=== PATIENT | male | born 1960 | race Caucasian/White ===

== ENCOUNTER 2020-04-09 08:49 | Emergency (ER) | payer MEDICAID, SELFPAY ==
[2020-04-09 09:04] VITALS: BP 158/92; PULSE 109; RESP 18; TEMP 37.2; O2SAT 96; BMI 19.8
--- NOTE | 2020-04-09 09:14 | ED.MALEGU ---
HPI - Male Genitourinary General Chief complaint: Urogenital-Male Stated complaint: uro genital complaint Time Seen by Provider: 04/09/20 09:06 History of Present Illness HPI Narrative: Patient complains of burning on urination for 3 days as well as rash under foreskin for several days which is itchy and kincaid, no fever no chills denies any discharge, patient is sexually active Related Data Previous Rx's Medication Instructions Recorded clotrimazole 1 appl TOPICAL BID 14 Days #30 g 04/09/20 doxycycline hyclate 100 mg PO BID 7 Days #14 cap 04/09/20 hydrocortisone 1 appl TOPICAL TID PRN #28.35 g 04/09/20 mupirocin 1 appl TOPICAL TID 7 Days #15 g 04/09/20 Allergies Allergy/AdvReac Type Severity Reaction Status Date / Time No Known Allergies Allergy Mild NONE Verified 04/09/20 09:07 Review of Systems Review of Systems: Positive for dysuria and genital rash Negatives are no fever no chills no dizziness no weakness no urinary frequency no back pain no abdominal pain no testicular swelling no nausea no vomiting [facility] Past Medical History [facility] Narrative: Denies any history of diabetes Source: nursing notes reviewed Medical History (Updated 04/09/20 @ 09:58 by LENORA Che) HIV (human immunodeficiency virus infection) Social History Social History Advance Directives: No Advance Directives Information Provided: Yes Physical Exam Vital Signs: Vital Signs: Last Vital Signs Temp 99.0 F 04/09/20 09:04 Pulse 109 H 04/09/20 09:04 Resp 18 04/09/20 09:04 BP 158/92 H 04/09/20 09:04 Pulse Ox 96 04/09/20 09:04 Body Mass Index 19.8 General appearance no distress, A&O x3, comfortable and cooperative Neck is supple and respiratory no acute distress abdomen is soft nontender genital exam tip of penis under foreskin is red with some whitish material, foreskin is easily retracted, there is no testicular swelling, there is no discharge Extremities for range of motion x4 neuro no focal deficit Course Course Course Narrative: Patient is treated for possible STD with Rocephin and doxycycline and for balanitis he will be treated with mupirocin clotrimazole and hydrocortisone cream and recommended to follow with urologist MDM - Male Genitourinary Lab Data Labs: Lab Results 04/09/20 04/09/20 Range/Units 09:17 09:17 Urine Color YELLOW Urine Appearance CLEAR Urine pH 6.0 (5.0-8.0) Ur Specific [place] 1.025 (1.005-1.025) Urine Protein NEG (NEG-TRACE) MG/DL Urine Glucose (UA) NEG (NEG) MG/DL Urine Ketones 5 (NEG) MG/DL Urine Blood TRACE (NEG) Urine Nitrite NEG (NEG) Ur Leukocyte Esterase NEG (NEG) Urine RBC 1-4 (0) /HPF Urine WBC 0 (0-4) /HPF Ur Squamous Epith Cells 1+ /LPF Urine Bacteria NONE /LPF Chlam trachomat DNA PCR Cancelled N.gonorrhoeae DNA (PCR) Cancelled Discharge Plan Discharge Clinical Impression: Dysuria, Balanitis Patient Disposition: Home, Self-Care Additional Instructions: Follow with primary doctor and urologist If this does not improve with treatment you may need a circumcision Return any time if worse Prescriptions: New doxycycline hyclate 100 mg capsule 100 mg PO BID 7 Days Qty: 14 RF: 0 mupirocin 2 % ointment 1 appl topical TID 7 Days Qty: 15 RF: 0 clotrimazole 1 % cream 1 appl topical BID 14 Days Qty: 30 RF: 0 hydrocortisone 1 % cream 1 appl topical TID PRN (Reason: rash) Qty: 28.35 RF: 0 Referrals: Gil Tipton MD [Physician] - 2 days (Balanitis) Interventions: ED Discharge Assessment Last Done: 04/09/20 10:09 Discharge Date/Time: 04/09/20 10:10
[2020-04-09] MEDS: cefTRIAXone sodium 500 MG, Lidocaine HCl 1 % MPF 1 ML IM (09:22)
[2020-04-09 09:32] LABS: Appearance Urine CLEAR; Color Urine YELLOW; Glucose Urine UA NEG (NEG); Leukocyte Esterase Urine NEG (NEG); Nitrite Urine NEG (NEG); Specific Gravity - Urine 1.025 (1.005-1.025); Urine Blood TRACE (NEG); Urine Ketones 5 MG/DL (NEG); Urine Protein NEG (NEG-TRACE)
[2020-04-09] MEDS: Fluconazole 150 MG TABLET PO (09:34)
[2020-04-09 09:37] LABS: Squamous Epithelial Cell Urine 1+ /LPF; WBC Urine 0 /HPF (0-4)
[2020-04-10 19:27] LABS: C. trachomatis RNA TMA NOT DETECTED (NOT DETECTED); N. gonorrhoeae RNA TMA NOT DETECTED (NOT DETECTED)
== END 2020-04-09 10:10 | disposition home or self-care (01) ==
PROVIDERS: Emergency Provider Emergency Medicine; PCP Internal Medicine
DX: R30.0 Dysuria (principal); N48.1 Balanitis; B20 Human immunodeficiency virus [HIV] disease
CPT/HCPCS: 36415; 81001; 87491; 87591; 96372; 99283; 99284; J0696

== ENCOUNTER 2020-06-04 10:14 | Outpatient (REF) | payer MEDICAID, SELFPAY | END 2020-06-04 10:15 | disposition home or self-care (01) | LOC: HO.LAB 10:14 | PROVIDERS: Visit Provider Internal Medicine | DX: Z20.822 Contact with and (suspected) exposure to COVID-19 (principal) | CPT/HCPCS: 36415; C9803; U0003; U0005 ==

== ENCOUNTER 2020-07-21 08:59 | Emergency (ER) | payer MEDICAID, SELFPAY ==
[2020-07-21 09:02] VITALS: BP 145/83; PULSE 91; RESP 16; TEMP 36.6; O2SAT 97; BMI 26.4
--- NOTE | 2020-07-21 09:14 | ED_ITS ---
HPI - Back Pain/Injury General Chief Complaint: Back Pain/Injury Stated Complaint: BACK PAIN Time Seen by Provider: 07/21/20 09:08 Source: patient Mode of arrival: ambulatory Limitations: no limitations History of Present Illness HPI Narrative: Patient is a 59-year-old male with past medical history of HIV who presents with low back pain x1 day. Patient states he lifted a washing machine in to his truck last night and woke up with pain in his right low back. Denies any loss of control of his bladder or bowels. States it is worse with movement. Did not try to take any medications to make it feel better or use any ice or heat. Related Data Previous Rx's Medication Instructions Recorded clotrimazole 1 appl TOPICAL BID 14 Days #30 g 04/09/20 doxycycline hyclate 100 mg PO BID 7 Days #14 cap 04/09/20 hydrocortisone 1 appl TOPICAL TID PRN #28.35 g 04/09/20 mupirocin 1 appl TOPICAL TID 7 Days #15 g 04/09/20 cyclobenzaprine 5 mg PO TID PRN #10 tab 07/21/20 cyclobenzaprine 5 mg PO TID PRN #10 tab 07/21/20 naproxen 500 mg PO BID PRN #14 tab 07/21/20 naproxen 500 mg PO BID PRN #15 tab 07/21/20 Allergies Allergy/AdvReac Type Severity Reaction Status Date / Time No Known Allergies Allergy Mild NONE Verified 04/09/20 09:07 Review of Systems Review of Systems: Yes all other systems are reviewed and are negative PMFSH Past Medical History Medical History HIV (human immunodeficiency virus infection) Social History Social History Advance Directives: Yes Advance Directives Information Provided: No Advance Directives on File: No Physical Exam Vital Signs: Vital Signs: Last Vital Signs Temp 97.8 F 07/21/20 09:02 Pulse 91 07/21/20 09:02 Resp 16 07/21/20 09:02 BP 145/83 H 07/21/20 09:02 Pulse Ox 97 07/21/20 09:02 Body Mass Index 26.4 Course Reevaluation(s) Reevaluation #1: Patient wanted prescriptions sent to [facility] on [address] in [place] so I recent the prescriptions to that location and called [facility] [place] in [place] and left a message to cancel the 2 prescriptions I sent over earlier. Discharge Plan Discharge Clinical Impression: Strain of lumbar region Qualifiers: Encounter type: initial encounter Qualified Code(s): S39.012A - Strain of muscle, fascia and tendon of lower back, initial encounter Patient Disposition: Home, Self-Care Instructions: Acute Low Back Pain (ED) Additional Instructions: If your back pain does not improve slowly over the next week or 2, please follow-up with your primary care doctor as you may need physical therapy. Please use ice on your low back as well. If you developed loss of control of your bladder or bowels, please return to the emergency department [facility] or call 911. Prescriptions: New naproxen 500 mg tablet 500 mg PO BID PRN (Reason: pain) Qty: 15 RF: 0 cyclobenzaprine 5 mg tablet 5 mg PO TID PRN (Reason: muscle spasm) Qty: 10 RF: 0 cyclobenzaprine 5 mg tablet 5 mg PO TID PRN (Reason: muscle spasm) Qty: 10 RF: 0 naproxen 500 mg tablet 500 mg PO BID PRN (Reason: pain) Qty: 14 RF: 0 No Action doxycycline hyclate 100 mg capsule 100 mg PO BID 7 Days Qty: 14 RF: 0 mupirocin 2 % ointment 1 appl topical TID 7 Days Qty: 15 RF: 0 clotrimazole 1 % cream 1 appl topical BID 14 Days Qty: 30 RF: 0 hydrocortisone 1 % cream 1 appl topical TID PRN (Reason: rash) Qty: 28.35 RF: 0 Interventions: ED Discharge Assessment Last Done: 07/21/20 09:23 Discharge Date/Time: 07/21/20 09:23
== END 2020-07-21 09:23 | disposition home or self-care (01) ==
PROVIDERS: Emergency Provider Emergency Medicine Emergency Medical Services; PCP Internal Medicine
DX: S39.012A Strain of muscle, fascia and tendon of lower back, initial encounter (principal); X50.0XXA Overexertion from strenuous movement or load, initial encounter; B20 Human immunodeficiency virus [HIV] disease; Y93.89 Activity, other specified; Y92.410 Unspecified street and highway as the place of occurrence of the external cause; Y99.9 Unspecified external cause status
CPT/HCPCS: 99283

== ENCOUNTER 2020-07-31 09:39 | Emergency (ER) | payer MEDICAID, SELFPAY ==
[2020-07-31 09:50] VITALS: BP 139/88; PULSE 75; RESP 17; TEMP 37; O2SAT 97
[2020-07-31 09:52] VITALS: BP 139/88; PULSE 83; RESP 17; TEMP 37; O2SAT 97; BMI 24.2
[2020-07-31 10:24] VITALS: BP 150/87; PULSE 74; RESP 16; O2SAT 96
[2020-07-31 10:29] LABS: MANUAL DIFF FLAG NO
[2020-07-31 10:35] LABS: Basophils Percent Auto 0.2 % (0-2); Eosinophils Absolute Auto 0.1 X10*3/uL (0.0-0.4); Eosinophils Percent Auto 1.5 % (0-4); Hematocrit 46.5 % (42-52); Hemoglobin 15.9 g/dl (14.0-18.0); Imm Gran Abs Auto 0.03 X10*3/uL (0.00-0.03); Imm Gran Pct Auto 0.3 % (0.0-0.4); Lymphocytes Absolute Auto 2.4 X10*3/uL (1.2-4.9); Lymphocytes Percent Auto 25.1 % (20-40); Mean Corpuscular HGB Conc 34.2 g/dl (31.0-36.0); Mean Corpuscular Hemoglobin 33.3 pg (27.0-33.0); Mean Corpuscular Volume 97.3 fL (80-98); Mean Platelet Volume 8.9 fL (9.4-12.4); Monocytes Absolute Auto 0.7 X10*3/uL (0.1-1.2); Monocytes Percent Auto 7.3 % (2-11); Neutrophils Absolute Auto 6.2 X10*3/uL (2.0-8.3); Neutrophils Percent Auto 65.6 % (45-73); Platelet Count 282 X10*3/uL (160-400); Red Blood Count 4.78 X10*6/uL (4.60-5.80); Red Cell Distribution Width 13.3 % (11.0-16.0); White Blood Count 9.4 X10*3/uL (4.8-10.8)
[2020-07-31 10:47] LABS: COVID-19 Test Negative (Negative)
[2020-07-31 10:48] LABS: Glucose Urine UA NEG (NEG); Leukocyte Esterase Urine NEG (NEG); Nitrite Urine NEG (NEG); PH 6.5 (5.0-8.0); Urine Blood TRACE (NEG); Urine Ketones NEG (NEG); Urine Protein NEG (NEG-TRACE)
[2020-07-31 10:50] LABS: Appearance Urine CLEAR; Color Urine YELLOW
[2020-07-31 11:00] LABS: Alanine Aminotransferase 15 U/L (0-40); Albumin Level 4.2 g/dL (3.5-5.0); Alkaline Phosphatase 82 U/L (39-117); Anion Gap 12 (12-20); Aspartate Amino Transferase 17 U/L (5-37); Bilirubin Direct 0.3 mg/dL (0.0-0.5); Bilirubin Total 0.8 mg/dL (0.0-1.0); Blood Urea Nitrogen 22 mg/dL (9-16); Calcium 9.5 mg/dL (8.4-10.2); Carbon Dioxide 27 mmol/L (22-29); Chloride 103 mmol/L (96-108); Creatinine Clr Calc Pharmacy 75.5; Estimated Glomerular Filt Rate > 60; Glucose Random 106 mg/dL (60-115); Potassium 4.7 mmol/L (3.3-5.1); Sodium 137 mmol/L (135-145); Total Protein 7.3 g/dL (6.5-8.0)
[2020-07-31 11:08] LABS: Squamous Epithelial Cell Urine TRACE /LPF; WBC Urine 0 /HPF (0-4)
[2020-07-31 11:33] VITALS: BP 175/94; PULSE 73; RESP 17; TEMP 36.8; O2SAT 99
--- NOTE | 2020-07-31 12:03 | ED.GENADULT ---
HPI - General Adult General Chief complaint: General Medical Stated complaint: loss of appetite Time Seen by Provider: 07/31/20 10:03 Source: patient Mode of arrival: ambulatory Limitations: no limitations History of Present Illness HPI narrative: Patient comes emergency room complaining of mild generalized weakness and loss of appetite for 3-4 days. Patient denies any other symptoms, no pain. Patient states he has not been sick lately. Related Data Previous Rx's Medication Instructions Recorded clotrimazole 1 appl TOPICAL BID 14 Days #30 g 04/09/20 doxycycline hyclate 100 mg PO BID 7 Days #14 cap 04/09/20 hydrocortisone 1 appl TOPICAL TID PRN #28.35 g 04/09/20 mupirocin 1 appl TOPICAL TID 7 Days #15 g 04/09/20 cyclobenzaprine 5 mg PO TID PRN #10 tab 07/21/20 cyclobenzaprine 5 mg PO TID PRN #10 tab 07/21/20 naproxen 500 mg PO BID PRN #14 tab 07/21/20 naproxen 500 mg PO BID PRN #15 tab 07/21/20 thiamine HCl (vitamin B1) 250 mg PO DAILY #14 tab 07/31/20 Allergies Allergy/AdvReac Type Severity Reaction Status Date / Time No Known Allergies Allergy Mild NONE Verified 04/09/20 09:07 Review of Systems Review of Systems: Constitutional : No Weight loss, No Fever, No Chills, No Night Sweats, No Fatigue, No Malaise, loss of appetite ENT/Mouth : No Hearing loss, No Ear Pain, No Nasal Congestion, No Sinus Pain, No Hoarseness, No sore throat, No Rhinorrhea, No Swallowing Difficulty Eyes: No Eye Pain, No Swelling, No Redness, No Foreign Body, No Discharge, No Vision Changes Cardiovascular : No Chest Pain, No SOB, No Dyspnea on Exertion, No Orthopnea, No Edema, No Palpitations Respiratory : No Cough, No Sputum, No Wheezing, No Smoke Exposure, No Dyspnea Gastrointestinal : No Nausea, No Vomiting, No Diarrhea, No Constipation, No abdominal Pain, No Hematochezia, No Melena Genitourinary : no irregular bleeding, No Dysuria, No Urinary Frequency, No Hematuria, No Urinary Incontinence, No Urgency, No Flank Pain, No Urinary Flow Changes, No Hesitancy Musculoskeletal : No joint pain, No Myalgias, No Joint Swelling Skin : No Skin Lesions, No rash Neuro : No Weakness, No Numbness, No Paresthesias, No Loss of Consciousness, No Dizziness, No Headache Psych : No Anxiety/Panic, No Depression, No SI/HI/AH/VH, No Social Issues, Heme/Lymph: No Bruising, No Bleeding,No Lymphadenopathy Endocrine : No Polyuria, No Polydipsia, No Temperature Intolerance PMF Past Medical History Medical History HIV (human immunodeficiency virus infection) Social History Social History Alcohol intake: current Alcohol intake frequency: 0-2 drinks per day Smoking Status: Current every day smoker Use of substances other than those prescribed or required for medical reasons: No Advance Directives: No Advance Directives Information Provided: No Physical Exam Vital Signs: Vital Signs: Last Vital Signs Temp 98.2 F 07/31/20 11:33 Pulse 73 07/31/20 11:33 Resp 17 07/31/20 11:33 BP 175/94 H 07/31/20 11:33 Pulse Ox 99 07/31/20 11:33 Body Mass Index 24.2 Appearance: Alert. Oriented X3. No acute distress. Eyes: Pupils equal, round and reactive to light. ENT: Pharynx normal. Neck: Normal inspection. Neck supple. No lymph nodes noted. No crepitus CVS: Normal heart rate and rhythm. Pulses normal. Normal S1 and S2 Respiratory: No respiratory distress. Breath sounds normal. No Wheezing. No rales Abdomen: Soft and nontender. No rigidity. No distention. good BS x4 Skin: Skin warm and dry. Normal skin color. Normal skin turgor. Extremities: No lower extremity edema. No lower extremity edema. No Lacerations. No Rash Neuro: Oriented X 3. No motor deficit. No sensory deficit. Moving all extermities. No slurred speech. Course Course Course Narrative: Patient is known to be HIV positive, states that as far as he knows, his viral count was undetectable as of 2019. Patient denies any pulmonary symptoms. Patient denies night sweats. However, patient states that he stop drinking alcohol yesterday. At this time, patient does not have any signs of symptoms of alcohol withdrawal. Patient requesting by means to be sent to his pharmacy. Medical Decision Making Lab Data Result diagrams: 07/31/20 10:21 07/31/20 10:21 Labs: Lab Results 07/31/20 07/31/20 07/31/20 Range/Units 10:16 10:21 10:21 WBC 9.4 (4.8-10.8) X10*3/uL RBC 4.78 (4.60-5.80) X10*6/uL Hgb 15.9 (14.0-18.0) g/dl Hct 46.5 (42-52) % MCV 97.3 (80-98) fL MCH 33.3 H (27.0-33.0) pg MCHC 34.2 (31.0-36.0) g/dl RDW 13.3 (11.0-16.0) % Plt Count 282 (160-400) X10*3/uL MPV 8.9 L (9.4-12.4) fL Immature Gran % (Auto) 0.3 (0.0-0.4) % Neut % (Auto) 65.6 (45-73) % Lymph % (Auto) 25.1 (20-40) % [place] % (Auto) 7.3 (2-11) % Eos % (Auto) 1.5 (0-4) % Baso % (Auto) 0.2 (0-2) % Lymph # (Auto) 2.4 (1.2-4.9) X10*3/uL [place] # (Auto) 0.7 (0.1-1.2) X10*3/uL Eos # (Auto) 0.1 (0.0-0.4) X10*3/uL Baso # (Auto) 0.0 (0.0-0.2) X10*3/uL Abs Immat Gran (auto) 0.03 (0.00-0.03) X10*3/uL Absolute Neuts (auto) 6.2 (2.0-8.3) X10*3/uL Absolute Nucleated RBC 0.000 (0.0-0.012) X10*3/uL Nucleated RBC % (auto) 0.0 (0.0-0.2) /100WBC Sodium 137 (135-145) mmol/L Potassium 4.7 (3.3-5.1) mmol/L Chloride 103 (96-108) mmol/L Carbon Dioxide 27 (22-29) mmol/L Anion Gap 12 (12-20) BUN 22 H (9-16) mg/dL Creatinine 1.16 (0.5-1.4) mg/dL Estim Creat Clear Calc 75.5 Estimated GFR > 60 Random Glucose 106 (60-115) mg/dL Calcium 9.5 (8.4-10.2) mg/dL Total Bilirubin 0.8 (0.0-1.0) mg/dL Direct Bilirubin 0.3 (0.0-0.5) mg/dL AST 17 (5-37) U/L ALT 15 (0-40) U/L Alkaline Phosphatase 82 (39-117) U/L Total Protein 7.3 (6.5-8.0) g/dL Albumin 4.2 (3.5-5.0) g/dL Urine Color Urine Appearance Urine pH (5.0-8.0) Ur Specific [place] (1.005-1.025) Urine Protein (NEG-TRACE) MG/DL Urine Glucose (UA) (NEG) MG/DL Urine Ketones (NEG) MG/DL Urine Blood (NEG) Urine Nitrite (NEG) Ur Leukocyte Esterase (NEG) Urine RBC (0) /HPF Urine WBC (0-4) /HPF Ur Squamous Epith Cells /LPF Urine Bacteria /LPF COVID-19 ([facility]O) Negative (Negative) COVID-19 Clin Com See Note 07/31/20 Range/Units 10:31 WBC (4.8-10.8) X10*3/uL RBC (4.60-5.80) X10*6/uL Hgb (14.0-18.0) g/dl Hct (42-52) % MCV (80-98) fL MCH (27.0-33.0) pg MCHC (31.0-36.0) g/dl RDW (11.0-16.0) % Plt Count (160-400) X10*3/uL MPV (9.4-12.4) fL Immature Gran % (Auto) (0.0-0.4) % Neut % (Auto) (45-73) % Lymph % (Auto) (20-40) % [place] % (Auto) (2-11) % Eos % (Auto) (0-4) % Baso % (Auto) (0-2) % Lymph # (Auto) (1.2-4.9) X10*3/uL [place] # (Auto) (0.1-1.2) X10*3/uL Eos # (Auto) (0.0-0.4) X10*3/uL Baso # (Auto) (0.0-0.2) X10*3/uL Abs Immat Gran (auto) (0.00-0.03) X10*3/uL Absolute Neuts (auto) (2.0-8.3) X10*3/uL Absolute Nucleated RBC (0.0-0.012) X10*3/uL Nucleated RBC % (auto) (0.0-0.2) /100WBC Sodium (135-145) mmol/L Potassium (3.3-5.1) mmol/L Chloride (96-108) mmol/L Carbon Dioxide (22-29) mmol/L Anion Gap (12-20) BUN (9-16) mg/dL Creatinine (0.5-1.4) mg/dL Estim Creat Clear Calc Estimated GFR Random Glucose (60-115) mg/dL Calcium (8.4-10.2) mg/dL Total Bilirubin (0.0-1.0) mg/dL Direct Bilirubin (0.0-0.5) mg/dL AST (5-37) U/L ALT (0-40) U/L Alkaline Phosphatase (39-117) U/L Total Protein (6.5-8.0) g/dL Albumin (3.5-5.0) g/dL Urine Color YELLOW Urine Appearance CLEAR Urine pH 6.5 (5.0-8.0) Ur Specific [place] 1.020 (1.005-1.025) Urine Protein NEG (NEG-TRACE) MG/DL Urine Glucose (UA) NEG (NEG) MG/DL Urine Ketones NEG (NEG) MG/DL Urine Blood TRACE (NEG) Urine Nitrite NEG (NEG) Ur Leukocyte Esterase NEG (NEG) Urine RBC 1-4 (0) /HPF Urine WBC 0 (0-4) /HPF Ur Squamous Epith Cells TRACE /LPF Urine Bacteria NONE /LPF COVID-19 ([facility]) (Negative) COVID-19 Clin Com Discharge Plan Discharge Clinical Impression: Loss of appetite Patient Disposition: Home, Self-Care Instructions: Weakness (ED) Additional Instructions: Please follow-up with your primary care physician tomorrow. If you have any worsening or new symptoms, please return to the emergency room or call 911 Prescriptions: New thiamine HCl (vitamin B1) 250 mg tablet 250 mg PO DAILY Qty: 14 RF: 0 No Action doxycycline hyclate 100 mg capsule 100 mg PO BID 7 Days Qty: 14 RF: 0 mupirocin 2 % ointment 1 appl topical TID 7 Days Qty: 15 RF: 0 clotrimazole 1 % cream 1 appl topical BID 14 Days Qty: 30 RF: 0 hydrocortisone 1 % cream 1 appl topical TID PRN (Reason: rash) Qty: 28.35 RF: 0 naproxen 500 mg tablet 500 mg PO BID PRN (Reason: pain) Qty: 15 RF: 0 cyclobenzaprine 5 mg tablet 5 mg PO TID PRN (Reason: muscle spasm) Qty: 10 RF: 0 cyclobenzaprine 5 mg tablet 5 mg PO TID PRN (Reason: muscle spasm) Qty: 10 RF: 0 naproxen 500 mg tablet 500 mg PO BID PRN (Reason: pain) Qty: 14 RF: 0
[2020-07-31 12:06] VITALS: BP 171/93; PULSE 71; RESP 18; O2SAT 100
== END 2020-07-31 12:46 | disposition home or self-care (01) ==
PROVIDERS: Emergency Provider Emergency Medicine
DX: R63.0 Anorexia (principal); R53.1 Weakness; Z20.822 Contact with and (suspected) exposure to COVID-19; B20 Human immunodeficiency virus [HIV] disease
CPT/HCPCS: 36415; 80048; 80076; 81001; 85025; 87635; 99283; 99284

== ENCOUNTER 2020-11-06 14:42 | Emergency (ER) | payer MEDICAID, SELFPAY ==
[2020-11-06 14:45] VITALS: BP 185/99; PULSE 110; RESP 16; TEMP 36.5; O2SAT 98; BMI 29.1
--- NOTE | 2020-11-06 15:56 | ED.ALCOHOL ---
HPI - Alcohol General Chief Complaint: ETOH/Substance Use Stated Complaint: alcohol withdrawal seeking detox Time Seen by Provider: 11/06/20 15:25 Source: patient Mode of arrival: ambulatory History of Present Illness HPI narrative: 60-year-old male with past medical history of HIV, ETOH abuse, presenting to the ED seeking EtOH detox. Admits to drinking 1/2 pt of hard liquor and three 6 packs of beer daily, last drink at 4:00 a.m. Reports decreased p.o. intake/FTT, feeling tremulous, and needing help . Denies illicit drug use, SI/HI, CP/SOB, abdominal pain, nausea/vomiting, fever/chills Related Data Previous Rx's Medication Instructions Recorded clotrimazole 1 % topical cream 1 appl TOPICAL BID 14 Days #30 g 04/09/20 doxycycline hyclate 100 mg capsule 100 mg PO BID 7 Days #14 cap 04/09/20 hydrocortisone 1 % topical cream 1 appl TOPICAL TID PRN #28.35 g 04/09/20 mupirocin 2 % topical ointment 1 appl TOPICAL TID 7 Days #15 g 04/09/20 cyclobenzaprine 5 mg tablet 5 mg PO TID PRN #10 tab 07/21/20 cyclobenzaprine 5 mg tablet 5 mg PO TID PRN #10 tab 07/21/20 naproxen 500 mg tablet 500 mg PO BID PRN #14 tab 07/21/20 naproxen 500 mg tablet 500 mg PO BID PRN #15 tab 07/21/20 thiamine HCl (vitamin B1) 250 mg 250 mg PO DAILY #14 tab 07/31/20 tablet Allergies Allergy/AdvReac Type Severity Reaction Status Date / Time No Known Allergies Allergy Mild NONE Verified 04/09/20 09:07 [facility] Past Medical History Medical History HIV (human immunodeficiency virus infection) Social History Social History Alcohol intake: current Alcohol intake frequency: 3 or more drinks per day Alcohol type: beer and hard liquor Patient Tobacco Use Status: Never used Tobacco Use of substances other than those prescribed or required for medical reasons: No Advance Directives: No Advance Directives Information Provided: No Physical Exam Vital Signs: Vital Signs: Last Vital Signs Temp 97.9 F 11/06/20 18:46 Pulse 95 11/06/20 18:46 Resp 16 11/06/20 18:46 BP 149/89 H 11/06/20 18:46 Pulse Ox 96 11/06/20 18:46 Body Mass Index 29.1 Course Course Course Narrative: -1916--mild leukocytosis of 12.7. H&H is stable. Labs otherwise unremarkable -UA with RBC/not infected. Ethanol negative. -1852--tox screen positive for THC -Had refinery operator vapor recovery unit speak with patient, patient is not interested in detox, is interested in having a household appliance installer/person to help him around the house/balance staff inspector. Patient reports to me that he can stop drinking on his own with help from God. States he seek help today and can be discharged now. Discussed with patient he is welcome to return if he changes his mind/would like to go to detox MDM - Alcohol Lab Data Result diagrams: 11/06/20 16:08 11/06/20 16:08 Labs: Lab Results 11/06/20 11/06/20 11/06/20 Range/Units 16:08 16:08 16:08 WBC 12.7 H (4.8-10.8) X10*3/uL RBC 4.52 L (4.60-5.80) X10*6/uL Hgb 15.8 (14.0-18.0) g/dl Hct 44.9 (42-52) % MCV 99.3 H (80-98) fL MCH 35.0 H (27.0-33.0) pg MCHC 35.2 (31.0-36.0) g/dl RDW 13.2 (11.0-16.0) % Plt Count 246 (160-400) X10*3/uL MPV 9.3 L (9.4-12.4) fL Immature Gran % (Auto) 0.6 H (0.0-0.4) % Neut % (Auto) 78.5 H (45-73) % Lymph % (Auto) 13.4 L (20-40) % Pacific % (Auto) 7.0 (2-11) % Eos % (Auto) 0.3 (0-4) % Baso % (Auto) 0.2 (0-2) % Lymph # (Auto) 1.7 (1.2-4.9) X10*3/uL [place] # (Auto) 0.9 (0.1-1.2) X10*3/uL Eos # (Auto) 0.0 (0.0-0.4) X10*3/uL Baso # (Auto) 0.0 (0.0-0.2) X10*3/uL Abs Immat Gran (auto) 0.08 H (0.00-0.03) X10*3/uL Absolute Neuts (auto) 10.0 H (2.0-8.3) X10*3/uL Absolute Nucleated RBC 0.000 (0.0-0.012) X10*3/uL Nucleated RBC % (auto) 0.0 (0.0-0.2) /100WBC Smear Tech's Comments VERIFIED Sodium 139 (135-145) mmol/L Potassium 5.1 (3.3-5.1) mmol/L Chloride 104 (96-108) mmol/L Carbon Dioxide 24 (22-29) mmol/L Anion Gap 16 (12-20) BUN 17 H (9-16) mg/dL Creatinine 0.87 (0.5-1.4) mg/dL Estim Creat Clear Calc 106.5 Estimated GFR > 60 Random Glucose 91 (60-115) mg/dL Calcium 9.9 (8.4-10.2) mg/dL Magnesium 1.9 (1.6-2.6) mg/dL Total Bilirubin 0.7 (0.0-1.0) mg/dL Direct Bilirubin 0.2 (0.0-0.5) mg/dL AST 23 (5-37) U/L ALT 19 (0-40) U/L Alkaline Phosphatase 86 (39-117) U/L Total Protein 8.0 (6.5-8.0) g/dL Albumin 4.5 (3.5-5.0) g/dL Lipase 33 (8-78) U/L Urine Color Urine Appearance Urine pH (5.0-8.0) Ur Specific [place] (1.005-1.025) Urine Protein (NEG-TRACE) MG/DL Urine Glucose (UA) (NEG) MG/DL Urine Ketones (NEG) MG/DL Urine Blood (NEG) Urine Nitrite (NEG) Ur Leukocyte Esterase (NEG) Urine RBC (0) /HPF Urine WBC (0-4) /HPF Ur Squamous Epith Cells /LPF Urine Bacteria /LPF Urine Opiates Screen (Not Detect) Urine Fentanyl Screen (Not Detect) Ur Barbiturates Screen (Not Detect) Ur Phencyclidine Scrn (Not Detect) Ur Amphetamines Screen (Not Detect) U Benzodiazepines Scrn (Not Detect) Urine Cocaine Screen (Not Detect) U Marijuana (THC) Screen (Not Detect) Ethyl Alcohol < 10 mg/dL 11/06/20 11/06/20 Range/Units 16:37 16:37 WBC (4.8-10.8) X10*3/uL RBC (4.60-5.80) X10*6/uL Hgb (14.0-18.0) g/dl Hct (42-52) % MCV (80-98) fL MCH (27.0-33.0) pg MCHC (31.0-36.0) g/dl RDW (11.0-16.0) % Plt Count (160-400) X10*3/uL MPV (9.4-12.4) fL Immature Gran % (Auto) (0.0-0.4) % Neut % (Auto) (45-73) % Lymph % (Auto) (20-40) % Pacific % (Auto) (2-11) % Eos % (Auto) (0-4) % Baso % (Auto) (0-2) % Lymph # (Auto) (1.2-4.9) X10*3/uL Pacific # (Auto) (0.1-1.2) X10*3/uL Eos # (Auto) (0.0-0.4) X10*3/uL Baso # (Auto) (0.0-0.2) X10*3/uL Abs Immat Gran (auto) (0.00-0.03) X10*3/uL Absolute Neuts (auto) (2.0-8.3) X10*3/uL Absolute Nucleated RBC (0.0-0.012) X10*3/uL Nucleated RBC % (auto) (0.0-0.2) /100WBC Smear Tech's Comments Sodium (135-145) mmol/L Potassium (3.3-5.1) mmol/L Chloride (96-108) mmol/L Carbon Dioxide (22-29) mmol/L Anion Gap (12-20) BUN (9-16) mg/dL Creatinine (0.5-1.4) mg/dL Estim Creat Clear Calc Estimated GFR Random Glucose (60-115) mg/dL Calcium (8.4-10.2) mg/dL Magnesium (1.6-2.6) mg/dL Total Bilirubin (0.0-1.0) mg/dL Direct Bilirubin (0.0-0.5) mg/dL AST (5-37) U/L ALT (0-40) U/L Alkaline Phosphatase (39-117) U/L Total Protein (6.5-8.0) g/dL Albumin (3.5-5.0) g/dL Lipase (8-78) U/L Urine Color YELLOW Urine Appearance CLEAR Urine pH 6.0 (5.0-8.0) Ur Specific [place] 1.020 (1.005-1.025) Urine Protein NEG (NEG-TRACE) MG/DL Urine Glucose (UA) NEG (NEG) MG/DL Urine Ketones NEG (NEG) MG/DL Urine Blood TRACE (NEG) Urine Nitrite NEG (NEG) Ur Leukocyte Esterase NEG (NEG) Urine RBC 5-9 H (0) /HPF Urine WBC 0-2 (0-4) /HPF Ur Squamous Epith Cells TRACE /LPF Urine Bacteria NONE /LPF Urine Opiates Screen Not Detected (Not Detect) Urine Fentanyl Screen Not Detected (Not Detect) Ur Barbiturates Screen Not Detected (Not Detect) Ur Phencyclidine Scrn Not Detected (Not Detect) Ur Amphetamines Screen Not Detected (Not Detect) U Benzodiazepines Scrn Not Detected (Not Detect) Urine Cocaine Screen Not Detected (Not Detect) U Marijuana (THC) Screen POSITIVE H (Not Detect) Ethyl Alcohol mg/dL Discharge Plan Discharge Clinical Impression: Alcohol dependence Qualifiers: Complication of substance-induced condition: uncomplicated Patient Disposition: Home, Self-Care Instructions: Abuse of Alcohol (ED), Alcohol Dependence (ED) Additional Instructions: Your blood work is reassuring It is important for you to follow-up with your primary care doctor Stop drinking alcohol as it can kill you If you are interested in detox please return to the ED You can [facility] with [facility] Continue taking home% medication Make sure staying hydrated at home Tu an?lisis de luis es reconfortante Es importante que realice un seguimiento con smith m?dico de atenci?n primaria. Jackie de beber alcohol, ya que puede matarte. Si est? interesado en la desintoxicaci?n, vuelva al servicio de urgencias. Puede hacer un seguimiento con el [facility]ile [facility] Continuar tomando el% de medicaci?n en casa Aseg?rate de mantenerte hidratado en casa Prescriptions: No Action doxycycline hyclate 100 mg capsule 100 mg PO BID 7 Days Qty: 14 RF: 0 mupirocin 2 % ointment 1 appl topical TID 7 Days Qty: 15 RF: 0 clotrimazole 1 % cream 1 appl topical BID 14 Days Qty: 30 RF: 0 hydrocortisone 1 % cream 1 appl topical TID PRN (Reason: rash) Qty: 28.35 RF: 0 naproxen 500 mg tablet 500 mg PO BID PRN (Reason: pain) Qty: 15 RF: 0 cyclobenzaprine 5 mg tablet 5 mg PO TID PRN (Reason: muscle spasm) Qty: 10 RF: 0 cyclobenzaprine 5 mg tablet 5 mg PO TID PRN (Reason: muscle spasm) Qty: 10 RF: 0 naproxen 500 mg tablet 500 mg PO BID PRN (Reason: pain) Qty: 14 RF: 0 thiamine HCl (vitamin B1) 250 mg tablet 250 mg PO DAILY Qty: 14 RF: 0 Referrals: [facility] [Primary Care Provider] - 2 days Print Language: Paraguayan
[2020-11-06 16:16] LABS: Basophils Percent Auto 0.2 % (0-2); MANUAL DIFF FLAG SCAN; PLT CLUMP 1; Red Cell Distribution Width 13.2 % (11.0-16.0); SCAN SMEAR FLAG 1
[2020-11-06 16:18] LABS: Eosinophils Percent Auto 0.3 % (0-4); Hematocrit 44.9 % (42-52); Hemoglobin 15.8 g/dl (14.0-18.0); Imm Gran Abs Auto 0.08 X10*3/uL (0.00-0.03); Imm Gran Pct Auto 0.6 % (0.0-0.4); Lymphocytes Absolute Auto 1.7 X10*3/uL (1.2-4.9); Lymphocytes Percent Auto 13.4 % (20-40); Mean Corpuscular HGB Conc 35.2 g/dl (31.0-36.0); Mean Corpuscular Volume 99.3 fL (80-98); Mean Platelet Volume 9.3 fL (9.4-12.4); Monocytes Absolute Auto 0.9 X10*3/uL (0.1-1.2); Neutrophils Percent Auto 78.5 % (45-73); Platelet Count 246 X10*3/uL (160-400); Red Blood Count 4.52 X10*6/uL (4.60-5.80); White Blood Count 12.7 X10*3/uL (4.8-10.8)
[2020-11-06] MEDS: chlordiazePOXIDE HCl 25 MG CAPSULE 50 MG PO (16:33)
[2020-11-06] MEDS: 0.9 % Sodium Chloride 1,000 ML 999 ML IVCONT ×2 (16:33→18:08)
[2020-11-06 16:34] LABS: Ethanol < 10 mg/dL
[2020-11-06 16:42] LABS: SLIDE REVIEW VERIFIED
[2020-11-06 16:44] LABS: Alanine Aminotransferase 19 U/L (0-40); Albumin Level 4.5 g/dL (3.5-5.0); Alkaline Phosphatase 86 U/L (39-117); Anion Gap 16 (12-20); Aspartate Amino Transferase 23 U/L (5-37); Bilirubin Direct 0.2 mg/dL (0.0-0.5); Bilirubin Total 0.7 mg/dL (0.0-1.0); Blood Urea Nitrogen 17 mg/dL (9-16); Calcium 9.9 mg/dL (8.4-10.2); Carbon Dioxide 24 mmol/L (22-29); Chloride 104 mmol/L (96-108); Creatinine Clr Calc Pharmacy 106.5; Estimated Glomerular Filt Rate > 60; Glucose Random 91 mg/dL (60-115); Lipase 33 U/L (8-78); Magnesium 1.9 mg/dL (1.6-2.6); Potassium 5.1 mmol/L (3.3-5.1); Sodium 139 mmol/L (135-145)
[2020-11-06 16:46] LABS: Glucose Urine UA NEG (NEG); Leukocyte Esterase Urine NEG (NEG); Nitrite Urine NEG (NEG); UACC Culture Trigger NO; Urine Blood TRACE (NEG); Urine Ketones NEG (NEG); Urine Protein NEG (NEG-TRACE)
[2020-11-06 16:48] LABS: Appearance Urine CLEAR; Color Urine YELLOW
[2020-11-06 16:56] LABS: Squamous Epithelial Cell Urine TRACE /LPF; WBC Urine 0-2 /HPF (0-4)
[2020-11-06 17:12] LABS: Amphetamine Screen Urine Not Detected (Not Detect); Barbiturates, Urine Not Detected (Not Detect); Benzodiazepines Screen Urine Not Detected (Not Detect); Cocaine Screen Urine Not Detected (Not Detect); Fentanyl, urine Not Detected (Not Detect); Opiate Screen Urine Not Detected (Not Detect); Phencyclidine Screen Urine Not Detected (Not Detect)
[2020-11-06 17:19] LABS: Cannabinoid Screen Urine POSITIVE (Not Detect)
--- NOTE | 2020-11-06 18:23 | MHC.RECOVSUP ---
? Reason for consult Recovery Support o Current location: ed6 o Identified substance use concern: Alcohol - Support ? Intervention: o <del>[facility]</del> <del>bed</del> <del>search</del> <del>started/completed/in</del> <del>process</del> <del>o</del> <del>MAT</del> <del>started</del> <del>or</del> <del>to</del> <del>be</del> <del>started</del> <del>o</del> <del>[facility]</del> <del>resources</del> <del>provided</del> <del>o</del> <del>Harm</del> <del>reduction</del> <del>discussion</del> ? Plan: <del>o</del> <del>Referral</del> <del>to</del> <del>[facility]</del> <del>o</del> <del>Bed</del> <del>search</del> <del>in</del> <del>progress</del> <del>to</del> <del>o</del> <del>Follow</del> <del>up</del> <del>tomorrow</del> <del>o</del> <del>Patient</del> <del>awaiting</del> <del>crisis</del> <del>evaluation</del> <del>o</del> <del>Patient</del> <del>to</del> <del>follow</del> <del>up</del> <del>with</del> <del>[facility]</del> <del>after</del> <del>discharge</del> ? Additional information:Patient refuse any services.. Stated that he done it before(recovery)and he can do it again.. That he has the will power to do it...
[2020-11-06 18:46] VITALS: BP 149/89; PULSE 95; RESP 16; TEMP 36.6; O2SAT 96
== END 2020-11-06 19:05 | disposition home or self-care (01) ==
PROVIDERS: Physician Assistant; Emergency Provider Internal Medicine
DX: F10.20 Alcohol dependence, uncomplicated (principal); Y90.0 Blood alcohol level of less than 20 mg/100 ml; B20 Human immunodeficiency virus [HIV] disease
CPT/HCPCS: 36415; 80048; 80076; 80307; 81001; 82077; 83690; 83735; 85025; 96360; 96361; 99284; 99285

== ENCOUNTER 2020-12-07 16:03 | Emergency (ER) | payer MEDICAID, SELFPAY ==
--- NOTE | ~2020-12-07 | XR_ITS ---
EXAMINATION: XR HAND, RIGHT CLINICAL INFORMATION: Injury, pain. COMPARISON: Radiograph of the right hand dated from 01/13/2011. TECHNIQUE: PA, lateral, and oblique views of the right hand. FINDINGS: No evidence of acute fractures or malalignment. Joint spaces are maintained. Punctate foreign bodies in the dorsal surface of the distal interphalangeal joint of the thumb are unchanged since 2010. A tiny avulsion fragment off the medial surface of the third metacarpophalangeal joint is also unchanged since 2011. Carpal rows are maintained. The scapholunate interval is within normal limits. XR/XR hand RT min 3V IMPRESSION: No acute fractures or malalignment.
[2020-12-07 16:20] VITALS: BP 124/80; PULSE 86; RESP 16; TEMP 36.4; O2SAT 96; BMI 29.0
--- NOTE | 2020-12-07 16:53 | ED_ITS ---
HPI - Extremity Problem General Chief complaint: Extremity Injury, Upper Stated complaint: Finger pain Time Seen by Provider: 12/07/20 16:53 Source: patient Mode of arrival: ambulatory Limitations: no limitations History of Present Illness HPI Narrative: 60-year-old male is here today for complaining of right hand pain. Patient reports that he injured his right hand 3 months ago. He was moving a refrigerator on to a truck and the refrigerator fell on top of his hand. Patient never went for any x-ray, he thought that the pain will go away. Now he reports that the pain is getting worse. He reports that the pain radiates to his elbow all the way to his shoulder. Patient denies any other injury. Denies any paresthesias. He is able to move all the fingers as well as his wrist and elbow MD Complaint: extremity pain Onset (ago): month(s) Pain Consistency: intermittent Location: right, upper extremity and other (Hand) Severity scale (1-10): 6 Quality: aching Related Data Previous Rx's Medication Instructions Recorded clotrimazole 1 % topical cream 1 appl TOPICAL BID 14 Days #30 g 04/09/20 doxycycline hyclate 100 mg capsule 100 mg PO BID 7 Days #14 cap 04/09/20 hydrocortisone 1 % topical cream 1 appl TOPICAL TID PRN #28.35 g 04/09/20 mupirocin 2 % topical ointment 1 appl TOPICAL TID 7 Days #15 g 04/09/20 cyclobenzaprine 5 mg tablet 5 mg PO TID PRN #10 tab 07/21/20 cyclobenzaprine 5 mg tablet 5 mg PO TID PRN #10 tab 07/21/20 naproxen 500 mg tablet 500 mg PO BID PRN #14 tab 07/21/20 naproxen 500 mg tablet 500 mg PO BID PRN #15 tab 07/21/20 thiamine HCl (vitamin B1) 250 mg 250 mg PO DAILY #14 tab 07/31/20 tablet ibuprofen 600 mg tablet 600 mg PO Q8H PRN #20 tab 12/07/20 Allergies Allergy/AdvReac Type Severity Reaction Status Date / Time No Known Allergies Allergy Mild NONE Verified 12/07/20 16:23 Review of Systems Review of Systems: Constitutional : No Weight loss, No Fever, No Chills, No Night Sweats, No Fatigue, No Malaise ENT/Mouth : No Hearing loss, No Ear Pain, No Nasal Congestion, No Sinus Pain, No Hoarseness, No sore throat, No Rhinorrhea, No Swallowing Difficulty Eyes: No Eye Pain, No Swelling, No Redness, No Foreign Body, No Discharge, No Vision Changes Cardiovascular : No Chest Pain, No SOB, No Dyspnea on Exertion, No Orthopnea, No Edema, No Palpitations Respiratory : No Cough, No Sputum, No Wheezing, No Smoke Exposure, No Dyspnea Gastrointestinal : No Nausea, No Vomiting, No Diarrhea, No Constipation, No abdominal Pain, No Hematochezia, No Melena Genitourinary : no irregular bleeding, No Dysuria, No Urinary Frequency, No Hematuria, No Urinary Incontinence, No Urgency, No Flank Pain, No Urinary Flow Changes, No Hesitancy Musculoskeletal : No joint pain, No Myalgias, No Joint Swelling. Right hand pain Skin : No Skin Lesions, No rash Neuro : No Weakness, No Numbness, No Paresthesias, No Loss of Consciousness, No Dizziness, No Headache Yes all other systems are reviewed and are negative PMFSH Past Medical History Medical History HIV (human immunodeficiency virus infection) Social History Social History Alcohol intake: current Alcohol intake frequency: 3 or more drinks per day Alcohol type: beer and hard liquor Patient Tobacco Use Status: Never used Tobacco Advance Directives: No Advance Directives Information Provided: Yes Physical Exam Vital Signs: Vital Signs: Last Vital Signs Temp 97.5 F 12/07/20 16:20 Pulse 86 12/07/20 16:20 Resp 16 12/07/20 16:20 BP 124/80 12/07/20 16:20 Pulse Ox 96 12/07/20 16:20 Body Mass Index 29.0 Const: General: healthy appearing, no acute distress and well developed Nutritional Appearance: well nourished Orientation/consciousness: patient oriented x3 Neck: Neck: Yes normal visual inspection, Yes full ROM and Yes trachea midline Thyroid: Thyroid normal Resp: Auscultation: clear to auscultation bilaterally Cardio: Rate: regular rate Rhythm: regular rhythm GI: Inspection: Yes normal to inspection and No distended Palpation (GI): No hepatosplenomegaly present Auscultation: normal bowel sounds Skin: General skin exam: elasticity normal, turgor normal and dry skin Neuro: General: patient oriented x3 Extrem: General: Yes normal to inspection and Yes full ROM Right upper extremity: normal to inspection, full ROM and normal capillary refill Left upper extremity: normal to inspection, full ROM and normal capillary refill Right lower extremity: normal to inspection, full ROM and normal capillary refill Left lower extremity: normal to inspection, full ROM and normal capillary refill Course Course Course Narrative: 60-year-old male is here today for complaining of right hand pain. Patient reports that he injured that he and 3 months ago. He reports that refrigerator dropped on his hand as he was moving the refrigerator. Patient has not had an x-ray or went to see anybody at that time. Will order x- ray he does have a normal range of motion. Will medicate him for pain Reevaluation(s) Reevaluation #1: X-ray negative for any acute processes. As compared to x-ray from 2011 there is no changes. Patient will be sent home with ibuprofen. MDM - Extremity (Nontraumatic) Imaging Data Right hand x-ray: Attestation: I personally reviewed and interpreted this imaging study as follows: Radiologist's impression: FINDINGS: No evidence of acute fractures or malalignment. Joint spaces are maintained. Punctate foreign bodies in the dorsal surface of the distal interphalangeal joint of the thumb are unchanged since 2011. A tiny avulsion fragment off the medial surface of the third metacarpophalangeal joint is also unchanged since 2011. Carpal rows are maintained. The scapholunate interval is within normal limits.? Discharge Plan Discharge Clinical Impression: Hand pain Qualifiers: Laterality: right Qualified Code(s): M79.641 - Pain in right hand Patient Disposition: Home, Self-Care Instructions: Arthralgia (ED) Additional Instructions: Lo vieron aqu? hoy por quejarse de dolor en la mano derecha. La radiograf?a es negativa para cualquier hallazgo yajaira. Scott un seguimiento con smith m?dico de atenci?n primaria la pr?xima semana. Jeremías? un kimmie?n para el ibuprofeno. Puede regresar al departamento de emergencias si jonnathan s?ntomas empeoran o si experimenta alg?n s?ntoma adicional preocupante. Prescriptions: New ibuprofen 600 mg tablet 600 mg PO Q8H PRN (Reason: pain) Qty: 20 RF: 0 No Action doxycycline hyclate 100 mg capsule 100 mg PO BID 7 Days Qty: 14 RF: 0 mupirocin 2 % ointment 1 appl topical TID 7 Days Qty: 15 RF: 0 clotrimazole 1 % cream 1 appl topical BID 14 Days Qty: 30 RF: 0 hydrocortisone 1 % cream 1 appl topical TID PRN (Reason: rash) Qty: 28.35 RF: 0 naproxen 500 mg tablet 500 mg PO BID PRN (Reason: pain) Qty: 15 RF: 0 cyclobenzaprine 5 mg tablet 5 mg PO TID PRN (Reason: muscle spasm) Qty: 10 RF: 0 cyclobenzaprine 5 mg tablet 5 mg PO TID PRN (Reason: muscle spasm) Qty: 10 RF: 0 naproxen 500 mg tablet 500 mg PO BID PRN (Reason: pain) Qty: 14 RF: 0 thiamine HCl (vitamin B1) 250 mg tablet 250 mg PO DAILY Qty: 14 RF: 0
[2020-12-07] MEDS: Ibuprofen 600 MG TABLET PO (17:45)
== END 2020-12-07 18:38 | disposition home or self-care (01) ==
PROVIDERS: Emergency Provider Internal Medicine
DX: M79.641 Pain in right hand (principal); Z79.899 Other long term (current) drug therapy
CPT/HCPCS: 73130; 99283; 99284

== ENCOUNTER 2021-05-14 08:49 | Emergency (ER) | payer MEDICAID, SELFPAY ==
[2021-05-14 09:56] VITALS: BP 114/65; PULSE 85; RESP 16; TEMP 36.6; O2SAT 99; BMI 26.4
--- NOTE | 2021-05-14 10:11 | ED.MALEGU ---
HPI - Male Genitourinary General Chief complaint: Urogenital-Male Stated complaint: Genital pain Time Seen by Provider: 05/14/21 10:03 Source: patient Mode of arrival: ambulatory Limitations: language barrier ( Hungarian-speaking) History of Present Illness HPI Narrative: 60-year-old male presenting to the ED with complaints of pain around the penis when he pees and he believes he might have a possible STD. He reports that 2 days ago he had unprotected oral sex with a female although there was no penis penetration in her mouth/vagina or rectum per the patient. He reports that she gave him oral intercourse that was all. Although since then he has been having the symptoms. He denies any fevers, chills, abdominal pain, back pain, hematuria, abnormal penile discharge or any other symptoms complaints or concerns at this time. MD Complaint: dysuria and possible STD exposure Onset (ago): day(s) (2) Duration: constant Location: penis Severity: mild Quality: burning Relieving factors: none Exacerbating factors: urination and palpation Context: new sexual partner Associated symptoms: Reports denies other symptoms Related Data Sexually active: Yes Previous Rx's Medication Instructions Recorded clotrimazole 1 % topical cream 1 appl TOPICAL BID 14 Days #30 g 04/09/20 doxycycline hyclate 100 mg capsule 100 mg PO BID 7 Days #14 cap 04/09/20 hydrocortisone 1 % topical cream 1 appl TOPICAL TID PRN #28.35 g 04/09/20 mupirocin 2 % topical ointment 1 appl TOPICAL TID 7 Days #15 g 04/09/20 cyclobenzaprine 5 mg tablet 5 mg PO TID PRN #10 tab 07/21/20 cyclobenzaprine 5 mg tablet 5 mg PO TID PRN #10 tab 07/21/20 naproxen 500 mg tablet 500 mg PO BID PRN #14 tab 07/21/20 naproxen 500 mg tablet 500 mg PO BID PRN #15 tab 07/21/20 thiamine HCl (vitamin B1) 250 mg 250 mg PO DAILY #14 tab 07/31/20 tablet ibuprofen 600 mg tablet 600 mg PO Q8H PRN #20 tab 12/07/20 valacyclovir 1 gram tablet 1,000 mg PO BID 10 Days #20 tab 05/14/21 (Valtrex) Allergies Allergy/AdvReac Type Severity Reaction Status Date / Time No Known Allergies Allergy Mild NONE Verified 12/07/20 16:23 Review of Systems Review of Systems: Constitutional : No Weight loss, No Fever, No Chills, No Night Sweats, No Fatigue, NoMalaise ENT/Mouth: No ear pain, No sore throat, No Difficulty swallowing Cardiovascular : No Chest Pain, No SOB, No Dyspnea on Exertion, No Orthopnea, NoEdema, No Palpitations Respiratory : No Cough, No Sputum, No Wheezing, No Dyspnea Gastrointestinal : No Nausea, No Vomiting, No Diarrhea, No abdominal Pain, No Hematochezia, No Melena Genitourinary : + dysuria, No testicular pain, No irregular bleeding, No Urinary Frequency, No Hematuria,No Urinary Incontinence, No Urgency, No Flank Pain Musculoskeletal : No joint pain, No Myalgias, No Joint Swelling Skin : No Skin Lesions, No rash Neuro : No Weakness, No Numbness, No Paresthesias, No Loss of Consciousness, NoDizziness, No Headache Psych : No Social Issues, Heme/Lymph: No Bruising, No Bleeding,No Lymphadenopathy Endocrine : No Polyuria, No Polydipsia, No Temperature Intolerance PATIENT DENIES ANY THOUGHTS OF STDS Yes all other systems are reviewed and are negative [facility] Past Medical History Attestation statement: The following information was validated with the patient. Medical History HIV (human immunodeficiency virus infection) Social History Social History Alcohol intake: current Alcohol intake frequency: 3 or more drinks per day Alcohol type: beer and hard liquor Patient Tobacco Use Status: Never used Tobacco Advance Directives: No Advance Directives Information Provided: No Physical Exam Vital Signs: Vital Signs: Last Vital Signs Temp 97.9 F 05/14/21 09:56 Pulse 85 05/14/21 09:56 Resp 16 05/14/21 09:56 BP 114/65 05/14/21 09:56 Pulse Ox 99 05/14/21 09:56 BMI result Body Mass Index 26.4 vital signs have been reviewed as normal and appeared to be correct. Blood pressure normal. Heart rate normal. Respiration rate normal. Temperature normal. Oxygen saturation normal. Appearance: Alert. Oriented X3. No acute distress. Head: Normal external exam. Normocephalic. Atraumatic. Eyes: PERRLA. EOMI. Conjunctiva and sclera normal. Eyelids normal. ENT: Pharynx normal. Uvula midline. Moist mucous membranes. Neck: Normal inspection. Neck supple. FROM. No adenopathy. No meningeal signs. CVS: Normal heart rate and rhythm. Heart sound normal. No murmurs noted. Pulses normal throughout. Respiratory: No respiratory distress. Painless inspiration. Breath sounds normal. No wheezes/rales/rhonchi noted. Chest nontender. No accessory muscle usage noted or decreased air movement noted. Abdomen: Soft and nontender. Bowel sounds normal in all 4 quadrants. No distention noted. No organomegaly noted. No visible injury noted. : Chaperoned by MICHAEL Moreno. To the head of the penis and the shaft patient is noted to have shallow painful ulcerated lesions clustered on an erythematous base consistent with HSV. The rest of the external exam is within normal limits. No additional masses/lumps/ecchymosis/edema/erythema/lacerations/induration or tenderness noted. No hernia noted. No inguinal lymphadenopathy noted. Normal penis free of discharge. The scrotum is normal. Testicles are both descended bilaterally and appear normal. No hydrocele or scrotal mass/swelling noted. No varicocele. Epididymides normal. No blue dot sign. Back: No CVA tenderness. Full range of motion noted. Skin: Skin warm and dry. Normal skin color. Normal skin turgor. No rashes/lesions/lacerations noted. Extremities: Extremities exhibit normal range of motion. Extremities nontender. Neuro: Oriented X 3. No motor deficit. No sensory deficit. Reflexes normal. Course Course Course Narrative: 60-year-old male presenting to the ED with complaints of pain around the penis when he pees and he believes he might have a possible STD. He reports that 2 days ago he had unprotected oral sex with a female although there was no penis penetration in her mouth/vagina or rectum per the patient. He reports that she gave him oral intercourse that was all. Although since then he has been having the symptoms. He denies any fevers, chills, abdominal pain, back pain, hematuria, abnormal penile discharge or any other symptoms complaints or concerns at this time. on exam patient has painful ulcerated lesions clustered on an erythematous base consistent with HSV. No penile discharge. No swelling of the testicles and no pain with the testicles. Not consistent with Alessandra phimosis. Not consistent with phimosis. Patient reports that he wants only be treated for herpes at this time and he will wait further gonorrhea chlamydia because he does not believe he has gonorrhea chlamydia because he only had oral intercourse. I explained to him that you can obtain gonorrhea chlamydia by oral intercourse as well. Although patient still wants to wait. Therefore will send gonorrhea chlamydia urine. Will send herpes culture. Will send syphilis blood work. Will send HIV blood work. Will treat for herpes. And we had a long conversation about safe sex practices. I also explained to him that we will call him if he has any additional positive results and to return if any new or worsening symptoms. Patient understands agrees with this plan. [facility] - Male Genitourinary Medical Records Attestation: I reviewed the patient's medical records. Lab Data Attestation: I reviewed the patient's lab results. Discharge Plan Discharge Clinical Impression: Genital herpes simplex, Encounter for assessment of STD exposure Patient Disposition: Home, Self-Care Instructions: Genital Herpes Simplex (ED), Sexually Transmitted Diseases (ED) Additional Instructions: Tiene resultados de laboratorio pendientes si alguno es positivo, se le contactar? dentro de 5-7 d?as. Por favor, evite cualquier relaci?n sexual adriel al menos 7 d?as. Regrese si hay s?ntomas nuevos o que empeoran. Scott un seguimiento con smith proveedor de atenci?n primaria. Por favor, practique pr?cticas de sexo seguro. You have pending lab results if any are positive you will be contacted within 5-7 days. Please avoid any sexual intercourse for at least 7 days. Return if any new or worsening symptoms. Follow up with her primary care provider. Please practice safe sex practices. Prescriptions: New valacyclovir [Valtrex] 1 gram tablet 1,000 mg PO BID 10 Days Qty: 20 0RF No Action doxycycline hyclate 100 mg capsule 100 mg PO BID 7 Days Qty: 14 0RF mupirocin 2 % ointment 1 appl topical TID 7 Days Qty: 15 0RF clotrimazole 1 % cream 1 appl topical BID 14 Days Qty: 30 0RF hydrocortisone 1 % cream 1 appl topical TID PRN (Reason: rash) Qty: 28.35 0RF naproxen 500 mg tablet 500 mg PO BID PRN (Reason: pain) Qty: 15 0RF cyclobenzaprine 5 mg tablet 5 mg PO TID PRN (Reason: muscle spasm) Qty: 10 0RF cyclobenzaprine 5 mg tablet 5 mg PO TID PRN (Reason: muscle spasm) Qty: 10 0RF naproxen 500 mg tablet 500 mg PO BID PRN (Reason: pain) Qty: 14 0RF thiamine HCl (vitamin B1) 250 mg tablet 250 mg PO DAILY Qty: 14 0RF ibuprofen 600 mg tablet 600 mg PO Q8H PRN (Reason: pain) Qty: 20 0RF Referrals: Physician,Unknown J [Primary Care Provider] - 2 days (your pcp) Print Language: Hungarian
[2021-05-14 11:07] LABS: HIV Num 1 734.16 S/CO (0.00-0.99)
[2021-05-14 12:38] LABS: HIV AB/AG Reactive (Nonreactive); HIV Num 2 743.78 S/CO
[2021-05-14 13:23] LABS: CT PCR NOT DETECTED (Not Detect.); NG PCR NOT DETECTED (Not Detect.)
[2021-05-15 08:29] LABS: Syphilis Screen Nonreactive (Nonreactive)
== END 2021-05-14 10:52 | disposition home or self-care (01) ==
PROVIDERS: Physician Assistant Medical; Emergency Provider Student in an Organized Health Care Education/Training Program
DX: A60.00 Herpesviral infection of urogenital system, unspecified (principal); B20 Human immunodeficiency virus [HIV] disease; Z20.2 Contact with and (suspected) exposure to infections with a predominantly sexual mode of transmission
CPT/HCPCS: 36415; 86701; 86702; 86780; 87255; 87389; 87491; 87591; 99283; 99284

== ENCOUNTER 2021-06-21 10:34 | Emergency (ER) | payer MEDICAID, SELFPAY ==
[2021-06-21 11:35] VITALS: BP 105/63; PULSE 82; RESP 16; TEMP 36.5; O2SAT 98; BMI 26.4
--- NOTE | 2021-06-21 11:58 | ED_ITS ---
HPI - Male Genitourinary General Chief complaint: Urogenital-Male Stated complaint: penis pain Time Seen by Provider: 06/21/21 11:55 Source: patient Mode of arrival: ambulatory Limitations: language barrier History of Present Illness HPI Narrative: 60-year-old male presents for evaluation after having unprotected vaginal sex 1 week ago. Patient states he has no dysuria, but he has seen pus coming out of his penis when he urinates. States he has pain at the tip of his penis. Patient has no fevers, no testicular pain, no abdominal, no N/V. No hematuria, testicular mass, penile lesions, urinary incontinence or retention Patient is being followed by [facility] because he is HIV positive, he says his viral load has been undetectable and they tested his levels and are following him for HIV. Patient was seen 05/14/2021 for an STD encounter, he was found to have herpes and completed a course of valacyclovir. No vesicular lesions today. Patient states he does not like to use condoms, but may need to consider using them now as he is having multiple visits to the ER for STDs. MD Complaint: penile discharge Onset (ago): day(s) (2) Duration: constant Location: penis Severity: moderate Exacerbating factors: none Context: new sexual partner and known STD exposure Associated symptoms: Reports discharge Related Data Previous Rx's Medication Instructions Recorded clotrimazole 1 % topical cream 1 appl TOPICAL BID 14 Days #30 g 04/09/20 doxycycline hyclate 100 mg capsule 100 mg PO BID 7 Days #14 cap 04/09/20 hydrocortisone 1 % topical cream 1 appl TOPICAL TID PRN #28.35 g 04/09/20 mupirocin 2 % topical ointment 1 appl TOPICAL TID 7 Days #15 g 04/09/20 cyclobenzaprine 5 mg tablet 5 mg PO TID PRN #10 tab 07/21/20 cyclobenzaprine 5 mg tablet 5 mg PO TID PRN #10 tab 07/21/20 naproxen 500 mg tablet 500 mg PO BID PRN #14 tab 07/21/20 naproxen 500 mg tablet 500 mg PO BID PRN #15 tab 07/21/20 thiamine HCl (vitamin B1) 250 mg 250 mg PO DAILY #14 tab 07/31/20 tablet ibuprofen 600 mg tablet 600 mg PO Q8H PRN #20 tab 12/07/20 valacyclovir 1 gram tablet 1,000 mg PO BID 10 Days #20 tab 05/14/21 (Valtrex) clotrimazole 1 % topical cream 1 appl TOPICAL BID #30 g 06/21/21 doxycycline hyclate 100 mg capsule 100 mg PO DAILY 7 Days #7 cap 06/21/21 Allergies Allergy/AdvReac Type Severity Reaction Status Date / Time No Known Allergies Allergy Mild NONE Verified 12/07/20 16:23 Review of Systems Constitutional: Constitutional: Denies body ache(s), Denies chills, Denies fatigue, Denies fever(s), Denies headache(s), Denies malaise and Denies weakness Eyes: Eyes: Denies diplopia ENT: Denies vertigo, Denies dizziness, Denies otalgia, Denies headache(s), Denies mouth pain, Denies post nasal drip, Denies sinus pain, Denies sinus pressure, Denies sore throat and Denies throat swelling Cardiovascular: Cardiovascular: Denies chest pain, Denies syncope, Denies leg edema, Denies lightheadedness, Denies Loss of Consciousness, Denies palpitations and Denies dyspnea Respiratory: Respiratory: Denies chest congestion, Denies cough and Denies dyspnea Gastrointestinal: Gastrointestinal: Denies abdominal pain, Denies hematochezia, Denies constipation, Denies diarrhea, Denies nausea and Denies vomiting Genitourinary: Genitourinary: Denies hematuria, Denies genital lesions, Denies genital pain, Denies dysuria, Denies flank pain, Denies painful ejaculations, Reports penile discharge, Denies scrotal swelling, Denies testicular mass, Denies testicular pain, Denies urinary frequency, Denies urinary hesitancy, Denies urinary incontinence and Denies urinary urgency Musculoskeletal: Musculoskeletal: Reports no additional musculoskeletal complaints Neurologic: Denies confusion, Denies vertigo, Denies dizziness, Denies syncope, Denies headache(s) and Denies weakness Psychiatric: Psychiatric: Denies anxiety, Denies confusion and Denies depression Endocrine: Endocrine: Denies fatigue and Denies palpitations Allergic/Immunologic: Allergic/Immunologic: Denies throat swelling PMFSH Past Medical History Medical History (Updated 06/21/21 @ 12:20 by LENORA Redd) HIV (human immunodeficiency virus infection) Social History Social History Alcohol intake: current Alcohol intake frequency: 3 or more drinks per day Alcohol type: beer and hard liquor Patient Tobacco Use Status: Never used Tobacco Advance Directives: No Advance Directives Information Provided: No Physical Exam Vital Signs: Vital Signs: Last Vital Signs Temp 97.7 F 06/21/21 11:35 Pulse 82 06/21/21 11:35 Resp 16 06/21/21 11:35 BP 105/63 06/21/21 11:35 Pulse Ox 98 06/21/21 11:35 BMI result Body Mass Index 26.4 Const: General: No confusion Nutritional Appearance: well nourished Orientation/consciousness: No confusion Limitations: no limitations Eyes: Conjunctivae: conjunctivae normal Pupils: Equal, round and reactive pupils present EOM: EOMs intact bilaterally Neck: Neck: Yes full ROM, Yes no lymphadenopathy and Yes supple Resp: Effort & Inspection: normal respiratory effort and able to speak in complete sentences Auscultation: clear to auscultation bilaterally, no crackles, no rales, no rhonchi and no wheezes Cardio: Rate: regular rate Rhythm: regular rhythm Heart sounds: S1 brayan l heart sound present and S2 normal heart sound present GI: Inspection: Yes normal to inspection Palpation (GI): Soft to palpation, nontender, no guarding and not rigid Percussion: Yes normal to percussion Auscultation: normal bowel sounds : Other: Uncircumcised penis, no penile lesions, no testicular masses, there is white discharge under retracted foreskin, and redness around tip of penis. General: Yes no CVA tenderness Male General Exam: Yes normal external exam, No inguinal lymphadenopathy and No Genital lesions present Penis: normal penis, uncircumcised, no ecchymosis, not edematous, not erythematous, no masses, no nodules, no papules, no pustules, no vesicles, foreskin retracts, no paraphim osis, no phimosis, no swelling, no ulcerations and No Genital lesions present Meatus: meatus normal Scrotum: scrotum normal, cremasteric reflex present, no ecchymosis, not edematous, not erythematous, testes descended bilaterally, no hydroceles, no inguinal hernias, no masses, no scrotal swelling and no ulcerations Testes: Testes normal, testicular lie normal, epididymides normal, no testicular mass, no testicular swelling, no testicular tenderness and normal testicular lie Back/Spine/Pelvis: Back: no CVA tenderness Skin: General skin exam: no rashes or lesions noted Neuro: General: No confusion Cranial nerves: Yes Equal, round and reactive pupils present Extrem: General: Yes normal to inspection and Yes full ROM Psych: Appearance: grossly normal Affect: normal affect Attitude: cooperative Thought process: Normal thought process present Course Course Course Narrative: 60-year-old male presents with concern for STD after having unprotected sex. On exam, patient has white discharge in retracted foreskin. No penile lesions.? No penile discharge.? No swelling of the testicles and no pain with the testicles.? Not consistent with periphimosis or phimosis.? Discussed importance of using condoms, patient stated he would ?think about? using condoms now Treated with ceftriaxone, doxycycline, got urine for gonorrhea chlamydia, blood work for HIV and syphilis. Told patient we would call him with results but he should continue to take antibiotics unless he hears otherwise.. ? I also explained to him that we will call him if he has any additional positive results and to return if any new or worsening symptoms.? Patient understands agrees with this plan. Discharge Plan Discharge Clinical Impression: Exposure to sexually transmitted disease (STD), Acute balanitis due to infection Patient Disposition: Home, Self-Care Instructions: Sexually Transmitted Diseases (ED), Male Condom Use (ED), Safe Sex Practices (ED), Balanitis (ED) Additional Instructions: Please call us if you have not heard from us in 3 days. Please take the antibiotics I prescribed to your pharmacy. Please apply the cream I prescribed to your penis. Retract the foreskin, and apply cream to tip of penis twice a day. Please use condoms Please return to ER if you have fevers, spots on your penis, pain in your testicles, or any other new or concerning symptoms. Continue to take your HIV medication, and f/u with [facility] for your HIV testing We did test your viral load today, [facility] can see these results Por favor ll?menos si no masterson tenido noticias nuestras en 3 d?as. Por favor, lleve los antibi?ticos que le recet? a smith farmacia. Aplique la crema que le recet? en smith pene. Retraiga el prepucio y aplique crema en la punta del pene dos veces al d?a. por favor usa condones Regrese a la mariama de emergencias si tiene fiebre, manchas en el pene, dolor en los test?culos o cualquier otro s?ntoma nuevo o preocupante. Contin?e tomando smith medicamento para el VIH y f/u con [facility] para smith prueba de VIH Hicimos la prueba de smith carga viral hoy, [facility] puede brigid estos resultados Prescriptions: New clotrimazole 1 % cream 1 appl topical BID Qty: 30 0RF Rx Instructions: apply to tip of penis twice a day doxycycline hyclate 100 mg capsule 100 mg PO DAILY 7 Days Qty: 7 0RF No Action doxycycline hyclate 100 mg capsule 100 mg PO BID 7 Days Qty: 14 0RF mupirocin 2 % ointment 1 appl topical TID 7 Days Qty: 15 0RF clotrimazole 1 % cream 1 appl topical BID 14 Days Qty: 30 0RF hydrocortisone 1 % cream 1 appl topical TID PRN (Reason: rash) Qty: 28.35 0RF naproxen 500 mg tablet 500 mg PO BID PRN (Reason: pain) Qty: 15 0RF cyclobenzaprine 5 mg tablet 5 mg PO TID PRN (Reason: muscle spasm) Qty: 10 0RF cyclobenzaprine 5 mg tablet 5 mg PO TID PRN (Reason: muscle spasm) Qty: 10 0RF naproxen 500 mg tablet 500 mg PO BID PRN (Reason: pain) Qty: 14 0RF thiamine HCl (vitamin B1) 250 mg tablet 250 mg PO DAILY Qty: 14 0RF valacyclovir [Valtrex] 1 gram tablet 1,000 mg PO BID 10 Days Qty: 20 0RF ibuprofen 600 mg tablet 600 mg PO Q8H PRN (Reason: pain) Qty: 20 0RF Print Language: Khmer
[2021-06-21] MEDS: cefTRIAXone sodium 500 MG, Lidocaine HCl 1 % MPF 1 ML IM (13:13)
[2021-06-21] MEDS: Lidocaine HCl 1 % 20 ML VIAL INFILTRATI (13:14)
[2021-06-21 15:31] LABS: CT PCR NOT DETECTED (Not Detect.); NG PCR DETECTED (Not Detect.)
== END 2021-06-21 13:20 | disposition home or self-care (01) ==
PROVIDERS: Emergency Provider Emergency Medicine
DX: N48.1 Balanitis (principal); N48.89 Other specified disorders of penis; Z20.2 Contact with and (suspected) exposure to infections with a predominantly sexual mode of transmission; Z79.899 Other long term (current) drug therapy
CPT/HCPCS: 87491; 87591; 96372; 99284; J0696

== ENCOUNTER 2021-06-26 10:39 | Emergency (ER) | payer MEDICAID, SELFPAY ==
--- NOTE | ~2021-06-26 | XR_ITS ---
EXAMINATION: XR HAND, RIGHT CLINICAL INFORMATION: Right third metacarpal pain and swelling COMPARISON: None TECHNIQUE: PA, lateral, and oblique views of the right hand. FINDINGS: The bones and soft tissues are normal. No fracture. There is a small calcification along the ulnar aspect of the third metacarpal phalangeal joint, likely chronic, degenerative and/or posttraumatic in nature. Degenerative subchondral cyst present within the third metacarpal head. Small marginal osteophytes present throughout the distal interphalangeal joints. Alignment is anatomic. Joint spaces are maintained. No erosive changes. XR/XR hand RT min 3V IMPRESSION: No acute fracture or dislocation
--- NOTE | 2021-06-26 11:24 | ED.UPPEXIN ---
HPI - Extremity Injury (Upper) General Chief Complaint: Extremity Injury, Upper <LENORA Alvarenga - Last Filed: 06/26/21 12:04> Stated Complaint: R HAND INJ <LENORA Alvarenga - Last Filed: 06/26/21 12:04> Time Seen by Provider: 06/26/21 11:20 <LENORA Alvarenga - Last Filed: 06/26/21 12:04> Source: patient <LENORA Alvarenga - Last Filed: 06/26/21 12:04> Mode of arrival: ambulatory <LENORA Alvarenga - Last Filed: 06/26/21 12:04> Limitations: no limitations <LEONRA Alvarenga - Last Filed: 06/26/21 12:04> History of Present Illness HPI narrative: 60-year-old male presenting to the ED with complaints of right middle finger at the MCP pain/swelling after he did some heavy lifting with his friend and after he heavy lifted the machine he has been having pain. He denies any chest pain, dizziness, shortness of breath, paresthesias or any other symptoms complaints or concerns at this time. <LEONRA Alvarenga - Last Filed: 06/26/21 12:04> MD complaint: injury to: right, hand and finger (Middle finger ) <LENORA Alvarenga - Last Filed: 06/26/21 12:04> Onset (ago): day(s) (For the past few days worse today) <LENORA Alvarenga - Last Filed: 06/26/21 12:04> Other injuries: none <LENORA Alvarenga - Last Filed: 06/26/21 12:04> Place: home <LENORA Alvarenga - Last Filed: 06/26/21 12:04> Severity: moderate <LENORA Alvarenga - Last Filed: 06/26/21 12:04> Relieving factors: none <LENORA Alvarenga - Last Filed: 06/26/21 12:04> Exacerbating factors: movement of extremity <LENORA Alvarenga - Last Filed: 06/26/21 12:04> Context: other (lifting injury) <LENORA Alvarenga - Last Filed: 06/26/21 12:04> Associated symptoms: denies other symptoms <LENORA Alvarenga - Last Filed: 06/26/21 12:04> Treatments prior to arrival: NSAIDS <LENORA Alvarenga - Last Filed: 06/26/21 12:04> Related Data Home Medications: Previous Rx's Medication Instructions Recorded clotrimazole 1 % topical cream 1 appl TOPICAL BID 14 Days #30 g 04/09/20 doxycycline hyclate 100 mg capsule 100 mg PO BID 7 Days #14 cap 04/09/20 hydrocortisone 1 % topical cream 1 appl TOPICAL TID PRN #28.35 g 04/09/20 mupirocin 2 % topical ointment 1 appl TOPICAL TID 7 Days #15 g 04/09/20 cyclobenzaprine 5 mg tablet 5 mg PO TID PRN #10 tab 07/21/20 cyclobenzaprine 5 mg tablet 5 mg PO TID PRN #10 tab 07/21/20 naproxen 500 mg tablet 500 mg PO BID PRN #14 tab 07/21/20 naproxen 500 mg tablet 500 mg PO BID PRN #15 tab 07/21/20 thiamine HCl (vitamin B1) 250 mg 250 mg PO DAILY #14 tab 07/31/20 tablet ibuprofen 600 mg tablet 600 mg PO Q8H PRN #20 tab 12/07/20 valacyclovir 1 gram tablet 1,000 mg PO BID 10 Days #20 tab 05/14/21 (Valtrex) clotrimazole 1 % topical cream 1 appl TOPICAL BID #30 g 06/21/21 doxycycline hyclate 100 mg capsule 100 mg PO DAILY 7 Days #7 cap 06/21/21 acetaminophen 500 mg tablet 1,000 mg PO QID PRN #14 tab 06/26/21 (Tylenol Extra Strength) cyclobenzaprine 10 mg tablet 10 mg PO Q8H PRN #14 tab 06/26/21 <LENORA Alvarenga - Last Filed: 06/26/21 12:04> Allergies/Adverse Reactions: Allergies Allergy/AdvReac Type Severity Reaction Status Date / Time No Known Allergies Allergy Mild NONE Verified 12/07/20 16:23 <LENORA Alvarenga - Last Filed: 06/26/21 12:04> Review of Systems Review of Systems: Constitutional : No Weight loss, No Fever, No Chills, No Night Sweats, No Fatigue, No Malaise ENT/Mouth : No Hearing loss, No Ear Pain, No Nasal Congestion, No Sinus Pain, No Hoarseness, No sore throat, No Rhinorrhea, No Swallowing Difficulty Eyes: No Eye Pain, No Swelling, No Redness, No Foreign Body, No Discharge, No Vision Changes Cardiovascular : No Chest Pain, No SOB, No Dyspnea on Exertion, No Orthopnea, No Edema, No Palpitations Respiratory : No Cough, No Sputum, No Wheezing, No Smoke Exposure, No Dyspnea Gastrointestinal : No Nausea, No Vomiting, No Diarrhea, No Constipation, No abdominal Pain, No Hematochezia, No Melena Genitourinary : no irregular bleeding, No Dysuria, No Urinary Frequency, No Hematuria, No Urinary Incontinence, No Urgency, No Flank Pain, No Urinary Flow Changes, No Hesitancy Musculoskeletal : + joint pain/swelling, No Myalgias Skin : No Skin Lesions, No rash Neuro : No Weakness, No Numbness, No Paresthesias, No Loss of Consciousness, No Dizziness, No Headache Psych : No Anxiety/Panic, No Depression, No SI/HI/AH/VH, No Social Issues, Heme/Lymph: No Bruising, No Bleeding,No Lymphadenopathy Endocrine : No Polyuria, No Polydipsia, No Temperature Intolerance <LENORA Alvarenga - Last Filed: 06/26/21 12:04> Yes all other systems are reviewed and are negative <LENORA Alvarenga - Last Filed: 06/26/21 12:04> [facility] Past Medical History Attestation statement: The following information was validated with the patient. <LENORA Alvarenga - Last Filed: 06/26/21 12:04> Medical History: Medical History HIV (human immunodeficiency virus infection) <LENORA Alvarenga - Last Filed: 06/26/21 12:04> Social History Social History: Social History Alcohol intake: current Alcohol intake frequency: 3 or more drinks per day Alcohol type: beer and hard liquor Patient Tobacco Use Status: Never used Tobacco Advance Directives: No Advance Directives Information Provided: No <LENORA Alvarenga Last Filed: 06/26/21 12:04> Physical Exam Vital Signs: Vital Signs: Last Vital Signs Temp 98.1 F 06/26/21 11:25 Pulse 97 06/26/21 11:25 Resp 17 06/26/21 11:25 BP 129/78 06/26/21 11:25 Pulse Ox 98 06/26/21 11:25 BMI result Body Mass Index 29.7 vital signs have been reviewed as normal and appeared to be correct. Blood pressure normal Heart rate normal. Respiration rate normal. Temperature normal. Oxygen saturation normal. <LENORA Alvarenga - Last Filed: 06/26/21 12:04> Appearance: Alert. Oriented X3. No acute distress. Head: Normal external exam. Normocephalic. Atraumatic. Eyes: PERRLA. EOMI. Conjunctiva and sclera normal. Eyelids normal. ENT: Pharynx normal. Uvula midline. Moist mucous membranes. Neck: Normal inspection. Neck supple. FROM. CVS: Normal heart rate and rhythm. Respiratory: No respiratory distress. Painless inspiration. Skin: Skin warm and dry. Normal skin color. Normal skin turgor. No rashes/lesions/lacerations noted. Extremities: Patient moderate tenderness palpation and soft tissue swelling and ecchymosis noted to right hand 3rd digit MCP with Limited ROM due to pain no obvious ligamentous or tendon injury noted. Not consistent with tenosynovitis. He does not have tenderness on the palmar aspect when I flex and extend the left middle finger. No signs of infection. No erythema/streaking/induration/fluctuance or foreign bodies noted. Not consistent with DVT. No upper lower extremity edema. Otherwise all other extremities exhibit normal range of motion nontender. Neuro: Oriented X 3. No motor deficit. No sensory deficit. Reflexes normal. Normal steady gait. No focal neuro deficits noted. Vascular: + radial pulses/+ 2 distal pedal pulses/+2 dorsalis pedis b/l. Normal cap refill. No cyanosis noted to upper extremity nails and lower extremity toes nails. <LENORA Alvarenga - Last Filed: 06/26/21 12:04> Course Course Course Narrative: 60-year-old male presenting to the ED with complaints of right middle finger at the MCP pain/swelling after he did some heavy lifting with his friend and after he heavy lifted the machine he has been having pain. He denies any chest pain, dizziness, shortness of breath, paresthesias or any other symptoms complaints or concerns at this time. Will obtain an Xray then re-evaluate. <LENORA Alvarenga Last Filed: 06/26/21 12:04> Reevaluation(s) Reevaluation #1: X-ray within normal limits no acute processes noted. Will DC home with symptomatic treatment instructions return if any new or worsening symptoms to follow up with primary care provider. Patient understands agrees with this plan. <LENORA Alvarenga - Last Filed: 06/26/21 12:04> Time: 12:02 <LENORA Alvarenga Last Filed: 06/26/21 12:04> MDM - Extremity Injury (Upper) Medical Records Attestation: I reviewed the patient's medical records. <LENORA Alvarenga Last Filed: 06/26/21 12:04> Imaging Data Left hand x-ray: Attestation: I personally reviewed and interpreted this imaging study as follows: <LENORA Alvarenga Last Filed: 06/26/21 12:04> Radiologist's impression: FINDINGS: The bones and soft tissues are normal. No fracture. There is a small calcification along the ulnar aspect of the third metacarpal phalangeal joint, likely chronic, degenerative and/or posttraumatic in nature. Degenerative subchondral cyst present within the third metacarpal head. Small marginal osteophytes present throughout the distal interphalangeal joints. Alignment is anatomic. Joint spaces are maintained. No erosive changes. XR/XR hand RT min 3V IMPRESSION: No acute fracture or dislocation <LENORA Alvarenga Last Filed: 06/26/21 12:04> Discharge Plan Discharge Clinical Impression: Sprain of hand, left <LENORA Alvarenga - Last Filed: 06/26/21 12:04> Patient Disposition: Home, Self-Care <LENORA Alvarenga Last Filed: 06/26/21 12:04> Instructions: Sprain (ED) <LENORA Alvarenga Last Filed: 06/26/21 12:04> Prescriptions: New cyclobenzaprine 10 mg tablet 10 mg PO Q8H PRN (Reason: Muscle spasm) Qty: 14 0RF acetaminophen [Tylenol Extra Strength] 500 mg tablet 1,000 mg PO QID PRN (Reason: fever or pain) Qty: 14 0RF No Action doxycycline hyclate 100 mg capsule 100 mg PO BID 7 Days Qty: 14 0RF mupirocin 2 % ointment 1 appl topical TID 7 Days Qty: 15 0RF clotrimazole 1 % cream 1 appl topical BID 14 Days Qty: 30 0RF hydrocortisone 1 % cream 1 appl topical TID PRN (Reason: rash) Qty: 28.35 0RF naproxen 500 mg tablet 500 mg PO BID PRN (Reason: pain) Qty: 15 0RF cyclobenzaprine 5 mg tablet 5 mg PO TID PRN (Reason: muscle spasm) Qty: 10 0RF cyclobenzaprine 5 mg tablet 5 mg PO TID PRN (Reason: muscle spasm) Qty: 10 0RF naproxen 500 mg tablet 500 mg PO BID PRN (Reason: pain) Qty: 14 0RF thiamine HCl (vitamin B1) 250 mg tablet 250 mg PO DAILY Qty: 14 0RF valacyclovir [Valtrex] 1 gram tablet 1,000 mg PO BID 10 Days Qty: 20 0RF ibuprofen 600 mg tablet 600 mg PO Q8H PRN (Reason: pain) Qty: 20 0RF clotrimazole 1 % cream 1 appl topical BID Qty: 30 0RF Rx Instructions: apply to tip of penis twice a day doxycycline hyclate 100 mg capsule 100 mg PO DAILY 7 Days Qty: 7 0RF <LENORA Alvarenga - Last Filed: 06/26/21 12:04> Referrals: Elizabeth No MD [Primary Care Provider] - <LENORA Alvarenga - Last Filed: 06/26/21 12:04> Interventions: ED Discharge Assessment Last Done: 06/26/21 12:11 <LENORA Alvarenga - Last Filed: 06/26/21 12:04> Discharge Date/Time: 06/26/21 12:12 <LENORA Alvarenga - Last Filed: 06/26/21 12:04> Print Language: Mohawk <LENORA Alvarenga - Last Filed: 06/26/21 12:04>
[2021-06-26 11:25] VITALS: BP 129/78; PULSE 97; RESP 17; TEMP 36.7; O2SAT 98; BMI 29.7
== END 2021-06-26 12:12 | disposition home or self-care (01) ==
PROVIDERS: Emergency Provider Emergency Medicine; PCP Internal Medicine
DX: S63.91XA Sprain of unspecified part of right wrist and hand, initial encounter (principal); Z21 Asymptomatic human immunodeficiency virus [HIV] infection status; X50.0XXA Overexertion from strenuous movement or load, initial encounter; Y93.9 Activity, unspecified; Y92.009 Unspecified place in unspecified non-institutional (private) residence as the place of occurrence of the external cause; Y99.9 Unspecified external cause status
CPT/HCPCS: 73130; 99283

== ENCOUNTER 2021-07-29 12:52 | Emergency (ER) | payer MEDICAID, SELFPAY ==
[2021-07-29 13:38] VITALS: BP 114/70; PULSE 79; RESP 18; TEMP 36.9; O2SAT 97; BMI 30.9
--- NOTE | 2021-07-29 13:42 | ECG_ITS ---
Test Reason : SYNCOPE Blood Pressure : / mmHG Vent. Rate : 068 BPM Atrial Rate : 068 BPM P-R Int : 170 ms QRS Dur : 076 ms QT Int : 378 ms P-R-T Axes : 063 006 051 degrees QTc Int : 401 ms Normal sinus rhythm Normal ECG When compared with ECG of 13-JUL-2019 11:13, Vent. rate has decreased BY 38 BPM Referred By: Generic ED Physician Electronically Signed By:Stevan Le
[2021-07-29 14:00] LABS: MANUAL DIFF FLAG NO
[2021-07-29 14:02] LABS: Basophils Percent Auto 0.2 % (0-2); Eosinophils Absolute Auto 0.2 X10*3/uL (0.0-0.4); Hematocrit 37.8 % (42.0-52.0); Hemoglobin 12.9 g/dl (14.0-18.0); Imm Gran Abs Auto 0.05 X10*3/uL (0.00-0.03); Imm Gran Pct Auto 0.4 % (0.0-0.4); Lymphocytes Absolute Auto 3.6 X10*3/uL (1.2-4.9); Lymphocytes Percent Auto 29.6 % (20-40); Mean Corpuscular HGB Conc 34.1 g/dl (31.0-36.0); Mean Corpuscular Hemoglobin 32.5 pg (27.0-33.0); Mean Corpuscular Volume 95.2 fL (80.0-98.0); Mean Platelet Volume 8.5 fL (9.4-12.4); Monocytes Percent Auto 8.2 % (2-11); Neutrophils Absolute Auto 7.2 x10*3/uL (2.0-8.3); Neutrophils Percent Auto 59.6 % (45-73); Platelet Count 331 X10*3/uL (160-400); Red Blood Count 3.97 X10*6/uL (4.60-5.80); Red Cell Distribution Width 12.9 % (11.0-16.0)
[2021-07-29 14:14] LABS: Anion Gap 11 (12-20); Blood Urea Nitrogen 29 mg/dL (9-16); Calcium 9.2 mg/dL (8.4-10.2); Carbon Dioxide 24 mmol/L (22-29); Chloride 105 mmol/L (96-108); Creatinine Clr Calc Pharmacy 61.3; Estimated Glomerular Filt Rate 44; Glucose Random 89 mg/dL (60-115); Potassium 4.2 mmol/L (3.3-5.1); Sodium 136 mmol/L (135-145)
== END 2021-07-29 21:31 | disposition left against medical advice (07) ==
PROVIDERS: Emergency Provider Emergency Medicine; PCP Internal Medicine
DX: R55 Syncope and collapse (principal); M54.9 Dorsalgia, unspecified; M79.641 Pain in right hand
CPT/HCPCS: 36415; 80048; 85025; 93005; 99281; 99283

== ENCOUNTER 2021-09-18 10:40 | Emergency (ER) | payer OTHER, SELFPAY ==
[2021-09-18 10:46] VITALS: BP 118/73; PULSE 90; RESP 16; TEMP 36.4; O2SAT 100; BMI 26.4
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
[2021-09-18 11:41] VITALS: BP 105/52; PULSE 77; RESP 16; TEMP 37
[2021-09-18 12:28] VITALS: BP 123/73; PULSE 83; RESP 18; O2SAT 95
== END 2021-09-18 12:37 | disposition home or self-care (01) ==
PROVIDERS: Emergency Provider Emergency Medicine
DX: S13.4XXA Sprain of ligaments of cervical spine, initial encounter (principal); V43.02XA Car driver injured in collision with other type car in nontraffic accident, initial encounter; F17.200 Nicotine dependence, unspecified, uncomplicated; Y93.89 Activity, other specified; Y92.481 Parking lot as the place of occurrence of the external cause; Y99.9 Unspecified external cause status
CPT/HCPCS: 96372; 99284

== ENCOUNTER 2021-10-18 10:51 | Emergency (ER) | payer MEDICAID, SELFPAY ==
[2021-10-18 11:38] VITALS: BP 105/59; PULSE 76; RESP 16; TEMP 36.3; O2SAT 96; BMI 29.7
--- NOTE | 2021-10-18 12:04 | ED.EXTPRO ---
HPI - Extremity Problem General Chief complaint: Extremity Problem Stated complaint: pain in both feet Time Seen by Provider: 10/18/21 11:44 Source: patient Mode of arrival: ambulatory Limitations: no limitations History of Present Illness HPI Narrative: 61-year-old male with a history of HIV, neuropathy, alcohol use, anxiety who presents to the ER for evaluation of worsening right foot pain and numbness of his toes. He reports the symptoms have been going on for the last 2 or 3 months. It is worse when he walks around in sandals and improves when he wears his [employer] sneakers. He reports the most bothersome symptom is the numbness in his toes. This has been also going on for several months. He is on gabapentin with no improvement. His doses 100 mg 3 times a day and he has been intermittently missing doses because it does not work for him. He denies any injury to his feet, no weakness in his legs or arms. MD Complaint: extremity pain Onset (ago): month(s) Pain Consistency: constant Location: left, right and lower extremity Severity scale (1-10): 6 Quality: burning and other (Numbness) Radiation: none Relieving factors: nothing Exacerbating factors: weight bearing Associated symptoms: denies other symptoms Related Data Previous Rx's Medication Instructions Recorded hydrocortisone 1 % topical cream 1 appl topical TID PRN rash #28.35 04/09/20 grams mupirocin 2 % topical ointment 1 appl topical TID 7 days #15 grams 04/09/20 thiamine HCl (vitamin B1) 250 mg 250 mg PO DAILY #14 tabs 07/31/20 tablet valacyclovir 1 gram tablet 1,000 mg PO BID hsv 10 days #20 05/14/21 (Valtrex) tabs clotrimazole 1 % topical cream 1 appl topical BID #30 grams 06/21/21 acetaminophen 500 mg tablet 1,000 mg PO QID PRN fever or pain 06/26/21 (Tylenol Extra Strength) #14 tabs cyclobenzaprine 5 mg tablet 5 mg PO TID PRN neck pain 7 days 09/18/21 #21 tabs Allergies Allergy/AdvReac Type Severity Reaction Status Date / Time No Known Allergies Allergy Mild NONE Verified 12/07/20 16:23 Review of Systems Review of Systems: Constitutional: No Fever, No Chills Cardiovascular: No Chest Pain, No SOB, No Orthopnea, No Edema Respiratory: No Cough, No Sputum, No Wheezing, No dyspnea Gastrointestinal: No Nausea, No Vomiting, No Diarrhea, No abdominal Pain Musculoskeletal: + joint pain, No Myalgias Skin: No Skin Lesions, No rash Neuro: No Weakness, + Numbness, No Dizziness, No Headache Psych: + Anxiety/Panic, No Depression Heme/Lymph: No Bruising, No Lymphadenopathy Endocrine: No Polyuria, No Polydipsia [facility] Past Medical History Medical History HIV (human immunodeficiency virus infection) Social History Social History Alcohol intake: current Alcohol intake frequency: does not drink Alcohol type: beer and hard liquor Patient Tobacco Use Status: Current everyday Tobacco user Advance Directives: No Advance Directives Information Provided: No Physical Exam Vital Signs: Vital Signs: Last Vital Signs Temp 97.4 F 10/18/21 11:38 Pulse 76 10/18/21 11:38 Resp 16 10/18/21 11:38 BP 105/59 L 10/18/21 11:38 Pulse Ox 96 10/18/21 11:38 O2 Del Method 10/18/21 11:38 BMI result Body Mass Index 29.7 Appearance: Alert. Oriented X3. No acute distress. HEENT: normal inspection CVS: Normal heart rate and rhythm. Pulses normal. Respiratory: No respiratory distress. Skin: Skin warm and dry. Normal skin color. Normal skin turgor. No rashes. Extremities: Normal inspection of bilateral feet. The plantar aspect of the right foot with calluses along the distal metatarsal area, associated tenderness. Positive sensory deficits on the bottom of the feet and toes bilaterally, all on the plantar aspect. No open wounds. No swelling of the lower extremities, no calf pain. Neuro: Oriented X 3. No motor deficit. Ambulates with steady gait. Course Course Course Narrative: 61-year-old male with history of HIV, neuropathy, anxiety who presents to the ER for evaluation of ongoing numbness and pain in his bilateral feet, worse on the right than the left. No injury. No evidence of infection on examination. His exam and clinical presentation are most consistent with worsening peripheral neuropathy. He is on low-dose gabapentin. We discussed importance of compliance with this for treatment. We also discussed importance of following up with his primary care doctor to discuss dose adjustment or adding additional therapy, no emergent need to do this today. He was also advised to wear supportive sneakers, give a trial of a orthopedic insert. He will do all these things in follow-up with his PCP. Stable for discharge home. Patient agrees with plan. Discharge Plan Discharge Clinical Impression: Neuropathy Patient Disposition: Home, Self-Care Additional Instructions: Recommend following up with your doctor to readdress your gabapentin dose. May benefit from an increase in your dose. Recommend getting asti-zoy-kbbhicl Dr. Nichols orthopedic foot inserts. Wear supportive sneakers, avoid wearing sandals. If you develop new or worsening symptoms call 911 or come back to the ER for further evaluation. Recomiende hacer un seguimiento con smith m?dico para volver a abordar smith dosis de gabapentina. Puede beneficiarse de un aumento en smith dosis. Recomiende obtener inserciones ortop?dicas para pies Dr. Nichols de venta cony. Use zapatillas de deporte de apoyo, evite usar sandalias. Prescriptions: No Action mupirocin 2 % ointment 1 appl topical TID 7 Days Qty: 15 0RF hydrocortisone 1 % cream 1 appl topical TID PRN (Reason: rash) Qty: 28.35 0RF thiamine HCl (vitamin B1) 250 mg tablet 250 mg PO DAILY Qty: 14 0RF valacyclovir [Valtrex] 1 gram tablet 1,000 mg PO BID 10 Days Qty: 20 0RF acetaminophen [Tylenol Extra Strength] 500 mg tablet 1,000 mg PO QID PRN (Reason: fever or pain) Qty: 14 0RF cyclobenzaprine 5 mg tablet 5 mg PO TID PRN (Reason: neck pain) 7 Days Qty: 21 0RF clotrimazole 1 % cream 1 appl topical BID Qty: 30 0RF Rx Instructions: apply to tip of penis twice a day Discharge Date/Time: 10/18/21 13:09 Print Language: Hungarian
--- NOTE | 2021-10-18 13:10 | PC.NURSE ---
discharged by provider
== END 2021-10-18 13:09 | disposition home or self-care (01) ==
PROVIDERS: Emergency Provider Student in an Organized Health Care Education/Training Program; PCP Internal Medicine
DX: G62.9 Polyneuropathy, unspecified (principal); M79.672 Pain in left foot; M79.671 Pain in right foot; B20 Human immunodeficiency virus [HIV] disease
CPT/HCPCS: 99283

== ENCOUNTER 2022-01-30 11:23 | Emergency (ER) | payer MEDICAID, SELFPAY ==
--- NOTE | ~2022-01-30 | XR_ITS ---
EXAMINATION: XR CHEST CLINICAL INFORMATION: Cough for about 2 weeks. COMPARISON: Chest radiograph dated from 07/13/2019. TECHNIQUE: Frontal view of the chest was obtained. FINDINGS: Normal appearance of the cardiomediastinal silhouette. No focal airspace opacity, pleural effusion or pneumothorax. Similar degree of mild diffuse interstitial thickening compared to 07/13/2019. No acute osseous abnormalities. The visualized upper abdomen is within normal limits. XR/XR chest 1V IMPRESSION: No acute cardiopulmonary findings.
[2022-01-30 11:26] VITALS: BP 131/69; PULSE 100; RESP 19; TEMP 36.6; O2SAT 98; BMI 33.0
--- NOTE | 2022-01-30 11:56 | ED.GENADULT ---
HPI - General Adult General Chief complaint: General Medical Stated complaint: coughing, too much phlegm Time Seen by Provider: 01/30/22 11:31 Source: patient Mode of arrival: ambulatory Limitations: no limitations History of Present Illness HPI narrative: 60 yold male with pmh of HIV and herpes presents to the ED for coughing for the past two weeks with white pleghm. Second complaints is he received unprotected oral sexa without condomrs and now around his foreskin is bunring. patient denies rectum or vaginal intercourse. Related Data Previous Rx's Medication Instructions Recorded hydrocortisone 1 % topical cream 1 appl topical TID PRN rash #28.35 04/09/20 grams mupirocin 2 % topical ointment 1 appl topical TID 7 days #15 grams 04/09/20 thiamine HCl (vitamin B1) 250 mg 250 mg PO DAILY #14 tabs 07/31/20 tablet valacyclovir 1 gram tablet 1,000 mg PO BID hsv 10 days #20 05/14/21 (Valtrex) tabs clotrimazole 1 % topical cream 1 appl topical BID #30 grams 06/21/21 acetaminophen 500 mg tablet 1,000 mg PO QID PRN fever or pain 06/26/21 (Tylenol Extra Strength) #14 tabs cyclobenzaprine 5 mg tablet 5 mg PO TID PRN neck pain 7 days 09/18/21 #21 tabs benzonatate 100 mg capsule 100 mg PO TID PRN cough 5 days #15 01/30/22 caps doxycycline hyclate 100 mg capsule 100 mg PO BID 7 days #14 caps 01/30/22 levofloxacin 250 mg tablet 250 mg PO DAILY 5 days #5 tabs 01/30/22 valacyclovir 1 gram tablet 1,000 mg PO BID 10 days #20 tabs 01/30/22 Allergies Allergy/AdvReac Type Severity Reaction Status Date / Time No Known Allergies Allergy Mild NONE Verified 01/30/22 11:29 Review of Systems Review of Systems: penile foreskin burning. COugh for two weeks Yes all other systems are reviewed and are negative PMFSH Past Medical History Medical History HIV (human immunodeficiency virus infection) Social History Social History Alcohol intake: current Alcohol intake frequency: does not drink Alcohol type: beer and hard liquor Patient Tobacco Use Status: Current everyday Tobacco user Advance Directives: No Advance Directives Information Provided: No Physical Exam ED Vital Signs: Vital Signs - 24 hr 01/30/22 11:26 Temperature 98 F Pulse Rate 100 Respiratory Rate 19 Blood Pressure 131/69 Pulse Oximetry 98 Oxygen Delivery Method Room Air BMI result Body Mass Index 33.0 Const General: cooperative, healthy appearing, comfortable, no acute distress, well developed, alert, awake and Physically active Orientation/consciousness: oriented to person, oriented to place and oriented to time HENMT Head: Yes normal to inspection, Yes No palpable skull fracture present, Yes normocephalic and Yes atraumatic Eyes General: appearance normal, both eyes and all related structures Neck Neck: Yes normal visual inspection, Yes full ROM, Yes no lymphadenopathy, Yes no meningeal signs, Yes trachea midline, Yes supple, No anterior neck swelling and No tender Chest Chest palpation & inspection: normal inspection of the chest and normal palpation of entire chest wall Resp Effort & Inspection: normal respiratory effort and able to speak in complete sentences Auscultation: clear to auscultation bilaterally Cardio Jugular venous distension: no JVD Heart sounds: S1 normal heart sound present and S2 normal heart sound present GI Inspection: Yes normal to inspection and No abdominal wall ecchymosis Palpation (GI): Soft to palpation, not firm, nontender, no guarding and not rigid General: No CVA tenderness and Yes no CVA tenderness Male General Exam: Yes Genital lesions present (ulceration lesions on right side foreskin shaft) Penis: uncircumcised and Genital lesions present (ulceration lesions on right side foreskin shaft) Back/Spine/Pelvis Back: no CVA tenderness, No CVA tenderness and No back tenderness Skin General skin exam: no rashes or lesions noted and elasticity normal Neuro General: oriented to person, oriented to place, oriented to time, gait normal, tone normal and no meningeal signs Cranial nerves: Yes CN's II-XII intact bilaterally Extrem General: Yes normal to inspection and Yes full ROM Psych Appearance: grossly normal, well kempt and not disheveled Course Course Course Narrative: Chest xray and SARS ordered. CNTG ordered. Physical exam is herpes. Reevaluation(s) Reevaluation #1: Patient's SARs negative. Chest x-ray normal. Will discharge with valacyclovir for herpes patient has history of herpes. Patient given STI mperic treatment. Time: 13:48 Medications Administered Discontinued Medications Generic Name Dose Route Start Last Admin Trade Name Freq PRN Reason Stop Dose Admin Acetaminophen 650 mg 01/30/22 14:01 01/30/22 14:12 Acetaminophen 325 Mg Tablet PO 01/30/22 14:02 650 mg ONCE ONE Administration Ceftriaxone Sodium 500 mg/ 0 mg 01/30/22 13:38 01/30/22 13:55 Lidocaine HCl 1 ml IM 01/30/22 13:39 500 kit ONCE ONE Administration Medical Decision Making MDM Narrative Medical decision making narrative: URI, herpes Lab Data Labs: Lab Results 01/30/22 01/30/22 01/30/22 Range/Units 11:47 12:38 12:38 Urine Color Yellow Urine Appearance Clear Urine pH 5.5 (5.0-9.0) Ur Specific [place] 1.025 (1.005-1.025) Urine Protein Trace (Neg-Trace) mg/dL Urine Glucose (UA) Negative (Negative) mg/dL Urine Ketones Trace (Negative) mg/dL Urine Blood Negative (Negative) Urine Nitrite Negative (Negative) Ur Leukocyte Esterase Trace H (Negative) Urine RBC 6-10 H (0-2) /HPF Urine WBC 0-5 (0-5) /HPF Ur Squamous Epith Cells 0-2 (0-2) /HPF Urine Bacteria None Seen (None Seen) Hyaline Casts 0-2 (0-2) /LPF Chlam trachomat DNA PCR NOT DETECTED (Not Detect.) Influenza Type A (PCR) NEGATIVE (Negative) Influenza Type B (PCR) NEGATIVE (Negative) N.gonorrhoeae DNA (PCR) NOT DETECTED (Not Detect.) RSV RNA Qual (PCR) NEGATIVE (Negative) SARS-CoV-2 RNA (RT-PCR) NEGATIVE (Negative) Discharge Plan Discharge Clinical Impression: URI (upper respiratory infection), Herpes Patient Disposition: Home, Self-Care Instructions: Genital Herpes Simplex (ED), Urinary Tract Infection in Men (ED), Upper Respiratory Infection (ED) Additional Instructions: La radiograf?a de t?rax result? normal. La prueba de MAIRA result? negativa. La orina muestra jose ITU nai?a. Regrese al servicio de urgencias por cualquier dolor en el pecho, dificultad para respirar, secreci?n del pene, dolor testicular, empeoramiento de las lesiones del pene, fiebre, escalofr?os, hematuria, disuria o cualquier otro s?ntoma preocupante. Por favor, luis un seguimiento con el proveedor de atenci?n primaria. Prescriptions: New doxycycline hyclate 100 mg capsule 100 mg PO BID 7 Days Qty: 14 0RF levofloxacin 250 mg tablet 250 mg PO DAILY 5 Days Qty: 5 0RF valacyclovir 1 gram tablet 1,000 mg PO BID 10 Days Qty: 20 0RF benzonatate 100 mg capsule 100 mg PO TID PRN (Reason: cough) 5 Days Qty: 15 0RF No Action mupirocin 2 % ointment 1 appl topical TID 7 Days Qty: 15 0RF hydrocortisone 1 % cream 1 appl topical TID PRN (Reason: rash) Qty: 28.35 0RF thiamine HCl (vitamin B1) 250 mg tablet 250 mg PO DAILY Qty: 14 0RF valacyclovir [Valtrex] 1 gram tablet 1,000 mg PO BID 10 Days Qty: 20 0RF acetaminophen [Tylenol Extra Strength] 500 mg tablet 1,000 mg PO QID PRN (Reason: fever or pain) Qty: 14 0RF cyclobenzaprine 5 mg tablet 5 mg PO TID PRN (Reason: neck pain) 7 Days Qty: 21 0RF clotrimazole 1 % cream 1 appl topical BID Qty: 30 0RF Rx Instructions: apply to tip of penis twice a day Interventions: ED Discharge Assessment Last Done: 01/30/22 14:15 Discharge Date/Time: 01/30/22 14:16 Print Language: Lao
[2022-01-30 12:34] LABS: Influenza A PCR NEGATIVE (Negative); Influenza B PCR NEGATIVE (Negative); Resp Syncy Virus RNA Qual PCR NEGATIVE (Negative); SARS COV2 PCR INHOUSE NEGATIVE (Negative)
[2022-01-30 12:48] LABS: Appearance Urine Clear; Color Urine Yellow; Glucose Urine UA Negative (Negative); Leukocyte Esterase Urine Trace (Negative); Nitrite Urine Negative (Negative); PH 5.5 (5.0-9.0); Specific Gravity - Urine 1.025 (1.005-1.025); UMIC TRIGGER UACC YES; Urine Blood Negative (Negative); Urine Ketones Trace mg/dL (Negative); Urine Protein Trace mg/dL (Neg-Trace)
[2022-01-30 12:59] LABS: Bacteria Urine None Seen (None Seen); Hyaline Casts Urine 0-2 /LPF (0-2); Squamous Epithelial Cell Urine 0-2 /HPF (0-2); WBC Urine 0-5 /HPF (0-5)
[2022-01-30] MEDS: cefTRIAXone sodium 500 MG, Lidocaine HCl 1 % MPF 1 ML IM (13:55)
[2022-01-30] MEDS: Acetaminophen 325 MG TABLET 650 MG PO (14:12)
[2022-01-30 14:30] LABS: CT PCR NOT DETECTED (Not Detect.); NG PCR NOT DETECTED (Not Detect.)
== END 2022-01-30 14:16 | disposition home or self-care (01) ==
PROVIDERS: Physician Assistant; Emergency Provider Emergency Medicine; PCP Internal Medicine
DX: J06.9 Acute upper respiratory infection, unspecified (principal); A60.01 Herpesviral infection of penis; Z20.822 Contact with and (suspected) exposure to COVID-19; B20 Human immunodeficiency virus [HIV] disease; F17.210 Nicotine dependence, cigarettes, uncomplicated; Z79.899 Other long term (current) drug therapy
CPT/HCPCS: 0241U; 71045; 81001; 87491; 87591; 96372; 99284; J0696

== ENCOUNTER 2022-02-16 11:42 | Emergency (ER) | payer MEDICAID, SELFPAY ==
--- NOTE | ~2022-02-16 | XR_ITS ---
EXAMINATION: XR FOOT, RIGHT CLINICAL INFORMATION: Right foot pain and swelling. COMPARISON: None TECHNIQUE: AP, lateral, and oblique views of the right foot. An indicator arrow points to the lateral foot. FINDINGS: Mild to moderate hallux valgus deformity with minimal first metatarsophalangeal joint space narrowing. There is no acute fracture or dislocation. The joint spaces are unremarkable. The tarsal bones are normally aligned. Very small plantar calcaneal spur. The soft tissues are unremarkable. XR/XR foot RT min 3V IMPRESSION: 1. Mild to moderate hallux valgus deformity with minimal first metatarsophalangeal osteoarthritis. No acute abnormality. 2. Very small degenerative plantar calcaneal spur.
--- NOTE | 2022-02-16 11:55 | ED.GENADULT ---
HPI - General Adult General Chief complaint: Extremity Injury, Lower <LENORA Welch - Last Filed: 02/16/22 11:57> Stated complaint: R foot swelling, no inj <LENORA Welch - Last Filed: 02/16/22 11:57> Time Seen by Provider: 02/16/22 12:08 <LENORA Welch - Last Filed: 02/16/22 11:57> Source: patient <Keli Jiang NP - Last Filed: 02/16/22 14:31> Mode of arrival: ambulatory <Keli Jiang NP - Last Filed: 02/16/22 14:31> Limitations: no limitations <Keli Jiang NP - Last Filed: 02/16/22 14:31> History of Present Illness HPI narrative: 61-year-old Citizen Of [place]-speaking male past medical history of HIV presents to the emergency department today with complaints of right foot swelling at the ball of the foot 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 He also endorses numbness in his right toes for the past couple months. He denies any known injury to the foot, denies any ecchymosis, erythema, recent illnesses, sick contacts. <Keli Jiang NP - Last Filed: 02/16/22 14:31> Onset (ago): hour(s) <Keli Jiang NP - Last Filed: 02/16/22 14:31> Location: lower extremity <Keli Jiang NP - Last Filed: 02/16/22 14:31> Radiation: non-radiation <Keli Jiang NP - Last Filed: 02/16/22 14:31> Severity: mild <Keli Jiang NP - Last Filed: 02/16/22 14:31> Severity scale (1-10): 3 <Keli Jiang NP - Last Filed: 02/16/22 14:31> Quality: aching <Keli Jiang NP - Last Filed: 02/16/22 14:31> Pain Consistency: constant <Keli Jiang NP - Last Filed: 02/16/22 14:31> Relieving factors: none <Keli Jiang NP - Last Filed: 02/16/22 14:31> Exacerbating factors: none <Keli Jiang NP - Last Filed: 02/16/22 14:31> Associated symptoms: denies other symptoms <Keli Jiang NP - Last Filed: 02/16/22 14:31> Treatments prior to arrival: none <Keli Jiang NP - Last Filed: 02/16/22 14:31> Related Data Home medications: Previous Rx's Medication Instructions Recorded hydrocortisone 1 % topical cream 1 appl topical TID PRN rash #28.35 04/09/20 grams mupirocin 2 % topical ointment 1 appl topical TID 7 days #15 grams 04/09/20 thiamine HCl (vitamin B1) 250 mg 250 mg PO DAILY #14 tabs 07/31/20 tablet valacyclovir 1 gram tablet 1,000 mg PO BID hsv 10 days #20 05/14/21 (Valtrex) tabs clotrimazole 1 % topical cream 1 appl topical BID #30 grams 06/21/21 acetaminophen 500 mg tablet 1,000 mg PO QID PRN fever or pain 06/26/21 (Tylenol Extra Strength) #14 tabs cyclobenzaprine 5 mg tablet 5 mg PO TID PRN neck pain 7 days 09/18/21 #21 tabs benzonatate 100 mg capsule 100 mg PO TID PRN cough 5 days #15 01/30/22 caps doxycycline hyclate 100 mg capsule 100 mg PO BID 7 days #14 caps 01/30/22 levofloxacin 250 mg tablet 250 mg PO DAILY 5 days #5 tabs 01/30/22 valacyclovir 1 gram tablet 1,000 mg PO BID 10 days #20 tabs 01/30/22 <LENORA Welch - Last Filed: 02/16/22 11:57> Allergies/adverse reactions: Allergies Allergy/AdvReac Type Severity Reaction Status Date / Time No Known Allergies Allergy Mild NONE Verified 01/30/22 11:29 <LENORA Welch - Last Filed: 02/16/22 11:57> Review of Systems Review of Systems: In addition to documented HPI above, the additional ROS was obtained: Constitutional: No Weight loss, No Fever, No Chills ENT/Mouth: No Ear Pain, No Nasal Congestion, No Sinus Pain, No Hoarseness, No sore throat, No Rhinorrhea, No Swallowing Difficulty Cardiovascular: No Chest Pain, No SOB Respiratory: No Cough, No Sputum, No Wheezing Gastrointestinal: No Nausea, No Vomiting, No Diarrhea, No Constipation, No Abdominal pain Genitourinary: No Dysuria, No Urinary Frequency, No Hematuria, No Urinary Incontinence/retention, No Urgency, No Flank Pain Musculoskeletal: No joint pain, No Myalgias, No Joint Swelling Skin: No Skin Lesions, No rash Neuro: No Weakness, No Paresthesias <Keli Jiang NP - Last Filed: 02/16/22 14:31> Yes all other systems are reviewed and are negative <Keli Jiang NP - Last Filed: 02/16/22 14:31> [facility] Past Medical History Attestation statement: The following information was validated with the patient. <Keli Jiang NP - Last Filed: 02/16/22 14:31> Source: old records reviewed and obtained from family <Keli Jiang NP - Last Filed: 02/16/22 14:31> Medical History: Medical History HIV (human immunodeficiency virus infection) <LENORA Welch - Last Filed: 02/16/22 11:57> Social History Social History: Social History Alcohol intake: never Patient Tobacco Use Status: Current everyday Tobacco user Smoked in Last 30 Days: Yes Use of substances other than those prescribed or required for medical reasons: No Advance Directives: No <LENORA Welch - Last Filed: 02/16/22 11:57> Physical Exam ED Vital Signs: Vital Signs - 24 hr 02/16/22 11:56 Temperature 98 F Pulse Rate 97 Respiratory Rate 18 Blood Pressure 136/76 Pulse Oximetry 96 Oxygen Delivery Method Room Air BMI result Body Mass Index 24.4 <LENORA Welch - Last Filed: 02/16/22 11:57> Vital Signs - 24 hr 02/16/22 11:56 Temperature 98 F Pulse Rate 97 Respiratory Rate 18 Blood Pressure 136/76 Pulse Oximetry 96 Oxygen Delivery Method Room Air BMI result Body Mass Index 24.4 <Keli Jiang CLINICAL HAEMATOLOGIST - Last Filed: 02/16/22 14:31> Const General: cooperative, alert and awake <Keli Jiang CLINICAL HAEMATOLOGIST - Last Filed: 02/16/22 14:31> Nutritional Appearance: well nourished <Keli Jiang CLINICAL HAEMATOLOGIST - Last Filed: 02/16/22 14:31> Orientation/consciousness: patient oriented x3 <Keli Jiang CLINICAL HAEMATOLOGIST - Last Filed: 02/16/22 14:31> Limitations: language barrier <Keli Jiang CLINICAL HAEMATOLOGIST - Last Filed: 02/16/22 14:31> HENMT Head: Yes normal to inspection <Keli Jiang CLINICAL HAEMATOLOGIST - Last Filed: 02/16/22 14:31> Ears: hearing grossly normal bilaterally <Keli Jiang CLINICAL HAEMATOLOGIST - Last Filed: 02/16/22 14:31> General nose exam: Normal external nose present <Keli Jiang CLINICAL HAEMATOLOGIST - Last Filed: 02/16/22 14:31> Face and sinus: Yes normal facial exam <Keli Jiang CLINICAL HAEMATOLOGIST - Last Filed: 02/16/22 14:31> Mouth: Normal oral and palatal mucosa present <Keli Jiang CLINICAL HAEMATOLOGIST - Last Filed: 02/16/22 14:31> Eyes General: appearance normal, both eyes and all related structures <Keli Jiang CLINICAL HAEMATOLOGIST - Last Filed: 02/16/22 14:31> Pupils: Equal, round and reactive pupils present <Keli Jiang CLINICAL HAEMATOLOGIST - Last Filed: 02/16/22 14:31> EOM: EOMs intact bilaterally <Keli Jiang CLINICAL HAEMATOLOGIST - Last Filed: 02/16/22 14:31> Neck Neck: Yes normal visual inspection and Yes full ROM <Keli Jiang CLINICAL HAEMATOLOGIST - Last Filed: 02/16/22 14:31> Chest Chest palpation & inspection: normal inspection of the chest <Keli Jiang CLINICAL HAEMATOLOGIST - Last Filed: 02/16/22 14:31> Resp Effort & Inspection: normal respiratory effort and not labored <Keli Jiang, CLINICAL HAEMATOLOGIST - Last Filed: 02/16/22 14:31> Auscultation: clear to auscultation bilaterally, no crackles, no rhonchi and no wheezes <Keli Jiang, CLINICAL HAEMATOLOGIST - Last Filed: 02/16/22 14:31> Cardio Rate: regular rate <Keli Jiang, CLINICAL HAEMATOLOGIST - Last Filed: 02/16/22 14:31> Rhythm: regular rhythm <Keli Jiang, CLINICAL HAEMATOLOGIST - Last Filed: 02/16/22 14:31> Back/Spine/Pelvis Cervical Spine: cervical ROM normal <Keli Jiang, CLINICAL HAEMATOLOGIST - Last Filed: 02/16/22 14:31> Thoracic/Lumbar Spine: thoraco-lumbar ROM normal <Keli Jiang, CLINICAL HAEMATOLOGIST - Last Filed: 02/16/22 14:31> Skin General skin exam: no rashes or lesions noted <Keli Jiang, CLINICAL HAEMATOLOGIST - Last Filed: 02/16/22 14:31> Neuro General: patient oriented x3 and moves all extremities <Keli Jiang, CLINICAL HAEMATOLOGIST - Last Filed: 02/16/22 14:31> Cranial nerves: Yes Equal, round and reactive pupils present <Keli Jiang, CLINICAL HAEMATOLOGIST - Last Filed: 02/16/22 14:31> Gait exam (Neuro): Normal gait present <Keli Jiang, CLINICAL HAEMATOLOGIST - Last Filed: 02/16/22 14:31> Motor exam (neuro): 5/5 motor strength present throughout <Keli Jiang, CLINICAL HAEMATOLOGIST - Last Filed: 02/16/22 14:31> Extrem General: Yes normal to inspection, Yes full ROM and Yes capillary refill normal <Keli Jiang, CLINICAL HAEMATOLOGIST - Last Filed: 02/16/22 14:31> Right lower extremity: foot Details: normal capillary refill, tenderness Location: of the plantar foot Location: distally, toes with normal ROM, edema Location: of the plantar foot Location: distally and motor-sensory exam Details: light-touch normal; no unusual warmth, no laceration, no ecchymosis, no foreign bodies and no puncture wound <Keli JiangESME - Last Filed: 02/16/22 14:31> Psych Appearance: grossly normal <Keli Jiang ESME - Last Filed: 02/16/22 14:31> Mental Status: mental status grossly normal <Keli JiangESME - Last Filed: 02/16/22 14:31> Speech and movement: Normal speech and movement present <Keli JiangESME - Last Filed: 02/16/22 14:31> Course Course Course Narrative: RME - 61 yo male with history of HIV on HAART presenting with acute on chronic nontraumatic right foot pain for the last couple months. Pain located at the ball of his foot and radiates to the toes, causing numbness and pain. Difficulty ambulating. No known injury. No diabetic. Will get XR of the foot. <LENORA Welch - Last Filed: 02/16/22 11:57> RME - 61 yo male with history of HIV on HAART presenting with acute on chronic nontraumatic right foot pain for the last couple months. Pain located at the ball of his foot and radiates to the toes, causing numbness and pain. Difficulty ambulating. No known injury. No diabetic. Will get XR of the foot. EXAMINATION: XR FOOT, RIGHT CLINICAL INFORMATION: Right foot pain and swelling.? COMPARISON: None? TECHNIQUE: AP, lateral, and oblique views of the right foot. An indicator arrow points to the lateral foot. FINDINGS: Mild to moderate hallux valgus deformity with minimal first metatarsophalangeal joint space narrowing. There is no acute fracture or dislocation. The joint spaces are unremarkable. The tarsal bones are normally aligned. Very small plantar calcaneal spur. The soft tissues are unremarkable. XR/XR foot RT min 3V IMPRESSION: 1.? Mild to moderate hallux valgus deformity with minimal first metatarsophalangeal osteoarthritis. No acute abnormality. 2.? Very small degenerative plantar calcaneal spur. ? Dictated By: Denny Givens MD Signed By: <Electronically signed by Denny Givens MD in [place]> 02/16/22 1211 DD/ 1205 TD/TT:? 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 XR rt foot showing mild to moderate hallux valgus deformity with minimal first metatarsophalangeal osteoarthritis, no acute abnormality, very small degenerative plantar calcaneal spur. Walking boot provided with improvement in comfort per patient. HPI, physical, diagnostics discussed with patient with no unanswered questions at this time. Recommended management with [id number] NSAIDs and Tylenol for discomfort. Recommend rest, icing, elevating his right extremity frequently throughout the day. 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 ? <Keli Jiang NP - Last Filed: 02/16/22 14:31> Differential Diagnoses: Differential diagnosis (right foot pain) <Keli Jiang NP - Last Filed: 02/16/22 14:31> Discharge Plan Discharge Clinical Impression: Right foot pain <LENORA Welch - Last Filed: 02/16/22 11:57> Patient Disposition: Home, Self-Care <LENORA Welch - Last Filed: 02/16/22 11:57> Instructions: Metatarsalgia (DC) <LENORA Welch - Last Filed: 02/16/22 11:57> Prescriptions: No Action mupirocin 2 % ointment 1 appl topical TID 7 Days Qty: 15 0RF hydrocortisone 1 % cream 1 appl topical TID PRN (Reason: rash) Qty: 28.35 0RF thiamine HCl (vitamin B1) 250 mg tablet 250 mg PO DAILY Qty: 14 0RF valacyclovir [Valtrex] 1 gram tablet 1,000 mg PO BID 10 Days Qty: 20 0RF acetaminophen [Tylenol Extra Strength] 500 mg tablet 1,000 mg PO QID PRN (Reason: fever or pain) Qty: 14 0RF cyclobenzaprine 5 mg tablet 5 mg PO TID PRN (Reason: neck pain) 7 Days Qty: 21 0RF clotrimazole 1 % cream 1 appl topical BID Qty: 30 0RF Rx Instructions: apply to tip of penis twice a day doxycycline hyclate 100 mg capsule 100 mg PO BID 7 Days Qty: 14 0RF levofloxacin 250 mg tablet 250 mg PO DAILY 5 Days Qty: 5 0RF valacyclovir 1 gram tablet 1,000 mg PO BID 10 Days Qty: 20 0RF benzonatate 100 mg capsule 100 mg PO TID PRN (Reason: cough) 5 Days Qty: 15 0RF <LENORA Welch - Last Filed: 02/16/22 11:57> Referrals: Elizabeth No MD [Primary Care Provider] - Calin Smith DPM [Physician] - <LENORA Welch - Last Filed: 02/16/22 11:57> Stand Alone Forms: Work/School Release <LENORA Welch - Last Filed: 02/16/22 11:57> Print Language: Citizen Of [place] <LENORA Welch - Last Filed: 02/16/22 11:57>
[2022-02-16 11:56] VITALS: BP 136/76; PULSE 97; RESP 18; TEMP 36.6; O2SAT 96; BMI 24.4
--- NOTE | 2022-02-16 12:31 | PC.NURSE ---
patient assessed with use of medical device . patients primary language Citizen [place] . eliane . heart rate regular at 96 beats per minute . breathing even and unlabored . lungs clear though out . patient reports 10 out 10 pain with tingling /numbness in that shoots down toes from his right foot . positive pulses noted . patient reported he has had this problem for months and this problem is in both feet but more in the right . patient aware of plan of care .
--- NOTE | 2022-02-16 15:28 | PC.NURSE ---
patient discharged with medical appointment scheduler by provider .
== END 2022-02-16 15:28 | disposition home or self-care (01) ==
PROVIDERS: Emergency Provider Emergency Medicine Emergency Medical Services; PCP Internal Medicine
DX: R60.0 Localized edema (principal); M79.671 Pain in right foot; F17.200 Nicotine dependence, unspecified, uncomplicated; Z71.6 Tobacco abuse counseling
CPT/HCPCS: 73630; 99283; 99284

== ENCOUNTER 2022-02-20 08:47 | Emergency (ER) | payer MEDICAID, SELFPAY ==
[2022-02-20 08:49] VITALS: BP 148/87; PULSE 110; RESP 15; TEMP 36.9; O2SAT 95; BMI 29.7
[2022-02-20] MEDS: cefTRIAXone sodium 500 MG VIAL IM (09:29)
--- NOTE | 2022-02-20 09:34 | ED_ITS ---
HPI - Male Genitourinary General Chief complaint: Urogenital-Male Stated complaint: penis infection Time Seen by Provider: 02/20/22 09:04 Source: patient Mode of arrival: ambulatory Limitations: language barrier History of Present Illness HPI Narrative: 61-year-old [place]-speaking male with past medical history of HIV with undetectable levels per patient and herpes outbreak 3 weeks ago successfully treated with valacyclovir for patient presents to the emergency department with painful urination in white purulent drainage from his penis x 1 day after receiving oral sex one week ago. He denies any difficulty urinating, foul smelling urine, fever, chills, or abdominal pain. MD Complaint: penile discharge Onset (ago): day(s) (1) Duration: constant Location: penis Severity: mild Severity scale (1-10): 3 Quality: burning Relieving factors: none Exacerbating factors: none Associated symptoms: Reports denies other symptoms Related Data Sexually active: Yes Previous Rx's Medication Instructions Recorded hydrocortisone 1 % topical cream 1 appl topical TID PRN rash #28.35 04/09/20 grams mupirocin 2 % topical ointment 1 appl topical TID 7 days #15 grams 04/09/20 thiamine HCl (vitamin B1) 250 mg 250 mg PO DAILY #14 tabs 07/31/20 tablet valacyclovir 1 gram tablet 1,000 mg PO BID hsv 10 days #20 05/14/21 (Valtrex) tabs clotrimazole 1 % topical cream 1 appl topical BID #30 grams 06/21/21 acetaminophen 500 mg tablet 1,000 mg PO QID PRN fever or pain 06/26/21 (Tylenol Extra Strength) #14 tabs cyclobenzaprine 5 mg tablet 5 mg PO TID PRN neck pain 7 days 09/18/21 #21 tabs benzonatate 100 mg capsule 100 mg PO TID PRN cough 5 days #15 01/30/22 caps doxycycline hyclate 100 mg capsule 100 mg PO BID 7 days #14 caps 01/30/22 levofloxacin 250 mg tablet 250 mg PO DAILY 5 days #5 tabs 01/30/22 valacyclovir 1 gram tablet 1,000 mg PO BID 10 days #20 tabs 01/30/22 doxycycline hyclate 100 mg capsule 100 mg PO BID 7 days #14 caps 02/20/22 Allergies Allergy/AdvReac Type Severity Reaction Status Date / Time No Known Allergies Allergy Mild NONE Verified 01/30/22 11:29 Review of Systems Review of Systems: In addition to documented HPI above, the additional ROS was obtained: Constitutional: No Weight loss, No Fever, No Chills ENT/Mouth: No Ear Pain, No Nasal Congestion, No Sinus Pain, No Hoarseness, No sore throat, No Rhinorrhea, No Swallowing Difficulty Cardiovascular: No Chest Pain, No SOB Respiratory: No Cough, No Sputum, No Wheezing Gastrointestinal: No Nausea, No Vomiting, No Diarrhea, No Constipation, No Abdominal pain Genitourinary: No Urinary Frequency, No Hematuria, No Urinary Incontinence/retention, No Urgency, No Flank Pain Musculoskeletal: No joint pain, No Myalgias, No Joint Swelling Skin: No Skin Lesions, No rash Neuro: No Weakness, No Numbness, No Paresthesias Yes all other systems are reviewed and are negative PMFSH Past Medical History Attestation statement: The following information was validated with the patient. Source: old records reviewed Medical History HIV (human immunodeficiency virus infection) Social History Social History Alcohol intake: never Patient Tobacco Use Status: Current everyday Tobacco user Advance Directives: No Advance Directives Information Provided: No Physical Exam Vital Signs: Vital Signs: Last Vital Signs Temp 98.4 F 02/20/22 08:49 Pulse 110 H 02/20/22 08:49 Resp 15 02/20/22 08:49 BP 148/87 H 02/20/22 08:49 Pulse Ox 95 02/20/22 08:49 O2 Del Method 02/20/22 08:49 BMI result Body Mass Index 29.7 Const: General: cooperative, alert and awake Nutritional Appearance: well nourished Orientation/consciousness: patient oriented x3 Limitations: language barrier HEENT: Head: Yes normal to inspection and Yes atraumatic Ears: hearing grossly normal bilaterally and external ears normal General nose exam: Normal external nose present Face and sinus: Yes normal facial exam Mouth: Normal oral and palatal mucosa present Eyes: General: appearance normal, both eyes and all related structures Visual Stein: normal visual stein by confrontation Alignment and Position: alignment normal Periorbital: periorbital findings normal Eyelids: Yes ey elids normal Conjunctivae: conjunctivae normal Sclerae: sclerae normal Corneas: corneas normal Pupils: Equal, round and reactive pupils present EOM: EOMs intact bilaterally Neck: Neck: Yes normal visual inspection, Yes full ROM and Yes no lymphadenopathy Chest: Chest palpation & inspection: normal inspection of the chest Resp: Effort & Inspection: normal respiratory effort and not labored Auscultation: clear to auscultation bilaterally, no crackles, no rhonchi and no wheezes Cardio: Rate: regular rate Rhythm: regular rhythm : Penis: normal penis and uncircumcised Meatus: meatal discharge Scrotum: scrotum normal Testes: Testes normal Back/Spine/Pelvis: Cervical Spine: cervical ROM normal Thoracic/Lumbar Spine: thoraco-lumbar ROM normal Skin: General skin exam: no rashes or lesions noted Neuro: General: patient oriented x3, tone normal and moves all extremities Cranial nerves: Yes Equal, round and reactive pupils present Cognition (Neuro): normal cognition Gait exam (Neuro): Normal gait present Motor exam (neuro): 5/5 motor strength present throughout Extrem: General: Yes normal to inspection, Yes full ROM and Yes capillary refill normal Medications Administered Discontinued Medications Generic Name Dose Route Start Last Admin Trade Name Freq PRN Reason Stop Dose Admin Ceftriaxone Sodium 500 mg 02/20/22 09:09 02/20/22 09:29 Ceftriaxone Sodium 500 Mg Vial IM 02/20/22 09:10 500 mg ONCE ONE Administration Medical Decision Making Medical Decision Making [facility] Narrative: 61-year-old [place]ron[place]-speaking male with past medical history of HIV with undetectable levels per patient and herpes outbreak 3 weeks ago successfully treated with valacyclovir for patient presents to the emergency department with painful urination in white purulent drainage from his penis x 1 day after receiving oral sex one week ago without difficulty urinating, foul smelling urine, fever, chills, or abdominal pain. Physical exam consistent with white purulence drainage from meatus, with no swelling or erythema noted. Urinalysis and urine STD panel ordered. Plan to discharge home with 7 day course of Doxycycline BID and Ceftriaxone 500 mg IM given in the emergency department for treatment of presumed gonorrhea. Patient to be contacted regarding results of STI test. HPI, physical exam, and plan discussed with patient with no unans wered questions at this time. Educated to notify sexual partners of presumed STI and recommend treatment for his sexual partners. Educated to return to the emergency room with swelling, inability to urinate, follow urine, fever, chills, or any other emergent concerning symptom. Recommended to follow-up with his primary care provider for further treatment and management. Discharge Plan Discharge Clinical Impression: STI (sexually transmitted infection) Patient Disposition: Home, Self-Care Instructions: Male Condom Use (ED), Gonorrhea (ED) Additional Instructions: You have been given antibiotics in the emergency department and will go home with a 7 day course of antibiotics. It has been sent to your preferred pharmacy. Please complete full course of medication. Please notify sexual partners of presumed STI and recommend treatment for your sexual partners. Please return to the emergency room with swelling, inability to urinate, follow urine, fever, chills, or any other emergent concerning symptom. Please follow-up with his primary care provider for further treatment and management. Prescriptions: New doxycycline hyclate 100 mg capsule 100 mg PO BID 7 Days Qty: 14 0RF No Action mupirocin 2 % ointment 1 appl topical TID 7 Days Qty: 15 0RF hydrocortisone 1 % cream 1 appl topical TID PRN (Reason: rash) Qty: 28.35 0RF thiamine HCl (vitamin B1) 250 mg tablet 250 mg PO DAILY Qty: 14 0RF valacyclovir [Valtrex] 1 gram tablet 1,000 mg PO BID 10 Days Qty: 20 0RF acetaminophen [Tylenol Extra Strength] 500 mg tablet 1,000 mg PO QID PRN (Reason: fever or pain) Qty: 14 0RF cyclobenzaprine 5 mg tablet 5 mg PO TID PRN (Reason: neck pain) 7 Days Qty: 21 0RF clotrimazole 1 % cream 1 appl topical BID Qty: 30 0RF Rx Instructions: apply to tip of penis twice a day doxycycline hyclate 100 mg capsule 100 mg PO BID 7 Days Qty: 14 0RF levofloxacin 250 mg tablet 250 mg PO DAILY 5 Days Qty: 5 0RF valacyclovir 1 gram tablet 1,000 mg PO BID 10 Days Qty: 20 0RF benzonatate 100 mg capsule 100 mg PO TID PRN (Reason: cough) 5 Days Qty: 15 0RF Referrals: Elizabeth No MD [Primary Care Provider] - Print Language: Micronesian
[2022-02-20 10:08] LABS: Appearance Urine Clear; Color Urine Yellow; Glucose Urine UA Negative (Negative); Leukocyte Esterase Urine Moderate (2+) (Negative); Nitrite Urine Negative (Negative); PH 5.5 (5.0-9.0); Specific Gravity - Urine 1.025 (1.005-1.025); UMIC TRIGGER UACC YES; Urine Blood Negative (Negative); Urine Ketones Trace mg/dL (Negative); Urine Protein Negative (Neg-Trace)
[2022-02-20 10:13] LABS: Bacteria Urine None Seen (None Seen); Hyaline Casts Urine 0-2 /LPF (0-2); RBC Urine 0-2 /HPF (0-2); Squamous Epithelial Cell Urine 0-2 /HPF (0-2); UACC Culture Trigger YES; WBC Urine 21-50 /HPF (0-5)
[2022-02-20 12:23] LABS: CT PCR DETECTED (Not Detect.); NG PCR DETECTED (Not Detect.)
== END 2022-02-20 10:06 | disposition home or self-care (01) ==
PROVIDERS: Emergency Provider Student in an Organized Health Care Education/Training Program; PCP Internal Medicine
DX: A64 Unspecified sexually transmitted disease (principal); N48.29 Other inflammatory disorders of penis; R30.0 Dysuria; Z79.899 Other long term (current) drug therapy
CPT/HCPCS: 81001; 87086; 87491; 87591; 96372; 99282; 99284; J0696

== ENCOUNTER 2022-05-29 13:56 | Outpatient (REF) | payer MEDICAID, SELFPAY ==
--- NOTE | ~2022-05-29 | XR_ITS ---
EXAMINATION: XR hand RT 2V, XR hand LT 2V CLINICAL INFORMATION: Reason for Exam bilateral hand pain COMPARISON: 06/26/2021 TECHNIQUE: AP, lateral, and oblique views of the bilateral hands XR/XR hand LT 2V FINDINGS/IMPRESSION: * No acute fracture or dislocation. * Joint spaces are maintained without significant degenerative change. * No soft tissue abnormality.
--- NOTE | ~2022-05-29 | XR_ITS ---
EXAMINATION: XR lumbar spine 2-3V CLINICAL INFORMATION: Reason for Exam low back pain COMPARISON: Lumbar spine radiographs 01/22/2018 TECHNIQUE: 3 views of the lumbar spine FINDINGS: 5 nonrib-bearing lumbar-type vertebral bodies. Wedge deformity of the L5 vertebral body, unchanged since 2018. Remaining vertebral body heights are otherwise maintained. Alignment is maintained. Mild multilevel degenerative disc disease with loss of disc space height, facet arthropathy and disc osteophyte complexes. This is worst at L5/S1. Paravertebral soft tissues are unremarkable. XR/XR lumbar spine 2-3V IMPRESSION: 1. Mild spondylosis of the lumbar spine, as above detailed. 2. 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
--- NOTE | ~2022-05-29 | XR_ITS ---
EXAMINATION: XR hand RT 2V, XR hand LT 2V CLINICAL INFORMATION: Reason for Exam bilateral hand pain COMPARISON: 06/26/2021 TECHNIQUE: AP, lateral, and oblique views of the bilateral hands XR/XR hand RT 2V FINDINGS/IMPRESSION: * No acute fracture or dislocation. * Joint spaces are maintained without significant degenerative change. * No soft tissue abnormality.
== END 2022-05-29 13:57 | disposition home or self-care (01) ==
LOC: HO.XRAY 13:56
PROVIDERS: Visit Provider Family Medicine
DX: M54.50 Low back pain, unspecified (principal); M79.641 Pain in right hand; M79.642 Pain in left hand
CPT/HCPCS: 72100; 73120

== ENCOUNTER 2022-06-12 10:30 | Emergency (ER) | payer MEDICAID, SELFPAY ==
[2022-06-12 10:53] VITALS: BP 109/65; PULSE 100; RESP 18; TEMP 36.9; O2SAT 96; BMI 23.7
--- NOTE | 2022-06-12 11:54 | ED_ITS ---
HPI - Male Genitourinary General Chief complaint: Urogenital-Male Stated complaint: penis issue Time Seen by Provider: 06/12/22 11:51 Source: patient Limitations: language barrier History of Present Illness HPI Narrative: 61-year-old male presents with painful urination after having a sexual encounter that was unprotected. Patient has a history of chlamydia and gonorrhea in the past. Patient is also has a history of HIV. Patient states his HIV is stable in all partners are wear. Patient denies any lesions to his penis disc painful urination. Patient is without nausea vomiting fever chills or other complaints at this time. Patient has had similar episodes in the past. 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 It will also protect him and others. Related Data Previous Rx's Medication Instructions Recorded hydrocortisone 1 % topical cream 1 appl topical TID PRN rash #28.35 04/09/20 grams mupirocin 2 % topical ointment 1 appl topical TID 7 days #15 grams 04/09/20 thiamine HCl (vitamin B1) 250 mg 250 mg PO DAILY #14 tabs 07/31/20 tablet valacyclovir 1 gram tablet 1,000 mg PO BID hsv 10 days #20 05/14/21 (Valtrex) tabs clotrimazole 1 % topical cream 1 appl topical BID #30 grams 06/21/21 acetaminophen 500 mg tablet 1,000 mg PO QID PRN fever or pain 06/26/21 (Tylenol Extra Strength) #14 tabs cyclobenzaprine 5 mg tablet 5 mg PO TID PRN neck pain 7 days 09/18/21 #21 tabs benzonatate 100 mg capsule 100 mg PO TID PRN cough 5 days #15 01/30/22 caps doxycycline hyclate 100 mg capsule 100 mg PO BID 7 days #14 caps 01/30/22 levofloxacin 250 mg tablet 250 mg PO DAILY 5 days #5 tabs 01/30/22 valacyclovir 1 gram tablet 1,000 mg PO BID 10 days #20 tabs 01/30/22 doxycycline hyclate 100 mg capsule 100 mg PO BID 7 days #14 caps 02/20/22 doxycycline hyclate 100 mg capsule 100 mg PO BID 7 days #14 caps 06/12/22 Allergies Allergy/AdvReac Type Severity Reaction Status Date / Time No Known Allergies Allergy Mild NONE Verified 01/30/22 11:29 Review of Systems Constitutional: Constitutional: Denies chills, Denies fever(s), Denies headache(s), Denies malaise and Denies weakness ENT: Denies headache(s) and Denies sore throat Cardiovascular: Cardiovascular: Denies chest pain and Denies dyspnea Respiratory: Respiratory: Denies dyspnea Genitourinary: Genitourinary: Reports dysuria, Denies flank pain, Denies painful ejaculations and Denies urinary incontinence Neurologic: Denies headache(s) and Denies weakness PMFSH Past Medical History Attestation statement: The following information was validated with the patient. Medical History HIV (human immunodeficiency virus infection) Social History Social History Alcohol intake: never Patient Tobacco Use Status: Current everyday Tobacco user Physical Exam Vital Signs: Vital Signs: Last Vital Signs Temp 98.4 F 06/12/22 10:53 Pulse 100 06/12/22 10:53 Resp 18 06/12/22 10:53 BP 109/65 06/12/22 10:53 Pulse Ox 96 06/12/22 10:53 O2 Del Method Room Air 06/12/22 10:53 BMI result Body Mass Index 23.7 Const: General: cooperative, comfortable and no acute distress; No anxious Orientation/consciousness: patient oriented x3 HEENT: Head: Yes normal to inspection, Yes normocephalic and Yes atraumatic Eyes: Pupils: Equal, round and reactive pupils present EOM: EOMs intact bilaterally GI: Other: abdomen soft nontender no rebound or guarding positive bowel sounds Inspection: Yes normal to inspection Rectal Exam - Male: Yes deferred : Other: no lesions noticed on the penis whitish discharge noted. Back/Spine/Pelvis: Other: Full range of motion of the back Skin: General skin exam: no rashes or lesions noted Wounds: no wounds Neuro: General: patient oriented x3, gait normal and moves all extremities Cranial nerves: Yes Equal, round and reactive pupils present Extrem: General: Yes normal to inspection and Yes full ROM Course Course Course Narrative: Chlamydia Gonorrhea Cystitis 61-year-old gentleman with a history of chlamydia and gonorrhea in the past HIV positive. Positive urinary symptoms dirty urine for chlamydia and gonorrhea are pending. Will treat at this time. Patient encouraged to use condoms in the fut ure AC is HIV-positive protect himself and others. Patient has no other complaints at this time 500 mg ceftriaxone IM will discharge patient home on doxycycline b.i.d. x1 week Discharge Plan Discharge Clinical Impression: Urethritis Patient Disposition: Home, Self-Care Instructions: Safe Sex Practices (ED), Chlamydia (ED) Additional Instructions: Safe sex practices with the condoms very important Antibiotics as directed Prescriptions: New doxycycline hyclate 100 mg capsule 100 mg PO BID 7 Days Qty: 14 0RF No Action mupirocin 2 % ointment 1 appl topical TID 7 Days Qty: 15 0RF hydrocortisone 1 % cream 1 appl topical TID PRN (Reason: rash) Qty: 28.35 0RF thiamine HCl (vitamin B1) 250 mg tablet 250 mg PO DAILY Qty: 14 0RF valacyclovir [Valtrex] 1 gram tablet 1,000 mg PO BID 10 Days Qty: 20 0RF acetaminophen [Tylenol Extra Strength] 500 mg tablet 1,000 mg PO QID PRN (Reason: fever or pain) Qty: 14 0RF cyclobenzaprine 5 mg tablet 5 mg PO TID PRN (Reason: neck pain) 7 Days Qty: 21 0RF doxycycline hyclate 100 mg capsule 100 mg PO BID 7 Days Qty: 14 0RF clotrimazole 1 % cream 1 appl topical BID Qty: 30 0RF Rx Instructions: apply to tip of penis twice a day doxycycline hyclate 100 mg capsule 100 mg PO BID 7 Days Qty: 14 0RF levofloxacin 250 mg tablet 250 mg PO DAILY 5 Days Qty: 5 0RF valacyclovir 1 gram tablet 1,000 mg PO BID 10 Days Qty: 20 0RF benzonatate 100 mg capsule 100 mg PO TID PRN (Reason: cough) 5 Days Qty: 15 0RF
[2022-06-12 12:12] LABS: Appearance Urine Cloudy; Color Urine Dark Yellow; Glucose Urine UA Negative (Negative); Leukocyte Esterase Urine Negative (Negative); Nitrite Urine Negative (Negative); PH 5.5 (5.0-9.0); Specific Gravity - Urine >= 1.030 (1.005-1.025); UMIC TRIGGER UACC YES; Urine Blood Negative (Negative); Urine Ketones Trace mg/dL (Negative); Urine Protein 30 (1+) mg/dL (Neg-Trace)
[2022-06-12 12:26] LABS: Bacteria Urine None Seen (None Seen); Hyaline Casts Urine 0-2 /LPF (0-2); RBC Urine 0-2 /HPF (0-2); Squamous Epithelial Cell Urine 0-2 /HPF (0-2); WBC Urine 0-5 /HPF (0-5)
[2022-06-12] MEDS: cefTRIAXone sodium 500 MG, Lidocaine HCl 1 % MPF 1 ML IM (13:11)
[2022-06-12 13:47] LABS: CT PCR NOT DETECTED (Not Detect.); NG PCR NOT DETECTED (Not Detect.)
== END 2022-06-12 13:15 | disposition home or self-care (01) ==
PROVIDERS: Emergency Provider Emergency Medicine; PCP Internal Medicine
DX: N34.2 Other urethritis (principal); R30.0 Dysuria; N48.89 Other specified disorders of penis; Z79.899 Other long term (current) drug therapy
CPT/HCPCS: 0353U; 81001; 81003; 96372; 99282; 99284; J0696

== ENCOUNTER 2022-08-25 10:44 | Emergency (ER) | payer MEDICAID, SELFPAY ==
--- NOTE | 2022-08-25 | ECG_ITS ---
Test Reason : CHEST PAIN Blood Pressure : / mmHG Vent. Rate : 088 BPM Atrial Rate : 088 BPM P-R Int : 158 ms QRS Dur : 074 ms QT Int : 340 ms P-R-T Axes : 041 -12 034 degrees QTc Int : 411 ms Sinus rhythm with frequent Premature ventricular complexes Abnormal ECG When compared with ECG of 29-JUL-2021 16:30, Premature ventricular complexes are now Present Referred By: Generic ED Physician Electronically Signed By:ROBEL PAZ
--- NOTE | ~2022-08-25 | XR_ITS ---
EXAMINATION: XR CHEST CLINICAL INFORMATION: Pain COMPARISON: Previous chest x-ray most recent January 2022 TECHNIQUE: 2 views of the chest were obtained. FINDINGS: The cardiac and mediastinal contours are stable. The lungs are clear. No pleural effusion or pneumothorax. Degenerative changes of the spine. XR/XR chest 2V IMPRESSION: No evidence for acute disease in the chest.
[2022-08-25 10:58] VITALS: BP 140/82; PULSE 91; RESP 18; TEMP 36.3; O2SAT 97; BMI 26.2
--- NOTE | 2022-08-25 11:04 | ED_ITS ---
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 Patient is unable to characterize the chest pain further into whether not it is sharp/burning/pressure. Patient denies any association with deep inspiration or movement and otherwise feels well. Related Data Previous Rx's Medication Instructions Recorded hydrocortisone 1 % topical cream 1 appl topical TID PRN rash #28.35 04/09/20 grams mupirocin 2 % topical ointment 1 appl topical TID 7 days #15 grams 04/09/20 thiamine HCl (vitamin B1) 250 mg 250 mg PO DAILY #14 tabs 07/31/20 tablet valacyclovir 1 gram tablet 1,000 mg PO BID hsv 10 days #20 05/14/21 (Valtrex) tabs clotrimazole 1 % topical cream 1 appl topical BID #30 grams 06/21/21 acetaminophen 500 mg tablet 1,000 mg PO QID PRN fever or pain 06/26/21 (Tylenol Extra Strength) #14 tabs cyclobenzaprine 5 mg tablet 5 mg PO TID PRN neck pain 7 days 09/18/21 #21 tabs benzonatate 100 mg capsule 100 mg PO TID PRN cough 5 days #15 01/30/22 caps doxycycline hyclate 100 mg capsule 100 mg PO BID 7 days #14 caps 01/30/22 levofloxacin 250 mg tablet 250 mg PO DAILY 5 days #5 tabs 01/30/22 valacyclovir 1 gram tablet 1,000 mg PO BID 10 days #20 tabs 01/30/22 doxycycline hyclate 100 mg capsule 100 mg PO BID 7 days #14 caps 02/20/22 doxycycline hyclate 100 mg capsule 100 mg PO BID 7 days #14 caps 06/12/22 Allergies Allergy/AdvReac Type Severity Reaction Status Date / Time No Known Allergies Allergy Mild NONE Verified 01/30/22 11:29 Review of Systems Review of Systems: Pertinent positives and negatives as stated in HPI PMFSH Past Medical History Source: nursing notes reviewed Medical History HIV (human immunodeficiency virus infection) Social History Social History Alcohol intake: current Alcohol intake frequency: does not drink Alcohol type: beer and hard liquor Patient Tobacco Use Status: Current everyday Tobacco user Smoked in Last 30 Days: Yes Use of substances other than those prescribed or required for medical reasons: No Advance Directives: No Advance Directives Information Provided: No Physical Exam Vital Signs: Vital Signs: Last Vital Signs Temp 98.1 F 08/25/22 11:46 Pulse 91 08/25/22 14:02 Resp 18 08/25/22 14:02 BP 142/93 H 08/25/22 14:02 Pulse Ox 95 08/25/22 14:02 O2 Del Method Room Air 08/25/22 14:02 BMI result Body Mass Index 26.2 VITAL SIGNS: Reviewed. GENERAL: Well developed, well nourished, in no acute distress. HEAD: Normocephalic/atraumatic EYES: PERRLA, EOMI EARS: Ext canals without abnormality NOSE: Nares patent bilateral OROPHARYNX: no oral lesions noted, posterior pharynx clear NECK: Supple, no adenopathy LUNGS: Normal breath sounds. No adventitious sounds or accessory muscle use. SpO2<95> CARDIOVASCULAR: Regular rate and rhythm without noted murmurs ABDOMEN: Soft, non-tender, non-distended with bowel sounds. MUSCULOSKELETAL: No tenderness, deformities, or effusions noted on gross inspection. EXTREMITIES: No cyanosis, clubbing or edema. SKIN: Inspection of the skin reveals no rashes NEUROLOGIC: Alert and oriented x 4. Strength and sensation to light touch were grossly intact x 4. Course Course Course Narrative: 60-year-old primarily Japanese-speaking male presents for evaluation of 2 days of midsternal chest pain worse with deep breath. Also complains of occasional numb ness to his right arm and feet but he believes that that is not an acute issue. Denies any shortness of breath. Chills respiratory Medical Decision Making Medical Decision Making MDM Narrative: 61-year-old male with history and clinical presentation after review of all investigations my interpretation is that this patient is suffering from alcoholic gastritis. There is no evidence to suggest pneumonia or cardiac ischemia at this time. Lipase is within normal limits and patient does not have any corresponding nausea or vomiting. Patient is given a GI cocktail and discharged home Differential Diagnosis Please see the discussion above Lab Data Please see the discussion above 08/25/22 11:08 08/25/22 11:08 Labs: Lab Results 08/25/22 08/25/22 08/25/22 Range/Units 11:08 11:08 11:08 WBC 10.6 (4.8-10.8) X10*3/uL RBC 4.27 L (4.60-5.80) X10*6/uL Hgb 14.6 (14.0-18.0) g/dl Hct 42.6 (42.0-52.0) % MCV 99.8 H (80.0-98.0) fL MCH 34.2 H (27.0-33.0) pg MCHC 34.3 (31.0-36.0) g/dl RDW 13.3 (11.0-16.0) % Plt Count 339 (160-400) X10*3/uL MPV 8.6 L (9.4-12.4) fL Immature Gran % (Auto) 0.5 H (0.0-0.4) % Neut % (Auto) 69.9 (45-73) % Lymph % (Auto) 20.6 (20-40) % [place] % (Auto) 7.7 (2-11) % Eos % (Auto) 1.0 (0-4) % Baso % (Auto) 0.3 (0-2) % Lymph # (Auto) 2.2 (1.2-4.9) X10*3/uL [place] # (Auto) 0.8 (0.1-1.2) X10*3/uL Eos # (Auto) 0.1 (0.0-0.4) X10*3/uL Baso # (Auto) 0.0 (0.0-0.2) X10*3/uL Abs Immat Gran (auto) 0.05 H (0.00-0.03) X10*3/uL Absolute Neuts (auto) 7.4 (2.0-8.3) x10*3/uL Absolute Nucleated RBC 0.000 (0.0-0.012) X10*3/uL Nucleated RBC % (auto) 0.0 (0.0-0.2) /100WBC PT 10.7 (10.0-13.1) SEC INR 0.9 (0.9-1.1) APTT 29.4 (26.0-36.4) SEC Sodium 143 (135-145) mmol/L Potassium 4.9 (3.3-5.1) mmol/L Chloride 104 (96-108) mmol/L Carbon Dioxide 30 H (22-29) mmol/L Anion Gap 14 (12-20) BUN 22 H (9-16) mg/dL Creatinine 1.47 H (0.5-1.4) mg/dL Estim Creat Clear Calc 58.1 Estimated GFR 48 Random Glucose 93 (60-115) mg/dL Calcium 9.9 D (8.4-10.2) mg/dL Total Bilirubin 0.7 (0.0-1.0) mg/dL AST 36 (5-37) U/L ALT 30 (0-40) U/L Alkaline Phosphatase 112 (39-117) U/L Troponin I High Sens (<3.5-35.0) ng/L Total Protein 7.7 (6.5-8.0) g/dL Albumin 4.2 (3.5-5.0) g/dL Lipase 30 (8-78) U/L 08/25/22 Range/Units 11:08 WBC (4.8-10.8) X10*3/uL RBC (4.60-5.80) X10*6/uL Hgb (14.0-18.0) g/dl Hct (42.0-52.0) % MCV (80.0-98.0) fL MCH (27.0-33.0) pg MCHC (31.0-36.0) g/dl RDW (11.0-16.0) % Plt Count (160-400) X10*3/uL MPV (9.4-12.4) fL Immature Gran % (Auto) (0.0-0.4) % Neut % (Auto) (45-73) % Lymph % (Auto) (20-40) % [place] % (Auto) (2-11) % Eos % (Auto) (0-4) % Baso % (Auto) (0-2) % Lymph # (Auto) (1.2-4.9) X10*3/uL [place] # (Auto) (0.1-1.2) X10*3/uL Eos # (Auto) (0.0-0.4) X10*3/uL Baso # (Auto) (0.0-0.2) X10*3/uL Abs Immat Gran (auto) (0.00-0.03) X10*3/uL Absolute Neuts (auto) (2.0-8.3) x10*3/uL Absolute Nucleated RBC (0.0-0.012) X10*3/uL Nucleated RBC % (auto) (0.0-0.2) /100WBC PT (10.0-13.1) SEC INR (0.9-1.1) APTT (26.0-36.4) SEC Sodium (135-145) mmol/L Potassium (3.3-5.1) mmol/L Chloride (96-108) mmol/L Carbon Dioxide (22-29) mmol/L Anion Gap (12-20) BUN (9-16) mg/dL Creatinine (0.5-1.4) mg/dL Estim Creat Clear Calc Estimated GFR Random Glucose (60-115) mg/dL Calcium (8.4-10.2) mg/dL Total Bilirubin (0.0-1.0) mg/dL AST (5-37) U/L ALT (0-40) U/L Alkaline Phosphatase (39-117) U/L Troponin I High Sens < 2.7 (<3.5-35.0) ng/L Total Protein (6.5-8.0) g/dL Albumin (3.5-5.0) g/dL Lipase (8-78) U/L Independent Interpretation I performed an independent interpretation of an: EKG Interpretation: Sinus rhythm with occasional PVCs, HR-88, no STEMI, OK/QRS/QTC is within normal limits. Radiology Impression Radiologist Impression: My interpretation is in agreement with radiology's impression. Chronic Conditions Patient?s care impacted by: Hypertension Discharge Plan Discharge Clinical Impression: Alcoholic gastritis Patient Disposition: Home, Self-Care Instructions: Gastritis (ED), Diet for Stomach Ulcers and Gastritis (ED) Additional Instructions: 1. Reanudar todos los medicamentos caseros seg?n lo prescrito. 2. Recomendar Mylanta de venta cony seg?n sea necesario para el reflujo ?cido. 3. Scott un seguimiento con smith proveedor de atenci?n primaria en los pr?ximos 1 a 2 d?as. Regrese a la mariama de emergencias si los s?ntomas empeoran. 1. Resume all home medications as prescribed. 2. Recommend [id number]-bptcosx Mylanta as needed for acid reflux. 3. Follow-up with your primary care provider in the next 1-2 days. Return to the ER for any worsening symptoms. Prescriptions: No Action mupirocin 2 % ointment 1 appl topical TID 7 Days Qty: 15 0RF hydrocortisone 1 % cream 1 appl topical TID PRN (Reason: rash) Qty: 28.35 0RF thiamine HCl (vitamin B1) 250 mg tablet 250 mg PO DAILY Qty: 14 0RF valacyclovir [Valtrex] 1 gram tablet 1,000 mg PO BID 10 Days Qty: 20 0RF acetaminophen [Tylenol Extra Strength] 500 mg tablet 1,000 mg PO QID PRN (Reason: fever or pain) Qty: 14 0RF cyclobenzaprine 5 mg tablet 5 mg PO TID PRN (Reason: neck pain) 7 Days Qty: 21 0RF doxycycline hyclate 100 mg capsule 100 mg PO BID 7 Days Qty: 14 0RF clotrimazole 1 % cream 1 appl topical BID Qty: 30 0RF Rx Instructions: apply to tip of penis twice a day doxycycline hyclate 100 mg capsule 100 mg PO BID 7 Days Qty: 14 0RF levofloxacin 250 mg tablet 250 mg PO DAILY 5 Days Qty: 5 0RF valacyclovir 1 gram tablet 1,000 mg PO BID 10 Days Qty: 20 0RF benzonatate 100 mg capsule 100 mg PO TID PRN (Reason: cough) 5 Days Qty: 15 0RF doxycycline hyclate 100 mg capsule 100 mg PO BID 7 Days Qty: 14 0RF Referrals: Elizabeth No MD [Primary Care Provider] - Print Language: Japanese
[2022-08-25 11:12] LABS: MANUAL DIFF FLAG NO
[2022-08-25 11:15] LABS: Basophils Percent Auto 0.3 % (0-2); Eosinophils Absolute Auto 0.1 X10*3/uL (0.0-0.4); Hematocrit 42.6 % (42.0-52.0); Hemoglobin 14.6 g/dl (14.0-18.0); Imm Gran Abs Auto 0.05 X10*3/uL (0.00-0.03); Imm Gran Pct Auto 0.5 % (0.0-0.4); Lymphocytes Absolute Auto 2.2 X10*3/uL (1.2-4.9); Lymphocytes Percent Auto 20.6 % (20-40); Mean Corpuscular HGB Conc 34.3 g/dl (31.0-36.0); Mean Corpuscular Hemoglobin 34.2 pg (27.0-33.0); Mean Corpuscular Volume 99.8 fL (80.0-98.0); Mean Platelet Volume 8.6 fL (9.4-12.4); Monocytes Absolute Auto 0.8 X10*3/uL (0.1-1.2); Monocytes Percent Auto 7.7 % (2-11); Neutrophils Absolute Auto 7.4 x10*3/uL (2.0-8.3); Neutrophils Percent Auto 69.9 % (45-73); Platelet Count 339 X10*3/uL (160-400); Red Blood Count 4.27 X10*6/uL (4.60-5.80); Red Cell Distribution Width 13.3 % (11.0-16.0); White Blood Count 10.6 X10*3/uL (4.8-10.8)
[2022-08-25 11:23] LABS: INTERNATIONAL NORM RATIO 0.9 (0.9-1.1); Prothrombin Time 10.7 SEC (10.0-13.1)
[2022-08-25 11:26] LABS: Partial Thromboplastin Time 29.4 SEC (26.0-36.4)
[2022-08-25 11:30] LABS: Alanine Aminotransferase 30 U/L (0-40); Albumin Level 4.2 g/dL (3.5-5.0); Alkaline Phosphatase 112 U/L (39-117); Anion Gap 14 (12-20); Aspartate Amino Transferase 36 U/L (5-37); Bilirubin Total 0.7 mg/dL (0.0-1.0); Blood Urea Nitrogen 22 mg/dL (9-16); Calcium 9.9 mg/dL (8.4-10.2); Carbon Dioxide 30 mmol/L (22-29); Chloride 104 mmol/L (96-108); Creatinine Clr Calc Pharmacy 58.1; Estimated Glomerular Filt Rate 48; Glucose Random 93 mg/dL (60-115); Lipase 30 U/L (8-78); Potassium 4.9 mmol/L (3.3-5.1); Sodium 143 mmol/L (135-145); Total Protein 7.7 g/dL (6.5-8.0)
[2022-08-25 11:40] LABS: Troponin-I High Sensitivity < 2.7 ng/L (<3.5-35.0)
[2022-08-25 11:46] VITALS: BP 116/71; PULSE 89; RESP 18; TEMP 36.7; O2SAT 94
[2022-08-25 12:08] VITALS: BP 124/80; PULSE 86; RESP 22; O2SAT 94
[2022-08-25 14:02] VITALS: BP 142/93; PULSE 91; RESP 18; O2SAT 95
[2022-08-25] MEDS: Lidocaine HCl Viscous 2 % 15 ML SOLUTION 10 ML MUCOUS MEM (14:41)
[2022-08-25] MEDS: Sucralfate Oral Suspension 1 GM/10 ML ORAL.SUSP PO (14:42)
[2022-08-25] MEDS: Magnesium Hydrox/Alum Hydrox 30 ML ORAL.SUSP PO (14:42)
== END 2022-08-25 15:03 | disposition home or self-care (01) ==
PROVIDERS: Physician Assistant; Emergency Provider Student in an Organized Health Care Education/Training Program; PCP Internal Medicine
DX: K29.20 Alcoholic gastritis without bleeding (principal); R07.89 Other chest pain; R06.02 Shortness of breath; F17.200 Nicotine dependence, unspecified, uncomplicated; Z71.6 Tobacco abuse counseling; Z79.899 Other long term (current) drug therapy
CPT/HCPCS: 36415; 71046; 80053; 83690; 84484; 85025; 85610; 85730; 93005; 99283; 99285

== ENCOUNTER 2022-09-12 16:32 | Emergency (ER) | payer MEDICAID, SELFPAY ==
[2022-09-12 16:59] VITALS: BP 108/76; PULSE 85; RESP 18; TEMP 36.9; O2SAT 94; BMI 29.0
--- NOTE | 2022-09-12 17:02 | ED.GENADULT ---
HPI - General Adult General Chief complaint: Extremity Injury, Lower Stated complaint: Unable to move R toe/lac Time Seen by Provider: 09/12/22 19:28 Source: patient Mode of arrival: ambulatory Limitations: no limitations History of Present Illness HPI narrative: Patient with chronic low back pain with lumbar radiculopathy on gabapentin for months seen for tingling sensation in the toes of right foot specially big toe and 2nd toe no leg weakness no recent fall or trauma no new medication patient does have HIV with undetectable viral load Related Data Previous Rx's Medication Instructions Recorded hydrocortisone 1 % topical cream 1 appl topical TID PRN rash #28.35 04/09/20 grams mupirocin 2 % topical ointment 1 appl topical TID 7 days #15 grams 04/09/20 thiamine HCl (vitamin B1) 250 mg 250 mg PO DAILY #14 tabs 07/31/20 tablet valacyclovir 1 gram tablet 1,000 mg PO BID hsv 10 days #20 05/14/21 (Valtrex) tabs clotrimazole 1 % topical cream 1 appl topical BID #30 grams 06/21/21 acetaminophen 500 mg tablet 1,000 mg PO QID PRN fever or pain 06/26/21 (Tylenol Extra Strength) #14 tabs cyclobenzaprine 5 mg tablet 5 mg PO TID PRN neck pain 7 days 09/18/21 #21 tabs benzonatate 100 mg capsule 100 mg PO TID PRN cough 5 days #15 01/30/22 caps doxycycline hyclate 100 mg capsule 100 mg PO BID 7 days #14 caps 01/30/22 levofloxacin 250 mg tablet 250 mg PO DAILY 5 days #5 tabs 01/30/22 valacyclovir 1 gram tablet 1,000 mg PO BID 10 days #20 tabs 01/30/22 doxycycline hyclate 100 mg capsule 100 mg PO BID 7 days #14 caps 02/20/22 doxycycline hyclate 100 mg capsule 100 mg PO BID 7 days #14 caps 06/12/22 cyclobenzaprine 10 mg tablet 10 mg PO Q8H #20 tabs 09/12/22 tramadol 50 mg tablet 50 mg PO Q6H PRN pain #20 tabs 09/12/22 Allergies Allergy/AdvReac Type Severity Reaction Status Date / Time No Known Allergies Allergy Mild NONE Verified 09/12/22 16:58 Review of Systems Review of Systems: Yes all other systems are reviewed and are negative [facility] Past Medical History Medical History HIV (human immunodeficiency virus infection) Social History Social History Alcohol intake: current Alcohol intake frequency: does not drink Alcohol type: beer and hard liquor Patient Tobacco Use Status: Current everyday Tobacco user Advance Directives: No Advance Directives Information Provided: No Physical Exam ED Vital Signs: Vital Signs - 24 hr 09/12/22 16:59 09/12/22 18:00 Temperature 98.4 F 98.6 F Pulse Rate 85 78 Respiratory Rate 18 18 Blood Pressure 108/76 128/78 Pulse Oximetry 94 100 Oxygen Delivery Method Room Air Room Air BMI result Body Mass Index 29.0 Appearance: Alert. Oriented X3. No acute distress. Eyes: PERRLA, No Nystagmus ENT: Pharynx normal. Oral Mucosa moist Neck: Normal inspection. Neck supple. CVS: Normal heart rate and rhythm. Pulses normal. Respiratory: No respiratory distress. Equal air entry bilateral, no wheezing/rales/rhonchi Abdomen: Soft and nontender. Bowel sounds are present, no mass palpable, no CVA tenderness Skin: Skin warm and dry. Normal skin color. Normal skin turgor. Back: Diffuse lumbar tenderness no deformity SLR negative bilateral Extremities: No lower extremity edema. No calf tenderness neurovascular intact sensation in right foot toes intact Neuro: Oriented X 3. No motor deficit. No sensory deficit.No cerebellar signs , cranial nerves II-XII intact Course Course Course Narrative: This is an RME: Additional HPI, ROS, PE not included below will be deferred to primary provider. 62 year old male hx hiv presents w/ right great toe pain X few days. Also reports tingling. Reports his skin is cracking between his first two toes and has a concern for infection plan- labs, imaging Medical Decision Making Medical Decision Making [facility] Narrative: Patient with chronic lumbar radiculopathy likely with L 5-S1 dermatomal pattern patient had x-ray done in 05/29 which showed significant DJD changes at L4-L5. Patient has a plan to follow-up with pain clinic and PCP Lab Data [facility] Lab Attestation statement: I reviewed the patient's lab results. 09/12/22 17:24 09/12/22 17:24 Labs: Lab Results 09/12/22 09/12/22 09/12/22 Range/Units 17:24 17:24 17:24 WBC 10.4 (4.8-10.8) X10*3/uL RBC 3.98 L (4.60-5.80) X10*6/uL Hgb 13.3 L (14.0-18.0) g/dl Hct 38.6 L (42.0-52.0) % MCV 97.0 (80.0-98.0) fL MCH 33.4 H (27.0-33.0) pg MCHC 34.5 (31.0-36.0) g/dl RDW 12.7 (11.0-16.0) % Plt Count 355 (160-400) X10*3/uL MPV 8.9 L (9.4-12.4) fL Immature Gran % (Auto) 0.9 H (0.0-0.4) % Neut % (Auto) 60.4 (45-73) % Lymph % (Auto) 29.3 (20-40) % [place] % (Auto) 7.1 (2-11) % Eos % (Auto) 2.0 (0-4) % Baso % (Auto) 0.3 (0-2) % Lymph # (Auto) 3.0 (1.2-4.9) X10*3/uL [place] # (Auto) 0.7 (0.1-1.2) X10*3/uL Eos # (Auto) 0.2 (0.0-0.4) X10*3/uL Baso # (Auto) 0.0 (0.0-0.2) X10*3/uL Abs Immat Gran (auto) 0.09 H (0.00-0.03) X10*3/uL Absolute Neuts (auto) 6.3 (2.0-8.3) x10*3/uL Absolute Nucleated RBC 0.000 (0.0-0.012) X10*3/uL Nucleated RBC % (auto) 0.0 (0.0-0.2) /100WBC ESR 14 (0-15) MM/HR Sodium 138 (135-145) mmol/L Potassium 3.9 D (3.3-5.1) mmol/L Chloride 109 H (96-108) mmol/L Carbon Dioxide 21 L (22-29) mmol/L Anion Gap 12 (12-20) BUN 22 H (9-16) mg/dL Creatinine 1.44 H (0.5-1.4) mg/dL Estim Creat Clear Calc 64.4 Estimated GFR 49 Random Glucose 98 (60-115) mg/dL Calcium 9.1 D (8.4-10.2) mg/dL Total Bilirubin 0.4 (0.0-1.0) mg/dL AST 15 (5-37) U/L ALT 18 (0-40) U/L Alkaline Phosphatase 93 (39-117) U/L C-Reactive Protein 0.36 (< or = 0.50) mg/dL Total Protein 7.3 (6.5-8.0) g/dL Albumin 4.1 (3.5-5.0) g/dL Discharge Plan Discharge Clinical Impression: Chronic lumbar radiculopathy Patient Disposition: Home, Self-Care Instructions: Lumbar Radiculopathy (ED) Additional Instructions: Follow your PCP/shredding specialist for further management Pain medication and muscle relaxants as prescribed Prescriptions: New cyclobenzaprine 10 mg tablet 10 mg PO Q8H Qty: 20 0RF tramadol 50 mg tablet 50 mg PO Q6H PRN (Reason: pain) Qty: 20 0RF No Action mupirocin 2 % ointment 1 appl topical TID 7 Days Qty: 15 0RF hydrocortisone 1 % cream 1 appl topical TID PRN (Reason: rash) Qty: 28.35 0RF thiamine HCl (vitamin B1) 250 mg tablet 250 mg PO DAILY Qty: 14 0RF valacyclovir [Valtrex] 1 gram tablet 1,000 mg PO BID 10 Days Qty: 20 0RF acetaminophen [Tylenol Extra Strength] 500 mg tablet 1,000 mg PO QID PRN (Reason: fever or pain) Qty: 14 0RF cyclobenzaprine 5 mg tablet 5 mg PO TID PRN (Reason: neck pain) 7 Days Qty: 21 0RF doxycycline hyclate 100 mg capsule 100 mg PO BID 7 Days Qty: 14 0RF clotrimazole 1 % cream 1 appl topical BID Qty: 30 0RF Rx Instructions: apply to tip of penis twice a day doxycycline hyclate 100 mg capsule 100 mg PO BID 7 Days Qty: 14 0RF levofloxacin 250 mg tablet 250 mg PO DAILY 5 Days Qty: 5 0RF valacyclovir 1 gram tablet 1,000 mg PO BID 10 Days Qty: 20 0RF benzonatate 100 mg capsule 100 mg PO TID PRN (Reason: cough) 5 Days Qty: 15 0RF doxycycline hyclate 100 mg capsule 100 mg PO BID 7 Days Qty: 14 0RF
[2022-09-12 18:00] VITALS: BP 128/78; PULSE 78; RESP 18; TEMP 37; O2SAT 100
== END 2022-09-12 20:58 | disposition home or self-care (01) ==
PROVIDERS: Emergency Provider Internal Medicine; PCP Internal Medicine
DX: M54.16 Radiculopathy, lumbar region (principal); M79.674 Pain in right toe(s); Z79.899 Other long term (current) drug therapy
CPT/HCPCS: 36415; 73660; 80053; 85025; 85652; 86140; 99283; 99284

== ENCOUNTER 2022-10-02 10:21 | Emergency (ER) | payer MEDICAID, SELFPAY ==
--- NOTE | 2022-10-02 | ECG_ITS ---
Test Reason : CHEST PAIN Blood Pressure : / mmHG Vent. Rate : 096 BPM Atrial Rate : 096 BPM P-R Int : 158 ms QRS Dur : 074 ms QT Int : 334 ms P-R-T Axes : 041 -04 046 degrees QTc Int : 421 ms Sinus rhythm with frequent Premature ventricular complexes Low voltage QRS Borderline ECG When compared with ECG of 25-AUG-2022 10:51, No significant change was found Referred By: Generic ED Physician Electronically Signed By:ZORAIDA GORDILLO MD
[2022-10-02 10:25] VITALS: BP 101/67; PULSE 102; RESP 18; TEMP 36.8; O2SAT 96; BMI 25.5
[2022-10-02 10:57] LABS: MANUAL DIFF FLAG NO
[2022-10-02 10:59] LABS: Basophils Percent Auto 0.3 % (0-2); Eosinophils Absolute Auto 0.2 X10*3/uL (0.0-0.4); Eosinophils Percent Auto 2.3 % (0-4); Hematocrit 39.8 % (42.0-52.0); Hemoglobin 13.9 g/dl (14.0-18.0); Imm Gran Abs Auto 0.02 X10*3/uL (0.00-0.03); Imm Gran Pct Auto 0.2 % (0.0-0.4); Lymphocytes Absolute Auto 2.1 X10*3/uL (1.2-4.9); Lymphocytes Percent Auto 24.3 % (20-40); Mean Corpuscular HGB Conc 34.9 g/dl (31.0-36.0); Mean Corpuscular Hemoglobin 33.9 pg (27.0-33.0); Mean Corpuscular Volume 97.1 fL (80.0-98.0); Mean Platelet Volume 9.1 fL (9.4-12.4); Monocytes Absolute Auto 0.5 X10*3/uL (0.1-1.2); Monocytes Percent Auto 6.1 % (2-11); Neutrophils Absolute Auto 5.9 x10*3/uL (2.0-8.3); Neutrophils Percent Auto 66.8 % (45-73); Platelet Count 308 X10*3/uL (160-400); Red Cell Distribution Width 12.6 % (11.0-16.0); White Blood Count 8.8 X10*3/uL (4.8-10.8)
[2022-10-02 11:11] LABS: Alanine Aminotransferase 18 U/L (0-40); Albumin Level 3.7 g/dL (3.5-5.0); Alkaline Phosphatase 87 U/L (39-117); Anion Gap 15 (12-20); Aspartate Amino Transferase 14 U/L (5-37); Bilirubin Direct 0.1 mg/dL (0.0-0.5); Bilirubin Total 0.4 mg/dL (0.0-1.0); Blood Urea Nitrogen 17 mg/dL (9-16); Calcium 9.3 mg/dL (8.4-10.2); Carbon Dioxide 20 mmol/L (22-29); Chloride 109 mmol/L (96-108); Creatinine Clr Calc Pharmacy 70.2; Estimated Glomerular Filt Rate > 60; Glucose Random 117 mg/dL (60-115); Lipase 15 U/L (8-78); Potassium 4.3 mmol/L (3.3-5.1); Sodium 140 mmol/L (135-145); Total Protein 6.9 g/dL (6.5-8.0)
== END 2022-10-02 16:42 | disposition left against medical advice (07) ==
PROVIDERS: Emergency Provider Emergency Medicine; PCP Internal Medicine
DX: R07.89 Other chest pain (principal); Z79.899 Other long term (current) drug therapy
CPT/HCPCS: 36415; 80048; 80076; 83690; 85025; 93005; 99283

== ENCOUNTER → 2022-10-02 10:37 | Outpatient (BNV) | payer MEDICAID, SELFPAY | PROVIDERS: Emergency Provider Emergency Medicine; PCP Internal Medicine; Visit Provider Internal Medicine Cardiovascular Disease | DX: R07.9 Chest pain, unspecified (principal) | CPT/HCPCS: 93010 ==

== ENCOUNTER 2022-11-17 12:56 | Outpatient (REF) | payer MEDICAID, SELFPAY ==
--- NOTE | ~2022-11-17 | MR_ITS ---
EXAMINATION: MR LUMBAR SPINE WITHOUT CONTRAST CLINICAL INFORMATION: Back pain and sciatica. COMPARISON: Lumbar spine radiographs 05/29/2022. TECHNIQUE: MRI of the lumbar spine was obtained using routine sequences without contrast. FINDINGS: Spinal alignment is normal in the sagittal dimension. Vertebral body heights are preserved. There is a limbus deformity involving the upper anterior corner of the L5 vertebral body. Type I degenerative endplate changes at the upper anterior corner of the L4 vertebral body. Mixed predominantly type II degenerative endplate changes at L5-S1. There is loss of intervertebral disc height and T2 signal intensity at multiple levels related to disc degeneration. The tip of the conus medullaris is located at L1-L2. No mass effect on the conus. Visualized distal cord signal intensity is normal. At L1-L2 and L2-L3 the annular contours are normal. No canal or neuroforaminal compromise at these 2 levels. At L3-L4 there is a slightly bulging disc. Bilateral facet degenerative change. No canal stenosis. No mass effect on the traversing or foraminal nerve roots. At L4-L5 there is a bulging disc. Bilateral facet degenerative change. No canal stenosis. No mass effect on the traversing or foraminal nerve roots. At L5-S1 there is a bulging disc. Bilateral facet degenerative change. Moderate compression of the left L5 foraminal nerve root. Limited visualization of the retroperitoneal anatomy reveals no abnormal finding. Psoas and paraspinal groups are symmetric. MR/MR lumbar spine wo con IMPRESSION: There is multilevel degenerative spondylosis of the lumbar spine. A bulging disc in conjunction with facet degenerative change at L5-S1 causes moderate compression of the left L5 foraminal nerve root. Otherwise no substantial mass effect on the traversing or foraminal nerve roots elsewhere within the lumbar spine. No canal stenosis.
== END 2022-11-17 12:57 | disposition home or self-care (01) ==
LOC: HO.MRI 12:56
PROVIDERS: PCP Internal Medicine; Visit Provider General Practice
DX: M54.40 Lumbago with sciatica, unspecified side (principal)
CPT/HCPCS: 72148

== ENCOUNTER 2022-11-20 11:02 | Outpatient (AMB) | payer MEDICAID, SELFPAY ==
[2022-11-20 11:08] VITALS: BP 112/64; PULSE 89; TEMP 36.9; O2SAT 94; BMI 26.1
--- NOTE | 2022-11-20 11:08 | A.OFFVIS_ITS ---
Intake Vital Signs 11/20/22 11:08 Height 6 ft 1 in Weight 197 lb 12.074 oz BMI 26.1 BP 112/64 Blood Pressure Location Rt brachial Position Sitting Pulse 89 Pulse Source Pulse Oximeter Temp 98.4 F Pulse Oximetry (%) 94 Intake Visit Reasons: polyarthralgia Intake Note: New pt presents today for consult. C/o pain in most joints Camera Assembler Required: Yes Camera Assembler Name: Amparo [id number] Accompanied by: Self / Same As Patient Allergies No Known Allergies Allergy (Mild, Verified 11/20/22 11:09) NONE Medication List - Last Reconciled 11/20/22 by Aruna Richter MD acetaminophen (Tylenol Extra Strength) 1,000 mg (2 x 500 mg) PO QID PRN huvvmxkrl-tlaihdkb-htyjgit ala 50-200-25 mg (Biktarvy) 1 tab PO BEDTIME bupropion HCl (Wellbutrin XL) 150 mg PO QAM clonazepam (Klonopin) 1 mg PO BID PRN clotrimazole 1% 1 appl topical BID cyclobenzaprine 10 mg PO Q8H hydrocortisone 1% 1 appl topical TID PRN mupirocin 2% 1 appl topical TID 7 days valacyclovir (Valtrex) 1,000 mg PO BID 10 days zolpidem 10 mg PO BEDTIME PRN HPI HPI Comments History of Present Illness Details This is a 62-year-old male who was referred for evaluation of polyarthralgia. He has history of HIV on HAART. States that he had has diffuse pain. Especially his lower back, his knuckles and numbness of his toes. He is unaware of any family history of autoimmune rheumatic disease. Denies any weight loss or skin rashes. [facility] Medical History (Updated 11/20/22 @ 11:35 by Aruna Richter MD) Hypertension Pain in joint, multiple sites HIV (human immunodeficiency virus infection) Surgical History (Updated 11/20/22 @ 11:11 by ARASELI Shea) History of surgery on lower extremity Family History Father No problems noted. Mother No problems noted. Social History (Updated 11/20/22 @ 11:10 by ARASELI Shea) Alcohol intake: current Alcohol intake frequency: does not drink Patient Tobacco Use Status: Current everyday Tobacco user Cigarettes Per Day: 10 Physical Exam Vital Signs: Last Vital Signs Temp 98.4 F 11/20/22 11:08 Pulse 89 11/20/22 11:08 BP 112/64 11/20/22 11:08 Pulse Ox 94 11/20/22 11:08 BMI result Body Mass Index 26.1 Const General: cooperative and comfortable Nutritional Appearance: overweight Orientation/consciousness: patient oriented x3 Limitations: no limitations HEENT Head: Yes normocephalic and Yes atraumatic Mouth: moist mucous membranes Resp Effort & Inspection: normal respiratory effort and able to speak in complete sentences Auscultation: clear to auscultation bilaterally Cardio Rate: regular rate Rhythm: regular rhythm Skin General skin exam: no rashes or lesions noted Neuro General: patient oriented x3 Extrem Other: No active synovitis Diffuse fibromyalgia tender points Normal nailfold capillaroscopy Positive straight leg raise test bilaterally Results Reviewed Results Reviewed: Labs 05/29 Urinalysis normal except for trace protein? Sed rate 2? Uric acid 5.9 normal? CHENG screen/IFA negative? CRP normal? RF negative? CMP unremarkable CBC mildly elevated white count at 11.0 with absolute lymphocytosis Assessment & Plan Assessment & Plan (1) Pain in joint, multiple sites: Code(s): M25.50 - Pain in unspecified joint Plan: This is a 62-year-old male with past medical history of HIV on HAART who presents as a new patient. Is referred for evaluation of diffuse joint pain. Upon evaluation I do not see any signs of autoimmune rheumatic disease. CHENG/RF negative with normal inflammatory markers. Advised patient to attempt to relieve stress as much as possible, work on getting refreshing sleep and incorporate light exercises into his life. Patient might have degenerative disc disease of lumbar spine and can benefit from pain management evaluation. He stated that he was evaluated by Pain Management before and an injection was suggested and patient refused. Plan I spent 25 minutes reviewing patient's chart, evaluating patient, ordering diagnostic workup, counseling patient and documenting in the chart Coding Level of Care Code New Pt Level 3 (59129) Diagnoses Pain in joint, multiple sites M25.50
== END 2022-11-20 11:44 | disposition home or self-care (01) ==
PROVIDERS: PCP Internal Medicine; Visit Provider Student in an Organized Health Care Education/Training Program
DX: M25.50 Pain in unspecified joint (principal)
CPT/HCPCS: 99203

== ENCOUNTER → 2022-11-20 11:02 | Outpatient (BNVA) | payer MEDICAID, SELFPAY | PROVIDERS: PCP Internal Medicine; Visit Provider Student in an Organized Health Care Education/Training Program ==

== ENCOUNTER 2022-12-05 12:51 | Outpatient (REF) | payer MEDICAID, SELFPAY ==
[2022-12-05 15:59] LABS: MANUAL DIFF FLAG NO
[2022-12-05 16:08] LABS: Basophils Percent Auto 0.3 % (0-2); Eosinophils Absolute Auto 0.2 X10*3/uL (0.0-0.4); Eosinophils Percent Auto 1.6 % (0-4); Hematocrit 40.9 % (42.0-52.0); Imm Gran Abs Auto 0.03 X10*3/uL (0.00-0.03); Imm Gran Pct Auto 0.3 % (0.0-0.4); Lymphocytes Absolute Auto 2.8 X10*3/uL (1.2-4.9); Mean Corpuscular HGB Conc 34.2 g/dl (31.0-36.0); Mean Corpuscular Hemoglobin 32.9 pg (27.0-33.0); Mean Platelet Volume 9.9 fL (9.4-12.4); Monocytes Absolute Auto 0.8 X10*3/uL (0.1-1.2); Monocytes Percent Auto 7.6 % (2-11); Neutrophils Absolute Auto 6.3 x10*3/uL (2.0-8.3); Neutrophils Percent Auto 62.2 % (45-73); Platelet Count 331 X10*3/uL (160-400); Red Blood Count 4.26 X10*6/uL (4.60-5.80); Red Cell Distribution Width 12.8 % (11.0-16.0); White Blood Count 10.1 X10*3/uL (4.8-10.8)
[2022-12-05 17:11] LABS: Cholesterol 186 mg/dL (<200); HDL Cholesterol 36 mg/dL (>40); LDL Cholesterol Calculated 116 mg/dL (<100); Triglycerides 171 mg/dL (<150)
[2022-12-05 17:16] LABS: Alanine Aminotransferase 12 U/L (0-40); Albumin Level 4.3 g/dL (3.5-5.0); Alkaline Phosphatase 88 U/L (39-117); Anion Gap 14 (12-20); Aspartate Amino Transferase 15 U/L (5-37); Bilirubin Total 0.4 mg/dL (0.0-1.0); Blood Urea Nitrogen 17 mg/dL (9-16); Calcium 9.5 mg/dL (8.4-10.2); Carbon Dioxide 20 mmol/L (22-29); Chloride 108 mmol/L (96-108); Estimated Glomerular Filt Rate > 60; Glucose Random 84 mg/dL (60-115); Potassium 4.3 mmol/L (3.3-5.1); Sodium 138 mmol/L (135-145); Total Protein 7.7 g/dL (6.5-8.0)
[2022-12-05 17:46] LABS: Reflex LDLD? No
[2022-12-07 21:33] LABS: TS Negative Control Passed; TS Panel A 0; TS Panel B 2; TS Positive Control Passed; TSpotTB Negative (Negative)
[2022-12-08 08:28] LABS: Absolute CD3 Count 2576 cells/uL (840-3060); Absolute CD4 Count 1339 cells/uL (490-1740); Absolute CD8 Count 1282 cells/uL (180-1170); Absolute Lymphocytes 2963 cells/uL (850-3900); CD4 CD8 Ratio 1.04 (0.86-5.00); Percent CD3 Cells 87 % (57-85); Percent CD4 Cells 45 % (30-61); Percent CD8 Cells 43 % (12-42)
[2022-12-08 12:39] LABS: RPR Rapid Plasma Reagin NON-REACTIVE (NON-REACTIVE)
[2022-12-10 08:24] LABS: HIV RNA PCR Qn Copies 228 copies/mL (NOT DETECTED); HIV RNA PCR Qn Log Copies 2.36 (NOT DETECTED)
== END 2022-12-05 12:52 | disposition home or self-care (01) ==
LOC: HO.HHCL 12:51
PROVIDERS: Visit Provider Student in an Organized Health Care Education/Training Program
DX: Z11.1 Encounter for screening for respiratory tuberculosis (principal); B20 Human immunodeficiency virus [HIV] disease
CPT/HCPCS: 36415; 80053; 80061; 85025; 86359; 86360; 86481; 86592; 87536

== ENCOUNTER 2022-12-19 11:36 | Outpatient (REF) | payer MEDICAID, SELFPAY ==
[2022-12-22 19:24] LABS: HIV RNA PCR Qn Copies 25 copies/mL (NOT DETECTED)
[2022-12-31 23:32] LABS: HIV 1 Integrase Proviral DNA DETECTED; HIV 1 PR RT Proviral DNA DETECTED
== END 2022-12-19 11:37 | disposition home or self-care (01) ==
LOC: HO.HHCL 11:36
PROVIDERS: Visit Provider Student in an Organized Health Care Education/Training Program
DX: B20 Human immunodeficiency virus [HIV] disease (principal)
CPT/HCPCS: 36415; 87536; 87900; 87901; 87906

== ENCOUNTER 2023-01-06 09:38 | Emergency (ER) | payer MEDICAID, SELFPAY ==
--- NOTE | ~2023-01-06 | XR_ITS ---
EXAMINATION: XR CHEST CLINICAL INFORMATION: Cough for 4 days COMPARISON: None available. TECHNIQUE: Frontal view of the chest was obtained. FINDINGS: Lungs are well-expanded and clear of acute process. Heart size and pulmonary artery is normal. There is mild right vertebral spondylosis mid and lower dorsal spine. XR/XR chest 1V IMPRESSION: Unremarkable chest examination.
[2023-01-06 10:03] VITALS: BP 113/73; PULSE 112; RESP 18; TEMP 37.2; O2SAT 94; BMI 25.9
[2023-01-06 11:03] LABS: COVID-19 Test Negative (Negative); IDNOW Serial# BCCEAD1C
[2023-01-06 11:15] VITALS: BP 111/79; PULSE 94; RESP 20; O2SAT 96
[2023-01-06 12:07] LABS: Influenza A PCR NEGATIVE (Negative); Influenza B PCR NEGATIVE (Negative); Resp Syncy Virus RNA Qual PCR NEGATIVE (Negative); SARS COV2 PCR INHOUSE NEGATIVE (Negative)
--- NOTE | 2023-01-06 12:59 | ED_ITS ---
HPI - URI/Sore Throat General Chief Complaint: Upper Respiratory Symptoms Stated Complaint: Sore throat/Lots of phlegm Time Seen by Provider: 01/06/23 10:48 Source: patient, RN notes reviewed and collections professional Mode of arrival: ambulatory Limitations: language barrier (Energy Trader used) History of Present Illness HPI Narrative: This is a 62-year-old male, with a history of HIV, presenting to the emergency department with complaints of nasal congestion, productive cough with white- colored sputum x3 days. Patient has been trying gtiz-zyh-njawtin medications without any relief. He states that his HIV has been well managed and has undetectable CD4 levels. Patient denies any fevers, chills, chest pain, shortness of breath, abdominal pain, nausea, vomiting or diarrhea. No known sick contacts. No other complaints or concerns at this time. MD elicited complaint: cough and nasal congestion Pertinent past history: HIV Onset (ago): day(s) Consistency: constant Severity: moderate Exacerbating factors: nothing Relieving factors: nothing Associated symptoms: denies other symptoms Treatments prior to arrival: none Related Data Home Medications Medication Instructions Recorded Confirmed bictegravir 50 mg-emtricitabine 1 tab PO BEDTIME 11/20/22 11/20/22 200 mg-tenofovir alafenam 25 mg tablet (Biktarvy) bupropion HCl 150 mg 24 hr tablet, 150 mg PO QAM 11/20/22 11/20/22 extended release (Wellbutrin XL) clonazepam 1 mg tablet (Klonopin) 1 mg PO BID PRN anxiety attack 11/20/22 11/20/22 zolpidem 10 mg tablet 10 mg PO BEDTIME PRN 11/20/22 11/20/22 Previous Rx's Medication Instructions Recorded hydrocortisone 1 % topical cream 1 appl topical TID PRN rash #28.35 04/09/20 grams mupirocin 2 % topical ointment 1 appl topical TID 7 days #15 grams 04/09/20 valacyclovir 1 gram tablet 1,000 mg PO BID hsv 10 days #20 05/14/21 (Valtrex) tabs clotrimazole 1 % topical cream 1 appl topical BID #30 grams 06/21/21 acetaminophen 500 mg tablet 1,000 mg (2 x 500 mg) PO QID PRN 06/26/21 (Tylenol Extra Strength) fever or pain #14 tabs cyclobenzaprine 10 mg tablet 10 mg PO Q8H #20 tabs 09/12/22 azithromycin 250 mg tablet See Rx Instructions PO .COMPLEX #6 01/06/23 tabs benzonatate 200 mg capsule 200 mg PO TID PRN cough #20 caps 01/06/23 Allergies Allergy/AdvReac Type Severity Reaction Status Date / Time No Known Allergies Allergy Mild NONE Verified 01/06/23 10:01 Review of Systems Review of Systems: Yes all other systems are reviewed and are negative Constitutional: Constitutional: Reports as per [facility] Past Medical History Medical History (Updated 01/06/23 @ 13:18 by LENORA Toney) Hypertension Pain in joint, multiple sites HIV (human immunodeficiency virus infection) Surgical History (Updated 11/20/22 @ 11:11 by ARASELI Shea) History of surgery on lower extremity Family History Family History Father No problems noted. Mother No problems noted. Social History Social History (Updated 11/20/22 @ 11:10 by ARASELI Shea) Alcohol intake: current Alcohol intake frequency: does not drink Patient Tobacco Use Status: Current everyday Tobacco user Cigarettes Per Day: 10 Advance Directives: No Advance Directives Information Provided: Yes Physical Exam Vital Signs: Vital Signs: Last Vital Signs Temp 98.9 F 01/06/23 10:03 Pulse 94 01/06/23 11:15 Resp 20 01/06/23 11:15 BP 111/79 01/06/23 11:15 Pulse Ox 96 01/06/23 11:15 O2 Del Method Room Air 01/06/23 11:15 BMI result Body Mass Index 25.9 Const: General: cooperative, comfortable and no acute distress Orientation/consciousness: patient oriented x3 Limitations: no limitations HEENT: Head: Yes normal to inspection, Yes normocephalic and Yes atraumatic Ears: hearing grossly normal bilaterally General nose exam: Normal external nose present Face and sinus: Yes normal facial exam Mouth: Normal oral and palatal mucosa present, oropharynx normal and moist mucous membranes Throat: Yes posterior oropharynx normal Eyes: General: appearance normal, both eyes and all related structures Eyelids: Yes eyelids normal Conjunctivae: conjunctivae normal Sclerae: sclerae normal Pupils: Equal, round and reactive pupils present EOM: EOMs intact bilaterally Neck: Neck: Yes normal visual inspection, Yes full ROM and Yes no lymphadenopathy Lymphatic: no lymphadenopathy noted Chest: Chest palpation & inspection: normal inspection of the chest Resp: Effort & Inspection: normal respiratory effort and able to speak in complete sentences Auscultation: clear to auscultation bilaterally, no crackles, no rales, no rhonchi and no wheezes Cardio: Rate: regular rate Rhythm: regular rhythm Heart sounds: S1 normal heart sound present and S2 normal heart sound present GI: Inspection: Yes normal to inspection Skin: General skin exam: no rashes or lesions noted Trauma: no lacerations or abrasions Wounds: no wounds Neuro: General: patient oriented x3 and moves all extremities Cranial nerves: Yes Equal, round and reactive pupils present Extrem: General: Yes normal to inspection Right upper extremity: normal to inspection Left upper extremity: normal to inspection Right lower extremity: normal to inspection Left lower extremity: normal to inspection Course Reevaluation(s) Reevaluation #1: X-ray does not show a pneumonia, COVID, RSV, flu negative. Symptoms likely viral however given he is a smoker and has a history of HIV, I will cover him with azithromycin. Discussed with patient with collections professional at bedside. Encouraged rest and hydration, given return precautions. Patient understands and agrees with plan. Patient stable for discharge. Time: 13:11 Medical Decision Making Medical Decision Making [facility] Narrative: This is a 62-year-old male, with a history of HIV, presenting to the emergency department for evaluation of cough no congestion x3 days. On arrival, mildly tachycardic at 112., repeat was 94, patient with stable vital signs. Lungs clear to auscultation bilaterally, oropharynx non erythematous. Will obtain viral swabs, and chest x-ray. Differential Diagnosis Differential Diagnoses: The differential diagnosis associated with the presentation includes URI, bronchitis, COVID, flu, pneumonia Admission/Observation Consideration of admission/observation: Escalation of care including admission/observation considered Patient would have been admitted to the hospital had her work up had any findings where hospital admission was appropriate and her clinical presentation warranted hospital admission. Lab Data [facility] Lab Attestation statement: I reviewed the patient's lab results. Negative Labs: Lab Results 01/06/23 01/06/23 Range/Units 10:30 11:18 COVID-19 (RICARDO) Negative (Negative) COVID-19 Clin Com See Note Influenza Type A (PCR) NEGATIVE (Negative) Influenza Type B (PCR) NEGATIVE (Negative) RSV RNA Qual (PCR) NEGATIVE (Negative) SARS-CoV-2 RNA (RT-PCR) NEGATIVE (Negative) Radiology Impression Discussion of test interpretation with radiology: I have reviewed the radiologist's reading. Radiologist Impression: EXAMINATION: XR CHEST CLINICAL INFORMATION: Cough for 4 days COMPARISON: None available. TECHNIQUE: Frontal view of the chest was obtained. FINDINGS: Lungs are well-expanded and clear of acute process. Heart size and pulmonary artery is normal. There is mild right vertebral spondylosis mid and lower dorsal spine. XR/XR chest 1V IMPRESSION: Unremarkable chest examination. Dictated By: Chris Pineda MD Discharge Plan Discharge Clinical Impression: Upper respiratory infection Patient Disposition: Home, Self-Care Instructions: Upper Respiratory Infection (ED) Additional Instructions: Your x-ray did not show pneumonia. You tested negative for COVID, flu, RSV. You likely have a virus however given your medical problems, clear covering you with an antibiotic. Please take prescribed antibiotic as directed, finish the entire course even if your feeling better. I am also prescribing you a cough medication, use this as needed. If any new or worsening symptoms occur including but not limited to worsening chest pain, shortness breath, please return for re-evaluation. Lo radiograf?a no mostr? neumon?a. Tu prueba fue negativa para COVID, gripe, RSV. Es probable que tengas un virus; sin embargo, dados tus problemas m?dicos, blanche, c?brete con un antibi?heidi. [place] el antibi?heidi recetado seg?n las indicaciones y termine todo el tratamiento incluso si se siente mejor. Tambi?n le estoy recetando un medicamento para la tos; ?selo seg?n sea necesario. Si se presenta alg?n s?ntoma nuevo o que empeora, incluidos, entre otros, un empeoramiento del dolor en el pecho y dificultad para respirar, regrese para jose reevaluaci?n. Prescriptions: New benzonatate 200 mg capsule 200 mg PO TID PRN (Reason: cough) Qty: 20 0RF azithromycin 250 mg tablet See Rx Instructions .ROUTE .COMPLEX Qty: 6 0RF Rx Instructions: For 250 mg dose pack: take 500 mg today (day 1), then 250 mg for 4 days (days 2-5) No Action mupirocin 2 % ointment 1 appl topical TID 7 Days Qty: 15 0RF hydrocortisone 1 % cream 1 appl topical TID PRN (Reason: rash) Qty: 28.35 0RF valacyclovir [Valtrex] 1 gram tablet 1,000 mg PO BID 10 Days Qty: 20 0RF acetaminophen [Tylenol Extra Strength] 500 mg tablet 1,000 mg PO QID PRN (Reason: fever or pain) Qty: 14 0RF clotrimazole 1 % cream 1 appl topical BID Qty: 30 0RF Rx Instructions: apply to tip of penis twice a day cyclobenzaprine 10 mg tablet 10 mg PO Q8H Qty: 20 0RF clonazepam [Klonopin] 1 mg tablet 1 mg PO BID PRN (Reason: anxiety attack) zolpidem 10 mg tablet 10 mg PO BEDTIME PRN Biktarvy 50-200-25 mg tablet 1 tab PO BEDTIME bupropion HCl [Wellbutrin XL] 150 mg tablet extended release 24 hr 150 mg PO QAM Print Language: Thai
== END 2023-01-06 13:26 | disposition home or self-care (01) ==
PROVIDERS: Physician Assistant Medical; Emergency Provider Emergency Medicine; PCP Internal Medicine
DX: J06.9 Acute upper respiratory infection, unspecified (principal); R05.9 Cough, unspecified; Z20.822 Contact with and (suspected) exposure to COVID-19; Z20.828 Contact with and (suspected) exposure to other viral communicable diseases; B20 Human immunodeficiency virus [HIV] disease; I10 Essential (primary) hypertension; F17.210 Nicotine dependence, cigarettes, uncomplicated
CPT/HCPCS: 0241U; 71045; 87635; 99283

== ENCOUNTER 2023-04-14 09:52 | Outpatient (REF) | payer MEDICAID, SELFPAY ==
[2023-04-14 11:20] LABS: MANUAL DIFF FLAG NO
[2023-04-14 11:30] LABS: Basophils Percent Auto 0.3 % (0-2); Eosinophils Absolute Auto 0.4 X10*3/uL (0.0-0.4); Hematocrit 42.8 % (42.0-52.0); Hemoglobin 14.7 g/dl (14.0-18.0); Imm Gran Abs Auto 0.04 X10*3/uL (0.00-0.03); Imm Gran Pct Auto 0.3 % (0.0-0.4); Lymphocytes Absolute Auto 3.7 X10*3/uL (1.2-4.9); Lymphocytes Percent Auto 32.1 % (20-40); Mean Corpuscular HGB Conc 34.3 g/dl (31.0-36.0); Mean Corpuscular Hemoglobin 32.1 pg (27.0-33.0); Mean Corpuscular Volume 93.4 fL (80.0-98.0); Mean Platelet Volume 9.4 fL (9.4-12.4); Monocytes Absolute Auto 0.8 X10*3/uL (0.1-1.2); Neutrophils Absolute Auto 6.7 x10*3/uL (2.0-8.3); Neutrophils Percent Auto 57.3 % (45-73); Platelet Count 333 X10*3/uL (160-400); Red Blood Count 4.58 X10*6/uL (4.60-5.80); White Blood Count 11.6 X10*3/uL (4.8-10.8)
[2023-04-14 11:45] LABS: Estimated Average Glucose 103 mg/dL; Hemoglobin A1c % 5.2 % (<6.0)
[2023-04-14 11:59] LABS: HBS Num1 0.93 mIU/mL (0-7.99); HBc Num1 3.88 S/CO (0.00-0.79); HBsAGNum1 0.41 S/CO (0.00-0.99); Hepatitis B Surface Antigen Negative (Negative); ~Hepatitis B Surface Antibody NONREACTIVE (Nonreactive)
[2023-04-14 12:03] LABS: Alanine Aminotransferase 12 U/L (0-40); Albumin Level 4.2 g/dL (3.5-5.0); Alkaline Phosphatase 96 U/L (39-117); Anion Gap 14 (12-20); Aspartate Amino Transferase 13 U/L (5-37); Bilirubin Total 0.5 mg/dL (0.0-1.0); Blood Urea Nitrogen 18 mg/dL (9-16); Calcium 9.6 mg/dL (8.4-10.2); Carbon Dioxide 24 mmol/L (22-29); Chloride 107 mmol/L (96-108); Cholesterol 134 mg/dL (<200); Estimated Glomerular Filt Rate > 60; Glucose Random 99 mg/dL (60-115); HDL Cholesterol 39 mg/dL (>40); LDL Cholesterol Calculated 78 mg/dL (<100); Potassium 4.3 mmol/L (3.3-5.1); Sodium 141 mmol/L (135-145); Total Protein 7.6 g/dL (6.5-8.0); Triglycerides 85 mg/dL (<150)
[2023-04-14 13:46] LABS: HBc Num2 3.32 S/CO; HBc Num3 3.81 S/CO; Hepatitis B Core Antibody Reactive (Nonreactive)
[2023-04-14 14:03] LABS: Reflex LDLD? No
[2023-04-15 11:03] LABS: Absolute CD3 Count 3605 cells/uL (840-3060); Absolute CD4 Count 1503 cells/uL (490-1740); Absolute CD8 Count 2164 cells/uL (180-1170); Absolute Lymphocytes 4255 cells/uL (850-3900); CD4 CD8 Ratio 0.69 (0.86-5.00); Percent CD3 Cells 85 % (57-85); Percent CD4 Cells 35 % (30-61); Percent CD8 Cells 51 % (12-42)
[2023-04-15 17:34] LABS: Rubella IgG Antibody 3.63 Index; Rubeola IgG (Measles) >300.00 AU/mL
[2023-04-15 18:18] LABS: Hepatitis B Core Antibody IgM NON-REACTIVE (NON-REACTIVE)
[2023-04-16 14:04] LABS: HIV RNA PCR Qn Copies 130 copies/mL (NOT DETECTED); HIV RNA PCR Qn Log Copies 2.11 (NOT DETECTED)
== END 2023-04-14 09:53 | disposition home or self-care (01) ==
LOC: HO.HHCL 09:52
PROVIDERS: Visit Provider Student in an Organized Health Care Education/Training Program
DX: B20 Human immunodeficiency virus [HIV] disease (principal)
CPT/HCPCS: 36415; 80053; 80061; 83036; 85025; 86359; 86360; 86704; 86705; 86706; 86735; 86762; 86765; 87340; 87536

== ENCOUNTER 2023-05-31 21:09 | Inpatient (IN) | payer MEDICAID, SELFPAY ==
--- NOTE | 2023-05-31 | ECG_ITS ---
Test Reason : CHEST PRESSURE Blood Pressure : / mmHG Vent. Rate : 100 BPM Atrial Rate : 100 BPM P-R Int : 176 ms QRS Dur : 074 ms QT Int : 326 ms P-R-T Axes : 037 -04 069 degrees QTc Int : 420 ms Normal sinus rhythm Subtle inferior ST elevations with reciporcal changes in lateral leads. Abnormal ECG When compared with ECG of 02-OCT-2022 10:37, Subtle inferior ischemic changes. Referred By: Generic ED Physician Electronically Signed By:Stevan Le
--- NOTE | ~2023-05-31 | XR_ITS ---
EXAMINATION: XR CHEST CLINICAL INFORMATION: Chest pain COMPARISON: 01/06/2023 TECHNIQUE: Frontal view of the chest was obtained. FINDINGS: Lung volumes are symmetric. No focal consolidation is seen. No evidence of pneumothorax, significant pleural effusion, or overt pulmonary edema. The cardiomediastinal contour is unremarkable. No acute osseous findings are seen. XR/XR chest 1V IMPRESSION: No acute cardiopulmonary findings.
[2023-05-31 21:18] VITALS: BP 143/82; PULSE 98; RESP 18; TEMP 36.6; O2SAT 97; BMI 28.3
--- NOTE | 2023-05-31 21:22 | ED_ITS ---
HPI - Chest Pain General Chief Complaint: Chest Pain Stated Complaint: chest pressure Time Seen by Provider: 05/31/23 21:22 History of Present Illness HPI narrative: The patient is a 62-year-old male with no history of heart disease but who does have a history of HIV. He says that he was doing nothing in particular this evening at around 6 or 18:30. He was watching TV dropped chest discomfort that he describes as a tightness. The tightness is nonpleuritic. No shortness of breath. He was quite uncomfortable. He came to the emergency room by private vehicle. Related Data Home Medications Medication Instructions Recorded Confirmed bictegravir 50 mg-emtricitabine 1 tab PO BEDTIME 11/20/22 11/20/22 200 mg-tenofovir alafenam 25 mg tablet (Biktarvy) bupropion HCl 150 mg 24 hr tablet, 150 mg PO QAM 11/20/22 11/20/22 extended release (Wellbutrin XL) clonazepam 1 mg tablet (Klonopin) 1 mg PO BID PRN anxiety attack 11/20/22 11/20/22 zolpidem 10 mg tablet 10 mg PO BEDTIME PRN 11/20/22 11/20/22 Previous Rx's Medication Instructions Recorded hydrocortisone 1 % topical cream 1 appl topical TID PRN rash #28.35 04/09/20 grams mupirocin 2 % topical ointment 1 appl topical TID 7 days #15 grams 04/09/20 valacyclovir 1 gram tablet 1,000 mg PO BID hsv 10 days #20 05/14/21 (Valtrex) tabs clotrimazole 1 % topical cream 1 appl topical BID #30 grams 06/21/21 acetaminophen 500 mg tablet 1,000 mg (2 x 500 mg) PO QID PRN 06/26/21 (Tylenol Extra Strength) fever or pain #14 tabs cyclobenzaprine 10 mg tablet 10 mg PO Q8H #20 tabs 09/12/22 azithromycin 250 mg tablet See Rx Instructions PO .COMPLEX #6 01/06/23 tabs benzonatate 200 mg capsule 200 mg PO TID PRN cough #20 caps 01/06/23 Allergies Allergy/AdvReac Type Severity Reaction Status Date / Time No Known Allergies Allergy Mild NONE Verified 01/06/23 10:01 Review of Systems 2 Review of Systems: Yes all other systems are reviewed and are negative [facility] Past Medical History Medical History (Updated 06/01/23 @ 01:06 by Britton Carrington MD) Hypertension Pain in joint, multiple sites HIV (human immunodeficiency virus infection) Surgical History (Updated 11/20/22 @ 11:11 by ARASELI Shea) History of surgery on lower extremity Family History Family History Father No problems noted. Mother No problems noted. Social History Social History (Updated 11/20/22 @ 11:10 by ARASELI Shea) Alcohol intake: current Alcohol intake frequency: does not drink Patient Tobacco Use Status: Current everyday Tobacco user Cigarettes Per Day: 10 Smoked in Last 30 Days: Yes Use of substances other than those prescribed or required for medical reasons: No Advance Directives: No Advance Directives Information Provided: No Physical Exam 2 Vital Signs: Vital Signs: Last Vital Signs Temp 98 F 06/01/23 01:28 Pulse 78 06/01/23 01:28 Resp 17 06/01/23 01:28 BP 135/81 06/01/23 01:28 Pulse Ox 94 06/01/23 01:28 O2 Del Method Room Air 06/01/23 01:28 BMI result Body Mass Index 35.7 Const: Other: The patient is a 62-year-old male who looks somewhat uncomfortable. He has not short of breath. HEENT: Other: Face is symmetrical. Mucous membranes moist Eyes: Other: Pupils are round equal, conjunctivae are clear Neck: Other: No JVD Resp: Effort & Inspection: normal respiratory effort Auscultation: clear to auscultation bilaterally Cardio: Rate: regular rate Rhythm: regular rhythm Heart sounds: S1 normal heart sound present and S2 normal heart sound present GI: Other: Abdomen is soft and nontender Skin: Other: Skin is pale and dry Neuro: Other: Awake, alert, face symmetrical, speech clear, moving extremities normally, grossly neurologically intact Extrem: Other: No peripheral edema. No calf swelling or tenderness. Medications Administered Generic Name Dose Route Start Last Admin Trade Name Freq PRN Reason Stop Dose Admin Heparin Sodium/Sodium Chloride 25,000 unit in 250 mls @ 0 mls/hr 06/01/23 01:00 06/01/23 01:24 Heparin Sodium,Porcine/1/2ns IVCONT 11.67 units/kg/hr .Q0M WILLEM 10 mls/hr Administration Protocol Per Protocol Discontinued Medications Generic Name Dose Route Start Last Admin Trade Name Lisa PRN Reason Stop Dose Admin Aspirin 324 mg 05/31/23 21:32 05/31/23 21:53 Aspirin 81 Mg Tab.Chew PO 05/31/23 21:33 324 mg ONCE ONE Administration Atorvastatin Calcium 80 mg 06/01/23 00:46 06/01/23 01:20 Atorvastatin Calcium 80 Mg Tablet PO 06/01/23 00:47 80 mg ONCE ONE Administration Heparin Sodium (Porcine) 4,000 unit 06/01/23 00:58 06/01/23 01:15 Heparin Sodium,Porcine 5,000 Unit/Ml Vial IVPUSH 06/01/23 00:59 4,000 unit ONCE ONE Administration Medical Decision Making Medical Decision Making MDM Narrative: 62-year-old male with a history of well managed HIV but no history of coronary disease who presents with unprovoked nonpleuritic chest discomfort that started about 1-2 hours prior to arrival. His initial EKG at triage had a subtle suggestion of possible ST segment elevations in the inferior leads but this was not fully consistent with a STEMI. The patient was placed immediately in a bed and a 2nd EKG done soon after the 1st was less impressive. I ordered aspirin and nitroglycerin. He was given 324 mg of aspirin but his for resolved prior to the administration of any nitroglycerin. His initial troponin was undetectable. 3 hour troponin was 105. During that period of observation he had no recurrence of his chest pain and a pain-free EKG (the 3rd EKG) showed no ST changes at all. The patient was given 80 mg of atorvastatin and started on IV heparin. The case was discussed with the on-call meat cutting teacher and the patient will be admitted to this hospital for further observation and management. Lab Data 05/31/23 21:41 05/31/23 23:51 Labs: Lab Results 05/31/23 05/31/23 05/31/23 Range/Units 21:41 23:45 23:51 WBC 11.2 H (4.8-10.8) X10*3/uL RBC 4.48 L (4.60-5.80) X10*6/uL Hgb 14.5 (14.0-18.0) g/dl Hct 42.1 (42.0-52.0) % MCV 94.0 (80.0-98.0) fL MCH 32.4 (27.0-33.0) pg MCHC 34.4 (31.0-36.0) g/dl RDW 13.0 (11.0-16.0) % Plt Count 322 (160-400) X10*3/uL MPV 8.6 L (9.4-12.4) fL Immature Gran % (Auto) 0.4 (0.0-0.4) % Neut % (Auto) 58.0 (45-73) % Lymph % (Auto) 31.4 (20-40) % [place] % (Auto) 7.2 (2-11) % Eos % (Auto) 2.8 (0-4) % Baso % (Auto) 0.2 (0-2) % Lymph # (Auto) 3.5 (1.2-4.9) X10*3/uL [place] # (Auto) 0.8 (0.1-1.2) X10*3/uL Eos # (Auto) 0.3 (0.0-0.4) X10*3/uL Baso # (Auto) 0.0 (0.0-0.2) X10*3/uL Abs Immat Gran (auto) 0.04 H (0.00-0.03) X10*3/uL Absolute Neuts (auto) 6.5 (2.0-8.3) x10*3/uL Absolute Nucleated RBC 0.000 (0.0-0.012) X10*3/uL Nucleated RBC % (auto) 0.0 (0.0-0.2) /100WBC PT 12.3 (11.1-13.3) SEC INR 1.0 (0.9-1.1) aPTT Heparin Protocol 32.3 L (53-77.9) SEC Sodium 141 (135-145) mmol/L Potassium 4.3 (3.3-5.1) mmol/L Chloride 108 (96-108) mmol/L Carbon Dioxide 26 (22-29) mmol/L Anion Gap 11 L (12-20) BUN 21 H (9-16) mg/dL Creatinine 1.06 (0.5-1.4) mg/dL Estim Creat Clear Calc 65.3 Estimated GFR > 60 Random Glucose 101 (60-115) mg/dL Calcium 8.8 D (8.4-10.2) mg/dL Magnesium 1.8 (1.6-2.6) mg/dL Total Bilirubin 0.3 (0.0-1.0) mg/dL Direct Bilirubin 0.2 (0.0-0.5) mg/dL AST 14 (5-37) U/L ALT 15 (0-40) U/L Alkaline Phosphatase 90 (39-117) U/L Troponin I High Sens < 2.7 105.7 H* D (<3.5-35.0) ng/L B-Natriuretic Peptide 13 (<100) pg/mL Total Protein 6.9 (6.5-8.0) g/dL Albumin 3.9 (3.5-5.0) g/dL Urine Color Yellow Urine Appearance Clear Urine pH 7.5 (5.0-9.0) Ur Specific [place] 1.015 (1.005-1.025) Urine Protein Negative (Neg-Trace) mg/dL Urine Glucose (UA) Negative (Negative) mg/dL Urine Ketones Negative (Negative) mg/dL Urine Blood Negative (Negative) Urine Nitrite Negative (Negative) Ur Leukocyte Esterase Negative (Negative) Urine RBC 0-2 (0-2) /HPF Urine WBC 0-5 (0-5) /HPF Ur Squamous Epith Cells 0-2 (0-2) /HPF Urine Bacteria None Seen (None Seen) Hyaline Casts 0-2 (0-2) /LPF Ethyl Alcohol < 10 mg/dL Critical Care Time Critical Care Time Critical Care Time: Yes Total Critical Care Time: 45 Attestation: The patient was critically ill with a high probability of imminent or life- threatening deterioration. ?I spent greater than 30 minutes of discontinuous time evaluating the patient, delivering critical care at the bedside, discussing evaluating data with consultants. ?Critical care time does not include time spent performing separately billable procedures or teaching. ?Time spent performing critical care with 45 minutes. Discharge Plan Discharge Clinical Impression: Acute myocardial infarction Patient Disposition: Admitted As Inpatient
--- NOTE | 2023-05-31 21:26 | ECG_ITS ---
Test Reason : repeat ekg Blood Pressure : / mmHG Vent. Rate : 095 BPM Atrial Rate : 095 BPM P-R Int : 184 ms QRS Dur : 076 ms QT Int : 338 ms P-R-T Axes : 047 -11 036 degrees QTc Int : 424 ms Normal sinus rhythm Normal ECG When compared with ECG of 31-MAY-2023 21:13, Nonspecific T wave abnormality now evident in Inferior leads Referred By: Britton Carrington Electronically Signed By:Stevan Le
[2023-05-31 21:48] LABS: MANUAL DIFF FLAG NO
[2023-05-31] MEDS: Aspirin 81 MG TAB.CHEW 324 MG PO (21:53)
[2023-05-31 21:55] LABS: Basophils Percent Auto 0.2 % (0-2); Eosinophils Absolute Auto 0.3 X10*3/uL (0.0-0.4); Eosinophils Percent Auto 2.8 % (0-4); Hematocrit 42.1 % (42.0-52.0); Hemoglobin 14.5 g/dl (14.0-18.0); Imm Gran Abs Auto 0.04 X10*3/uL (0.00-0.03); Imm Gran Pct Auto 0.4 % (0.0-0.4); Lymphocytes Absolute Auto 3.5 X10*3/uL (1.2-4.9); Lymphocytes Percent Auto 31.4 % (20-40); Mean Corpuscular HGB Conc 34.4 g/dl (31.0-36.0); Mean Corpuscular Hemoglobin 32.4 pg (27.0-33.0); Mean Platelet Volume 8.6 fL (9.4-12.4); Monocytes Absolute Auto 0.8 X10*3/uL (0.1-1.2); Monocytes Percent Auto 7.2 % (2-11); Neutrophils Absolute Auto 6.5 x10*3/uL (2.0-8.3); Platelet Count 322 X10*3/uL (160-400); Red Blood Count 4.48 X10*6/uL (4.60-5.80); White Blood Count 11.2 X10*3/uL (4.8-10.8)
[2023-05-31 21:59] VITALS: BP 120/70; PULSE 94; RESP 17; TEMP 36.7; O2SAT 95
--- NOTE | 2023-05-31 22:03 | PC.NURSE ---
this rn assumed care of pt. pt reporting onset of midsternal chest tightness at 7pm which radiated into the left upper extremity. pt reports upon arrival to the ed the tightness and pain subsided. pt given asprin at this time, tolerated well. pt normal sinus on tele 93-97bpm. pt denies n/v/d.
[2023-05-31 22:08] LABS: PTT Heparin Drip 32.3 SEC (53-77.9)
--- NOTE | 2023-05-31 22:11 | ECG_ITS ---
Test Reason : CP releif Blood Pressure : / mmHG Vent. Rate : 083 BPM Atrial Rate : 083 BPM P-R Int : 176 ms QRS Dur : 076 ms QT Int : 362 ms P-R-T Axes : 041 -11 034 degrees QTc Int : 425 ms Normal sinus rhythm Normal ECG When compared with ECG of 31-MAY-2023 21:29, subtle ST changes in the inferior and lateral leads not present anymore Referred By: Britton Carrington Electronically Signed By:Stevan Le
[2023-05-31 22:15] LABS: B Type Natriuretic Peptide 13 pg/mL (<100)
[2023-05-31 22:20] LABS: Troponin-I High Sensitivity < 2.7 ng/L (<3.5-35.0)
[2023-05-31 23:42] VITALS: BP 127/86; PULSE 82; RESP 13; TEMP 36.6; O2SAT 95
[2023-05-31 23:51] LABS: Appearance Urine Clear; Color Urine Yellow; Glucose Urine UA Negative (Negative); Leukocyte Esterase Urine Negative (Negative); Nitrite Urine Negative (Negative); PH 7.5 (5.0-9.0); Specific Gravity - Urine 1.015 (1.005-1.025); Urine Blood Negative (Negative); Urine Ketones Negative (Negative); Urine Protein Negative (Neg-Trace)
[2023-05-31 23:56] LABS: Bacteria Urine None Seen (None Seen); Hyaline Casts Urine 0-2 /LPF (0-2); RBC Urine 0-2 /HPF (0-2); Squamous Epithelial Cell Urine 0-2 /HPF (0-2); WBC Urine 0-5 /HPF (0-5)
[2023-06-01] VITALS (7 sets, daily range): BP systolic 106–135; BP diastolic 55–81; PULSE 67–83; RESP 12–23; TEMP 36.6–36.9; O2SAT 94–97; BMI 35.7
[2023-06-01 00:24] LABS: Troponin-I High Sensitivity 105.7 ng/L (<3.5-35.0)
[2023-06-01 00:54] LABS: Alanine Aminotransferase 15 U/L (0-40); Albumin Level 3.9 g/dL (3.5-5.0); Alkaline Phosphatase 90 U/L (39-117); Anion Gap 11 (12-20); Aspartate Amino Transferase 14 U/L (5-37); Bilirubin Direct 0.2 mg/dL (0.0-0.5); Bilirubin Total 0.3 mg/dL (0.0-1.0); Blood Urea Nitrogen 21 mg/dL (9-16); Calcium 8.8 mg/dL (8.4-10.2); Carbon Dioxide 26 mmol/L (22-29); Chloride 108 mmol/L (96-108); Creatinine Clr Calc Pharmacy 65.3; Estimated Glomerular Filt Rate > 60; Ethanol < 10 mg/dL; Glucose Random 101 mg/dL (60-115); Magnesium 1.8 mg/dL (1.6-2.6); Potassium 4.3 mmol/L (3.3-5.1); Sodium 141 mmol/L (135-145); Total Protein 6.9 g/dL (6.5-8.0)
[2023-06-01] MEDS: Heparin Sodium,Porcine 5,000 UNIT/ML VIAL 4000 UNIT IVPUSH (01:15)
[2023-06-01] MEDS: Atorvastatin Calcium 80 MG TABLET PO (01:20)
[2023-06-01] MEDS: Heparin Sodium,Porcine/1/2NS 25,000 UNIT/250 ML IV.SOLN 10 UNIT IVCONT (01:24)
--- NOTE | 2023-06-01 01:29 | PC.NURSE ---
heparin drip initiated at this time. repeat labs scheduled for 723.
[2023-06-01 01:32] LABS: Prothrombin Time 12.3 SEC (11.1-13.3)
--- NOTE | 2023-06-01 03:25 | P.HPHOSP_ITS ---
History of Present Illness Date of Service: 06/01/23 Attending physician on admission: Jonathan Segal Chief Complaint: Chest pain Kevin Mayorga is a 62 years old man with past medical history significant for HIV on HAART presents to the emergency department complaining of retrosternal chest pain that started last night at 7 pm while he was watching TV. He describes the pain as a pressure without radiations. Upon arrival to the emergency department the intensity of the pain was 10/10. He is currently chest pain-free. He denied any associated shortness of breath, nausea, vomiting, sweating, palpitation or dizziness. Denies fever or chills. Acute gastrointestinal genitourinary symptoms denied. 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 He denied alcohol abuse. He mentioned having history of hypertension and hyperlipidemia but not taking medications for this. He denies history of diabetes mellitus, congestive heart failure, coronary artery disease or stroke. In the ED, he was found to have stable vital signs. Blood workup is remarkable for slight leukocytosis. Troponin was initially below 2.7 and increased to 105.7 in 2 hours. BNP is normal. There are no significant electrolyte imbalances. LFTs are normal. CXR is negative. EKGs showed slight ST elevation in inferior leads that resolved. ED tx: Aspirin 325 mg p.o., atorvastatin 80 mg p.o. heparin IV infusion. Cardiology service was contacted. Review of Systems 2 Review of Systems: All 12 systems were reviewed and normal except as noted in HPI. [facility] Medical History (Updated 06/01/23 @ 04:16 by Jonathan Segal MD) Hypertension Pain in joint, multiple sites HIV (human immunodeficiency virus infection) Family History Father No problems noted. Mother No problems noted. Surgical History (Updated 11/20/22 @ 11:11 by ARASELI Shea) History of surgery on lower extremity Social History (Updated 11/20/22 @ 11:10 by ARASELI Shea) Alcohol intake: current Alcohol intake frequency: does not drink Patient Tobacco Use Status: Current everyday Tobacco user Cigarettes Per Day: 10 Smoked in Last 30 Days: Yes Use of substances other than those prescribed or required for medical reasons: No Advance Directives: No Advance Directives Information Provided: No Meds Allergies Allergy/AdvReac Type Severity Reaction Status Date / Time No Known Allergies Allergy Mild NONE Verified 01/06/23 10:01 Active Medications: Current Medications Acetaminophen (Acetaminophen 325 Mg Tablet) 650 mg PO Q6H PRN PRN Reason: Pain, Mild (Pain Scale 1-3) Aspirin (Aspirin Enteric Coated 81 Mg Tablet.Dr) 81 mg PO DAILY [facility] Bictegravir/Emtricitabine/Tenofovir (Bictegrav/Emtricit/Tenofov Ala Tablet) 1 tab PO BEDTIME WILLEM Clonazepam (Clonazepam 1 Mg Tablet) 1 mg PO BID PRN PRN Reason: anxiety attack Heparin Sodium (Porcine) (Heparin Sodium,Porcine 5,000 Unit/Ml Vial) 6,900 unit 80 unit/kg (6900 unit) IVPUSH PROTOCOL BOLUS PRN; Protocol PRN Reason: 80 unit/kg - Heparin Protocol Heparin Sodium (Porcine) (Heparin Sodium,Porcine 5,000 Unit/Ml Vial) 3,400 unit 40 unit/kg (3400 unit) IVPUSH PROTOCOL BOLUS PRN; Protocol PRN Reason: 40 unit/kg - Heparin Protocol Heparin Sodium/Sodium Chloride (Heparin Sodium,Porcine/1/2ns) 25,000 unit in 250 mls @ 0 mls/hr IVCONT .Q0M [facility]; Protocol Last Admin: 06/01/23 01:24 Dose: 11.67 units/kg/hr, 10 mls/hr Nitroglycerin (Nitroglycerin 0.4 Mg Tab.Subl) 0.4 mg SUBLINGUAL Q5MX3 PRN PRN Reason: Chest Pain Sodium Chloride (0.9 % Sodium Chloride Flush 3 Ml Syringe) 3 ml IVFLUSH QSHIFT [facility] Home Medications Medication Instructions Recorded Confirmed Last Taken Type bictegravir 50 mg-emtricitabine 1 tab PO BEDTIME 11/20/22 06/01/23 Unknown History 200 mg-tenofovir alafenam 25 mg tablet (Biktarvy) bupropion HCl 150 mg 24 hr tablet, 150 mg PO QAM 11/20/22 06/01/23 Unknown History extended release (Wellbutrin XL) clonazepam 1 mg tablet (Klonopin) 1 mg PO BID PRN anxiety attack 11/20/22 11/20/22 Unknown History zolpidem 10 mg tablet 10 mg PO BEDTIME PRN 11/20/22 11/20/22 Unknown History bictegravir 50 mg-emtricitabine 1 tab PO BEDTIME 06/01/23 Unknown History 200 mg-tenofovir alafenam 25 mg tablet (Biktarvy) clonazepam 1 mg tablet (Klonopin) 1 mg PO BID PRN anxiety attack 06/01/23 06/01/23 Unknown History Physical Exam 2 Vital Signs and Narrative: Vital Signs: Last Vital Signs Temp 98 F 06/01/23 01:28 Pulse 78 06/01/23 01:28 Resp 17 06/01/23 01:28 BP 135/81 06/01/23 01:28 Pulse Ox 94 06/01/23 01:28 O2 Del Method Room Air 06/01/23 01:28 BMI result Body Mass Index 35.7 Constitutional - Awake and Alert, No apparent distress HEENT - Pupils equally round. Normal sclerae. Dry oral mucosa Heart - S1S2, RRR. Lungs - Normal lung expansion, Normal respiratory effort, No respiratory distress, CTA bilaterally Abdomen- NT / ND; +BS; No rebound or guarding Extremities - no calf tenderness bilaterally, no swelling Musculoskeletal - Normal inspection, normal ROM Skin - Warm/Dry Neurological - Alert & oriented x3. No focal weakness grossly noted. Normal speech Psychological - Appropriate affect Results Labs 05/31/23 21:41 05/31/23 23:51 Labs: Laboratory Results - last 24 hr 05/31/23 05/31/23 05/31/23 21:41 23:45 23:51 MCV 94.0 MCH 32.4 MCHC 34.4 RDW 13.0 Plt Count 322 MPV 8.6 L Immature Gran % (Auto) 0.4 Neut % (Auto) 58.0 Lymph % (Auto) 31.4 [place] % (Auto) 7.2 Eos % (Auto) 2.8 Baso % (Auto) 0.2 Lymph # (Auto) 3.5 [place] # (Auto) 0.8 Eos # (Auto) 0.3 Baso # (Auto) 0.0 Abs Immat Gran (auto) 0.04 H Absolute Neuts (auto) 6.5 Absolute Nucleated RBC 0.000 Nucleated RBC % (auto) 0.0 PT 12.3 INR 1.0 aPTT Heparin Protocol 32.3 L Anion Gap 11 L Estim Creat Clear Calc 65.3 Estimated GFR > 60 Random Glucose 101 Calcium 8.8 D Magnesium 1.8 Total Bilirubin 0.3 Direct Bilirubin 0.2 AST 14 ALT 15 Alkaline Phosphatase 90 Troponin I High Sens < 2.7 105.7 H* D B-Natriuretic Peptide 13 Total Protein 6.9 Albumin 3.9 Urine Color Yellow Urine Appearance Clear Urine pH 7.5 Ur Specific [place] 1.015 Urine Protein Negative Urine Glucose (UA) Negative Urine Ketones Negative Urine Blood Negative Urine Nitrite Negative Ur Leukocyte Esterase Negative Urine RBC 0-2 Urine WBC 0-5 Ur Squamous Epith Cells 0-2 Urine Bacteria None Seen Hyaline Casts 0-2 Ethyl Alcohol < 10 Imaging Radiologist's Impressions: Impressions Chest X-Ray 05/31/23 21:41 IMPRESSION: No acute cardiopulmonary findings. Assessment and Plan (1) Acute myocardial infarction: Qualifiers: Myocardial infarction type: unspecified Involved coronary artery: u nspecified coronary artery Qualified Code(s): I21.9 - Acute myocardial infarction, unspecified Status: Acute (2) HIV (human immunodeficiency virus infection): Qualifiers: HIV symptom status: asymptomatic, with no history of HIV-related illness Qualified Code(s): Z21 - Asymptomatic human immunodeficiency virus [HIV] infection status Status: Acute Plan Kevin Mayorga is a 62 years old man admitted with: * ACS. Admit to hospitalist service. Telemetry. Continue heparin IV infusion, ASA, BB and statin. Check lipid panel and hemoglobin A1c. Check TTE. Cardiology consult. Patient was advised to stop tobacco smoking. Will need cardiac cath. * HIV infection, undetectable viral load. Continue Bictegrav/Emtricit/Tenofov. * Hypertension. Metoprolol. * Hyperlipidemia. Not taking home meds. Start statin. Check lipid panel. * Tobacco dependence. Tobacco cessation education. DVT prophylaxis: Heparin IV infusion Code status: Full Patient will least hospitalization for at least 2 minute for ACS treatment with heparin IV infusion, aspirin, BB and statin. Patient will also need close cardiac monitoring and evaluation emergency specialty. Quality Stroke Does the patient have a stroke diagnosis?: No VTE Prior VTE?: No VTE Risk Level:: Medical - moderate - high VTE Device Contraindication: Treatment Not Indicated VTE Drug Contraindication: N/A - Med Ordered
[2023-06-01 06:26] LABS: MANUAL DIFF FLAG NO
[2023-06-01 06:44] LABS: Anion Gap 13 (12-20); Blood Urea Nitrogen 18 mg/dL (9-16); Calcium 8.9 mg/dL (8.4-10.2); Carbon Dioxide 23 mmol/L (22-29); Chloride 109 mmol/L (96-108); Creatinine Clr Calc Pharmacy 70.7; Estimated Glomerular Filt Rate > 60; Glucose Random 86 mg/dL (60-115); Potassium 3.8 mmol/L (3.3-5.1); Sodium 141 mmol/L (135-145)
[2023-06-01 06:50] LABS: Basophils Percent Auto 0.3 % (0-2); Eosinophils Absolute Auto 0.3 X10*3/uL (0.0-0.4); Eosinophils Percent Auto 2.7 % (0-4); Hematocrit 41.7 % (42.0-52.0); Hemoglobin 14.4 g/dl (14.0-18.0); Imm Gran Abs Auto 0.04 X10*3/uL (0.00-0.03); Imm Gran Pct Auto 0.3 % (0.0-0.4); Lymphocytes Absolute Auto 4.2 X10*3/uL (1.2-4.9); Lymphocytes Percent Auto 33.4 % (20-40); Mean Corpuscular HGB Conc 34.5 g/dl (31.0-36.0); Mean Corpuscular Hemoglobin 32.1 pg (27.0-33.0); Mean Corpuscular Volume 93.1 fL (80.0-98.0); Monocytes Absolute Auto 0.8 X10*3/uL (0.1-1.2); Monocytes Percent Auto 6.3 % (2-11); Neutrophils Absolute Auto 7.2 x10*3/uL (2.0-8.3); Platelet Count 317 X10*3/uL (160-400); Red Blood Count 4.48 X10*6/uL (4.60-5.80); Red Cell Distribution Width 12.8 % (11.0-16.0); White Blood Count 12.6 X10*3/uL (4.8-10.8)
--- NOTE | 2023-06-01 07:00 | CA_ITS ---
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 The visually estimated ejection fraction is between 55-60%. - E/E prime ratio is between 8 and 15 consistent with indeterminate filling pressures. - Normal right ventricular cavity size and systolic function. Findings Left Ventricle Normal left ventricular size, thickness, systolic function, and wall motion. The visually estimated ejection fraction is between 55-60%. Abnormal diastolic function is noted. Spectral Doppler is indicative of a pseudonormal filling pattern. E/E prime ratio is between 8 and 15 consistent with indeterminate filling pressures. Right Ventricle Normal right ventricular cavity size and systolic function. Atria The left atrium is mildly dilated. Aortic Valve There is a normal trileaflet aortic valve. There is mild calcification of the aortic valve. There is no aortic valve stenosis. There is no aortic valve regurgitation. Mitral Valve Normal mitral valve structure and function. There is no mitral valve regurgitation. There is no mitral valve stenosis. Pulmonic Valve Normal pulmonic valve structure and function. There is trace pulmonic valve regurgitation. Tricuspid Valve Normal tricuspid valve structure. There is no tricuspid valve regurgitation. Normal right atrial pressure. There is no evidence of pulmonary hypertension. Great Vessels All visible segments of the aorta are normal in size. The visualized portions of the pulmonary artery and branches are normal. Venous The inferior vena cava is normal in size and collapses greater than 50% with inspiration. Pericardium/Pleural There is no evidence of pericardial effusion. Prior Study Comparison No prior study available for comparison. Measurements 2D Linear Measurements IVSd: 0.97 0.6-0.9/0.6-1.0 cm LVIDd: 4.91 3.9-5.3/4.2-5.9 cm LVIDd Index: 2.67 2.4-3.2/2.2-3.1 cm/m2 LVIDs: 3.07 2.0-3.6 cm LVPWd: 1.09 0.7-1.1 cm Ao Root: 3.40 2.1-3.5 cm LA Diam: 3.50 2.7-3.8/3.0-4.0 cm LAIDs Index: 1.90 1.5-2.3 cm/m2 LV Mass: 228.90 67-162/88-224 g LV Mass Index: 124.40 43-95/49-115 g/m2 LVOT Diam: 2.10 3.0+(-)1.3 cm 2D Systolic Function EF 4C: 48.40 >55% EF 2C: 48.60 >55% Mitral Valve MV Pk E: 0.71 MV PK A: 0.72 MV Decel Time: 183.00 E/A: 1.00 E'Lateral: 7.72 E'Medial: 6.09 E/E' Med: 11.60 E/E' Lat: 9.20 PHT: 54.00 MVA PHT: 4.07 Decel [place]: 3.86 Aortic Valve AoV Pk Brayan: 1.56 AoV Mn Brayan: 1.09 AoV VTI: 0.36 AoV Pk Grad: 10.00 Aov Mn Grad: 5.00 ROBLES Cont.VTI: 1.53 LVOT LVOT Pk Brayan: 0.69 LVOT Mn Brayan: 0.47 LVOT VTI: 0.16 LVOT Pk Grad: 2.00 LVOT Mn Grad: 1.00 LVOT Diam: 2.10 LVOT Area: 3.46 Diastolic Function MV Pk E: 0.71 MV Pk A: 0.72 E/A: 1.00 E'Medial: 6.09 E/E' Med: 11.60 E' Laterial: 7.72 E/E' Lat: 9.20 Right Ventricle TAPSE (mm): 22.00 TVS' Brayan: 10.00 Tricuspid Valve TR Pk Brayan: 2.34 TR Pk Grad: 22.00 RA Press: 3.00 RVSP: 25.00 Great Vessels Aorta Ao Root-2D: 3.40 2.0-3.7 cm Ao Asc: 3.30 2.1-3.4 cm Pulmonary Valve PV Pk Brayan: 0.77 Peak PV Grad: 2.00 Updated in Other Vendor System with Status of Final Stevan Le MD electronically signed on 06/01/2023 1:07:52 PM with status of Final
[2023-06-01 07:56] LABS: PTT Heparin Drip 63.3 SEC (53-77.9)
--- NOTE | 2023-06-01 08:21 | PC.NURSE ---
patient aptt 63.3 per protocal no rate change no bolus. patient heparin running 11.67 u/kg/hr
--- NOTE | 2023-06-01 09:26 | PHA.MEDREC ---
Pharmacy Consult ? Medication Reconciliation Pharmacy has completed the medication reconciliation. Spoke to patient via para operator and confirmed medication list. Patient said he takes 2 blood pressure medications and pharmacy was able to confirm them as amlodipine 10 mg qd and losartan 50 mg qd with [facility] on [facility] ([phone]).
--- NOTE | 2023-06-01 09:38 | P.PNIM_ITS ---
Subjective Subjective Date of Service: 06/01/23 Interval History: f/u nstemi, reports no chest pain or shortness Physical Exam 2 Vital Signs: Vital Signs: Last Vital Signs Temp 98.2 F 06/01/23 07:43 Pulse 71 06/01/23 07:43 Resp 12 06/01/23 07:43 BP 128/78 06/01/23 07:43 Pulse Ox 96 06/01/23 07:43 O2 Del Method Room Air 06/01/23 07:43 BMI result Body Mass Index 35.7 General: AO X 3, no acute distress Resp: CTA bilateral CVS: S1,S2,RRR GI: +BS, NT, no distention Skin: No rash Neuro: motor grossly intact Psych: appropriate affect Objective Data Active Medications Acetaminophen (Acetaminophen 325 Mg Tablet) 650 mg PO Q6H PRN PRN Reason: Pain, Mild (Pain Scale 1-3) Amlodipine Besylate (Amlodipine Besylate 10 Mg Tablet) 10 mg PO DAILY [facility]; Protocol Aspirin (Aspirin Enteric Coated 81 Mg Tablet.Dr) 81 mg PO DAILY [facility] Atorvastatin Calcium (Atorvastatin Calcium 80 Mg Tablet) 80 mg PO BEDTIME [facility] Bictegravir/Emtricitabine/Tenofovir (Bictegrav/Emtricit/Tenofov Ala Tablet) 1 tab PO BEDTIME [facility] Clonazepam (Clonazepam 1 Mg Tablet) 1 mg PO BID PRN PRN Reason: anxiety attack Heparin Sodium (Porcine) (Heparin Sodium,Porcine 5,000 Unit/Ml Vial) 6,900 unit 80 unit/kg (6900 unit) IVPUSH PROTOCOL BOLUS PRN; Protocol PRN Reason: 80 unit/kg - Heparin Protocol Heparin Sodium (Porcine) (Heparin Sodium,Porcine 5,000 Unit/Ml Vial) 3,400 unit 40 unit/kg (3400 unit) IVPUSH PROTOCOL BOLUS PRN; Protocol PRN Reason: 40 unit/kg - Heparin Protocol Heparin Sodium/Sodium Chloride (Heparin Sodium,Porcine/1/2ns) 25,000 unit in 250 mls @ 0 mls/hr IVCONT .Q0M [facility]; Protocol Last Admin: 06/01/23 01:24 Dose: 11.67 units/kg/hr, 10 mls/hr Documented By: VERONICA Co-signed By: ISABELLA Losartan Potassium (Losartan Potassium 50 Mg Tablet) 50 mg PO DAILY [facility]; Protocol Metoprolol Tartrate (Metoprolol Tartrate 12.5 Mg Halftab) 12.5 mg PO BID [facility]; Protocol Nitroglycerin (Nitroglycerin 0.4 Mg Tab.Subl) 0.4 mg SUBLINGUAL Q5MX3 PRN PRN Reason: Chest Pain Sodium Chloride (0.9 % Sodium Chloride Flush 3 Ml Syringe) 3 ml IVFLUSH QSHIFT [facility] Last Admin: 06/01/23 07:29 Dose: Not Given Documented By: JOANNE Non-Admin Reason: IV Running Zolpidem Tartrate (Zolpidem Tartrate 5 Mg Tablet) 10 mg PO BEDTIME PRN PRN Reason: Sleep Labs 06/01/23 04:55 06/01/23 04:55 Labs: Laboratory Results - last 24 hr 05/31/23 05/31/23 05/31/23 21:41 23:45 23:51 MCV 94.0 MCH 32.4 MCHC 34.4 RDW 13.0 Plt Count 322 MPV 8.6 L Immature Gran % (Auto) 0.4 Neut % (Auto) 58.0 Lymph % (Auto) 31.4 [place] % (Auto) 7.2 Eos % (Auto) 2.8 Baso % (Auto) 0.2 Lymph # (Auto) 3.5 [place] # (Auto) 0.8 Eos # (Auto) 0.3 Baso # (Auto) 0.0 Abs Immat Gran (auto) 0.04 H Absolute Neuts (auto) 6.5 Absolute Nucleated RBC 0.000 Nucleated RBC % (auto) 0.0 PT 12.3 INR 1.0 aPTT Heparin Protocol 32.3 L Anion Gap 11 L Estim Creat Clear Calc 65.3 Estimated GFR > 60 Random Glucose 101 Calcium 8.8 D Magnesium 1.8 Total Bilirubin 0.3 Direct Bilirubin 0.2 AST 14 ALT 15 Alkaline Phosphatase 90 Troponin I High Sens < 2.7 105.7 H* D B-Natriuretic Peptide 13 Total Protein 6.9 Albumin 3.9 Urine Color Yellow Urine Appearance Clear Urine pH 7.5 Ur Specific [place] 1.015 Urine Protein Negative Urine Glucose (UA) Negative Urine Ketones Negative Urine Blood Negative Urine Nitrite Negative Ur Leukocyte Esterase Negative Urine RBC 0-2 Urine WBC 0-5 Ur Squamous Epith Cells 0-2 Urine Bacteria None Seen Hyaline Casts 0-2 Ethyl Alcohol < 10 06/01/23 06/01/23 04:55 07:39 MCV 93.1 MCH 32.1 MCHC 34.5 RDW 12.8 Plt Count 317 MPV 9.0 L Immature Gran % (Auto) 0.3 Neut % (Auto) 57.0 Lymph % (Auto) 33.4 [place] % (Auto) 6.3 Eos % (Auto) 2.7 Baso % (Auto) 0.3 Lymph # (Auto) 4.2 [place] # (Auto) 0.8 Eos # (Auto) 0.3 Baso # (Auto) 0.0 Abs Immat Gran (auto) 0.04 H Absolute Neuts (auto) 7.2 Absolute Nucleated RBC 0.000 Nucleated RBC % (auto) 0.0 PT INR aPTT Heparin Protocol 63.3 D Anion Gap 13 Estim Creat Clear Calc 70.7 Estimated GFR > 60 Random Glucose 86 Calcium 8.9 Magnesium Total Bilirubin Direct Bilirubin AST ALT Alkaline Phosphatase Troponin I High Sens B-Natriuretic Peptide Total Protein Albumin Urine Color Urine Appearance Urine pH Ur Specific [place] Urine Protein Urine Glucose (UA) Urine Ketones Urine Blood Urine Nitrite Ur Leukocyte Esterase Urine RBC Urine WBC Ur Squamous Epith Cells Urine Bacteria Hyaline Casts Ethyl Alcohol Assessment and Plan (1) Acute myocardial infarction: Status: Acute (2) HIV (human immunodeficiency virus infection): Status: Acute Plan Kevin Mayorga is a 62 years old man admitted with: ACS presently chest pain free. -Continue heparin IV infusion, ASA, BB and statin. Check lipid panel and hemoglobin A1c. Check TTE. Cardiology consult. Advised to stop tobacco smoking. May need cardiac cath. HIV infection, undetectable viral load. Continue Bictegrav/Emtricit/Tenofov. Hypertension. Metoprolol. Hyperlipidemia. Not taking home meds. Start statin. Check lipid panel. Tobacco dependence. Tobacco cessation education. DVT p: heparin need for inpatietn: IV heparin for ACS and may need further testing with cath Quality Stroke Does the patient have a stroke diagnosis?: No VTE Prior VTE?: No VTE Risk Level:: Medical - moderate - high VTE Device Contraindication: Treatment Not Indicated VTE Drug Contraindication: N/A - Med Ordered
[2023-06-01] MEDS: Metoprolol Tartrate 12.5 MG HALFTAB PO (09:42)
[2023-06-01] MEDS: Aspirin Enteric Coated 81 MG TABLET.DR PO (09:42)
[2023-06-01] MEDS: amLODIPine Besylate 10 MG TABLET PO (09:51)
--- NOTE | 2023-06-01 10:20 | P.CONCA_ITS ---
History of Present Illness History of Present Illness Date of Service: 06/01/23 Requesting physician: Britton Carrington Chief complaint: NSTEMI Narrative: 62-year-old gentleman who presented to [facility] with chest pain. He has background history of HIV and has been on [place]. He has hypertension and hyperlipidemia. Apparently had chest discomfort which started last evening at rest. He has describing a tightness in his chest. With these symptoms she came to the ER. His initial EKG showed subtle inferior ST elevation with reciprocal changes. He also had somewhat hyperacute appearing T-waves in the precordial leads. These changes improved on subsequent EKG and his pain went away. He has ruled in for NSTEMI. He was started on heparin drip. He was seen in the morning and has been chest pain-free since last evening. He is on aspirin currently. No bleeding issues in the past. No history of drug abuse. Labs and EKG reviewed. [facility] Past Medical History Medical History (Updated 06/01/23 @ 04:16 by Jonathan Segal MD) Hypertension Pain in joint, multiple sites HIV (human immunodeficiency virus infection) Family History Family History Father No problems noted. Mother No problems noted. Surgical History Surgical History (Updated 11/20/22 @ 11:11 by ARASELI Shea) History of surgery on lower extremity Social History Social History (Updated 11/20/22 @ 11:10 by ARASELI Shea) Alcohol intake: current Alcohol intake frequency: does not drink Patient Tobacco Use Status: Never used Tobacco Cigarettes Per Day: 10 Smoked in Last 30 Days: Yes Use of substances other than those prescribed or required for medical reasons: No Advance Directives: No Advance Directives Information Provided: No Nutrition Risks: No Nutritional Risk service: No Meds Allergies Allergy/AdvReac Type Severity Reaction Status Date / Time No Known Allergies Allergy Mild NONE Verified 01/06/23 10:01 Active Medications: Current Medications Acetaminophen (Acetaminophen 325 Mg Tablet) 650 mg PO Q6H PRN PRN Reason: Pain, Mild (Pain Scale 1-3) Amlodipine Besylate (Amlodipine Besylate 10 Mg Tablet) 10 mg PO DAILY [facility]; Protocol Last Admin: 06/01/23 09:51 Dose: 10 mg Aspirin (Aspirin Enteric Coated 81 Mg Tablet.) 81 mg PO DAILY [facility] Last Admin: 06/01/23 09:42 Dose: 81 mg Atorvastatin Calcium (Atorvastatin Calcium 80 Mg Tablet) 80 mg PO BEDTIME [facility] Bictegravir/Emtricitabine/Tenofovir (Bictegrav/Emtricit/Tenofov Ala Tablet) 1 tab PO BEDTIME [facility] Clonazepam (Clonazepam 1 Mg Tablet) 1 mg PO BID PRN PRN Reason: anxiety attack Heparin Sodium (Porcine) (Heparin Sodium,Porcine 5,000 Unit/Ml Vial) 6,900 unit 80 unit/kg (6900 unit) IVPUSH PROTOCOL BOLUS PRN; Protocol PRN Reason: 80 unit/kg - Heparin Protocol Heparin Sodium (Porcine) (Heparin Sodium,Porcine 5,000 Unit/Ml Vial) 3,400 unit 40 unit/kg (3400 unit) IVPUSH PROTOCOL BOLUS PRN; Protocol PRN Reason: 40 unit/kg - Heparin Protocol Heparin Sodium/Sodium Chloride (Heparin Sodium,Porcine/1/2ns) 25,000 unit in 250 mls @ 0 mls/hr IVCONT .Q0M [facility]; Protocol Last Admin: 06/01/23 01:24 Dose: 11.67 units/kg/hr, 10 mls/hr Losartan Potassium (Losartan Potassium 50 Mg Tablet) 50 mg PO DAILY [facility]; Protocol Metoprolol Tartrate (Metoprolol Tartrate 12.5 Mg Halftab) 12.5 mg PO BID [facility]; Protocol Last Admin: 06/01/23 09:42 Dose: 12.5 mg Nitroglycerin (Nitroglycerin 0.4 Mg Tab.Subl) 0.4 mg SUBLINGUAL Q5MX3 PRN PRN Reason: Chest Pain Sodium Chloride (0.9 % Sodium Chloride Flush 3 Ml Syringe) 3 ml IVFLUSH QSHIFT [facility] Last Admin: 06/01/23 07:29 Dose: Not Given Zolpidem Tartrate (Zolpidem Tartrate 5 Mg Tablet) 10 mg PO BEDTIME PRN PRN Reason: Sleep Home Medications Medication Instructions Recorded Confirmed Last Taken Type bictegravir 50 mg-emtricitabine 1 tab PO BEDTIME 11/20/22 06/01/23 05/31/23 History 200 mg-tenofovir alafenam 25 mg tablet (Biktarvy) zolpidem 10 mg tablet 10 mg PO BEDTIME PRN Sleep 11/20/22 06/01/23 05/30/23 History amlodipine 10 mg tablet 10 mg PO DAILY 06/01/23 06/01/23 05/31/23 History clonazepam 1 mg tablet (Klonopin) 1 mg PO BID anxiety attack 06/01/23 06/01/23 05/31/23 History losartan 50 mg tablet 50 mg PO DAILY 06/01/23 06/01/23 05/31/23 History Physical Exam 2 Vital Signs: Vital Signs: Last Vital Signs Temp 98.2 F 06/01/23 07:43 Pulse 71 06/01/23 07:43 Resp 12 06/01/23 07:43 BP 128/78 06/01/23 07:43 Pulse Ox 96 06/01/23 07:43 O2 Del Method Room Air 06/01/23 07:43 BMI result Body Mass Index 35.7 GENERAL APPEARANCE: in no acute distress, pleasant. NECK: no carotid bruit, no jugular venous distention. SKIN: no suspicious lesions, warm and dry. HEART: no murmurs, regular rate and rhythm. LUNGS: clear to auscultation bilaterally. ABDOMEN: soft, nontender. EXTREMITIES: no edema. PERIPHERAL PULSES: equal. NEUROLOGIC: No gross deficits, AAO X 3 Objective Labs and Meds 06/01/23 04:55 06/01/23 04:55 Lab results: Laboratory Results - last 24 hr 05/31/23 05/31/23 05/31/23 21:41 23:45 23:51 WBC 11.2 H RBC 4.48 L Hgb 14.5 Hct 42.1 MCV 94.0 MCH 32.4 MCHC 34.4 RDW 13.0 Plt Count 322 MPV 8.6 L Immature Gran % (Auto) 0.4 Neut % (Auto) 58.0 Lymph % (Auto) 31.4 [place] % (Auto) 7.2 Eos % (Auto) 2.8 Baso % (Auto) 0.2 Lymph # (Auto) 3.5 [place] # (Auto) 0.8 Eos # (Auto) 0.3 Baso # (Auto) 0.0 Abs Immat Gran (auto) 0.04 H Absolute Neuts (auto) 6.5 Absolute Nucleated RBC 0.000 Nucleated RBC % (auto) 0.0 PT 12.3 INR 1.0 aPTT Heparin Protocol 32.3 L Sodium 141 Potassium 4.3 Chloride 108 Carbon Dioxide 26 Anion Gap 11 L BUN 21 H Creatinine 1.06 Estim Creat Clear Calc 65.3 Estimated GFR > 60 Random Glucose 101 Calcium 8.8 D Magnesium 1.8 Total Bilirubin 0.3 Direct Bilirubin 0.2 AST 14 ALT 15 Alkaline Phosphatase 90 Troponin I High Sens < 2.7 105.7 H* D B-Natriuretic Peptide 13 Total Protein 6.9 Albumin 3.9 Urine Color Yellow Urine Appearance Clear Urine pH 7.5 Ur Specific [place] 1.015 Urine Protein Negative Urine Glucose (UA) Negative Urine Ketones Negative Urine Blood Negative Urine Nitrite Negative Ur Leukocyte Esterase Negative Urine RBC 0-2 Urine WBC 0-5 Ur Squamous Epith Cells 0-2 Urine Bacteria None Seen Hyaline Casts 0-2 Ethyl Alcohol < 10 06/01/23 06/01/23 04:55 07:39 WBC 12.6 H RBC 4.48 L Hgb 14.4 Hct 41.7 L MCV 93.1 MCH 32.1 MCHC 34.5 RDW 12.8 Plt Count 317 MPV 9.0 L Immature Gran % (Auto) 0.3 Neut % (Auto) 57.0 Lymph % (Auto) 33.4 [place] % (Auto) 6.3 Eos % (Auto) 2.7 Baso % (Auto) 0.3 Lymph # (Auto) 4.2 [place] # (Auto) 0.8 Eos # (Auto) 0.3 Baso # (Auto) 0.0 Abs Immat Gran (auto) 0.04 H Absolute Neuts (auto) 7.2 Absolute Nucleated RBC 0.000 Nucleated RBC % (auto) 0.0 PT INR aPTT Heparin Protocol 63.3 D Sodium 141 Potassium 3.8 Chloride 109 H Carbon Dioxide 23 Anion Gap 13 BUN 18 H Creatinine 0.98 Estim Creat Clear Calc 70.7 Estimated GFR > 60 Random Glucose 86 Calcium 8.9 Magnesium Total Bilirubin Direct Bilirubin AST ALT Alkaline Phosphatase Troponin I High Sens B-Natriuretic Peptide Total Protein Albumin Urine Color Urine Appearance Urine pH Ur Specific [place] Urine Protein Urine Glucose (UA) Urine Ketones Urine Blood Urine Nitrite Ur Leukocyte Esterase Urine RBC Urine WBC Ur Squamous Epith Cells Urine Bacteria Hyaline Casts Ethyl Alcohol Imaging Radiologist's impression: Impressions Chest X-Ray 05/31/23 21:41 IMPRESSION: No acute cardiopulmonary findings. Assessment and Plan (1) Acute myocardial infarction: Qualifiers: Involved coronary artery: unspecified coronary artery Myocardial infarction type: unspecified Qualified Code(s): I21.9 - Acute myocardial infarction, unspecified Status: Acute Plan Very pleasant 62 year gentleman who is presenting with chest pain and has ruled in for NSTEMI. EKG initially had subtle inferior ST elevation with reciprocal changes. He has been pain-free. He has been loaded with Plavix 600 mg and should continue 75 mg from tomorrow along with baby aspirin 81 mg daily. He will be on heparin drip for anticoagulation. I have discussed with him in detail about potential diagnostic cardiac catheterization and he is agreeable. We will transfer to [facility] and potentially do this procedure by tomorrow. Obviously if he starts having chest pain again then we will involve the on-call team and he will go to cardiac cath lab tech tonight. We will echo him for wall motion abnormality. Thank you for allowing me to participate in the care of your patient. Please feel free to contact me if you have any questions. Procedures Date of Service Date of Service: 06/01/23
--- NOTE | 2023-06-01 10:32 | P.DS_ITS ---
DS: Providers Provider Date of Service: 06/01/23 Date of admission: 06/01/23 02:55 Primary care physician: Elizabeth Dillard MD Consults: 06/01/23 02:55 Consult to Cardiology Routine Consulting Provider[place] [facility] Reason for consultation: chest pain/NSTEMI Has provider been notified: Yes DS: Diagnosis Discharge Diagnosis (1) Acute myocardial infarction: Status: Acute (2) HIV (human immunodeficiency virus infection): Status: Acute DS: Summary Hospital Course Hospital Course: admission hpi Kevin Mayorga is a 62 years old man with past medical history significant for HIV on HAART presents to the emergency department complaining of retrosternal chest pain that started last night at 7 pm while he was watching TV. He describes the pain as a pressure without radiations. Upon arrival to the emergency department the intensity of the pain was 10/10. He is currently chest pain-free. He denied any associated shortness of breath, nausea, vomiting, sweating, palpitation or dizziness. Denies fever or chills. Acute gastrointestinal genitourinary symptoms denied. 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 He denied alcohol abuse. He mentioned having history of hypertension and hyperlipidemia but not taking medications for this. He denies history of diabetes mellitus, congestive heart failure, coronary artery disease or stroke. In the ED, he was found to have stable vital signs. Blood workup is remarkable for slight leukocytosis. Troponin was initially below 2.7 and increased to 105.7 in 2 hours. BNP is normal. There are no significant electrolyte imbalances. LFTs are normal. CXR is negative. EKGs showed slight ST elevation in inferior leads that resolved. ED tx: Aspirin 325 mg p.o., atorvastatin 80 mg p.o. heparin IV infusion. Cardiology service was contacted. Hospital course: He presented with chest pain and found to have acute ACS wth elevated troponin I of 105 and ECG changes in the inferior leads, repeat trop 1413. His management has consisted of IV heparin, metoprolol, ASA, Lipitor 80. He is hemodynamically stable and now chest pain free. Dietary Aid (Dr. Le) advises further testing with cardiac catherization and therefore will be transfered to [facility] for this. Time Attestation Discharge Coordination Time (in mins): 35 Quality: Safe Use of Opioids Does Pt have an Active Cancer Diagnosis on the Problem List?: No Quality: Stroke Does the patient have a stroke diagnosis?: No Physical Exam Vital Signs: Vital Signs: Last Vital Signs Temp 98.2 F 06/01/23 07:43 Pulse 71 06/01/23 07:43 Resp 12 06/01/23 07:43 BP 128/78 06/01/23 07:43 Pulse Ox 96 06/01/23 07:43 O2 Del Method Room Air 06/01/23 07:43 BMI result Body Mass Index 35.7 General: AO X 3, no acute distress Resp: CTA bilateral CVS: S1,S2,RRR GI: +BS, NT, no distention Skin: No rash Neuro: motor grossly intact Psych: appropriate affect DS: Data Data Completed and Pending Labs on day of discharge: Laboratory Results - last 24 hr 05/31/23 05/31/23 05/31/23 21:41 23:45 23:51 WBC 11.2 H RBC 4.48 L Hgb 14.5 Hct 42.1 MCV 94.0 MCH 32.4 MCHC 34.4 RDW 13.0 Plt Count 322 MPV 8.6 L Immature Gran % (Auto) 0.4 Neut % (Auto) 58.0 Lymph % (Auto) 31.4 [place] % (Auto) 7.2 Eos % (Auto) 2.8 Baso % (Auto) 0.2 Lymph # (Auto) 3.5 [place] # (Auto) 0.8 Eos # (Auto) 0.3 Baso # (Auto) 0.0 Abs Immat Gran (auto) 0.04 H Absolute Neuts (auto) 6.5 Absolute Nucleated RBC 0.000 Nucleated RBC % (auto) 0.0 PT 12.3 INR 1.0 aPTT Heparin Protocol 32.3 L Sodium 141 Potassium 4.3 Chloride 108 Carbon Dioxide 26 Anion Gap 11 L BUN 21 H Creatinine 1.06 Estim Creat Clear Calc 65.3 Estimated GFR > 60 Random Glucose 101 Calcium 8.8 D Magnesium 1.8 Total Bilirubin 0.3 Direct Bilirubin 0.2 AST 14 ALT 15 Alkaline Phosphatase 90 Troponin I High Sens < 2.7 105.7 H* D B-Natriuretic Peptide 13 Total Protein 6.9 Albumin 3.9 Urine Color Yellow Urine Appearance Clear Urine pH 7.5 Ur Specific [place] 1.015 Urine Protein Negative Urine Glucose (UA) Negative Urine Ketones Negative Urine Blood Negative Urine Nitrite Negative Ur Leukocyte Esterase Negative Urine RBC 0-2 Urine WBC 0-5 Ur Squamous Epith Cells 0-2 Urine Bacteria None Seen Hyaline Casts 0-2 Ethyl Alcohol < 10 06/01/23 06/01/23 04:55 07:39 WBC 12.6 H RBC 4.48 L Hgb 14.4 Hct 41.7 L MCV 93.1 MCH 32.1 MCHC 34.5 RDW 12.8 Plt Count 317 MPV 9.0 L Immature Gran % (Auto) 0.3 Neut % (Auto) 57.0 Lymph % (Auto) 33.4 [place] % (Auto) 6.3 Eos % (Auto) 2.7 Baso % (Auto) 0.3 Lymph # (Auto) 4.2 [place] # (Auto) 0.8 Eos # (Auto) 0.3 Baso # (Auto) 0.0 Abs Immat Gran (auto) 0.04 H Absolute Neuts (auto) 7.2 Absolute Nucleated RBC 0.000 Nucleated RBC % (auto) 0.0 PT INR aPTT Heparin Protocol 63.3 D Sodium 141 Potassium 3.8 Chloride 109 H Carbon Dioxide 23 Anion Gap 13 BUN 18 H Creatinine 0.98 Estim Creat Clear Calc 70.7 Estimated GFR > 60 Random Glucose 86 Calcium 8.9 Magnesium Total Bilirubin Direct Bilirubin AST ALT Alkaline Phosphatase Troponin I High Sens B-Natriuretic Peptide Total Protein Albumin Urine Color Urine Appearance Urine pH Ur Specific [place] Urine Protein Urine Glucose (UA) Urine Ketones Urine Blood Urine Nitrite Ur Leukocyte Esterase Urine RBC Urine WBC Ur Squamous Epith Cells Urine Bacteria Hyaline Casts Ethyl Alcohol Discharge Plan Discharge Anticipated Discharge Date/Time: 06/01/23 10:28 Patient Disposition: Xfer Acute Care Hospital Discharge Diagnosis: NSTEMI Referrals: Elizabeth No MD [Primary Care Provider] - 1 Week Discharge Medications: New heparin(porcine) in 0.45% NaCl 25,000 unit/250 mL Parenteral Solution 25,000 unit continuous IV infusion .Q0M Qty: 6000 0RF Rx Instructions: per institution heparin protocol aspirin 81 mg Tablet,Delayed Release (Dr/Ec) 81 mg PO DAILY Qty: 30 0RF nitroglycerin [Nitrostat] 0.4 mg Tablet, Sublingual 0.4 mg sublingual Q5MX3 PRN (Reason: Chest Pain) Qty: 20 0RF atorvastatin 80 mg Tablet 80 mg PO BEDTIME Qty: 30 0RF metoprolol tartrate 25 mg tablet 12.5 mg PO BID Qty: 30 0RF Continued clonazepam [Klonopin] 1 mg tablet 1 mg PO BID losartan 50 mg Tablet 50 mg PO DAILY amlodipine 10 mg Tablet 10 mg PO DAILY zolpidem 10 mg tablet 10 mg PO BEDTIME PRN (Reason: Sleep) Biktarvy 50-200-25 mg tablet 1 tab PO BEDTIME Discharge Orders: Discharge Order (Routine); Ordered 06/01/23 Ordered By: Arnav Khan Diet: Advance to usual diet Activity on Discharge: As tolerated Stand Alone Forms: Patient Portal Discharge page Care Plan Goals: To [facility] for cardiac cath Health Concerns: Acute NSTEMI (Heart attack) Plan of Treatment: Transfer to [facility] for cardiac cath continue Aspirin, heparin, metoprolol and Lipitor Assessment: see above
--- NOTE | 2023-06-01 10:52 | MHC.CM.PN ---
Met with patient, daughter Makenzie and resource efficiency manager in regards to discharge planning. Patient lives alone, ambulates independently and had no services prior to coming to the hospital. Patient's vehicle is in the parking lot and patient will transport himself home. No services anticipated to be needed because patient is not homebound. PCP verified. Patient denies having a HCP. Information provided. Not interested in completing one at this time. Patient received 2 Pfizer and 3 Moderna vaccines. Continue to monitor for d/c needs.
[2023-06-01] MEDS: Clopidogrel Bisulfate 300 MG TABLET 600 MG PO (11:18)
[2023-06-01 11:36] LABS: Estimated Average Glucose 108 mg/dL; Hemoglobin A1C 129.3753 umol/L; Hemoglobin A1c % 5.4 % (<6.0)
[2023-06-01 11:46] LABS: Troponin-I High Sensitivity 1413.8 ng/L (<3.5-35.0)
[2023-06-01 14:42] LABS: PTT Heparin Drip 58.3 SEC (53-77.9)
--- NOTE | 2023-06-01 14:58 | PC.NURSE ---
patient is resting quietly in bed, respirations equal and unlabored. patient skin is dry and intact. PTT HD 58.3 per protocol patient does not need rate change or bolus. next ptt HD draw is set for 0600 06/02/2023
--- NOTE | 2023-06-01 16:39 | PC.NURSE ---
per international project engineer patient is accepted case at [facility] and will be transferred once a room becomes available. patient has heparin drip going 11.67 u/kg/hr
--- NOTE | 2023-06-01 17:57 | MHC.EDTECH ---
Patient family took all of the belongings
--- NOTE | 2023-06-01 18:29 | MHC.EDTECH ---
Patient given dinner tray
--- NOTE | 2023-06-02 08:14 | MHC.CM.PN ---
Received notification patient was transferred to [facility] last night.
== END 2023-06-01 18:35 | disposition short-term general hospital (02) | DRG 190 ==
LOC: HO.ED 06-01 01:06 → HO.EDOVER 06-01 03:10
PROVIDERS: Admitting Provider Internal Medicine; Emergency Provider Emergency Medicine; PCP Internal Medicine; Visit Provider Internal Medicine
DX: I21.4 Non-ST elevation (NSTEMI) myocardial infarction (principal); E78.5 Hyperlipidemia, unspecified; Z21 Asymptomatic human immunodeficiency virus [HIV] infection status; F17.290 Nicotine dependence, other tobacco product, uncomplicated; I10 Essential (primary) hypertension; Z71.6 Tobacco abuse counseling; Z79.899 Other long term (current) drug therapy
CPT/HCPCS: 36415; 71045; 80048; 80076; 80307; 81001; 83036; 83735; 83880; 84484; 85025; 85610; 85730; 93005; 93306; 99285; J1644; Q9957

== ENCOUNTER → 2023-05-31 21:13 | Outpatient (BNV) | payer MEDICAID, SELFPAY | PROVIDERS: Admitting Provider Internal Medicine; Emergency Provider Emergency Medicine; PCP Internal Medicine; Visit Provider Internal Medicine Cardiovascular Disease | DX: R07.9 Chest pain, unspecified (principal) | CPT/HCPCS: 93010 ==

== ENCOUNTER → 2023-06-01 02:55 | Outpatient (BNV) | payer MEDICAID, SELFPAY | PROVIDERS: Admitting Provider Internal Medicine; Emergency Provider Emergency Medicine; PCP Internal Medicine; Visit Provider Internal Medicine | DX: I21.9 Acute myocardial infarction, unspecified (principal); Z21 Asymptomatic human immunodeficiency virus [HIV] infection status | CPT/HCPCS: 99223; 99499 ==

== ENCOUNTER → 2023-06-01 02:55 | Outpatient (BNV) | payer MEDICAID, SELFPAY | PROVIDERS: Admitting Provider Internal Medicine; Emergency Provider Emergency Medicine; PCP Internal Medicine; Visit Provider Internal Medicine Cardiovascular Disease | DX: I21.9 Acute myocardial infarction, unspecified (principal); I24.9 Acute ischemic heart disease, unspecified | CPT/HCPCS: 93306; 99223 ==

== ENCOUNTER → 2023-06-02 23:59 | Outpatient (BNV) | payer MEDICAID, SELFPAY | PROVIDERS: PCP Internal Medicine; Visit Provider Internal Medicine Cardiovascular Disease | DX: I21.4 Non-ST elevation (NSTEMI) myocardial infarction (principal) | CPT/HCPCS: 92928; 93458; 99152 ==

== ENCOUNTER 2023-06-17 12:48 | Outpatient (AMB) | payer OTHER, SELFPAY ==
--- NOTE | 2023-06-17 13:40 | MHC.OFFVIS ---
Intake Vital Signs 06/17/23 13:41 Height 6 ft 1 in Weight 195 lb 12.328 oz BMI 25.8 BP 132/78 Blood Pressure Location Lt brachial Position Sitting Pulse 82 Intake Visit Reasons: Card cath 06/01-f/up per KM Intake Note: PT is feel good Custom Studio Coordinator Required: Yes Custom Studio Coordinator Name: TRISTIAN [id number] Allergies No Known Allergies Allergy (Mild, Verified 01/06/23 10:01) NONE Medication List - Last Reconciled 06/17/23 by Irina Medina NP amlodipine 10 mg PO DAILY aspirin 81 mg PO DAILY atorvastatin 80 mg PO BEDTIME ioobmtcmh-eizarvsk-mtfmmog ala 50-200-25 mg (Biktarvy) 1 tab PO BEDTIME clonazepam (Klonopin) 1 mg PO BID clopidogrel 75 mg PO DAILY metoprolol tartrate 12.5 mg (1/2 x 25 mg) PO BID nitroglycerin (Nitrostat) 0.4 mg sublingual Q5MX3 PRN zolpidem 10 mg PO BEDTIME PRN HPI HPI Comments History of Present Illness Details 62-year-old male presents today for a follow-up after cardiac catheterization. He presents to [facility] with chest pains and had EKG changes. Echocardiogram showed normal LV size and thickness with normal wall motion and a EF of 55-60%. He was then transferred to [facility] [place] for cardiac cathetization. He denies chest pains, shortness of breath, tenderness, swelling, odor, or drainage. Right radial site is healing appropriately. [facility] Medical History NSTEMI (non-ST elevated myocardial infarction) Hypertension Pain in joint, multiple sites HIV (human immunodeficiency virus infection) Surgical History History of surgery on lower extremity Family History Father No problems noted. Mother No problems noted. Social History Alcohol intake: current Alcohol intake frequency: does not drink Patient Tobacco Use Status: Never used Tobacco Cigarettes Per Day: 10 service: No Review of Systems Const Denies weakness ENT Denies dizziness Card Denies chest pain, Denies chest pain with activity, Denies syncope, Denies rapid heart rate, Denies pedal edema, Denies edema, Denies leg edema, Denies lightheadedness, Denies palpitations, Denies dyspnea, Denies dyspnea on exertion and Denies orthopnea Resp Denies cough, Denies dyspnea and Denies dyspnea on exertion GI Denies hematochezia and Denies change in stool character Musc Denies abnormal gait, Denies muscle cramps, Denies muscle weakness, Denies numbness, Denies radiating pain into limb and Denies tingling Neuro Denies abnormal gait, Denies dizziness, Denies syncope, Denies numbness, Denies tingling and Denies weakness Endo Denies palpitations Physical Exam Vital Signs: Last Vital Signs Pulse 82 06/17/23 13:41 BP 132/78 06/17/23 13:41 BMI result Body Mass Index 25.8 Const General: healthy appearing and no acute distress Orientation/consciousness: patient oriented x3 HEENT Head: Yes normal to inspection Eyes General: appearance normal, both eyes and all related structures Neck Neck: Yes normal visual inspection Chest Chest palpation & inspection: normal inspection of the chest Resp Effort & Inspection: normal respiratory effort Auscultation: clear to auscultation bilaterally Cardio Jugular venous distension: no JVD Palpation: normal PMI Rate: regular rate Rhythm: regular rhythm Heart sounds: S1 normal heart sound present, S2 normal heart sound present, no click, no gallops, no murmurs and no rubs GI Inspection: Yes normal to inspection Palpation (GI): Soft to palpation Skin General skin exam: no rashes or lesions noted Neuro General: patient oriented x3 Extrem Other: Right radial site: no swelling, erhythma, tenderness, or odor. General: Yes normal to inspection Psych Appearance: grossly normal Assessment & Plan Assessment & Plan (1) NSTEMI (non-ST elevated myocardial infarction): Comment: with Dr Le LMCA Normal LAD: Mid LAD 65% stenosis LCx: Moderate diffuse in proximal circumflex. OM2 proximally 60% stenosis. Lesion in 3rd Ob Serena: Proximal subsection.99% stenosis Lesion in 3rd Ob Serena% stenosis RCA: Mild luminal irregularities (<30%). PCI to OM3. Medical management for LAD Code(s): I21.4 - Non-ST elevation (NSTEMI) myocardial infarction Plan TANNER placement post NSTEMI. Aspirin 81mg indefinitely. Plavix therapy for 12 months at minimum. Smoking cessation advised. Last LDL was on 05/04/23. Patient agrees to cardiac rehab. Losartan was discontinued at [facility] [place]. Patient is worried about having high blood pressures. Advised to monitor blood pressures over the next few days and to let us know how they look. On aspirin 81mg indefinitely. Plavix for one year minuimum and statin and beta blockers Orders: Orders Lipid Panel 06/17/23 I21.4 - Non-ST elevation (NSTEMI) myocardial infarction Basic Metabolic Panel 06/17/23 I21.4 - Non-ST elevation (NSTEMI) myocardial infarction Cardiac Rehab 06/17/23 I21.4 - Non-ST elevation (NSTEMI) myocardial infarction Medications: New metoprolol succinate ER 25 mg PO DAILY Coding Level of Care Code Est Pt Level 3 (48345) Diagnoses NSTEMI (non-ST elevated myocardial infarction) I21.4
[2023-06-17 13:41] VITALS: BP 132/78; PULSE 82; BMI 25.8
== END 2023-06-17 14:24 | disposition home or self-care (01) ==
PROVIDERS: PCP Internal Medicine; Visit Provider Nurse Practitioner
DX: I21.4 Non-ST elevation (NSTEMI) myocardial infarction (principal)
CPT/HCPCS: 99213

== ENCOUNTER → 2023-06-17 12:48 | Outpatient (BNVA) | payer OTHER, SELFPAY | PROVIDERS: PCP Internal Medicine; Visit Provider Nurse Practitioner | DX: I21.4 Non-ST elevation (NSTEMI) myocardial infarction (principal) | CPT/HCPCS: 99212 ==

== ENCOUNTER 2023-07-05 11:20 | Emergency (ER) | payer OTHER, SELFPAY ==
[2023-07-05 11:27] VITALS: BP 120/81; PULSE 93; RESP 18; TEMP 36.6; O2SAT 97; BMI 26.1
--- NOTE | 2023-07-05 11:38 | ED_ITS ---
HPI - General Adult General Chief complaint: General Medical Stated complaint: Suture removal Time Seen by Provider: 07/05/23 11:37 Source: patient Mode of arrival: ambulatory Limitations: no limitations History of Present Illness HPI narrative: 62-year-old male presents to ED for 4 left eyebrow suture removal. Patient had sutures placed at [facility] last Thursday and had normal imaging of the head. Patient states also he had left thigh bruise since last Thursday due to fall and also had a normal x-ray at [facility]. Patient denies left bruise worsening Related Data Home Medications ?Medication ?Instructions ?Recorded ?Confirmed bictegravir 50 mg-emtricitabine 1 tab PO BEDTIME 11/20/22 06/17/23 200 mg-tenofovir alafenam 25 mg tablet (Biktarvy) zolpidem 10 mg tablet 10 mg PO BEDTIME PRN Sleep 11/20/22 06/17/23 amlodipine 10 mg tablet 10 mg PO DAILY 06/01/23 06/17/23 clonazepam 1 mg tablet (Klonopin) 1 mg PO BID anxiety attack 06/01/23 06/17/23 clopidogrel 75 mg tablet 75 mg PO DAILY 06/17/23 06/17/23 metoprolol succinate 25 mg 25 mg PO DAILY 06/18/23 06/18/23 tablet,extended release 24 hr Previous Rx's ?Medication ?Instructions ?Recorded aspirin 81 mg tablet,delayed 81 mg PO DAILY #30 tabs 06/01/23 release atorvastatin 80 mg tablet 80 mg PO BEDTIME #30 tabs 06/01/23 nitroglycerin 0.4 mg sublingual 0.4 mg sublingual Q5MX3 PRN Chest 06/01/23 tablet (Nitrostat) Pain #20 tabs Allergies Allergy/AdvReac Type Severity Reaction Status Date / Time No Known Allergies Allergy Mild NONE Verified 07/05/23 11:28 Review of Systems 2 Review of Systems: Left eyebrow stitches removed Yes all other systems are reviewed and are negative [facility] Past Medical History Medical History NSTEMI (non-ST elevated myocardial infarction) Hypertension Pain in joint, multiple sites HIV (human immunodeficiency virus infection) Surgical History History of surgery on lower extremity Family History Family History Father No problems noted. Mother No problems noted. Social History Social History Alcohol intake: current Alcohol intake frequency: does not drink Patient Tobacco Use Status: Never used Tobacco Cigarettes Per Day: 10 Advance Directives: No Advance Directives Information Provided: No Do you have a plan to hurt others: No Plan service: No Physical Exam ED Vital Signs: Vital Signs - 24 hr 07/05/23 11:27 07/05/23 12:01 Temperature 98 F 98 F Pulse Rate 93 93 Respiratory Rate 18 18 Blood Pressure 120/81 120/81 Pulse Oximetry 97 97 Oxygen Delivery Method Room Air Room Air BMI result Body Mass Index 26.1 Const General: cooperative, healthy appearing, comfortable, no acute distress, well developed, alert, awake and Physically active Orientation/consciousness: oriented to person, oriented to place, oriented to time and patient oriented x3 HENMT Head: Yes normal to inspection, Yes No palpable skull fracture present, Yes normocephalic and Yes atraumatic Head images: 2 1. Dry blood. No active bleeding. No signs of infection. Three sutures present Eyes General: appearance normal, both eyes and all related structures Neck Neck: Yes normal visual inspection, Yes full ROM, Yes no lymphadenopathy, Yes no meningeal signs, Yes trachea midline, Yes supple, No anterior neck swelling and No tender Chest Chest palpation & inspection: normal inspection of the chest and normal palpation of entire chest wall Resp Effort & Inspection: normal respiratory effort and able to speak in complete sentences Auscultation: clear to auscultation bilaterally Cardio Jugular venous distension: no JVD Heart sounds: S1 normal heart sound present and S2 normal heart sound present GI Inspection: Yes normal to inspection Palpation (GI): Soft to palpation, not firm, nontender, no guarding and not rigid General: No CVA tenderness and Yes no CVA tenderness Back/Spine/Pelvis Back: no CVA tenderness, No CVA tenderness and No back tenderness Skin General skin exam: no rashes or lesions noted, elasticity normal and turgor normal Neuro General: oriented to person, oriented to place, oriented to time, patient oriented x3, gait normal, tone normal, moves all extremities, Normal light touch and pain sensation, no meningeal signs, no focal motor deficits, CN's II-XI intact bilaterally and normal sensation to monofilament Extrem General: Yes normal to inspection, Yes full ROM and Yes capillary refill normal Knee images: 2 1. Positive for bruise/ecchymosis. Negative for crepitus, deformity, hard mass, warmth, redness, or coldness. Rest of extremity normal. Motor/neuro/vascular exam intact. Negative for hematoma. Psych Appearance: grossly normal, well kempt and not disheveled Medical Decision Making Medical Decision Making MDM Narrative: 62-year-old male presents to ED for left eyebrow suture removal. Area cleaned with sterile saline. Three sutures removed. Negative for signs of infection. Left thigh evaluated and negative for signs of hematoma, cellulitis, DVT, compartment syndrome, or fracture. Patient had normal x-ray at [facility]. Patient to be discharged. Patient explained worrisome signs informed to return to the ED if he has them. Differential Diagnosis Differential Diagnoses: The differential diagnosis associated with the presentation includes (Suture removal contusion) Admission/Observation Consideration of admission/observation: Escalation of care including admission/observation considered Independent Historian Clinical information obtained from an independent historian. History obtained from or confirmed by: Other External Record Review External record reviewed: Other (previous) Discharge Plan Discharge Clinical Impression: Visit for suture removal Patient Disposition: Home, Self-Care Instructions: Stitches Removal (ED), Contusion in Adults (ED) Additional Instructions: Return to the ED immediately for any redness, swelling, pus discharge, foul odor, fever, chills, headache, dizziness, increased swelling of lower extremity, bluish black discoloration, hard mass, erythema, hotness, coldness, or any other concerning symptoms. Prescriptions: No Action clonazepam [Klonopin] 1 mg tablet 1 mg PO BID amlodipine 10 mg Tablet 10 mg PO DAILY atorvastatin 80 mg Tablet 80 mg PO BEDTIME Qty: 30 0RF aspirin 81 mg Tablet,Delayed Release (Dr/Ec) 81 mg PO DAILY Qty: 30 0RF nitroglycerin [Nitrostat] 0.4 mg Tablet, Sublingual 0.4 mg sublingual Q5MX3 PRN (Reason: Chest Pain) Qty: 20 0RF clopidogrel 75 mg tablet 75 mg PO DAILY metoprolol succinate 25 mg tablet extended release 24 hr 25 mg PO DAILY zolpidem 10 mg tablet 10 mg PO BEDTIME PRN (Reason: Sleep) Biktarvy 50-200-25 mg tablet 1 tab PO BEDTIME Interventions: ED Discharge Assessment Last Done: 07/05/23 12:01 Discharge Date/Time: 07/05/23 11:58 Print Language: Mongolian
[2023-07-05 12:01] VITALS: BP 120/81; PULSE 93; RESP 18; TEMP 36.6; O2SAT 97
== END 2023-07-05 11:58 | disposition home or self-care (01) ==
PROVIDERS: Emergency Provider Student in an Organized Health Care Education/Training Program
DX: Z48.02 Encounter for removal of sutures (principal); S70.12XA Contusion of left thigh, initial encounter; I10 Essential (primary) hypertension; Z21 Asymptomatic human immunodeficiency virus [HIV] infection status; W19.XXXA Unspecified fall, initial encounter; Y93.9 Activity, unspecified; Y92.9 Unspecified place or not applicable; Y99.9 Unspecified external cause status
CPT/HCPCS: 99282; 99283

== ENCOUNTER 2023-09-23 09:51 | Outpatient (AMB) | payer MEDICARE, MEDICAID, SELFPAY ==
--- NOTE | 2023-09-23 10:14 | MHC.OFFVIS ---
Vital Signs 09/23/23 10:15 Height 6 ft 1 in Weight 194 lb 7.163 oz BMI 25.7 BP 140/80 H Blood Pressure Location Lt brachial Position Sitting Pulse 97 Pulse Source Pulse Oximeter Intake Visit Reasons: 3 mth f/up Intake Note: pt is here for his 3mth f/up pt feeling fine, Community Service Aide Required: Yes Community Service Aide Name: jamie/[email or web address]/andorran Accompanied by: Self / Same As Patient Allergies No Known Allergies Allergy (Mild, Verified 07/05/23 11:28) NONE Medication List - Last Reconciled 09/23/23 by Stevan Le MD amlodipine 10 mg PO DAILY aspirin 81 mg PO DAILY atorvastatin 80 mg PO BEDTIME hvjjfphki-vwrewdoi-haylrvy ala 50-200-25 mg (Biktarvy) 1 tab PO BEDTIME clonazepam (Klonopin) 1 mg PO BID clopidogrel 75 mg PO DAILY metoprolol succinate ER 25 mg PO DAILY nitroglycerin (Nitrostat) 0.4 mg sublingual Q5MX3 PRN zolpidem 10 mg PO BEDTIME PRN HPI Comments Details: Pleasant 63 year gentleman who is here for follow-up. He was seen in 05/27/2023 at [facility] when he presented with NSTEMI. He underwent cardiac catheterization where 99% obtuse marginal artery was stented. He also has 65-70% mid LAD stenosis which was medically treated. He has been on aspirin and Plavix for antiplatelet therapy. He was on losartan which was discontinued while he was at [facility]. His blood pressure in the office is 140/80. He is denying any exertional symptoms. Blood pressure is elevated. His taking atorvastatin 80 mg he also has a bottle with 10 mg tablets. I have advised him to not use the 10 mg along with 80 mg atorvastatin. He is on aspirin and Plavix. He is asking for Plavix and metoprolol scripts. He was on losartan before which was stopped while he was at [facility]. [facility] Medical History (Updated 09/23/23 @ 10:42 by Stevan Le MD) NSTEMI (non-ST elevated myocardial infarction) Hypertension Pain in joint, multiple sites HIV (human immunodeficiency virus infection) Surgical History (Updated 09/23/23 @ 10:21 by Brtiney Longoria [facility]) Hx of cardiac cath History of surgery on lower extremity Family History Father No problems noted. Mother No problems noted. Social History Alcohol intake: current Alcohol intake frequency: does not drink Patient Tobacco Use Status: Never used Tobacco Cigarettes Per Day: 10 service: No Review of Systems Const Denies chills, Denies fatigue, Denies fever(s), Denies frequent falls, Denies weakness, Denies weight gain and Denies weight loss ENT Denies dizziness Card Denies chest pain, Denies leg edema, Denies lightheadedness, Denies palpitations, Denies dyspnea and Denies dyspnea on exertion Resp Denies cough, Denies dyspnea and Denies dyspnea on exertion GI Denies hematochezia Musc Denies abnormal gait, Denies muscle weakness, Denies numbness, Denies radiating pain into limb and Denies tingling Neuro Denies abnormal gait, Denies dizziness, Denies frequent falls, Denies numbness, Denies tingling and Denies weakness Endo Denies fatigue and Denies palpitations Physical Exam Vital Signs: Last Vital Signs Pulse 97 09/23/23 10:15 BP 140/80 H 09/23/23 10:15 BMI result Body Mass Index 25.7 GENERAL APPEARANCE: in no acute distress, pleasant. NECK: no carotid bruit, no jugular venous distention. SKIN: no suspicious lesions, warm and dry. HEART: no murmurs, regular rate and rhythm. LUNGS: clear to auscultation bilaterally. ABDOMEN: soft, nontender. EXTREMITIES: no edema. PERIPHERAL PULSES: equal. NEUROLOGIC: No gross deficits, AAO X 3 Assessment & Plan Assessment & Plan (1) NSTEMI (non-ST elevated myocardial infarction): Comment: with Dr Le LMCA Normal LAD: Mid LAD 65% stenosis LCx: Moderate diffuse in proximal circumflex. OM2 proximally 60% stenosis. Lesion in 3rd Ob Serena: Proximal subsection.99% stenosis Lesion in 3rd Ob Serena% stenosis RCA: Mild luminal irregularities (<30%). PCI to OM3. Medical management for LAD Code(s): I21.4 - Non-ST elevation (NSTEMI) myocardial infarction Category: Medical (2) Hypertension: Code(s): I10 - Essential (primary) hypertension Category: Medical Plan Pleasant 63 gentleman who is here for follow-up. He has background history of HIV on anti-retroviral therapy and hypertension and presented to [facility] in 05/27/2023 with NSTEMI. He was taken for cardiac catheterization and had PCI performed to OM branch with drug-eluting stent. He had residual disease in LAD which was 65-70%. Since discharge he has been stable and has no exertional symptoms. Blood pressure is elevated and I am adding back losartan 25 mg daily. We will continue rest of his medications as before. Scripts provided for Plavix and metoprolol. He should get a fasting lipid panel done. He will see us back in few months. Thank you for allowing me to participate in the care of your patient. Please feel free to contact me if you have any questions. Orders: Orders Lipid Panel Today I21.4 - Non-ST elevation (NSTEMI) myocardial infarction Medications: New metoprolol succinate ER 25 mg PO DAILY 90 tabs 4RF losartan 25 mg PO DAILY 90 tabs 4RF Refilled clopidogrel 75 mg PO DAILY 90 tabs 4RF Coding Level of Care Code Est Pt Level 4 (74193) Diagnoses NSTEMI (non-ST elevated myocardial infarction) I21.4 Hypertension I10
[2023-09-23 10:15] VITALS: BP 140/80; PULSE 97; BMI 25.7
== END 2023-09-23 10:43 | disposition home or self-care (01) ==
PROVIDERS: Visit Provider Internal Medicine Cardiovascular Disease
DX: I21.4 Non-ST elevation (NSTEMI) myocardial infarction (principal); I10 Essential (primary) hypertension
CPT/HCPCS: 99214

== ENCOUNTER → 2023-09-23 09:51 | Outpatient (BNVA) | payer MEDICAID, SELFPAY | PROVIDERS: Visit Provider Internal Medicine Cardiovascular Disease | DX: I21.4 Non-ST elevation (NSTEMI) myocardial infarction (principal); I10 Essential (primary) hypertension | CPT/HCPCS: 99212 ==

== ENCOUNTER 2023-09-24 06:35 | Outpatient (REF) | payer MEDICAID, SELFPAY ==
[2023-09-24 07:53] LABS: Anion Gap 13 (12-20); Blood Urea Nitrogen 16 mg/dL (9-16); Calcium 9.3 mg/dL (8.4-10.2); Carbon Dioxide 24 mmol/L (22-29); Chloride 110 mmol/L (96-108); Cholesterol 128 mg/dL (<200); Estimated Glomerular Filt Rate > 60; Glucose Random 99 mg/dL (60-115); HDL Cholesterol 49 mg/dL (>40); LDL Cholesterol Calculated 63 mg/dL (<100); Potassium 4.3 mmol/L (3.3-5.1); Sodium 143 mmol/L (135-145); Triglycerides 80 mg/dL (<150)
== END 2023-09-24 06:36 | disposition home or self-care (01) ==
LOC: HO.LAB 06:35
PROVIDERS: Internal Medicine Cardiovascular Disease; PCP Internal Medicine; Visit Provider Nurse Practitioner
DX: I21.4 Non-ST elevation (NSTEMI) myocardial infarction (principal)
CPT/HCPCS: 36415; 80048; 80061

== ENCOUNTER 2023-10-26 11:41 | Outpatient (REF) | payer MEDICAID, SELFPAY | END 2023-10-26 11:42 | disposition home or self-care (01) | LOC: HO.HHCLNP 11:41 | PROVIDERS: Visit Provider Student in an Organized Health Care Education/Training Program | DX: B20 Human immunodeficiency virus [HIV] disease (principal) | CPT/HCPCS: 88112 ==

== ENCOUNTER 2023-11-15 11:28 | Emergency (ER) | payer OTHER, SELFPAY ==
[2023-11-15 11:44] VITALS: BP 146/87; PULSE 89; RESP 19; TEMP 36.6; O2SAT 98; BMI 26.4
--- NOTE | 2023-11-15 11:50 | ED.MALEGU ---
HPI - Male Genitourinary General Chief complaint: Urogenital-Male Stated complaint: Genital issues? Time Seen by Provider: 11/15/23 11:59 Source: patient, RN notes reviewed and old records reviewed Mode of arrival: ambulatory History of Present Illness ED Provider: Rita Cobb PA-C HPI Narrative: 63-year-old male with past medical history of NSTEMI, HTN, HIV, presenting to the ED complaining pus drainage from penis x today s/p oral intercourse on Thursday. Admits to socially active with multiple partners. Concern for STI. Denies abdominal pain, flank pain, dysuria/hematuria, lesions, testicular pain/swelling Related Data Home Medications ?Medication ?Instructions ?Recorded ?Confirmed bictegravir 50 mg-emtricitabine 1 tab PO BEDTIME 11/20/22 09/23/23 200 mg-tenofovir alafenam 25 mg tablet (Biktarvy) zolpidem 10 mg tablet 10 mg PO BEDTIME PRN Sleep 11/20/22 09/23/23 amlodipine 10 mg tablet 10 mg PO DAILY 06/01/23 09/23/23 clonazepam 1 mg tablet (Klonopin) 1 mg PO BID anxiety attack 06/01/23 09/23/23 Previous Rx's ?Medication ?Instructions ?Recorded nitroglycerin 0.4 mg sublingual 0.4 mg sublingual Q5MX3 PRN Chest 06/01/23 tablet (Nitrostat) Pain #20 tabs aspirin 81 mg tablet,delayed 81 mg PO DAILY #90 tabs 09/07/23 release atorvastatin 80 mg tablet 80 mg PO BEDTIME #90 tabs 09/07/23 clopidogrel 75 mg tablet 75 mg PO DAILY #90 tabs 09/23/23 losartan 25 mg tablet 25 mg PO DAILY #90 tabs 09/23/23 metoprolol succinate 25 mg 25 mg PO DAILY #90 tabs 09/23/23 tablet,extended release 24 hr doxycycline hyclate 100 mg tablet 100 mg PO BID 7 days #14 tabs 11/15/23 Allergies Allergy/AdvReac Type Severity Reaction Status Date / Time No Known Allergies Allergy Mild NONE Verified 11/15/23 11:46 Review of Systems Review of Systems: Yes all other systems are reviewed and are negative Constitutional: Constitutional: Reports as per [facility] Past Medical History Attestation statement: The following information was validated with the patient. Source: old records reviewed Medical History NSTEMI (non-ST elevated myocardial infarction) Hypertension Pain in joint, multiple sites HIV (human immunodeficiency virus infection) Surgical History Hx of cardiac cath History of surgery on lower extremity Family History Family History Father No problems noted. Mother No problems noted. Social History Social History Alcohol intake: current Alcohol intake frequency: does not drink Patient Tobacco Use Status: Never used Tobacco Cigarettes Per Day: 10 Advance Directives: No Advance Directives Information Provided: Yes Do you have a plan to hurt others: No Plan service: No Physical Exam Vital Signs: Vital Signs: Last Vital Signs Temp 98 F 11/15/23 11:44 Pulse 89 11/15/23 11:44 Resp 19 11/15/23 11:44 BP 146/87 H 11/15/23 11:44 Pulse Ox 98 11/15/23 11:44 O2 Del Method Room Air 11/15/23 11:44 BMI result Body Mass Index 26.4 Const: General: cooperative, healthy appearing and no acute distress Orientation/consciousness: patient oriented x3 Limitations: no limitations HEENT: Head: Yes normal to inspection and Yes atraumatic Ears: hearing grossly normal bilaterally General nose exam: Normal external nose present Face and sinus: Yes normal facial exam Eyes: General: appearance normal, both eyes and all related structures EOM: EOMs intact bilaterally Neck: Neck: Yes normal visual inspection and Yes no meningeal signs Resp: Effort & Inspection: normal respiratory effort and no respiratory distress Cardio: Rate: regular rate GI: Inspection: Yes normal to inspection Palpation (GI): Soft to palpation, nontender, no guarding and not rigid : Other: No appreciable discharge General: Yes no CVA tenderness Penis: normal penis, uncircumcised, no ecchymosis, not erythematous, no swelling and no ulcerations Meatus: meatus normal Scrotum: scrotum normal and no scrotal swelling Testes: Testes normal and no epidiymal tenderness Back/Spine/Pelvis: Back: no CVA tenderness Skin: Rashes: no rashes Wounds: no wounds Neuro: General: patient oriented x3, tone normal and no meningeal signs Cranial nerves: Yes CN's II-XII intact bilaterally Gait exam (Neuro): Normal gait present Extrem: General: Yes normal to inspection Course Course Course Narrative: RME performed by Maddie Goel PA-C. Patient is a 63 year old assigned male at presenting to the emergency department with penile pain and pus coming from his penis after intercourse. Detailed physical exam and review of systems are deferred to the biophysics scientist. Labs ordered. Patient placed back in the waiting room pending room availability and results. -UA with moderate leuk esterase and greater than 50 wbc's > likely from STI rather than UTI. Patient empirically treated with IM Rocephin and p.o. doxy Results discussed with patient including worrisome signs and symptoms and strict return precautions, and when to return to the emergency department. They verbalized understanding and feel safe for discharge at this time. Medications Administered Discontinued Medications Generic Name Dose Route Start Last Admin Trade Name Lisa PRN Reason Stop Dose Admin Ceftriaxone Sodium 500 mg/ 0 mg 11/15/23 12:24 11/15/23 12:51 Lidocaine HCl 1 ml IM 11/15/23 12:25 1 kit ONCE ONE Administration Doxycycline Monohydrate 100 mg 11/15/23 12:24 11/15/23 12:49 Doxycycline Monohydrate 100 Mg Capsule PO 11/15/23 12:25 100 mg ONCE ONE Administration Medical Decision Making Medical Decision Making [facility] Narrative: 63-year-old male with past medical history of NSTEMI, HTN, HIV, presenting to the ED complaining pus drainage from penis x today s/p oral intercourse on Thursday. On exam vital signs stable, NAD, nontoxic appearing, abdomen soft/nontender, exam WNL, no appreciable pus drainage or lesions. No erythema. No tenderness. Concern for STI. Low suspicion for testicular torsion, appendicitis, renal stone or pyelo Plan: UA, STI testing, patient agreeable to empiric treatment with IM Rocephin and p.o. doxy Please refer to course for remaining clinical decision making, interpretation of labs/imaging results, and discussions with consultants and/or family members. Differential Diagnosis Differential Diagnoses: The differential diagnosis associated with the presentation includes As above Lab Data [facility] Lab Attestation statement: I reviewed the patient's lab results. Labs: Lab Results 11/15/23 Range/Units 12:06 Urine Color Yellow Urine Appearance Clear Urine pH 5.5 (5.0-9.0) Ur Specific [place] 1.020 (1.005-1.025) Urine Protein Trace (Neg-Trace) mg/dL Urine Glucose (UA) Negative (Negative) mg/dL Urine Ketones Trace (Negative) mg/dL Urine Blood Negative (Negative) Urine Nitrite Negative (Negative) Ur Leukocyte Esterase Moderate (2+) H (Negative) Urine RBC 0-2 (0-2) /HPF Urine WBC >50 H (0-5) /HPF Ur Squamous Epith Cells 0-2 (0-2) /HPF Urine Bacteria None Seen (None Seen) Hyaline Casts 0-2 (0-2) /LPF Radiology Impression Discussion of test interpretation with radiology: I have reviewed the radiologist's reading. External Record Review External record reviewed: Inpatient record, Office record, Outpatient record, Prior outpatient labs, Prior outpatient radiology, Primary care record and Outside ED record Tests considered The following testing was considered but not selected: As above Prescription Management I considered prescription management with: Pain Medication and Antibiotic Discharge Plan Discharge Clinical Impression: Abnormal penile discharge Patient Disposition: Home, Self-Care Additional Instructions: Please continue doxycycline until completion You are being treated for gonorrhea and chlamydia empirically Follow-up with [facility] for further STI testing Refrain from any sexual contact until your cultures have resulted Inform her partners of any positive results If symptoms persist or worsen return to the emergency department Prescriptions: New doxycycline hyclate 100 mg tablet 100 mg PO BID 7 Days Qty: 14 0RF No Action aspirin 81 mg tablet,delayed release (DR/EC) 81 mg PO DAILY Qty: 90 3RF atorvastatin 80 mg tablet 80 mg PO BEDTIME Qty: 90 3RF clonazepam [Klonopin] 1 mg tablet 1 mg PO BID amlodipine 10 mg Tablet 10 mg PO DAILY nitroglycerin [Nitrostat] 0.4 mg Tablet, Sublingual 0.4 mg sublingual Q5MX3 PRN (Reason: Chest Pain) Qty: 20 0RF clopidogrel 75 mg tablet 75 mg PO DAILY Qty: 90 4RF metoprolol succinate 25 mg tablet extended release 24 hr 25 mg PO DAILY Qty: 90 4RF losartan 25 mg tablet 25 mg PO DAILY Qty: 90 4RF zolpidem 10 mg tablet 10 mg PO BEDTIME PRN (Reason: Sleep) Biktarvy 50-200-25 mg tablet 1 tab PO BEDTIME Referrals: [facility] [Provider Group] Print Language: Italian
[2023-11-15 12:25] LABS: Appearance Urine Clear; Color Urine Yellow; Glucose Urine UA Negative (Negative); Leukocyte Esterase Urine Moderate (2+) (Negative); Nitrite Urine Negative (Negative); PH 5.5 (5.0-9.0); UMIC TRIGGER UACC YES; Urine Blood Negative (Negative); Urine Ketones Trace mg/dL (Negative); Urine Protein Trace mg/dL (Neg-Trace)
[2023-11-15 12:30] LABS: Bacteria Urine None Seen (None Seen); Hyaline Casts Urine 0-2 /LPF (0-2); RBC Urine 0-2 /HPF (0-2); Squamous Epithelial Cell Urine 0-2 /HPF (0-2); UACC Culture Trigger YES; WBC Urine >50 /HPF (0-5)
[2023-11-15] MEDS: Doxycycline Monohydrate 100 MG CAPSULE PO (12:49)
[2023-11-15] MEDS: cefTRIAXone sodium 500 MG, Lidocaine HCl 1 % MPF 1 ML IM (12:51)
[2023-11-15 13:25] VITALS: BP 146/87; PULSE 89; RESP 19; TEMP 36.6; O2SAT 98
[2023-11-15 14:01] LABS: CT PCR NOT DETECTED (Not Detect.); NG PCR DETECTED (Not Detect.)
== END 2023-11-15 13:26 | disposition home or self-care (01) ==
PROVIDERS: Physician Assistant Medical; Emergency Provider Emergency Medicine Emergency Medical Services; PCP Internal Medicine
DX: R36.9 Urethral discharge, unspecified (principal); I10 Essential (primary) hypertension; Z79.899 Other long term (current) drug therapy
CPT/HCPCS: 81001; 87086; 87491; 87591; 96372; 99282; 99284; J0696

== ENCOUNTER 2023-11-17 14:13 | Outpatient (REF) | payer OTHER, SELFPAY ==
[2023-11-17 16:03] LABS: MANUAL DIFF FLAG NO
[2023-11-17 16:18] LABS: Basophils Percent Auto 0.2 % (0-2); Eosinophils Absolute Auto 0.3 X10*3/uL (0.0-0.4); Eosinophils Percent Auto 2.6 % (0-4); Hematocrit 42.8 % (42.0-52.0); Hemoglobin 14.8 g/dl (14.0-18.0); Imm Gran Abs Auto 0.06 X10*3/uL (0.00-0.03); Imm Gran Pct Auto 0.5 % (0.0-0.4); Lymphocytes Absolute Auto 2.8 X10*3/uL (1.2-4.9); Lymphocytes Percent Auto 23.2 % (20-40); Mean Corpuscular HGB Conc 34.6 g/dl (31.0-36.0); Mean Corpuscular Hemoglobin 32.5 pg (27.0-33.0); Mean Corpuscular Volume 94.1 fL (80.0-98.0); Mean Platelet Volume 9.3 fL (9.4-12.4); Monocytes Absolute Auto 0.9 X10*3/uL (0.1-1.2); Monocytes Percent Auto 7.3 % (2-11); Neutrophils Percent Auto 66.2 % (45-73); Platelet Count 360 X10*3/uL (160-400); Red Blood Count 4.55 X10*6/uL (4.60-5.80); White Blood Count 12.1 X10*3/uL (4.8-10.8)
[2023-11-17 17:02] LABS: Alanine Aminotransferase 15 U/L (0-40); Albumin Level 4.2 g/dL (3.5-5.0); Alkaline Phosphatase 91 U/L (39-117); Anion Gap 10 (12-20); Aspartate Amino Transferase 18 U/L (5-37); Bilirubin Total 0.4 mg/dL (0.0-1.0); Blood Urea Nitrogen 25 mg/dL (9-16); Calcium 9.6 mg/dL (8.4-10.2); Carbon Dioxide 23 mmol/L (22-29); Chloride 109 mmol/L (96-108); Estimated Glomerular Filt Rate > 60; Glucose Random 96 mg/dL (60-115); Potassium 4.1 mmol/L (3.3-5.1); Sodium 138 mmol/L (135-145); Total Protein 7.6 g/dL (6.5-8.0)
[2023-11-17 17:33] LABS: Folate 9.2 ng/mL (> or = 4.0); Vitamin B12 344 pg/mL (200-900)
[2023-11-18 04:36] LABS: Syphilis Screen Nonreactive (Nonreactive)
[2023-11-18 04:58] LABS: ~HepC Num1 6.01 S/CO (0.00-0.79); ~Hepatitis C Antibody Reactive (Nonreactive)
[2023-11-18 13:39] LABS: Varicella IgG Antibody >4000.00 index
[2023-11-18 14:43] LABS: Hepatitis B Viral DNA Qn - cp NOT DETECTED Log IU/mL (NOT DETECTED); Hepatitis B Viral DNA Qn-IU/mL NOT DETECTED (NOT DETECTED)
[2023-11-19 18:09] LABS: HIV RNA PCR Qn Copies <20 DETECTED copies/mL (NOT DETECTED); HIV RNA PCR Qn Log Copies <1.30 DETECTED (NOT DETECTED)
[2023-11-20 09:12] LABS: TS Negative Control Passed; TS Panel A 4; TS Panel B 0; TS Positive Control Passed; TSpotTB Negative (Negative)
[2023-11-20 16:39] LABS: Absolute CD3 Count 2438 cells/uL (840-3060); Absolute CD4 Count 1184 cells/uL (490-1740); Absolute CD8 Count 1312 cells/uL (180-1170); Absolute Lymphocytes 2929 cells/uL (850-3900); Percent CD3 Cells 83 % (57-85); Percent CD4 Cells 40 % (30-61); Percent CD8 Cells 45 % (12-42)
[2023-11-21 14:13] LABS: HCV Log PCR <1.18 NOT DETECTED Log IU/mL (NOT DETECTED); HepC Viral Load <15 NOT DETECTED IU/mL (NOT DETECTED)
[2023-11-26 19:24] LABS: HIV 1 Integrase Proviral DNA DETECTED; HIV 1 PR RT Proviral DNA DETECTED
== END 2023-11-17 14:14 | disposition home or self-care (01) ==
LOC: HO.HHCL 14:13
PROVIDERS: Visit Provider Student in an Organized Health Care Education/Training Program
DX: B20 Human immunodeficiency virus [HIV] disease (principal)
CPT/HCPCS: 36415; 80053; 82607; 82746; 85025; 86359; 86360; 86481; 86780; 86787; 86803; 87517; 87522; 87536; 87900; 87901; 87906

== ENCOUNTER 2023-12-21 15:35 | Emergency (ER) | payer OTHER, SELFPAY ==
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
[2023-12-21 15:49] VITALS: BP 121/69; PULSE 88; RESP 16; TEMP 37.2; O2SAT 95; BMI 29.5
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
[2023-12-21 18:03] VITALS: BP 121/69; PULSE 88; RESP 16; TEMP 37.2; O2SAT 95
== END 2023-12-21 18:03 | disposition home or self-care (01) ==
PROVIDERS: Emergency Provider Emergency Medicine; PCP Internal Medicine
DX: S16.1XXA Strain of muscle, fascia and tendon at neck level, initial encounter (principal); R51.9 Headache, unspecified; M54.2 Cervicalgia; V43.52XA Car driver injured in collision with other type car in traffic accident, initial encounter; Y93.89 Activity, other specified; Y92.488 Other paved roadways as the place of occurrence of the external cause; Y99.8 Other external cause status
CPT/HCPCS: 70450; 72125; 99282; 99284

== ENCOUNTER 2024-01-03 11:20 | Emergency (ER) | payer OTHER, SELFPAY ==
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
[2024-01-03 11:29] VITALS: BP 124/76; PULSE 92; RESP 18; TEMP 36.8; O2SAT 96; BMI 25.1
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
[2024-01-03] MEDS: Ketorolac Tromethamine 15 MG/ML VIAL IM (12:51)
[2024-01-03 14:08] VITALS: BP 124/76; PULSE 92; RESP 18; TEMP 36.8; O2SAT 96
== END 2024-01-03 14:09 | disposition home or self-care (01) ==
PROVIDERS: Emergency Provider Emergency Medicine; PCP Internal Medicine
DX: S32.402A Unspecified fracture of left acetabulum, initial encounter for closed fracture (principal); M54.50 Low back pain, unspecified; M25.552 Pain in left hip; V43.52XA Car driver injured in collision with other type car in traffic accident, initial encounter; Y93.89 Activity, other specified; Y92.488 Other paved roadways as the place of occurrence of the external cause; Y99.8 Other external cause status
CPT/HCPCS: 72100; 73502; 96372; 99283; 99284; J1885

== ENCOUNTER 2024-01-10 12:18 | Emergency (ER) | payer OTHER, SELFPAY ==
--- NOTE | ~2024-01-10 | XR_ITS ---
EXAMINATION: Lumbar spine and coccyx: CLINICAL INDICATION: Low back pain COMPARISON: Lumbar spine 01/03/2024. TECHNIQUE: lumbar spine 3 views and coccyx 2 views. FINDINGS: Lumbar spine: There is maintained lumbar lordosis. There is loss of L5-S1 and L4-5 disc heights. Rest of the disc heights are normal. There is mild ventral spondylosis throughout lumbar spine. No visible acute fracture, dislocation or lytic process seen. SI joints are symmetrical and normal. Coccyx:. There is no visible acute fracture or bony abnormality. The soft tissues are normal. XR/XR sacrum coccyx min 2V IMPRESSION: Mildly in this changes L4-5 and L5-S1 disc levels with ventral spondylosis. No visible acute fracture, dislocation or subluxation seen. Unremarkable coccyx exam Electronically signed by: Chris Pineda MD 01/10/2024 01:41 PM EST
--- NOTE | ~2024-01-10 | XR_ITS ---
EXAMINATION: Lumbar spine and coccyx: CLINICAL INDICATION: Low back pain COMPARISON: Lumbar spine 01/03/2024. TECHNIQUE: lumbar spine 3 views and coccyx 2 views. FINDINGS: Lumbar spine: There is maintained lumbar lordosis. There is loss of L5-S1 and L4-5 disc heights. Rest of the disc heights are normal. There is mild ventral spondylosis throughout lumbar spine. No visible acute fracture, dislocation or lytic process seen. SI joints are symmetrical and normal. Coccyx:. There is no visible acute fracture or bony abnormality. The soft tissues are normal. XR/XR lumbar spine 2-3V IMPRESSION: Mildly in this changes L4-5 and L5-S1 disc levels with ventral spondylosis. No visible acute fracture, dislocation or subluxation seen. Unremarkable coccyx exam Electronically signed by: Chris Pineda MD 01/10/2024 01:41 PM [facility]
[2024-01-10 12:30] VITALS: BP 108/69; PULSE 81; RESP 18; TEMP 36.6; O2SAT 96; BMI 25.6
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
[2024-01-10 14:10] VITALS: BP 118/71; PULSE 67; RESP 16; TEMP 36.6; O2SAT 97
--- NOTE | 2024-01-10 15:07 | PC.NURSE ---
declined toradol shot, states he wants to leave, pa working on discharge, pt ambulating without difficulty and in nad
[2024-01-10 15:14] VITALS: BP 118/71; PULSE 67; RESP 16; TEMP 36.6; O2SAT 97
== END 2024-01-10 15:14 | disposition home or self-care (01) ==
PROVIDERS: Emergency Provider Emergency Medicine Emergency Medical Services; PCP Internal Medicine
DX: M54.16 Radiculopathy, lumbar region (principal); M53.3 Sacrococcygeal disorders, not elsewhere classified; Z79.899 Other long term (current) drug therapy; Z21 Asymptomatic human immunodeficiency virus [HIV] infection status
CPT/HCPCS: 72100; 72220; 96372; 99284

== ENCOUNTER 2024-01-11 10:38 | Outpatient (AMB) | payer OTHER, SELFPAY ==
[2024-01-11 11:04] VITALS: BP 122/80; PULSE 86; BMI 25.7
--- NOTE | 2024-01-11 11:04 | A.OFFVIS_ITS ---
Vital Signs 01/11/24 11:04 Height 6 ft 1 in Weight 194 lb 7.163 oz BMI 25.7 BP 122/80 Blood Pressure Location Lt brachial Position Sitting Pulse 86 Pulse Source Monitor Intake Visit Reasons: 3 mth f/up Intake Note: 3 mth f/up Senior Property Manager Required: Yes Senior Property Manager Language: Global Cmo Name: [email or web address]/[email or web address] Accompanied by: Self / Same As Patient Allergies No Known Allergies Allergy (Mild, Verified 01/10/24 12:30) NONE Medication List - Last Reconciled 01/11/24 by Stevan Le MD amlodipine 10 mg PO DAILY aspirin 81 mg PO DAILY atorvastatin 80 mg PO BEDTIME ggjtijaji-zjtbtddb-rhttdpf ala 50-200-25 mg (Biktarvy) 1 tab PO BEDTIME clonazepam (Klonopin) 1 mg PO BID clopidogrel 75 mg PO DAILY cyclobenzaprine 5 mg PO TID PRN doxycycline hyclate 100 mg PO BID 7 days lidocaine 5% 1 patch topical DAILY losartan 25 mg PO DAILY metoprolol succinate ER 25 mg PO DAILY nitroglycerin (Nitrostat) 0.4 mg sublingual Q5MX3 PRN oxycodone 5 mg PO Q6H PRN zolpidem 10 mg PO BEDTIME PRN HPI Comments Details: Pleasant 63 year gentleman who is here for follow-up. He was seen in 05/27/2023 at [facility] when he presented with NSTEMI. He underwent cardiac catheterization where 99% obtuse marginal artery was stented. He also has 65- 70% mid LAD stenosis which was medically treated. He has been on aspirin and Plavix for antiplatelet therapy. He was on losartan which was discontinued while he was at [facility]. His blood pressure in the office is 140/80. He is denying any exertional symptoms. Blood pressure is elevated. His taking atorvastatin 80 mg he also has a bottle with 10 mg tablets. I have advised him to not use the 10 mg along with 80 mg atorvastatin. He is on aspirin and Plavix. He is asking for Plavix and metoprolol scripts. He was on losartan before which was stopped while he was at [facility]. 01/11/2024: He returns for follow-up. He has been doing well. Taking medications regularly. No chest discomfort shortness of breath. No bleeding issues. [facility] Medical History NSTEMI (non-ST elevated myocardial infarction) Hypertension Pain in joint, multiple sites HIV (human immunodeficiency virus infection) Surgical History Hx of cardiac cath History of surgery on lower extremity Family History Father No problems noted. Mother No problems noted. Social History Alcohol intake: current Alcohol intake frequency: does not drink Patient Tobacco Use Status: Never used Tobacco Cigarettes Per Day: 10 service: No Review of Systems Const Denies chills, Denies fatigue, Denies fever(s), Denies frequent falls, Denies weakness, Denies weight gain and Denies weight loss ENT Denies dizziness Card Denies chest pain, Denies leg edema, Denies lightheadedness, Denies palpitations, Denies dyspnea and Denies dyspnea on exertion Resp Denies cough, Denies dyspnea and Denies dyspnea on exertion GI Denies hematochezia Musc Denies abnormal gait, Denies muscle weakness, Denies numbness, Denies radiating pain into limb and Denies tingling Neuro Denies abnormal gait, Denies dizziness, Denies frequent falls, Denies numbness, Denies tingling and Denies weakness Endo Denies fatigue and Denies palpitations Physical Exam Vital Signs: Last Vital Signs Pulse 86 01/11/24 11:04 BP 122/80 01/11/24 11:04 BMI result Body Mass Index 25.7 GENERAL APPEARANCE: in no acute distress, pleasant. NECK: no carotid bruit, no jugular venous distention. SKIN: no suspicious lesions, warm and dry. HEART: no murmurs, regular rate and rhythm. LUNGS: clear to auscultation bilaterally. ABDOMEN: soft, nontender. EXTREMITIES: no edema. PERIPHERAL PULSES: equal. NEUROLOGIC: No gross deficits, AAO X 3 Office Procedures EKG Details: Sinus rhythm 86 beats per minute, normal axis, normal ECG, QTC 418 milliseconds. [id number], Complete Assessment & Plan Assessment & Plan (1) Hypertension: Code(s): I10 - Essential (primary) hypertension Category: Medical (2) Stable angina: Code(s): I20.89 - Other forms of angina pectoris Category: Medical Plan Pleasant 63-year-old gentleman who is here for follow-up. He underwent cardiac catheterization in 05/27/2023 when he presented with NSTEMI. He had PCI to OM and had 65-70% lad stenosis at that time which was medically managed. Since then he has been following regularly with us and has no symptoms. Blood pressure is well controlled currently on amlodipine, losartan and metoprolol succinate. Clinically stable. If he has any exertional symptoms then we will consider repeat angiography to treat the LAD. Follow-up in 3 months. Thank you for allowing me to participate in the care of your patient. Please feel free to contact me if you have any questions. Coding Level of Care Code Est Pt Level 4 (96782) Diagnoses Hypertension I10 Stable angina I20.89 CPT Codes EKG - CPT: 66664-[id number], Complete ([id number])
== END 2024-01-11 11:34 | disposition home or self-care (01) ==
LOC: HO.HCS 10:38
PROVIDERS: PCP Internal Medicine; Visit Provider Internal Medicine Cardiovascular Disease
DX: I10 Essential (primary) hypertension (principal); I20.89 Other forms of angina pectoris
CPT/HCPCS: 93010; 99214

== ENCOUNTER → 2024-01-11 10:38 | Outpatient (BNVA) | payer OTHER, SELFPAY | PROVIDERS: PCP Internal Medicine; Visit Provider Internal Medicine Cardiovascular Disease | DX: I10 Essential (primary) hypertension (principal); I25.2 Old myocardial infarction; I20.89 Other forms of angina pectoris | CPT/HCPCS: 93005; 99212 ==

== ENCOUNTER 2024-01-18 11:25 | Outpatient (REF) | payer OTHER, SELFPAY ==
[2024-01-18 17:55] LABS: CT PCR NOT DETECTED (Not Detect.); NG PCR NOT DETECTED (Not Detect.)
== END 2024-01-18 11:26 | disposition home or self-care (01) ==
LOC: HO.HHCLNP 11:25
PROVIDERS: PCP Internal Medicine; Visit Provider Student in an Organized Health Care Education/Training Program
DX: A54.9 Gonococcal infection, unspecified (principal); S32.402A Unspecified fracture of left acetabulum, initial encounter for closed fracture; M54.16 Radiculopathy, lumbar region
CPT/HCPCS: 87491; 87591; 99202

== ENCOUNTER 2024-01-18 11:25 | Outpatient (AMB) | payer OTHER, SELFPAY ==
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
[2024-01-18 11:48] VITALS: BMI 25.6
== END 2024-01-18 12:07 | disposition home or self-care (01) ==
PROVIDERS: PCP Internal Medicine; Visit Provider Physician Assistant
DX: S32.402A Unspecified fracture of left acetabulum, initial encounter for closed fracture (principal); M54.16 Radiculopathy, lumbar region; Z04.3 Encounter for examination and observation following other accident
CPT/HCPCS: 99203; G2211

== ENCOUNTER 2024-05-17 11:21 | Outpatient (REF) | payer OTHER, SELFPAY ==
[2024-05-17 13:14] LABS: MANUAL DIFF FLAG NO
[2024-05-17 13:32] LABS: Basophils Percent Auto 0.2 % (0-2); Eosinophils Absolute Auto 0.3 X10*3/uL (0.0-0.4); Hematocrit 43.3 % (42.0-52.0); Imm Gran Abs Auto 0.06 X10*3/uL (0.00-0.03); Imm Gran Pct Auto 0.4 % (0.0-0.4); Lymphocytes Absolute Auto 4.1 X10*3/uL (1.2-4.9); Lymphocytes Percent Auto 30.2 % (20-40); Mean Corpuscular HGB Conc 34.6 g/dl (31.0-36.0); Mean Corpuscular Hemoglobin 33.8 pg (27.0-33.0); Mean Corpuscular Volume 97.5 fL (80.0-98.0); Mean Platelet Volume 9.3 fL (9.4-12.4); Monocytes Absolute Auto 0.9 X10*3/uL (0.1-1.2); Monocytes Percent Auto 6.9 % (2-11); Neutrophils Absolute Auto 8.1 x10*3/uL (2.0-8.3); Neutrophils Percent Auto 60.3 % (45-73); Platelet Count 377 X10*3/uL (160-400); Red Blood Count 4.44 X10*6/uL (4.60-5.80); Red Cell Distribution Width 12.8 % (11.0-16.0); White Blood Count 13.4 X10*3/uL (4.8-10.8)
[2024-05-17 14:16] LABS: Alanine Aminotransferase 22 U/L (0-40); Albumin Level 4.2 g/dL (3.5-5.0); Alkaline Phosphatase 89 U/L (39-117); Anion Gap 11 (12-20); Aspartate Amino Transferase 22 U/L (5-37); Bilirubin Total 0.5 mg/dL (0.0-1.0); Blood Urea Nitrogen 19 mg/dL (9-16); Calcium 9.2 mg/dL (8.4-10.2); Carbon Dioxide 25 mmol/L (22-29); Chloride 110 mmol/L (96-108); Estimated Glomerular Filt Rate 57; Glucose Random 108 mg/dL (60-115); Potassium 4.3 mmol/L (3.3-5.1); Sodium 142 mmol/L (135-145); Total Protein 7.8 g/dL (6.5-8.0)
[2024-05-19 14:57] LABS: HIV RNA PCR Qn Copies 313 copies/mL (NOT DETECTED)
[2024-05-21 22:13] LABS: Absolute CD3 Count 3264 cells/uL (840-3060); Absolute CD4 Count 1202 cells/uL (490-1740); Absolute CD8 Count 2080 cells/uL (180-1170); Absolute Lymphocytes 3803 cells/uL (850-3900); CD4 CD8 Ratio 0.58 (0.86-5.00); Percent CD3 Cells 86 % (57-85); Percent CD4 Cells 32 % (30-61); Percent CD8 Cells 55 % (12-42)
== END 2024-05-17 11:22 | disposition home or self-care (01) ==
LOC: HO.HHCL 11:21
PROVIDERS: Visit Provider Internal Medicine
DX: Z21 Asymptomatic human immunodeficiency virus [HIV] infection status (principal)
CPT/HCPCS: 36415; 80053; 85025; 86359; 86360; 87536

== ENCOUNTER 2024-06-06 17:48 | Emergency (ER) | payer OTHER, SELFPAY ==
--- NOTE | ~2024-06-06 | CT_ITS ---
CLINICAL HISTORY: dizziness CT head without contrast Comparison: CT/SR - CT HEAD/BRAIN WO IV CON - 12/21/23 16:16 EDT Findings: No intra-axial mass, midline shift, hydrocephalus, or acute hemorrhage. No significant atrophy-like change or white matter disease. The visualized paranasal sinuses and mastoid air cells are normal. The orbits are unremarkable. No skull fracture. IMPRESSION: 1. No acute intracranial findings. This document has been electronically signed by: Joanna Cardenas MD on 06/06/2024 20:08:09
[2024-06-06 18:48] VITALS: BP 133/67; PULSE 79; RESP 18; TEMP 36.6; O2SAT 96; BMI 25.8
--- NOTE | 2024-06-06 18:58 | ED.GENADULT ---
HPI - General Adult General Chief complaint: General Medical Stated complaint: abscess on head / dizzy Time Seen by Provider: 06/06/24 22:17 Source: patient Limitations: language barrier History of Present Illness ED Provider: Vera Uribe PA-C HPI narrative: 63-year-old male with a history of HIV on HAART, , hypertension, hyperlipidemia, coronary artery disease, prior NSTEMI and NV, who presents with multiple complaints. Patient states over the past 3 days he has developed a painful swelling posterior scalp. No fever, no drainage from the site. Patient also complains of intermittent dizzy spells. Worse with changes in position. Denies chest pain, shortness of breath, palpitations, nausea, vomiting. Lastly, patient states he often wakes up angry, ?I think about my family and I hate them?. When asked if he was homicidal, he denies. He states ?I am very angry at them?. Patient has a psychiatrist and a therapist. Related Data Home Medications ?Medication ?Instructions ?Recorded ?Confirmed bictegravir 50 mg-emtricitabine 1 tab PO BEDTIME 11/20/22 01/18/24 200 mg-tenofovir alafenam 25 mg tablet (Biktarvy) zolpidem 10 mg tablet 10 mg PO BEDTIME PRN Sleep 11/20/22 01/18/24 amlodipine 10 mg tablet 10 mg PO DAILY 06/01/23 01/18/24 clonazepam 1 mg tablet (Klonopin) 1 mg PO BID anxiety attack 06/01/23 01/18/24 Previous Rx's ?Medication ?Instructions ?Recorded nitroglycerin 0.4 mg sublingual 0.4 mg sublingual Q5MX3 PRN Chest 06/01/23 tablet (Nitrostat) Pain #20 tabs aspirin 81 mg tablet,delayed 81 mg PO DAILY #90 tabs 09/07/23 release atorvastatin 80 mg tablet 80 mg PO BEDTIME #90 tabs 09/07/23 clopidogrel 75 mg tablet 75 mg PO DAILY #90 tabs 09/23/23 losartan 25 mg tablet 25 mg PO DAILY #90 tabs 09/23/23 metoprolol succinate 25 mg 25 mg PO DAILY #90 tabs 09/23/23 tablet,extended release 24 hr doxycycline hyclate 100 mg tablet 100 mg PO BID 7 days #14 tabs 11/15/23 cyclobenzaprine 5 mg tablet 5 mg PO TID PRN muscle spasm #10 12/21/23 tabs lidocaine 5 % topical patch 1 patch topical DAILY #15 ea 12/21/23 Allergies Allergy/AdvReac Type Severity Reaction Status Date / Time No Known Allergies Allergy Mild NONE Verified 06/06/24 18:50 Review of Systems Review of Systems: Yes all other systems are reviewed and are negative Constitutional: Constitutional: Denies fatigue, Denies fever(s) and Denies headache(s) ENT: Reports dizziness and Denies headache(s) Cardiovascular: Cardiovascular: Denies chest pain, Denies syncope and Denies dyspnea Respiratory: Respiratory: Denies cough and Denies dyspnea Gastrointestinal: Gastrointestinal: Denies abdominal pain, Denies nausea and Denies vomiting Integumentary/Breasts: Skin/Breast: Reports new lesions Neurologic: Reports dizziness, Denies syncope and Denies headache(s) Endocrine: Endocrine: Denies fatigue [facility] Past Medical History Attestation statement: The following information was validated with the patient. Medical History NSTEMI (non-ST elevated myocardial infarction) Hypertension Pain in joint, multiple sites HIV (human immunodeficiency virus infection) Surgical History Hx of cardiac cath History of surgery on lower extremity Family History Family History Father No problems noted. Mother No problems noted. Social History Social History (Updated 01/18/24 @ 11:46 by ERICKA George) Alcohol intake: current Alcohol intake frequency: does not drink Patient Tobacco Use Status: Never used Tobacco Cigarettes Per Day: 10 Smoked in Last 30 Days: Yes Use of substances other than those prescribed or required for medical reasons: No Advance Directives: No Advance Directives Information Provided: No service: No Current occupational status: unemployed Physical Exam ED Vital Signs: Vital Signs - 24 hr 06/06/24 18:48 06/06/24 20:48 06/06/24 20:48 Temperature 97.9 F Pulse Rate 79 78 83 Respiratory Rate 18 Blood Pressure 133/67 129/75 110/69 Pulse Oximetry 96 Oxygen Delivery Method Room Air 06/06/24 20:48 06/06/24 21:04 06/06/24 23:58 Temperature 98.0 F 98.0 F Pulse Rate 90 81 81 Respiratory Rate 16 16 Blood Pressure 124/77 128/78 128/78 Pulse Oximetry 96 96 Oxygen Delivery Method Room Air Room Air BMI result Body Mass Index 25.8 Const Other: Alert well-appearing Orientation/consciousness: patient oriented x3 Eyes Other: No nystagmus Resp Effort & Inspection: normal respiratory effort Cardio Other: Normal peripheral perfusion Skin Other: Warm dry no rash, there is a subtle swelling over posterior scalp, beneath the skin, no overlying warmth or erythema, likely a skin cyst Neuro Other: No ataxia General: patient oriented x3, gait normal, no focal motor deficits and CN's II-XI intact bilaterally Psych Other: Cooperative Course Course Course Narrative: RME: 63 yold male presents to the ED for painful lump in scalp. secondary complaint is dizziness described as room spinning on change of position. physical exam shows colliculitits, but due to dizziness nad age will do medical workup. labs, EKG, head CT scan ordered. Medical Decision Making Medical Decision Making [facility] Narrative: 63-year-old male with a history of HIV on HAART, , hypertension, hyperlipidemia, coronary artery disease, prior NSTEMI and NV, who presents with multiple complaints. Patient states over the past 3 days he has developed a painful swelling posterior scalp. No fever, no drainage from the site. Patient also complains of intermittent dizzy spells. Worse with changes in position. Denies chest pain, shortness of breath, palpitations, nausea, vomiting. Lastly, patient states he often wakes up angry, ?I think about my family and I hate them?. When asked if he was homicidal, he denies. He states ?I am very angry at them?. Patient has a psychiatrist and a therapist. Problem: HIV, coronary artery disease History: Per patient I have considered the following differential diagnoses: Skin cyst, abscess, cellulitis, vertigo, posterior circulation CVA, HI, decompensated psychiatric illness, ACS, new arrhythmia, anemia, dehydration , orthostatsis Plan: In regard to the cyst, it was a simple skin cyst there was no evidence of cellulitis or abscess. In regard to the dizziness, it was not vertiginous, he has random symptoms, often with standing up abruptly from sitting, perhaps he is orthostatic. However orthostatic vitals were obtained, normal variance was noted. He has had symptoms for years, this certainly is not a stroke. CT scan of the brain was obtained. In regard to his psychiatric complaint, it sounds as if he has anger issues against his family he is not homicidal, he has a therapist and Psychiatry to follow up with the. We will send the patient with a contact for 1 of our surgeons. ACS was considered secondary to the dizziness, however he is not having any chest pain, screening labs and cardiac enzyme, EKG were obtained,. Patient found to have a bump in his kidney function, this could be contributing to his dizziness if he is dehydrated, he refuses IV fluid I have independently reviewed the following tests: Labs: Leukocytosis, not anemic, no electrolyte abnormality, creatinine bumped from baseline, troponin negative EKG: Normal sinus rhythm, rate 82, no ischemic changes no ectopy QTC 394 CT brain: IMPRESSION: 1. No acute intracranial findings. Lab Data 06/06/24 19:26 06/06/24 19:26 Labs: Lab Results 06/06/24 Range/Units 19:26 WBC 13.4 H (4.8-10.8) X10*3/uL RBC 3.99 L (4.60-5.80) X10*6/uL Hgb 13.5 L (14.0-18.0) g/dl Hct 39.1 L (42.0-52.0) % MCV 98.0 (80.0-98.0) fL MCH 33.8 H (27.0-33.0) pg MCHC 34.5 (31.0-36.0) g/dl RDW 12.8 (11.0-16.0) % Plt Count 310 (160-400) X10*3/uL MPV 8.6 L (9.4-12.4) fL Immature Gran % (Auto) 0.4 (0.0-0.4) % Neut % (Auto) 66.9 (45-73) % Lymph % (Auto) 22.2 (20-40) % Cassia % (Auto) 8.2 (2-11) % Eos % (Auto) 2.0 (0-4) % Baso % (Auto) 0.3 (0-2) % Lymph # (Auto) 3.0 (1.2-4.9) X10*3/uL Cassia # (Auto) 1.1 (0.1-1.2) X10*3/uL Eos # (Auto) 0.3 (0.0-0.4) X10*3/uL Baso # (Auto) 0.0 (0.0-0.2) X10*3/uL Abs Immat Gran (auto) 0.05 H (0.00-0.03) X10*3/uL Absolute Neuts (auto) 9.0 H (2.0-8.3) x10*3/uL Absolute Nucleated RBC 0.000 (0.0-0.012) X10*3/uL Nucleated RBC % (auto) 0.0 (0.0-0.2) /100WBC Sodium 144 (135-145) mmol/L Potassium 5.0 (3.3-5.1) mmol/L Chloride 109 H (96-108) mmol/L Carbon Dioxide 26 (22-29) mmol/L Anion Gap 14 (12-20) BUN 33 H (9-16) mg/dL Creatinine 1.76 H (0.5-1.4) mg/dL Estim Creat Clear Calc 47.2 Estimated GFR 39 Random Glucose 94 (60-115) mg/dL Calcium 9.4 (8.4-10.2) mg/dL Total Bilirubin 0.4 (0.0-1.0) mg/dL AST 27 (5-37) U/L ALT 30 (0-40) U/L Alkaline Phosphatase 88 (39-117) U/L Troponin I High Sens < 2.7 D (<3.5-35.0) ng/L B-Natriuretic Peptide < 10 (<100) pg/mL Total Protein 7.4 (6.5-8.0) g/dL Albumin 4.2 (3.5-5.0) g/dL Discharge Plan Discharge Clinical Impression: Cyst of skin, Dizziness, Dehydration Patient Disposition: Home, Self-Care Instructions: Cyst (ED) Additional Instructions: Overall your labs were within normal limits. You were found to be dehydrated, you refused IV fluid. The dehydration could be contributing to your dizziness. A CT scan of the brain was obtained it was normal. There were no concerning changes on your EKG. You were found to have a simple skin cyst on your scalp. I have provided you with a contact for 1 of our general surgeons to have it removed. You can make an appointment. Also follow up with your primary care provider as needed. Prescriptions: No Action aspirin 81 mg tablet,delayed release (DR/EC) 81 mg PO DAILY Qty: 90 3RF atorvastatin 80 mg tablet 80 mg PO BEDTIME Qty: 90 3RF doxycycline hyclate 100 mg tablet 100 mg PO BID 7 Days Qty: 14 0RF lidocaine 5 % adhesive patch,medicated 1 patch topical DAILY Qty: 15 0RF Rx Instructions: leave on most painful area for up to 12 hrs cyclobenzaprine 5 mg tablet 5 mg PO TID PRN (Reason: muscle spasm) Qty: 10 0RF clonazepam [Klonopin] 1 mg tablet 1 mg PO BID amlodipine 10 mg Tablet 10 mg PO DAILY nitroglycerin [Nitrostat] 0.4 mg Tablet, Sublingual 0.4 mg sublingual Q5MX3 PRN (Reason: Chest Pain) Qty: 20 0RF clopidogrel 75 mg tablet 75 mg PO DAILY Qty: 90 4RF metoprolol succinate 25 mg tablet extended release 24 hr 25 mg PO DAILY Qty: 90 4RF losartan 25 mg tablet 25 mg PO DAILY Qty: 90 4RF zolpidem 10 mg tablet 10 mg PO BEDTIME PRN (Reason: Sleep) Biktarvy 50-200-25 mg tablet 1 tab PO BEDTIME Referrals: Domenic Callahan MD [Physician] - (scalp cyst) Interventions: ED Discharge Assessment Last Done: 06/06/24 23:58 Discharge Date/Time: 06/06/24 23:59 Print Language: Slovenian
--- NOTE | 2024-06-06 19:01 | ECG_ITS ---
Test Reason : dizziness Blood Pressure : */* mmHG Vent. Rate : 82 BPM Atrial Rate : 82 BPM P-R Int : 170 ms QRS Dur : 70 ms QT Int : 338 ms P-R-T Axes : 46 -7 51 degrees QTcB Int : 394 ms Normal sinus rhythm Low voltage QRS Septal infarct , age undetermined Abnormal ECG When compared with ECG of 31-May-2023 22:30, No significant change was found Referred By: Sammy Appiah Electronically Signed By: ROBEL PAZ
[2024-06-06 19:34] LABS: Basophils Percent Auto 0.3 % (0-2); Eosinophils Absolute Auto 0.3 X10*3/uL (0.0-0.4); Hematocrit 39.1 % (42.0-52.0); Hemoglobin 13.5 g/dl (14.0-18.0); Imm Gran Abs Auto 0.05 X10*3/uL (0.00-0.03); Imm Gran Pct Auto 0.4 % (0.0-0.4); Lymphocytes Percent Auto 22.2 % (20-40); MANUAL DIFF FLAG NO; Mean Corpuscular HGB Conc 34.5 g/dl (31.0-36.0); Mean Corpuscular Hemoglobin 33.8 pg (27.0-33.0); Mean Platelet Volume 8.6 fL (9.4-12.4); Monocytes Absolute Auto 1.1 X10*3/uL (0.1-1.2); Monocytes Percent Auto 8.2 % (2-11); Neutrophils Percent Auto 66.9 % (45-73); Platelet Count 310 X10*3/uL (160-400); Red Blood Count 3.99 X10*6/uL (4.60-5.80); Red Cell Distribution Width 12.8 % (11.0-16.0); White Blood Count 13.4 X10*3/uL (4.8-10.8)
[2024-06-06 19:49] LABS: Alanine Aminotransferase 30 U/L (0-40); Albumin Level 4.2 g/dL (3.5-5.0); Alkaline Phosphatase 88 U/L (39-117); Anion Gap 14 (12-20); Aspartate Amino Transferase 27 U/L (5-37); Bilirubin Total 0.4 mg/dL (0.0-1.0); Blood Urea Nitrogen 33 mg/dL (9-16); Calcium 9.4 mg/dL (8.4-10.2); Carbon Dioxide 26 mmol/L (22-29); Chloride 109 mmol/L (96-108); Creatinine Clr Calc Pharmacy 47.2; Estimated Glomerular Filt Rate 39; Glucose Random 94 mg/dL (60-115); Sodium 144 mmol/L (135-145); Total Protein 7.4 g/dL (6.5-8.0)
[2024-06-06 19:55] LABS: B Type Natriuretic Peptide < 10 pg/mL (<100)
[2024-06-06 19:56] LABS: Troponin-I High Sensitivity < 2.7 ng/L (<3.5-35.0)
[2024-06-06 20:48] VITALS: BP 110/69; BP 124/77; BP 129/75; PULSE 78; PULSE 83; PULSE 90
[2024-06-06 21:04] VITALS: BP 128/78; PULSE 81; RESP 16; TEMP 36.7; O2SAT 96
[2024-06-06 23:58] VITALS: BP 128/78; PULSE 81; RESP 16; TEMP 36.7; O2SAT 96
== END 2024-06-06 23:59 | disposition home or self-care (01) ==
PROVIDERS: Physician Assistant; Emergency Provider Emergency Medicine; PCP Internal Medicine
DX: L02.811 Cutaneous abscess of head [any part, except face] (principal); R42 Dizziness and giddiness; E86.0 Dehydration; R94.31 Abnormal electrocardiogram [ECG] [EKG]; R51.9 Headache, unspecified; R06.02 Shortness of breath; I10 Essential (primary) hypertension; I25.10 Atherosclerotic heart disease of native coronary artery without angina pectoris; Z79.899 Other long term (current) drug therapy
CPT/HCPCS: 36415; 70450; 80053; 83880; 84484; 85025; 93005; 99284

== ENCOUNTER → 2024-06-06 19:01 | Outpatient (BNV) | payer OTHER, SELFPAY | PROVIDERS: PCP Internal Medicine; Visit Provider Student in an Organized Health Care Education/Training Program | DX: R42 Dizziness and giddiness (principal) | CPT/HCPCS: 70450 ==

== ENCOUNTER → 2024-06-06 19:01 | Outpatient (BNV) | payer OTHER, SELFPAY | PROVIDERS: Emergency Provider Emergency Medicine; PCP Internal Medicine; Visit Provider Internal Medicine | DX: R94.31 Abnormal electrocardiogram [ECG] [EKG] (principal); R42 Dizziness and giddiness | CPT/HCPCS: 93010 ==

== ENCOUNTER 2024-06-09 11:18 | Emergency (ER) | payer OTHER, SELFPAY ==
[2024-06-09 11:29] VITALS: BP 119/65; PULSE 81; RESP 20; TEMP 36.3; O2SAT 95; BMI 25.0
--- NOTE | 2024-06-09 11:34 | ED.SKABFB ---
HPI - Skin/Abscess/Foreign Bdy General Chief complaint: Skin/Abscess/Foreign Body Stated complaint: pain on top of head Time Seen by Provider: 06/09/24 11:33 Source: patient, RN notes reviewed and old records reviewed Mode of arrival: ambulatory Limitations: no limitations History of Present Illness ED Provider: Skyler HPI narrative: Patient is a 63-year-old male presenting to the emergency department with complaint of redness, pain and swelling to the right side of his scalp for the past 5 days. Denies fevers, chills, body aches. Reports small amount of drainage from the area. Related Data Home Medications ?Medication ?Instructions ?Recorded ?Confirmed bictegravir 50 mg-emtricitabine 1 tab PO BEDTIME 11/20/22 01/18/24 200 mg-tenofovir alafenam 25 mg tablet (Biktarvy) zolpidem 10 mg tablet 10 mg PO BEDTIME PRN Sleep 11/20/22 01/18/24 amlodipine 10 mg tablet 10 mg PO DAILY 06/01/23 01/18/24 clonazepam 1 mg tablet (Klonopin) 1 mg PO BID anxiety attack 06/01/23 01/18/24 Previous Rx's ?Medication ?Instructions ?Recorded nitroglycerin 0.4 mg sublingual 0.4 mg sublingual Q5MX3 PRN Chest 06/01/23 tablet (Nitrostat) Pain #20 tabs aspirin 81 mg tablet,delayed 81 mg PO DAILY #90 tabs 09/07/23 release atorvastatin 80 mg tablet 80 mg PO BEDTIME #90 tabs 09/07/23 clopidogrel 75 mg tablet 75 mg PO DAILY #90 tabs 09/23/23 losartan 25 mg tablet 25 mg PO DAILY #90 tabs 09/23/23 metoprolol succinate 25 mg 25 mg PO DAILY #90 tabs 09/23/23 tablet,extended release 24 hr doxycycline hyclate 100 mg tablet 100 mg PO BID 7 days #14 tabs 11/15/23 cyclobenzaprine 5 mg tablet 5 mg PO TID PRN muscle spasm #10 12/21/23 tabs lidocaine 5 % topical patch 1 patch topical DAILY #15 ea 12/21/23 cephalexin 500 mg capsule 500 mg PO QID #28 caps 06/09/24 Allergies Allergy/AdvReac Type Severity Reaction Status Date / Time No Known Allergies Allergy Mild NONE Verified 06/09/24 11:32 Review of Systems Review of Systems: as per HPI Yes all other systems are reviewed and are negative Constitutional: Constitutional: Reports as per HPI [facility] Past Medical History Medical History NSTEMI (non-ST elevated myocardial infarction) Hypertension Pain in joint, multiple sites HIV (human immunodeficiency virus infection) Surgical History Hx of cardiac cath History of surgery on lower extremity Family History Family History Father No problems noted. Mother No problems noted. Social History Social History (Updated 01/18/24 @ 11:46 by ERICKA George) Alcohol intake: current Alcohol intake frequency: does not drink Patient Tobacco Use Status: Never used Tobacco Cigarettes Per Day: 10 service: No Current occupational status: unemployed Physical Exam Vital Signs: Vital Signs: Last Vital Signs Temp 97.4 F 06/09/24 11:29 Pulse 81 06/09/24 11:29 Resp 20 06/09/24 11:29 BP 119/65 06/09/24 11:29 Pulse Ox 95 06/09/24 11:29 O2 Del Method Room Air 06/09/24 11:29 BMI result Body Mass Index 25.0 Vital signs have been reviewed and appear to be correct. Blood pressure normal. Heart rate normal. Respiratory rate normal. Temperature normal. Oxygen saturation normal. Const: General: cooperative, healthy appearing and no acute distress Orientation/consciousness: oriented to person, oriented to place, oriented to time and patient oriented x3 Limitations: no limitations HEENT: Head: Yes normocephalic and Yes atraumatic Head images: 1. 1cm diameter area of erythema with central pustule, no fluctuance Ears: external ears normal General nose exam: Normal external nose present Face and sinus: Yes face symmetric Mouth: oropharynx normal and moist mucous membranes Throat: Yes uvula midline Eyes: Pupils: Equal, round and reactive pupils present Neck: Neck: Yes normal visual inspection and Yes supple Resp: Effort & Inspection: normal respiratory effort and able to speak in complete sentences Auscultation: clear to auscultation bilaterally Cardio: Rate: regular rate Rhythm: regular rhythm Heart sounds: S1 normal heart sound present and S2 normal heart sound present GI: Palpation (GI): Soft to palpation and nontender Auscultation: normoactive bowel sounds : General: Yes no CVA tenderness Back/Spine/Pelvis: Back: no CVA tenderness Skin: General skin exam: elasticity normal and turgor normal Neuro: General: oriented to person, oriented to place, oriented to time, patient oriented x3, moves all extremities, no focal motor deficits and CN's II-XI intact bilaterally Cranial nerves: Yes Equal, round and reactive pupils present Cognition (Neuro): normal cognition Extrem: General: Yes full ROM, Yes no pedal edema and Yes no calf tenderness Psych: Mental Status: mental status grossly normal Affect: normal affect Thought process: Normal thought process present Medical Decision Making Medical Decision Making [facility] Narrative: Patient is a 63-year-old male presenting to the emergency department with complaint of redness, pain and swelling to the right side of his scalp for the past 5 days. On exam patient is awake, A+Ox3, VS WNL, afebrile, normal neurological exam without focal deficits, physical exam findings as above. Given reported symptoms and physical exam findings, initial differential includes but is not limited to folliculitis, abscess. Not consistent with herpes zoster. Area localized, no fluctuance, no systemic symptoms. Will Discharge patient on course of Keflex. Advised patient to assess area daily. Return precautions discussed. Follow up with PCP as needed. Patient verbalized understanding of and agreement with plan. Differential Diagnosis Differential Diagnoses: The differential diagnosis associated with the presentation includes As per [facility] External Record Review External record reviewed: Inpatient record, Office record and Outpatient record Prescription Management I considered prescription management with: Antibiotic Discharge Plan Discharge Clinical Impression: Folliculitis Patient Disposition: Home, Self-Care Instructions: Folliculitis (ED) Additional Instructions: Your evaluation in the emergency department today showed evidence of folliculitis which is an infection of a hair follicle on your head. You are being treated with a course of antibiotics, complete the full course as prescribed even if your symptoms improve. Gently wash the area with warm water and soap daily. Do not attempt to squeeze or express pus out of the area as this can worsen the infection. Follow up with your primary care provider as needed. Assess the area daily and return if you develop worsening redness or swelling, thick yellow drainage, fever, or any other new or concerning symptoms. Prescriptions: New cephalexin 500 mg capsule 500 mg PO QID Qty: 28 0RF No Action aspirin 81 mg tablet,delayed release (DR/EC) 81 mg PO DAILY Qty: 90 3RF atorvastatin 80 mg tablet 80 mg PO BEDTIME Qty: 90 3RF doxycycline hyclate 100 mg tablet 100 mg PO BID 7 Days Qty: 14 0RF lidocaine 5 % adhesive patch,medicated 1 patch topical DAILY Qty: 15 0RF Rx Instructions: leave on most painful area for up to 12 hrs cyclobenzaprine 5 mg tablet 5 mg PO TID PRN (Reason: muscle spasm) Qty: 10 0RF clonazepam [Klonopin] 1 mg tablet 1 mg PO BID amlodipine 10 mg Tablet 10 mg PO DAILY nitroglycerin [Nitrostat] 0.4 mg Tablet, Sublingual 0.4 mg sublingual Q5MX3 PRN (Reason: Chest Pain) Qty: 20 0RF clopidogrel 75 mg tablet 75 mg PO DAILY Qty: 90 4RF metoprolol succinate 25 mg tablet extended release 24 hr 25 mg PO DAILY Qty: 90 4RF losartan 25 mg tablet 25 mg PO DAILY Qty: 90 4RF zolpidem 10 mg tablet 10 mg PO BEDTIME PRN (Reason: Sleep) Biktarvy 50-200-25 mg tablet 1 tab PO BEDTIME Print Language: Tristanian
[2024-06-09 11:45] VITALS: BP 119/65; PULSE 81; RESP 20; TEMP 36.3; O2SAT 95
== END 2024-06-09 11:46 | disposition home or self-care (01) ==
LOC: HO.ED 11:42
PROVIDERS: Emergency Provider Emergency Medicine; PCP Internal Medicine
DX: L73.8 Other specified follicular disorders (principal); B20 Human immunodeficiency virus [HIV] disease; I10 Essential (primary) hypertension; Z79.82 Long term (current) use of aspirin; Z79.899 Other long term (current) drug therapy
CPT/HCPCS: 99282; 99283

== ENCOUNTER 2024-06-15 07:59 | Outpatient (AMB) | payer OTHER, SELFPAY ==
--- NOTE | 2024-06-15 08:15 | A.OFFVIS_ITS ---
Vital Signs 06/15/24 08:24 Height 6 ft 1 in Weight 192 lb BMI 25.3 BP 108/58 L Blood Pressure Location Rt brachial Position Sitting Pulse 85 Intake Visit Reasons: Cyst~ Rt scalp Intake Note: Patient referred after ED visit on 06-09-3034 for cyst on Rt scalp. Reports almost done Cephalexin course. Patient c/o: states abscess is completely healed. Accompanied by: Self / Same As Patient Allergies No Known Allergies Allergy (Mild, Verified 06/15/24 08:23) NONE HPI Comments Details: Patient presents for evaluation of an infected scalp cyst in the right vertex area. He has had this 1 week's time. Given antibiotics and local wound care and has had marked improvement of the symptoms. He presents here for follow-up. He has no social issues or lesions elsewhere. Chart was reviewed and patient evaluated [facility] Medical History NSTEMI (non-ST elevated myocardial infarction) Hypertension Pain in joint, multiple sites HIV (human immunodeficiency virus infection) Surgical History Hx of cardiac cath History of surgery on lower extremity Family History Father No problems noted. Mother No problems noted. Social History Alcohol intake: current Alcohol intake frequency: does not drink Patient Tobacco Use Status: Never used Tobacco Cigarettes Per Day: 10 service: No Current occupational status: unemployed Physical Exam Vital Signs: Last Vital Signs Pulse 85 06/15/24 08:24 BP 108/58 L 06/15/24 08:24 BMI result Body Mass Index 25.3 HEENT Other: Patient was in a resolving infected carbuncle/scalp cyst in the right vertex area. No evidence of fluctuance or abscess. Assessment & Plan Assessment & Plan (1) Scalp cyst: Code(s): L72.9 - Follicular cyst of the skin and subcutaneous tissue, unspecified Category: Surgical Plan At present, no surgical intervention required. Patient was to complete his antibiotic course, and warm compresses to the area. Should this recur or persist, he has been instructed to contact the office. Otherwise patient will follow up p.r.n.. All questions answered. Coding Level of Care Code New Pt Level 4 (62361) Diagnoses Scalp cyst L72.9
[2024-06-15 08:24] VITALS: BP 108/58; PULSE 85; BMI 25.3
== END 2024-06-15 08:32 | disposition home or self-care (01) ==
LOC: HO.HGS 08:00
PROVIDERS: PCP Internal Medicine; Visit Provider Surgery
DX: L72.9 Follicular cyst of the skin and subcutaneous tissue, unspecified (principal)
CPT/HCPCS: 99204

== ENCOUNTER → 2024-06-15 07:59 | Outpatient (BNVA) | payer OTHER, SELFPAY | PROVIDERS: PCP Internal Medicine; Visit Provider Surgery | DX: L72.9 Follicular cyst of the skin and subcutaneous tissue, unspecified (principal) | CPT/HCPCS: 99202 ==

== ENCOUNTER 2024-07-02 13:37 | Emergency (ER) | payer OTHER, SELFPAY ==
[2024-07-02 14:00] VITALS: BP 123/70; PULSE 84; RESP 18; TEMP 37.3; O2SAT 94; BMI 25.8
--- NOTE | 2024-07-02 14:01 | ED.GENADULT ---
HPI - General Adult General Chief complaint: Skin/Abscess/Foreign Body Stated complaint: ball under l arm Time Seen by Provider: 07/02/24 14:01 Source: patient, RN notes reviewed and old records reviewed Mode of arrival: ambulatory Limitations: no limitations History of Present Illness ED Provider: Bipin HPI narrative: 63-year-old male past medical history significant for coronary artery disease, HIV on HAART, hypertension presents for evaluation of a left axilla abscess. Patient reports he was noticed a red, painful lump for the last couple of days. He reports a previous abscess to the top of his head that improved with antibiotics alone. Denies any fevers, chills, injured the area He was not a diabetic He reports that his HIV viral load is undetectable Related Data Home Medications ?Medication ?Instructions ?Recorded ?Confirmed bictegravir 50 mg-emtricitabine 1 tab PO BEDTIME 11/20/22 06/15/24 200 mg-tenofovir alafenam 25 mg tablet (Biktarvy) zolpidem 10 mg tablet 10 mg PO BEDTIME PRN Sleep 11/20/22 06/15/24 amlodipine 10 mg tablet 10 mg PO DAILY 06/01/23 06/15/24 clonazepam 1 mg tablet (Klonopin) 1 mg PO BID anxiety attack 06/01/23 06/15/24 Previous Rx's ?Medication ?Instructions ?Recorded nitroglycerin 0.4 mg sublingual 0.4 mg sublingual Q5MX3 PRN Chest 06/01/23 tablet (Nitrostat) Pain #20 tabs aspirin 81 mg tablet,delayed 81 mg PO DAILY #90 tabs 09/07/23 release atorvastatin 80 mg tablet 80 mg PO BEDTIME #90 tabs 09/07/23 clopidogrel 75 mg tablet 75 mg PO DAILY #90 tabs 09/23/23 losartan 25 mg tablet 25 mg PO DAILY #90 tabs 09/23/23 metoprolol succinate 25 mg 25 mg PO DAILY #90 tabs 09/23/23 tablet,extended release 24 hr cyclobenzaprine 5 mg tablet 5 mg PO TID PRN muscle spasm #10 12/21/23 tabs lidocaine 5 % topical patch 1 patch topical DAILY #15 ea 12/21/23 cephalexin 500 mg capsule 500 mg PO QID #28 caps 06/09/24 cephalexin 500 mg capsule 500 mg PO QID #28 caps 07/02/24 doxycycline hyclate 100 mg tablet 100 mg PO BID #14 tabs 07/02/24 Allergies Allergy/AdvReac Type Severity Reaction Status Date / Time No Known Allergies Allergy Mild NONE Verified 07/02/24 14:02 Review of Systems Constitutional: Constitutional: Denies body ache(s), Denies chills and Denies fever(s) Eyes: Eyes: Denies blurry vision Cardiovascular: Cardiovascular: Denies chest pain and Denies dyspnea Respiratory: Respiratory: Denies cough and Denies dyspnea Gastrointestinal: Gastrointestinal: Denies abdominal pain Integumentary/Breasts: Skin/Breast: Reports rash, Reports skin pain and Reports skin swelling Psychiatric: Psychiatric: Denies anxiety PMFSH Past Medical History Medical History NSTEMI (non-ST elevated myocardial infarction) Hypertension Pain in joint, multiple sites HIV (human immunodeficiency virus infection) Surgical History Hx of cardiac cath History of surgery on lower extremity Family History Family History Father No problems noted. Mother No problems noted. Social History Social History Alcohol intake: current Alcohol intake frequency: does not drink Patient Tobacco Use Status: Never used Tobacco Cigarettes Per Day: 10 Advance Directives: No Advance Directives Information Provided: No service: No Current occupational status: unemployed Physical Exam ED Vital Signs: Vital Signs - 24 hr 07/02/24 14:00 Temperature 99.2 F Pulse Rate 84 Respiratory Rate 18 Blood Pressure 123/70 Pulse Oximetry 94 Oxygen Delivery Method Room Air BMI result Body Mass Index 25.8 Const General: healthy appearing, comfortable, no acute distress, alert and awake Nutritional Appearance: well nourished Orientation/consciousness: patient oriented x3 HENMT Head: Yes normocephalic and Yes atraumatic Eyes Eyelids: Yes eyelids normal Conjunctivae: conjunctivae normal Sclerae: sclerae normal Corneas: corneas normal Pupils: Equal, round and reactive pupils present EOM: EOMs intact bilaterally Neck Neck: Yes full ROM Resp Effort & Inspection: normal respiratory effort, able to speak in complete sentences and not labored Skin Other: There is a 1 x 1 cm of induration with erythema, no open wounds. No fluctuance to the left axilla. General skin exam: elasticity normal Neuro General: patient oriented x3 Cranial nerves: Yes Equal, round and reactive pupils present and Yes Bilaterally intact EOM present Cognition (Neuro): normal cognition Extrem Other: Moving all extremities well without any obvious deformities Medical Decision Making Medical Decision Making MDM Narrative: 63-year-old male presents for evaluation of a left axillary abscess. It appears to have a small, early abscess. There was no obvious fluid collection amenable to incision and drainage. I did offer to attempted incision and drainage with the patient and he was to be discharged home with the antibiotics alone. No evidence of systemic infection. Plan for discharge with cephalexin and doxycycline. Differential Diagnosis Differential Diagnoses: The differential diagnosis associated with the presentation includes Folliculitis Cellulitis Abscess Phlegmon Discharge Plan Discharge Clinical Impression: Abscess of axilla, left Patient Disposition: Home, Self-Care Instructions: Abscess (ED) Additional Instructions: You have a small abscess in the left armpit. Use both antibiotics as prescribed for 1 week. Apply warm compresses 4 times a day. Occasionally these will not get better with antibiotics alone and will need to be drained. Return if the area is getting larger, more red or painful, or if you develop fevers Prescriptions: New cephalexin 500 mg capsule 500 mg PO QID Qty: 28 0RF doxycycline hyclate 100 mg tablet 100 mg PO BID Qty: 14 0RF No Action aspirin 81 mg tablet,delayed release (DR/EC) 81 mg PO DAILY Qty: 90 3RF atorvastatin 80 mg tablet 80 mg PO BEDTIME Qty: 90 3RF lidocaine 5 % adhesive patch,medicated 1 patch topical DAILY Qty: 15 0RF Rx Instructions: leave on most painful area for up to 12 hrs cyclobenzaprine 5 mg tablet 5 mg PO TID PRN (Reason: muscle spasm) Qty: 10 0RF cephalexin 500 mg capsule 500 mg PO QID Qty: 28 0RF clonazepam [Klonopin] 1 mg tablet 1 mg PO BID amlodipine 10 mg Tablet 10 mg PO DAILY nitroglycerin [Nitrostat] 0.4 mg Tablet, Sublingual 0.4 mg sublingual Q5MX3 PRN (Reason: Chest Pain) Qty: 20 0RF clopidogrel 75 mg tablet 75 mg PO DAILY Qty: 90 4RF metoprolol succinate 25 mg tablet extended release 24 hr 25 mg PO DAILY Qty: 90 4RF losartan 25 mg tablet 25 mg PO DAILY Qty: 90 4RF zolpidem 10 mg tablet 10 mg PO BEDTIME PRN (Reason: Sleep) Biktarvy 50-200-25 mg tablet 1 tab PO BEDTIME Print Language: Greenlandic
== END 2024-07-02 14:55 | disposition home or self-care (01) ==
LOC: HO.ED 14:06
PROVIDERS: Emergency Provider Emergency Medicine; PCP Internal Medicine
DX: L02.412 Cutaneous abscess of left axilla (principal); Z79.899 Other long term (current) drug therapy
CPT/HCPCS: 99281; 99283

== ENCOUNTER 2024-08-05 10:57 | Emergency (ER) | payer OTHER, SELFPAY ==
[2024-08-05 11:25] VITALS: BP 102/66; PULSE 78; RESP 20; TEMP 36.6; O2SAT 95; BMI 25.2
--- NOTE | 2024-08-05 11:34 | ED.GENADULT ---
HPI - General Adult General Chief complaint: Ear Problems Stated complaint: L Ear Pain Time Seen by Provider: 08/05/24 11:33 Source: patient Mode of arrival: ambulatory Limitations: no limitations History of Present Illness HPI narrative: 63 yold female with pmh of HIV, HTN, NSTEMI presents to ED for left ear pain for the past 3-4 days. Patient states having ear pain and then put hydrogen peroxide in the ear pain and then started hitting popping sounds in the ear with worsening pain. Patient denies any ear discharge, fever, chills, headache, nausea, vomiting, dizziness, redness, swelling behind ear, or any new trauma. Related Data Home Medications ?Medication ?Instructions ?Recorded ?Confirmed bictegravir 50 mg-emtricitabine 1 tab PO BEDTIME 11/20/22 06/15/24 200 mg-tenofovir alafenam 25 mg tablet (Biktarvy) zolpidem 10 mg tablet 10 mg PO BEDTIME PRN Sleep 11/20/22 06/15/24 amlodipine 10 mg tablet 10 mg PO DAILY 06/01/23 06/15/24 clonazepam 1 mg tablet (Klonopin) 1 mg PO BID anxiety attack 06/01/23 06/15/24 Previous Rx's ?Medication ?Instructions ?Recorded nitroglycerin 0.4 mg sublingual 0.4 mg sublingual Q5MX3 PRN Chest 06/01/23 tablet (Nitrostat) Pain #20 tabs aspirin 81 mg tablet,delayed 81 mg PO DAILY #90 tabs 09/07/23 release atorvastatin 80 mg tablet 80 mg PO BEDTIME #90 tabs 09/07/23 clopidogrel 75 mg tablet 75 mg PO DAILY #90 tabs 09/23/23 losartan 25 mg tablet 25 mg PO DAILY #90 tabs 09/23/23 metoprolol succinate 25 mg 25 mg PO DAILY #90 tabs 09/23/23 tablet,extended release 24 hr cyclobenzaprine 5 mg tablet 5 mg PO TID PRN muscle spasm #10 12/21/23 tabs lidocaine 5 % topical patch 1 patch topical DAILY #15 ea 12/21/23 cephalexin 500 mg capsule 500 mg PO QID #28 caps 06/09/24 cephalexin 500 mg capsule 500 mg PO QID #28 caps 07/02/24 doxycycline hyclate 100 mg tablet 100 mg PO BID #14 tabs 07/02/24 acetaminophen 325 mg tablet 650 mg (2 x 325 mg) PO Q6H PRN 08/05/24 (Tylenol) fever or pain 7 days #56 tabs amoxicillin 875 mg-potassium 1 tab PO Q12H 10 days #20 tabs 08/05/24 clavulanate 125 mg tablet Allergies Allergy/AdvReac Type Severity Reaction Status Date / Time No Known Allergies Allergy Mild NONE Verified 08/05/24 11:27 Review of Systems Review of Systems: left ear pain Yes all other systems are reviewed and are negative [facility] Past Medical History Medical History NSTEMI (non-ST elevated myocardial infarction) Hypertension Pain in joint, multiple sites HIV (human immunodeficiency virus infection) Surgical History Hx of cardiac cath History of surgery on lower extremity Family History Family History Father No problems noted. Mother No problems noted. Social History Social History Alcohol intake: current Alcohol intake frequency: does not drink Patient Tobacco Use Status: Never used Tobacco Cigarettes Per Day: 10 Advance Directives: No Advance Directives Information Provided: Yes Do you have a plan to hurt others: No Plan service: No Current occupational status: unemployed Physical Exam ED Vital Signs: Vital Signs - 24 hr 08/05/24 11:25 08/05/24 11:50 Temperature 97.9 F 97.9 F Pulse Rate 78 78 Respiratory Rate 20 20 Blood Pressure 102/66 102/66 Pulse Oximetry 95 95 Oxygen Delivery Method Room Air Room Air BMI result Body Mass Index 25.2 Const General: cooperative, healthy appearing, comfortable, no acute distress, well developed, alert, awake and Physically active Orientation/consciousness: patient oriented x3 HENMT Head: Yes normal to inspection, Yes No palpable skull fracture present, Yes normocephalic and Yes atraumatic Ears: hearing grossly normal bilaterally, external ears normal, TM normal on the right, EAC's normal, mastoids normal, no periauricular adenopathy and TM abnormal bulging, erythematous and perforated (possible) General nose exam: Normal external nose present, Normal nares present and No nasal polyps present Throat: Yes posterior oropharynx normal, Yes tonsils normal and Yes uvula midline Eyes General: appearance normal, both eyes and all related structures Neck Neck: Yes normal visual inspection, Yes full ROM, Yes no lymphadenopathy, Yes no meningeal signs, Yes trachea midline, Yes supple, No anterior neck swelling and No tender Chest Chest palpation & inspection: normal inspection of the chest and normal palpation of entire chest wall Resp Effort & Inspection: normal respiratory effort and able to speak in complete sentences Auscultation: clear to auscultation bilaterally Cardio Jugular venous distension: no JVD Heart sounds: S1 normal heart sound present and S2 normal heart sound present GI Inspection: Yes normal to inspection Palpation (GI): Soft to palpation, not firm, nontender, no guarding and not rigid General: Yes no CVA tenderness Back/Spine/Pelvis Back: no CVA tenderness and No back tenderness Skin General skin exam: no rashes or lesions noted, elasticity normal and turgor normal Neuro General: patient oriented x3, gait normal, tone normal, moves all extremities, Normal light touch and pain sensation, no meningeal signs, no focal motor deficits, CN's II-XI intact bilaterally and normal sensation to monofilament Extrem General: Yes normal to inspection, Yes full ROM and Yes capillary refill normal Psych Appearance: grossly normal, well kempt and not disheveled Course Course Course Narrative: RME: 63-year-old male history of STEMI, hypertension, HIV presents to ED for left ear pain. Patient states he was having some left ear pain and then put some hydrogen peroxide in his left ear and has started hearing popping sound for the past 3 days. Patient denies any ear discharge or recent trauma. Patient denies any headache nausea vomiting fever or chills. Physical exam positive for left tympanic membrane erythema and possible tympanic membrane rupture. Patient will be discharged with oral antibiotics and pain medication. Patient informed to keep ears cover while getting in the shower with let and water gated. Patient will be referred to ENT Medical Decision Making Medical Decision Making MDM Narrative: 63-year-old male history of STEMI hypertension HIV presents to ED for left ear pain the past 3-4 days. Patient states started having left ear pain 1st then put hydrogen peroxide in left ear and since then has been hearing popping sounds and worsening pain. Patient denies any discharge headache, nausea, vomiting, fever or chills. Patient denies any trauma. Left ear negative for signs of mastoiditis. Positive for signs of erythema of tympanic membrane with some bulging possible tympanic membrane rupture. Patient is here with antibiotics and pain medication. Patient explained worrisome signs informed her into the ED immediately. Not suspect a meningitis, mastoiditis, osteomyelitis, brain bleed, or any other life-threatening etiology. Differential Diagnosis Differential Diagnoses: The differential diagnosis associated with the presentation includes (Tympanic membrane rupture, otitis media, otitis externa) Admission/Observation Consideration of admission/observation: Escalation of care including admission/observation considered Independent Historian Clinical information obtained from an independent historian. History obtained from or confirmed by: Other (Patient is) Prescription Management I considered prescription management with: Pain Medication and Antibiotic Discharge Plan Discharge Clinical Impression: Otitis media Patient Disposition: Home, Self-Care Instructions: Ruptured Eardrum (ED), Ear Infection (ED) Additional Instructions: Physical exam shows you have ear infection and possible tympanic membrane rupture. Recommend antibiotics and pain medication. Recommend keeping ear canal cover with cotton to prevent water from going in. Recommend follow up with primary care provider and our ENT provider. Return to the ED immediately for any worsening ear pain, discharge, swelling redness, headache, dizziness, nausea vomiting, or any other concerning symptoms. Prescriptions: New amoxicillin-pot clavulanate 875-125 mg tablet 1 tab PO Q12H 10 Days Qty: 20 0RF acetaminophen [Tylenol] 325 mg tablet 650 mg PO Q6H PRN (Reason: fever or pain) 7 Days Qty: 56 0RF No Action aspirin 81 mg tablet,delayed release (DR/EC) 81 mg PO DAILY Qty: 90 3RF atorvastatin 80 mg tablet 80 mg PO BEDTIME Qty: 90 3RF lidocaine 5 % adhesive patch,medicated 1 patch topical DAILY Qty: 15 0RF Rx Instructions: leave on most painful area for up to 12 hrs cyclobenzaprine 5 mg tablet 5 mg PO TID PRN (Reason: muscle spasm) Qty: 10 0RF cephalexin 500 mg capsule 500 mg PO QID Qty: 28 0RF cephalexin 500 mg capsule 500 mg PO QID Qty: 28 0RF doxycycline hyclate 100 mg tablet 100 mg PO BID Qty: 14 0RF clonazepam [Klonopin] 1 mg tablet 1 mg PO BID amlodipine 10 mg Tablet 10 mg PO DAILY nitroglycerin [Nitrostat] 0.4 mg Tablet, Sublingual 0.4 mg sublingual Q5MX3 PRN (Reason: Chest Pain) Qty: 20 0RF clopidogrel 75 mg tablet 75 mg PO DAILY Qty: 90 4RF metoprolol succinate 25 mg tablet extended release 24 hr 25 mg PO DAILY Qty: 90 4RF losartan 25 mg tablet 25 mg PO DAILY Qty: 90 4RF zolpidem 10 mg tablet 10 mg PO BEDTIME PRN (Reason: Sleep) Biktarvy 50-200-25 mg tablet 1 tab PO BEDTIME Referrals: Elizabeth No MD [Primary Care Provider] - (Left otitis media possible tympanic membrane rupture) Goran Canela [Physician] - (Left otitis media possible tympanic membrane rupture) Interventions: ED Discharge Assessment Last Done: 08/05/24 11:50 Discharge Date/Time: 08/05/24 11:50 Print Language: Serbian
[2024-08-05 11:50] VITALS: BP 102/66; PULSE 78; RESP 20; TEMP 36.6; O2SAT 95
== END 2024-08-05 11:50 | disposition home or self-care (01) ==
PROVIDERS: Emergency Provider Emergency Medicine; PCP Internal Medicine
DX: H66.92 Otitis media, unspecified, left ear (principal); I10 Essential (primary) hypertension; B20 Human immunodeficiency virus [HIV] disease; Z79.899 Other long term (current) drug therapy
CPT/HCPCS: 99282; 99283

== ENCOUNTER 2024-08-22 13:02 | Outpatient (REF) | payer OTHER, SELFPAY ==
[2024-08-22 17:00] LABS: Cholesterol 136 mg/dL (<200); HDL Cholesterol 45 mg/dL (>40); LDL Cholesterol Calculated 55 mg/dL (<100); Triglycerides 184 mg/dL (<150)
== END 2024-08-22 13:03 | disposition home or self-care (01) ==
LOC: HO.HHCL 13:02
PROVIDERS: Visit Provider Internal Medicine
DX: I10 Essential (primary) hypertension (principal)
CPT/HCPCS: 36415; 80061

== ENCOUNTER 2024-08-23 12:58 | Emergency (ER) | payer OTHER, SELFPAY ==
[2024-08-23 13:00] VITALS: BP 112/73; PULSE 89; RESP 16; TEMP 36.6; O2SAT 96; BMI 26.4
--- NOTE | 2024-08-23 13:01 | ED_ITS ---
HPI - General Adult General Chief complaint: Urogenital-Male Stated complaint: diarrhea Time Seen by Provider: 08/23/24 13:49 Source: patient, RN notes reviewed and old records reviewed Mode of arrival: ambulatory Limitations: no limitations History of Present Illness ED Provider: Bipin HPI narrative: 63-year-old male presents for evaluation of urethral discharge. Patient reports he has had symptoms for the last 2 days pain He reports unprotected sexual interactions with a new partner over the last week. He reports primarily oral sex He denies any testicular pain, penile pain or burning with urination. He reports he continues to find stains on his underwear from his discharge Related Data Home Medications ?Medication ?Instructions ?Recorded ?Confirmed bictegravir 50 mg-emtricitabine 1 tab PO BEDTIME 11/20/22 06/15/24 200 mg-tenofovir alafenam 25 mg tablet (Biktarvy) zolpidem 10 mg tablet 10 mg PO BEDTIME PRN Sleep 11/20/22 06/15/24 amlodipine 10 mg tablet 10 mg PO DAILY 06/01/23 06/15/24 clonazepam 1 mg tablet (Klonopin) 1 mg PO BID anxiety attack 06/01/23 06/15/24 Previous Rx's ?Medication ?Instructions ?Recorded nitroglycerin 0.4 mg sublingual 0.4 mg sublingual Q5MX3 PRN Chest 06/01/23 tablet (Nitrostat) Pain #20 tabs aspirin 81 mg tablet,delayed 81 mg PO DAILY #90 tabs 09/07/23 release atorvastatin 80 mg tablet 80 mg PO BEDTIME #90 tabs 09/07/23 clopidogrel 75 mg tablet 75 mg PO DAILY #90 tabs 09/23/23 losartan 25 mg tablet 25 mg PO DAILY #90 tabs 09/23/23 metoprolol succinate 25 mg 25 mg PO DAILY #90 tabs 09/23/23 tablet,extended release 24 hr cyclobenzaprine 5 mg tablet 5 mg PO TID PRN muscle spasm #10 12/21/23 tabs lidocaine 5 % topical patch 1 patch topical DAILY #15 ea 12/21/23 cephalexin 500 mg capsule 500 mg PO QID #28 caps 06/09/24 cephalexin 500 mg capsule 500 mg PO QID #28 caps 07/02/24 doxycycline hyclate 100 mg tablet 100 mg PO BID #14 tabs 07/02/24 acetaminophen 325 mg tablet 650 mg (2 x 325 mg) PO Q6H PRN 08/05/24 (Tylenol) fever or pain 7 days #56 tabs amoxicillin 875 mg-potassium 1 tab PO Q12H 10 days #20 tabs 08/05/24 clavulanate 125 mg tablet doxycycline hyclate 100 mg tablet 100 mg PO BID #20 tabs 08/23/24 Allergies Allergy/AdvReac Type Severity Reaction Status Date / Time No Known Allergies Allergy Mild NONE Verified 08/23/24 13:01 Review of Systems 2 Genitourinary: Genitourinary: Reports penile discharge [facility] Past Medical History Medical History NSTEMI (non-ST elevated myocardial infarction) Hypertension Pain in joint, multiple sites HIV (human immunodeficiency virus infection) Surgical History Hx of cardiac cath History of surgery on lower extremity Family History Family History Father No problems noted. Mother No problems noted. Social History Social History Alcohol intake: current Alcohol intake frequency: does not drink Patient Tobacco Use Status: Never used Tobacco Cigarettes Per Day: 10 Advance Directives: No Advance Directives Information Provided: Yes Do you have a plan to hurt others: No Plan service: No Current occupational status: unemployed Physical Exam ED Vital Signs: Vital Signs - 24 hr 08/23/24 13:00 Temperature 97.8 F Pulse Rate 89 Respiratory Rate 16 Blood Pressure 112/73 Pulse Oximetry 96 Oxygen Delivery Method Room Air BMI result Body Mass Index 26.4 Const General: healthy appearing, comfortable, no acute distress, alert and awake Nutritional Appearance: well nourished Orientation/consciousness: patient oriented x3 HENMT Head: Yes normocephalic and Yes atraumatic Eyes Eyelids: Yes eyelids normal Conjunctivae: conjunctivae normal Sclerae: sclerae normal Corneas: corneas normal Pupils: Equal, round and reactive pupils present EOM: EOMs intact bilaterally Neck Neck: Yes full ROM Resp Effort & Inspection: normal respiratory effort, able to speak in complete sentences and not labored GI Inspection: No distended Palpation (GI): Soft to palpation, not firm, nontender, no guarding and not rigid Other: Uncircumcised male phallus, no testicular swelling or penile swelling. There is faint erythema at the urethral meatus, the small amount of whitish discharge can be expressed from the meatus Skin General skin exam: elasticity normal Neuro General: patient oriented x3 Cranial nerves: Yes Equal, round and reactive pupils present and Yes Bilaterally intact EOM present Cognition (Neuro): normal cognition Extrem Other: Moving all extremities well without any obvious deformities Course Course Course Narrative: RME, this is a rapid medical exam performed by Carlos Voss please refer to primary provider for complete H&P- 63 year old male presents for evaluation of penile discharge. He noted pus on his underwear over the last 2 days. Denies any pain or swelling. He endorses a new sexual partner Medical Decision Making Medical Decision Making MDM Narrative: 63-year-old male presents for evaluation of urethral discharge. His labs are unremarkable, urinalysis showed a small amount of white blood cells, moderate leukocyte esterase but no clear bacteria. Gonorrhea and chlamydia testing was ordered. We will treat him for urethritis with ceftriaxone and doxycycline. Differential Diagnosis Differential Diagnoses: The differential diagnosis associated with the presentation includes UTI Cystitis Orchitis Gonorrhea Chlamydia Urethritis Lab Data [facility] Lab Attestation statement: I reviewed the patient's lab results. Mild leukocytosis, a significant anemia. Normal platelet count. No electrolyte abnormalities 08/23/24 13:21 08/23/24 13:21 Labs: Lab Results 08/23/24 08/23/24 Range/Units 13:21 13:34 WBC 11.9 H (4.8-10.8) X10*3/uL RBC 4.24 L (4.60-5.80) X10*6/uL Hgb 14.3 (14.0-18.0) g/dl Hct 40.8 L (42.0-52.0) % MCV 96.2 (80.0-98.0) fL MCH 33.7 H (27.0-33.0) pg MCHC 35.0 (31.0-36.0) g/dl RDW 12.4 (11.0-16.0) % Plt Count 309 (160-400) X10*3/uL MPV 8.9 L (9.4-12.4) fL Immature Gran % (Auto) 0.5 H (0.0-0.4) % Neut % (Auto) 70.0 (45-73) % Lymph % (Auto) 20.8 (20-40) % [place] % (Auto) 7.0 (2-11) % Eos % (Auto) 1.5 (0-4) % Baso % (Auto) 0.2 (0-2) % Lymph # (Auto) 2.5 (1.2-4.9) X10*3/uL [place] # (Auto) 0.8 (0.1-1.2) X10*3/uL Eos # (Auto) 0.2 (0.0-0.4) X10*3/uL Baso # (Auto) 0.0 (0.0-0.2) X10*3/uL Abs Immat Gran (auto) 0.06 H (0.00-0.03) X10*3/uL Absolute Neuts (auto) 8.3 (2.0-8.3) x10*3/uL Absolute Nucleated RBC 0.000 (0.0-0.012) X10*3/uL Nucleated RBC % (auto) 0.0 (0.0-0.2) /100WBC Sodium 140 (135-145) mmol/L Potassium 4.6 (3.3-5.1) mmol/L Chloride 107 (96-108) mmol/L Carbon Dioxide 26 (22-29) mmol/L Anion Gap 12 (12-20) BUN 21 H (9-16) mg/dL Creatinine 1.24 (0.5-1.4) mg/dL Estim Creat Clear Calc 67.1 Estimated GFR 59 Random Glucose 96 (60-115) mg/dL Calcium 9.2 (8.4-10.2) mg/dL Urine Color Yellow Urine Appearance Clear Urine pH 6.5 (5.0-9.0) Ur Specific [place] 1.025 (1.005-1.025) Urine Protein Trace (Neg-Trace) mg/dL Urine Glucose (UA) Negative (Negative) mg/dL Urine Ketones Trace (Negative) mg/dL Urine Blood Negative (Negative) Urine Nitrite Negative (Negative) Ur Leukocyte Esterase Moderate (2+) H (Negative) Urine RBC 0-2 (0-2) /HPF Urine WBC 11-20 H (0-5) /HPF Ur Squamous Epith Cells 0-2 (0-2) /HPF Urine Bacteria None Seen (None Seen) Hyaline Casts 0-2 (0-2) /LPF Discharge Plan Discharge Clinical Impression: Urethritis Patient Disposition: Home, Self-Care Instructions: Urethritis (ED) Additional Instructions: You were treated for urethritis. Take the doxycycline twice daily for 10 days. Avoid sexual interaction for the next 2 weeks Follow-up with your primary doctor, return for new or worsening symptoms Prescriptions: New doxycycline hyclate 100 mg tablet 100 mg PO BID Qty: 20 0RF No Action aspirin 81 mg tablet,delayed release (DR/EC) 81 mg PO DAILY Qty: 90 3RF atorvastatin 80 mg tablet 80 mg PO BEDTIME Qty: 90 3RF lidocaine 5 % adhesive patch,medicated 1 patch topical DAILY Qty: 15 0RF Rx Instructions: leave on most painful area for up to 12 hrs cyclobenzaprine 5 mg tablet 5 mg PO TID PRN (Reason: muscle spasm) Qty: 10 0RF cephalexin 500 mg capsule 500 mg PO QID Qty: 28 0RF cephalexin 500 mg capsule 500 mg PO QID Qty: 28 0RF doxycycline hyclate 100 mg tablet 100 mg PO BID Qty: 14 0RF clonazepam [Klonopin] 1 mg tablet 1 mg PO BID amlodipine 10 mg Tablet 10 mg PO DAILY nitroglycerin [Nitrostat] 0.4 mg Tablet, Sublingual 0.4 mg sublingual Q5MX3 PRN (Reason: Chest Pain) Qty: 20 0RF amoxicillin-pot clavulanate 875-125 mg tablet 1 tab PO Q12H 10 Days Qty: 20 0RF acetaminophen [Tylenol] 325 mg tablet 650 mg PO Q6H PRN (Reason: fever or pain) 7 Days Qty: 56 0RF clopidogrel 75 mg tablet 75 mg PO DAILY Qty: 90 4RF metoprolol succinate 25 mg tablet extended release 24 hr 25 mg PO DAILY Qty: 90 4RF losartan 25 mg tablet 25 mg PO DAILY Qty: 90 4RF zolpidem 10 mg tablet 10 mg PO BEDTIME PRN (Reason: Sleep) Biktarvy 50-200-25 mg tablet 1 tab PO BEDTIME Print Language: Mongolian
[2024-08-23 13:29] LABS: MANUAL DIFF FLAG NO
[2024-08-23 13:33] LABS: Basophils Percent Auto 0.2 % (0-2); Eosinophils Absolute Auto 0.2 X10*3/uL (0.0-0.4); Eosinophils Percent Auto 1.5 % (0-4); Hematocrit 40.8 % (42.0-52.0); Hemoglobin 14.3 g/dl (14.0-18.0); Imm Gran Abs Auto 0.06 X10*3/uL (0.00-0.03); Imm Gran Pct Auto 0.5 % (0.0-0.4); Lymphocytes Absolute Auto 2.5 X10*3/uL (1.2-4.9); Lymphocytes Percent Auto 20.8 % (20-40); Mean Corpuscular Hemoglobin 33.7 pg (27.0-33.0); Mean Corpuscular Volume 96.2 fL (80.0-98.0); Mean Platelet Volume 8.9 fL (9.4-12.4); Monocytes Absolute Auto 0.8 X10*3/uL (0.1-1.2); Neutrophils Absolute Auto 8.3 x10*3/uL (2.0-8.3); Platelet Count 309 X10*3/uL (160-400); Red Blood Count 4.24 X10*6/uL (4.60-5.80); Red Cell Distribution Width 12.4 % (11.0-16.0); White Blood Count 11.9 X10*3/uL (4.8-10.8)
[2024-08-23 13:41] LABS: Appearance Urine Clear; Color Urine Yellow; Glucose Urine UA Negative (Negative); Leukocyte Esterase Urine Moderate (2+) (Negative); Nitrite Urine Negative (Negative); PH 6.5 (5.0-9.0); Specific Gravity - Urine 1.025 (1.005-1.025); UMIC TRIGGER UACC YES; Urine Blood Negative (Negative); Urine Ketones Trace mg/dL (Negative); Urine Protein Trace mg/dL (Neg-Trace)
[2024-08-23 13:44] LABS: Anion Gap 12 (12-20); Blood Urea Nitrogen 21 mg/dL (9-16); Calcium 9.2 mg/dL (8.4-10.2); Carbon Dioxide 26 mmol/L (22-29); Chloride 107 mmol/L (96-108); Creatinine Clr Calc Pharmacy 67.1; Estimated Glomerular Filt Rate 59; Glucose Random 96 mg/dL (60-115); Potassium 4.6 mmol/L (3.3-5.1); Sodium 140 mmol/L (135-145)
[2024-08-23 13:44] LABS: Bacteria Urine None Seen (None Seen); Hyaline Casts Urine 0-2 /LPF (0-2); RBC Urine 0-2 /HPF (0-2); Squamous Epithelial Cell Urine 0-2 /HPF (0-2); UACC Culture Trigger YES
[2024-08-23 14:36] VITALS: BP 109/73; PULSE 68; RESP 14; TEMP 36.5; O2SAT 96
[2024-08-23 14:39] VITALS: BP 109/73; PULSE 68; RESP 14; TEMP 36.5; O2SAT 96
[2024-08-23] MEDS: Doxycycline Monohydrate 100 MG CAPSULE PO (14:41)
[2024-08-23] MEDS: Lidocaine HCl 1 % MPF 2 ML VIAL INFILTRATI (14:41)
[2024-08-23] MEDS: cefTRIAXone sodium 500 MG VIAL IM (14:42)
[2024-08-23 15:09] LABS: CT PCR NOT DETECTED (Not Detect.); NG PCR DETECTED (Not Detect.)
== END 2024-08-23 14:44 | disposition home or self-care (01) ==
PROVIDERS: Physician Assistant; Emergency Provider Emergency Medicine Emergency Medical Services; PCP Internal Medicine
DX: N34.2 Other urethritis (principal); A54.01 Gonococcal cystitis and urethritis, unspecified; B20 Human immunodeficiency virus [HIV] disease
CPT/HCPCS: 36415; 80048; 81001; 85025; 87086; 87491; 87591; 96372; 99284; J0696; J2003

== ENCOUNTER 2024-09-19 13:42 | Outpatient (REF) | payer OTHER, SELFPAY ==
[2024-09-19 16:48] LABS: MANUAL DIFF FLAG NO
[2024-09-19 16:59] LABS: Hematocrit 42.3 % (42.0-52.0); Hemoglobin 14.8 g/dl (14.0-18.0); Imm Gran Abs Auto 0.05 X10*3/uL (0.00-0.03); Imm Gran Pct Auto 0.5 % (0.0-0.4); Lymphocytes Absolute Auto 2.6 X10*3/uL (1.2-4.9); Mean Corpuscular HGB Conc 35.0 g/dl (31.0-36.0); Mean Corpuscular Hemoglobin 33.3 pg (27.0-33.0); Mean Corpuscular Volume 95.1 fL (80.0-98.0); NRBC Abs Auto 0.000 X10*3/uL (0.0-0.012); NRBC Pct Auto 0.0 /100WBC (0.0-0.2); Platelet Count 372 X10*3/uL (160-400); Red Blood Count 4.45 X10*6/uL (4.60-5.80); White Blood Count 11.0 X10*3/uL (4.8-10.8)
[2024-09-19 17:17] LABS: Alanine Aminotransferase 28 U/L (0-40); Albumin Level 4.6 g/dL (3.5-5.0); Alkaline Phosphatase 102 U/L (39-117); Anion Gap 14 (12-20); Aspartate Amino Transferase 27 U/L (5-37); Blood Urea Nitrogen 25 mg/dL (9-16); Calcium 9.6 mg/dL (8.4-10.2); Carbon Dioxide 24 mmol/L (22-29); Chloride 108 mmol/L (96-108); Estimated Glomerular Filt Rate 54; Potassium 4.1 mmol/L (3.3-5.1); Sodium 142 mmol/L (135-145); Total Protein 7.8 g/dL (6.5-8.0)
[2024-09-20 08:14] LABS: HBS Num1 69.08 mIU/mL (0-7.99); HBc Num1 4.77 S/CO (0.00-0.79); HBsAGNum1 0.40 S/CO (0.00-0.99); Hepatitis B Surface Antigen Negative (Negative); ~Hepatitis B Surface Antibody REACTIVE (Nonreactive)
[2024-09-20 10:02] LABS: CT PCR Urine NOT DETECTED (Not Detect.); NG PCR Urine NOT DETECTED (Not Detect.)
[2024-09-20 10:11] LABS: HBc Num2 4.50 S/CO; HBc Num3 4.99 S/CO
[2024-09-20 15:49] LABS: HIV RNA PCR Qn Copies 339 copies/mL (NOT DETECTED); HIV RNA PCR Qn Log Copies 2.53 (NOT DETECTED)
== END 2024-09-19 13:43 | disposition home or self-care (01) ==
LOC: HO.HHCL 13:42
PROVIDERS: PCP Internal Medicine; Visit Provider Student in an Organized Health Care Education/Training Program
DX: Z11.59 Encounter for screening for other viral diseases (principal); Z21 Asymptomatic human immunodeficiency virus [HIV] infection status
CPT/HCPCS: 36415; 80053; 85025; 86592; 86704; 86706; 87340; 87491; 87536; 87591

== ENCOUNTER 2024-09-22 08:36 | Outpatient (REF) | payer OTHER, SELFPAY ==
[2024-09-22 11:36] LABS: Cholesterol 123 mg/dL (<200); HDL Cholesterol 43 mg/dL (>40); Triglycerides 101 mg/dL (<150)
[2024-09-30 23:43] LABS: Date Viral Load Collected NG; Dolutegravir Resistance NOT PREDICTED; HIV-1 Bictegravir Resistance NOT PREDICTED; HIV-1 Cabotegravir Resistance NOT PREDICTED; HIV-1 Elvitegravir Resistance NOT PREDICTED; Raltegravir Resistance NOT PREDICTED; Value of Last HIV Viral Load NG copies/mL
== END 2024-09-22 08:37 | disposition home or self-care (01) ==
LOC: HO.HHCL 08:36
PROVIDERS: Nurse Practitioner; PCP Student in an Organized Health Care Education/Training Program; Visit Provider Student in an Organized Health Care Education/Training Program
DX: Z21 Asymptomatic human immunodeficiency virus [HIV] infection status (principal); I21.4 Non-ST elevation (NSTEMI) myocardial infarction
CPT/HCPCS: 36415; 80061; 87900; 87901; 87906

== ENCOUNTER 2024-10-10 | Outpatient (REF) | payer OTHER, SELFPAY | END 2024-10-10 00:01 | disposition home or self-care (01) | LOC: HO.LNP | PROVIDERS: Visit Provider Student in an Organized Health Care Education/Training Program | DX: Z21 Asymptomatic human immunodeficiency virus [HIV] infection status (principal) | CPT/HCPCS: 88112 ==

== ENCOUNTER 2024-12-01 11:06 | Outpatient (REF) | payer OTHER, SELFPAY ==
[2024-12-01 13:18] LABS: MANUAL DIFF FLAG NO
[2024-12-01 13:24] LABS: Hematocrit 46.1 % (42.0-52.0); Hemoglobin 15.5 g/dl (14.0-18.0); Imm Gran Abs Auto 0.04 X10*3/uL (0.00-0.03); Imm Gran Pct Auto 0.4 % (0.0-0.4); Lymphocytes Absolute Auto 2.9 X10*3/uL (1.2-4.9); Mean Corpuscular HGB Conc 33.6 g/dl (31.0-36.0); Mean Corpuscular Hemoglobin 32.7 pg (27.0-33.0); Mean Corpuscular Volume 97.3 fL (80.0-98.0); NRBC Abs Auto 0.000 X10*3/uL (0.0-0.012); NRBC Pct Auto 0.0 /100WBC (0.0-0.2); Platelet Count 359 X10*3/uL (160-400); Red Blood Count 4.74 X10*6/uL (4.60-5.80); White Blood Count 11.1 X10*3/uL (4.8-10.8)
[2024-12-01 14:02] LABS: Alanine Aminotransferase 15 U/L (0-40); Albumin Level 4.4 g/dL (3.5-5.0); Alkaline Phosphatase 108 U/L (39-117); Anion Gap 13 (12-20); Aspartate Amino Transferase 20 U/L (5-37); Blood Urea Nitrogen 19 mg/dL (9-16); Calcium 9.4 mg/dL (8.4-10.2); Carbon Dioxide 28 mmol/L (22-29); Chloride 106 mmol/L (96-108); Estimated Glomerular Filt Rate > 60; Potassium 4.8 mmol/L (3.3-5.1); Sodium 142 mmol/L (135-145); Total Protein 7.6 g/dL (6.5-8.0)
[2024-12-02 14:39] LABS: HIV RNA PCR Qn Copies 561 copies/mL (NOT DETECTED); HIV RNA PCR Qn Log Copies 2.75 (NOT DETECTED)
== END 2024-12-01 11:07 | disposition home or self-care (01) ==
LOC: HO.HHCL 11:06
PROVIDERS: PCP Student in an Organized Health Care Education/Training Program; Visit Provider Student in an Organized Health Care Education/Training Program
DX: Z21 Asymptomatic human immunodeficiency virus [HIV] infection status (principal)
CPT/HCPCS: 36415; 80053; 82550; 85025; 87536

== ENCOUNTER 2024-12-21 22:43 | Emergency (ER) | payer OTHER, SELFPAY ==
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
[2024-12-21 23:20] VITALS: BP 125/79; PULSE 96; RESP 18; TEMP 36.9; O2SAT 93
[2024-12-21 23:24] VITALS: BP 150/80; PULSE 108; O2SAT 97
[2024-12-21 23:25] VITALS: BMI 24.8
== END 2024-12-22 02:14 | disposition home or self-care (01) ==
PROVIDERS: Emergency Provider Student in an Organized Health Care Education/Training Program; PCP Internal Medicine
DX: S16.1XXA Strain of muscle, fascia and tendon at neck level, initial encounter (principal); M54.2 Cervicalgia; V49.40XA Driver injured in collision with unspecified motor vehicles in traffic accident, initial encounter; Y93.9 Activity, unspecified; Y92.9 Unspecified place or not applicable
CPT/HCPCS: 70450; 72125; 99282; 99284

== ENCOUNTER → 2024-12-22 | Outpatient (BNV) | payer OTHER, SELFPAY | PROVIDERS: Emergency Provider Student in an Organized Health Care Education/Training Program; PCP Internal Medicine; Visit Provider Radiology Neuroradiology | DX: M48.02 Spinal stenosis, cervical region (principal); I63.81 Other cerebral infarction due to occlusion or stenosis of small artery | CPT/HCPCS: 70450; 72125 ==

== ENCOUNTER 2025-01-20 12:19 | Outpatient (AMB) | payer OTHER, SELFPAY ==
[2025-01-20 13:59] VITALS: BP 120/82; PULSE 82; BMI 24.1
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
== END 2025-01-20 14:34 | disposition home or self-care (01) ==
LOC: HO.HCS 12:19
PROVIDERS: PCP Student in an Organized Health Care Education/Training Program; Visit Provider Nurse Practitioner Family
DX: I25.10 Atherosclerotic heart disease of native coronary artery without angina pectoris (principal); I21.4 Non-ST elevation (NSTEMI) myocardial infarction; Z98.890 Other specified postprocedural states; I10 Essential (primary) hypertension
CPT/HCPCS: 99214; G2211

== ENCOUNTER → 2025-01-20 12:19 | Outpatient (BNVA) | payer OTHER, SELFPAY | PROVIDERS: PCP Student in an Organized Health Care Education/Training Program; Visit Provider Nurse Practitioner Family | DX: I10 Essential (primary) hypertension (principal); I25.10 Atherosclerotic heart disease of native coronary artery without angina pectoris; I21.4 Non-ST elevation (NSTEMI) myocardial infarction | CPT/HCPCS: 99212 ==

== ENCOUNTER 2025-02-03 09:18 | Emergency (ER) | payer OTHER, SELFPAY ==
--- NOTE | 2025-02-03 | ECG_ITS ---
Test Reason : sob Blood Pressure : */* mmHG Vent. Rate : 100 BPM Atrial Rate : 100 BPM P-R Int : 154 ms QRS Dur : 76 ms QT Int : 336 ms P-R-T Axes : 59 6 48 degrees QTcB Int : 433 ms Normal sinus rhythm Cannot rule out Anterior infarct (cited on or before 06-Jun-2024) Abnormal ECG When compared with ECG of 06-Jun-2024 19:19, No significant change was found Referred By: Generic ED Physician Electronically Signed By: ROBEL PAZ
--- NOTE | ~2025-02-03 | XR_ITS ---
EXAMINATION: XR CHEST 2 VIEWS HISTORY: cough, SOB COMPARISON: Comparison is made with the prior examination dated 05/31/2023. FINDINGS: PA and lateral views of the chest are submitted. The lungs are expanded and clear. There is no pleural effusion, pneumothorax, or pulmonary vascular congestion. The heart is normal in size. There is degenerative disc disease of the spine. XR/XR chest 2V IMPRESSION: No acute cardiopulmonary abnormality. Electronically signed by: Iain Andrews MD 02/03/2025 10:28 AM [facility]
[2025-02-03 09:27] VITALS: BP 119/64; PULSE 113; RESP 18; TEMP 37.2; O2SAT 95; BMI 20.2
[2025-02-03 10:04] LABS: MANUAL DIFF FLAG NO
[2025-02-03 10:06] LABS: Hematocrit 43.9 % (42.0-52.0); Hemoglobin 14.7 g/dl (14.0-18.0); Imm Gran Abs Auto 0.03 X10*3/uL (0.00-0.03); Imm Gran Pct Auto 0.3 % (0.0-0.4); Lymphocytes Absolute Auto 1.9 X10*3/uL (1.2-4.9); Mean Corpuscular HGB Conc 33.5 g/dl (31.0-36.0); Mean Corpuscular Hemoglobin 31.5 pg (27.0-33.0); Mean Corpuscular Volume 94.2 fL (80.0-98.0); NRBC Abs Auto 0.000 X10*3/uL (0.0-0.012); NRBC Pct Auto 0.0 /100WBC (0.0-0.2); Platelet Count 359 X10*3/uL (160-400); Red Blood Count 4.66 X10*6/uL (4.60-5.80); White Blood Count 9.1 X10*3/uL (4.8-10.8)
--- NOTE | 2025-02-03 10:06 | ED_ITS ---
HPI - General Adult General Chief complaint: Upper Respiratory Symptoms Stated complaint: Cough and phlegm Time Seen by Provider: 02/03/25 10:05 Source: patient and dna sequencing associate (all interactions with this patient were facilitated with an [facility] vitreo retinal surgeon Angelica) Mode of arrival: ambulatory Limitations: language barrier (all interactions with this patient were facilitated with an [facility] vitreo retinal surgeon Angelica) History of Present Illness ED Provider: Maddie Goel PA-C HPI narrative: Patient is a 64 year old assigned male at with a history of CAD, NSTEMI, MN, HIV, and tobacco use presenting to the emergency department today with a cough. Patient states that over the last month he has had a cough where he is coughing up white phlegm. Patient denies any chest pain, shortness of breath, or difficulty breathing. Patient denies any other complaints at this time. Onset (ago): month(s) (1) Relieving factors: none Exacerbating factors: none Associated symptoms: cough Treatments prior to arrival: none Related Data Home Medications ?Medication ?Instructions ?Recorded ?Confirmed zolpidem 10 mg tablet 10 mg PO BEDTIME PRN Sleep 0 11/20/22 01/20/25 amlodipine 10 mg tablet 10 mg PO DAILY 06/01/2301/07 clonazepam 1 mg tablet (Klonopin) 1 mg PO BID anxiety attack 06/01/23 01/20/25 Previous Rx's ?Medication ?Instructions ?Recorded nitroglycerin 0.4 mg sublingual 0.4 mg sublingual Q5MX 3 PRN Chest 06/01/23 tablet (Nitrostat) Pain #20 tabs atorvastatin 80 mg tablet 80 mg PO BEDTIME #90 tabs cyclobenzaprine 5 mg tablet 5 mg PO TID PRN muscle spa sm #10 12/21/23 tabs lidocaine 5 % topical patch 1 patch topical DAILY #15 ea 12/21/23 acetaminophen 325 mg tablet 650 mg (2 x 325 mg) PO Q6H PRN 08/05/24 (Tylenol) fever or pain 7 days #56 tab s aspirin 81 mg tablet,delayed 81 mg PO DAILY #90 tabs 0 09/07/24 release clopidogrel 75 mg tablet 75 mg PO DAILY #90 tabs 100 09/30 losartan 25 mg tablet 25 mg PO DAILY #90 tabs 10/0 09/30 metoprolol succinate 25 mg 25 mg PO DAILY #90 tabs 09/30 tablet,extended release 24 hr amoxicillin 875 mg-potassium 1 tab PO BID 10 days #20 tabs 02/03/25 clavulanate 125 mg tablet azithromycin 250 mg tablet See Rx Instructions PO .COM PLEX #6 02/03/25 tabs Allergies Allergy/AdvReac Type Severity Reaction Status Date / Time No Known Allergies Allergy Mild NONE Verified 02/03/25 09:31 Review of Systems 2 Constitutional: Constitutional: Reports as per HPI Eyes: Eyes: Reports as per HPI ENT: Reports as per HPI Cardiovascular: Cardiovascular: Reports as per HPI Respiratory: Respiratory: Reports as per HPI Gastrointestinal: Gastrointestinal: Reports as per HPI Genitourinary: Genitourinary: Reports as per HPI Musculoskeletal: Musculoskeletal: Reports as per HPI Integumentary/Breasts: Skin/Breast: Reports as per HPI Neurologic: Reports as per HPI Psychiatric: Psychiatric: Reports as per HPI Endocrine: Endocrine: Reports as per HPI Hematologic/Lymphatic: Hematologic/Lymphatic: Reports as per HPI Allergic/Immunologic: Allergic/Immunologic: Reports as per HPI PMF Past Medical History Attestation statement: The following information was validated with the patient. Source: old records reviewed and nursing notes reviewed Medical History NSTEMI (non-ST elevated myocardial infarction) Hypertension Pain in joint, multiple sites HIV (human immunodeficiency virus infection) Surgical History Hx of cardiac cath History of surgery on lower extremity Family History Family History Father No problems noted. Mother No problems noted. Social History Social History Alcohol intake: current Alcohol intake frequency: does not drink Patient Tobacco Use Status: Never used Tobacco Cigarettes Per Day: 10 Smoked in Last 30 Days: No Use of substances other than those prescribed or required for medical reasons: No Advance Directives: No Advance Directives Information Provided: Yes service: No Current occupational status: unemployed Physical Exam ED Vital Signs: Vital Signs - 24 hr 02/03/25 09:27 02/03/25 10:43 Temperature 98.9 F 98.9 F Pulse Rate 113 H 113 H Respiratory Rate 18 18 Blood Pressure 119/64 119/64 Pulse Oximetry 95 95 Oxygen Delivery Method Room Air Room Air BMI result Body Mass Index 20.2 Const General: cooperative, no acute distress, alert and awake Nutritional Appearance: well nourished Orientation/consciousness: patient oriented x3 HENMT Head: Yes normal to inspection and Yes atraumatic Ears: hearing grossly normal bilaterally and external ears normal General nose exam: Normal external nose present, no nasal discharge noted and no epistaxis Face and sinus: Yes normal facial exam, No abrasion and No laceration Mouth: Normal oral and palatal mucosa present, no drooling and no muffled voice Eyes General: appearance normal, both eyes and all related structures Periorbital: periorbital findings normal Eyelids: Yes eyelids normal Conjunctivae: conjunctivae normal Pupils: Equal, round and reactive pupils present EOM: EOMs intact bilaterally Neck Neck: Yes normal visual inspection and Yes full ROM Resp Effort & Inspection: normal respiratory effort and able to speak in complete sentences Neuro General: patient oriented x3, moves all extremities and CN's II-XI intact bilaterally Cranial nerves: Yes Equal, round and reactive pupils present Cognition (Neuro): normal cognition Extrem General: Yes normal to inspection, Yes full ROM and Yes capillary refill normal Psych Appearance: grossly normal Mental Status: mental status grossly normal Affect: normal affect Attitude: cooperative Thought process: Normal thought process present Thought content: Normal thought content present Insight: Good insight present (Psych) Medical Decision Making Medical Decision Making MDM Narrative: Patient is a 64 year old assigned male at with a history of CAD, NSTEMI, MN, HIV, and tobacco use presenting to the emergency department today with a cough. Patient's physical exam was as noted in the physical exam portion of this note. Patient's blood work was unremarkable. Patient's EKG was unremarkable. Patient's chest x-ray showed no acute process. Given patient's length of symptoms and comorbidities - will treat as atypical pneumonia. I explained my physical exam findings as well as all test results to the patient. I answered all questions asked by the patient. I stressed the importance of the patient taking his medication as directed (either prescribed or as the over the counter packaging recommends). I stressed the importance of the patient following up with his primary care provider. I stressed the importance of the patient returning to the emergency department immediately if his symptoms were to worsen or if he were to develop any dizziness, shortness of breath, difficulty breathing, chest pain, blurry vision, loss of vision, nausea, vomiting, abdominal pain, fever, chills, back pain, or any other complaints. Patient verbalized agreement and understanding with this treatment plan and discharge. Differential Diagnosis Differential Diagnoses: The differential diagnosis associated with the presentation includes Cough Atypical pneumonia COVID-19 Influenza RSV Admission/Observation Consideration of admission/observation: Escalation of care including admission/observation considered Patient would have been admitted to the hospital had his work up had any findings where hospital admission was appropriate and his clinical presentation warranted hospital admission. Lab Data [facility] Lab Attestation statement: I reviewed the patient's lab results. My interpretation of these results are in the [facility] Rationale portion of this note. 02/03/25 09:52 02/03/25 09:52 Labs: Lab Results 02/03/25 Range/Units 09:52 WBC 9.1 (4.8-10.8) X10*3/uL RBC 4.66 (4.60-5.80) X10*6/uL Hgb 14.7 (14.0-18.0) g/dl Hct 43.9 (42.0-52.0) % MCV 94.2 (80.0-98.0) fL MCH 31.5 (27.0-33.0) pg MCHC 33.5 (31.0-36.0) g/dl RDW 12.8 (11.0-16.0) % Plt Count 359 (160-400) X10*3/uL MPV 8.4 L (9.4-12.4) fL Immature Gran % (Auto) 0.3 (0.0-0.4) % Neut % (Auto) 68.7 (45-73) % Lymph % (Auto) 21.2 (20-40) % [place] % (Auto) 6.8 (2-11) % Eos % (Auto) 2.8 (0-4) % Baso % (Auto) 0.2 (0-2) % Lymph # (Auto) 1.9 (1.2-4.9) X10*3/uL [place] # (Auto) 0.6 (0.1-1.2) X10*3/uL Eos # (Auto) 0.3 (0.0-0.4) X10*3/uL Baso # (Auto) 0.0 (0.0-0.2) X10*3/uL Abs Immat Gran (auto) 0.03 (0.00-0.03) X10*3/uL Absolute Neuts (auto) 6.2 (2.0-8.3) x10*3/uL Absolute Nucleated RBC 0.000 (0.0-0.012) X10*3/uL Nucleated RBC % (auto) 0.0 (0.0-0.2) /100WBC Sodium 142 (135-145) mmol/L Potassium 4.1 (3.3-5.1) mmol/L Chloride 109 H (96-108) mmol/L Carbon Dioxide 24 (22-29) mmol/L Anion Gap 13 (12-20) BUN 30 H (9-16) mg/dL Creatinine 1.20 (0.5-1.4) mg/dL Estim Creat Clear Calc 54.7 Estimated GFR > 60 Random Glucose 114 (60-115) mg/dL Calcium 9.4 (8.4-10.2) mg/dL Influenza Type A (PCR) NEGATIVE (Negative) Influenza Type B (PCR) NEGATIVE (Negative) RSV RNA Qual (PCR) NEGATIVE (Negative) SARS-CoV-2 RNA (RT-PCR) NEGATIVE (Negative) S. pyogenes GrpA DEVIKA Negative (Negative) Independent Interpretation I performed an independent interpretation of an: EKG and Plain X-Ray Interpretation: My interpretation is in agreement with the radiologist's impression of this imaging study as written below. EXAMINATION: XR CHEST 2 VIEWS HISTORY: cough, SOB COMPARISON: Comparison is made with the prior examination dated 05/31/2023. FINDINGS: PA and lateral views of the chest are submitted. The lungs are expanded and clear. There is no pleural effusion, pneumothorax, or pulmonary vascular congestion. The heart is normal in size. There is degenerative disc disease of the spine. XR/XR chest 2V IMPRESSION: No acute cardiopulmonary abnormality. Electronically signed by: Iain Andrews MD 02/03/2025 10:28 AM [facility] Dictated By: Iain Andrews MD Signed By: Electronically signed by Iain Andrews MD 02/03/25 1028 I independently interpreted this EKG and am in agreement with the below findings: Vent. Rate: 100 BPM Atrial Rate: 100 BPM P-R Int: 154 ms QRS Dur: 76 ms QT Int: 336 ms P-R-T Axes: 59 6 48 degrees QTcB Int: 433 ms Normal sinus rhythm When compared with ECG of 06-Jun-2024 19:19, No significant change was found DD/ [id number] Radiology Impression Discussion of test interpretation with radiology: I have reviewed the radiologist's reading. Prescription Management I considered prescription management with: Antibiotic (patient prescribed antibiotics for atypical pneumonia coverage) Discharge Plan Discharge Clinical Impression: Atypical pneumonia Cough Qualifiers: Cough type: subacute Qualified Code(s): R05.2 - Subacute cough Patient Disposition: Home, Self-Care Instructions: Community Acquired Pneumonia (DC) Additional Instructions: Given your length of symptoms - I am concerned you have an atypical pneumonia. Please take your antibiotics as prescribed. Dhaval la duraci?n de jonnathan s?ntomas, me preocupa que pueda tener jose neumon?a at?pica. [place] los antibi?ticos seg?n lo prescrito. Please consider smoking cessation (stopping). This will help your lung health overall. Por favor, considere dejar de fumar. [place]andon ayudar? a mejorar la elvi general de jonnathan pulmones. IF you are prescribed home medications and/or you are taking over the counter medications at home - it is very important you continue to do so as prescribed / directed unless told otherwise. SI le recetan medicamentos y/o est? tomando medicamentos de venta cony, es muy importante que contin?e haci?ndolo seg?n lo recetado/indicado a menos que le indiquen lo contrario. Follow up with your primary care provider. Return to the emergency department immediately if your symptoms worsen or if you develop any dizziness, shortness of breath, difficulty breathing, chest pain, blurry vision, loss of vision, nausea, vomiting, abdominal pain, fever, chills, back pain, or any other complaints. Scott?seguimiento?con lo m?dico de atenci?n primaria. Acuda inmediatamente al servicio de urgencias si jonnathan s?ntomas empeoran o si presenta falta de aliento, dificultad para respirar, dolor tor?cico, mareos, aturdimiento, dolor de espalda, dolor abdominal, fiebre, escalofr?os o cualquier otro s?ntoma. Please see the information below about our Patient Portal. If you are not yet enrolled in the [facility] Patient Portal, you will receive an enrollment email invitation following your visit to any [facility] setting. You may also self-enroll in the Patient Portal by visiting our website: [email or web address] The following information is required to access the Patient Portal: - Your [facility] Medical Record Number - Your personal home email address (must match what is in your electronic medical record, Registration staff can assist with this) - Name - Date of Capabilities of the Patient Portal: - Message some providers - View upcoming appointments - Access your health summary, medical history, and visit history - View current conditions and allergies - View procedure and lab results - View your medications, including guidelines, side effects, and precautions - Complete pre-appointment questionnaires requested by your provider - Ready summary reports of your office visits and procedures To access the Patient Portal Mobile Eliu, follow these directions: - Search [employer] in the Eliu Store or Google Tabula Store - Download the Eliu - Search for [facility] - Enter your login/password Portal del paciente Si usted no esta inscrito en el portal de pacientes de [facility], recibira jose invitacion de inscripcion despues de lo visita al [facility] o al [facility] via correo electronico. Tambien puede inscribirse voluntariamente en el portal de pacientes visitando nuestra pagina web: [email or web address]/portal La siguiente informacion sera requerida para acceder al portal: - Lo marjorie de historia medica de [facility] - Lo direccion de correo electronico personal - Nombre - Fecha de nacimiento Capacidades: Las siguientes capacidades estan disponibles en el portal de pacientes: - Enviar mensajes a algunos doctores - Verificar proximas citas - Acceso a lo historial de elvi, registro medico e historial de visitas - Brigid las condiciones actuales y alergias brigid procedimientos y resultados del laboratorio - Brigid jonnathan medicamentos, incluyendo las pautas - Efectos secundarios y precauciones - Completar o llenar formularios / cuestionarios de - Citas solicitadas por lo doctor - Leer los resumenes de reportes medicos de jonnathan visitas y procedimientos Sandwich acceder a la aplicacion movil: - [employer] en la Eliu Store o [email or web address] Store - Descargue la aplicacion - [facility] - Ingrese ol nombre de usuario / Contrasena Prescriptions: New azithromycin 250 mg tablet See Rx Instructions .ROUTE .COMPLEX Qty: 6 0RF Rx Instructions: For 250 mg dose pack: take 500 mg today (day 1), then 250 mg for 4 days (days 2-5) amoxicillin-pot clavulanate 875-125 mg tablet 1 tab PO BID 10 Days Qty: 20 0RF No Action atorvastatin 80 mg tablet 80 mg PO BEDTIME Qty: 90 3RF aspirin 81 mg tablet,delayed release (DR/EC) 81 mg PO DAILY Qty: 90 3RF clopidogrel 75 mg tablet 75 mg PO DAILY Qty: 90 0RF losartan 25 mg tablet 25 mg PO DAILY Qty: 90 0RF metoprolol succinate 25 mg tablet extended release 24 hr 25 mg PO DAILY Qty: 90 0RF lidocaine 5 % adhesive patch,medicated 1 patch topical DAILY Qty: 15 0RF Rx Instructions: leave on most painful area for up to 12 hrs cyclobenzaprine 5 mg tablet 5 mg PO TID PRN (Reason: muscle spasm) Qty: 10 0RF clonazepam [Klonopin] 1 mg tablet 1 mg PO BID amlodipine 10 mg Tablet 10 mg PO DAILY nitroglycerin [Nitrostat] 0.4 mg Tablet, Sublingual 0.4 mg sublingual Q5MX3 PRN (Reason: Chest Pain) Qty: 20 0RF acetaminophen [Tylenol] 325 mg tablet 650 mg PO Q6H PRN (Reason: fever or pain) 7 Days Qty: 56 0RF zolpidem 10 mg tablet 10 mg PO BEDTIME PRN (Reason: Sleep) Referrals: Elizabeth No MD [Primary Care Provider, Internal Medicine] Interventions: ED Discharge Assessment Last Done: 02/03/25 10:43 Discharge Date/Time: 02/03/25 10:44 Print Language: Indian
[2025-02-03 10:12] LABS: IDNOW Serial# 55D5AD1C; Strep A Nucleic Acid Negative (Negative)
[2025-02-03 10:22] LABS: Anion Gap 13 (12-20); Blood Urea Nitrogen 30 mg/dL (9-16); Calcium 9.4 mg/dL (8.4-10.2); Carbon Dioxide 24 mmol/L (22-29); Chloride 109 mmol/L (96-108); Creatinine Clr Calc Pharmacy 54.7; Estimated Glomerular Filt Rate > 60; Potassium 4.1 mmol/L (3.3-5.1); Sodium 142 mmol/L (135-145)
[2025-02-03 10:41] LABS: Resp Syncy Virus RNA Qual PCR NEGATIVE (Negative); SARS COV2 PCR INHOUSE NEGATIVE (Negative)
[2025-02-03 10:43] VITALS: BP 119/64; PULSE 113; RESP 18; TEMP 37.2; O2SAT 95
== END 2025-02-03 10:44 | disposition home or self-care (01) ==
PROVIDERS: Emergency Provider Emergency Medicine; PCP Internal Medicine
DX: J18.9 Pneumonia, unspecified organism (principal); R05.2 Subacute cough; I25.10 Atherosclerotic heart disease of native coronary artery without angina pectoris; R06.02 Shortness of breath; R94.31 Abnormal electrocardiogram [ECG] [EKG]; Z79.899 Other long term (current) drug therapy; Z03.818 Encounter for observation for suspected exposure to other biological agents ruled out
CPT/HCPCS: 71046; 80048; 85025; 87637; 87651; 93005; 99283; 99284

== ENCOUNTER → 2025-02-03 09:53 | Outpatient (BNV) | payer OTHER, SELFPAY | PROVIDERS: Emergency Provider Emergency Medicine; PCP Internal Medicine; Visit Provider Internal Medicine | DX: R94.31 Abnormal electrocardiogram [ECG] [EKG] (principal); R06.02 Shortness of breath | CPT/HCPCS: 93010 ==

== ENCOUNTER → 2025-02-03 10:03 | Outpatient (BNV) | payer OTHER, SELFPAY | PROVIDERS: Emergency Provider Emergency Medicine; PCP Internal Medicine; Visit Provider Radiology Diagnostic Radiology | DX: R05.9 Cough, unspecified (principal); R06.02 Shortness of breath | CPT/HCPCS: 71046 ==

== ENCOUNTER 2025-02-10 09:41 | Outpatient (REF) | payer OTHER, SELFPAY ==
[2025-02-10 09:57] LABS: MANUAL DIFF FLAG NO
[2025-02-10 10:28] LABS: Hematocrit 39.5 % (42.0-52.0); Hemoglobin 13.2 g/dl (14.0-18.0); Imm Gran Abs Auto 0.04 X10*3/uL (0.00-0.03); Imm Gran Pct Auto 0.4 % (0.0-0.4); Lymphocytes Absolute Auto 2.5 X10*3/uL (1.2-4.9); Mean Corpuscular HGB Conc 33.4 g/dl (31.0-36.0); Mean Corpuscular Hemoglobin 31.7 pg (27.0-33.0); Mean Corpuscular Volume 95.0 fL (80.0-98.0); NRBC Abs Auto 0.000 X10*3/uL (0.0-0.012); NRBC Pct Auto 0.0 /100WBC (0.0-0.2); Platelet Count 336 X10*3/uL (160-400); Red Blood Count 4.16 X10*6/uL (4.60-5.80); White Blood Count 9.4 X10*3/uL (4.8-10.8)
[2025-02-10 11:21] LABS: Alanine Aminotransferase 21 U/L (0-40); Albumin Level 4.2 g/dL (3.5-5.0); Alkaline Phosphatase 83 U/L (39-117); Anion Gap 9 (12-20); Aspartate Amino Transferase 19 U/L (5-37); Blood Urea Nitrogen 22 mg/dL (9-16); Calcium 9.3 mg/dL (8.4-10.2); Carbon Dioxide 26 mmol/L (22-29); Chloride 113 mmol/L (96-108); Estimated Glomerular Filt Rate > 60; Potassium 4.6 mmol/L (3.3-5.1); Sodium 143 mmol/L (135-145); Total Protein 7.1 g/dL (6.5-8.0)
[2025-02-14 20:19] LABS: HIV RNA PCR Qn Copies NOT DETECTED copies/mL (NOT DETECTED); HIV RNA PCR Qn Log Copies NOT DETECTED (NOT DETECTED)
[2025-02-14 22:32] LABS: Absolute CD3 Count 2196 cells/uL (840-3060); Absolute CD8 Count 1061 cells/uL (180-1170); Percent CD3 Cells 90 % (57-85); Percent CD8 Cells 43 % (12-42)
== END 2025-02-10 09:42 | disposition home or self-care (01) ==
LOC: HO.LAB 09:41
PROVIDERS: PCP Student in an Organized Health Care Education/Training Program; Visit Provider Student in an Organized Health Care Education/Training Program
DX: Z21 Asymptomatic human immunodeficiency virus [HIV] infection status (principal)
CPT/HCPCS: 36415; 80053; 85025; 86359; 86360; 87536